=== PATIENT | female | born 1965 | race Caucasian/White ===

== ENCOUNTER → 2016-09-08 | Outpatient (CLI) | payer OTHER ==
--- NOTE | 2016-09-09 09:06 | MM ---
Reason for exam: screening (asymptomatic). Last mammogram was performed 1 year and 1 month ago. History: Patient is postmenopausal. Family history of breast cancer in maternal aunt, breast cancer in maternal grandmother, and breast cancer in mother. Benign left US cyst aspiration of the left breast, April 15, 2009. Benign left US cyst aspiration of the left breast, August 07, 2007. Excisional biopsy of the left breast. Took estrogen for 14 years beginning at age 29. Physical Findings: A clinical breast exam by your physician is recommended on an annual basis and results should be correlated with mammographic findings. MG Screening Mammo w CAD Bilateral CC and MLO view(s) were taken. Prior study comparison: July 28, 2015, bilateral MG screening mammo w CAD. November 19, 2013, left breast MG work up mamm w CAD LT. March 14, 2012, bilateral digital screening mammo w/CAD. There are scattered fibroglandular densities. There is chronic nodularity bilaterally. There is no discrete abnormality. ASSESSMENT: Benign, BI-RAD 2 RECOMMENDATION: Routine screening mammogram of both breasts in 1 year.
== END | disposition home or self-care (01) ==
LOC: RADMAMWWP 07:53
PROVIDERS: ATTEND Family Medicine
DX: Z12.31 Encounter for screening mammogram for malignant neoplasm of breast (principal)

== ENCOUNTER 2016-12-02 09:31 | Day surgery (SDC) | payer OTHER ==
[2016-12-01 08:33] VITALS: BMI 34.3
[~2016-12-02 09:31] MED LIST: LACTATED RINGERS 1,000 ML IV SCH; LIDOCAINE 1% 20 ML VIAL (10MG/ML) FOR IV START INTRADERMA PRN
[2016-12-02 09:49] VITALS: TEMP 97
[2016-12-02] MEDS ORDERED: PROPOFOL 10 MG/ML 20 ML VIAL IV ONE (10:57)
[2016-12-02 11:29] VITALS: RESP 20
--- NOTE | 2016-12-02 11:31 | P.PCN ---
Date of Procedure: 12/02/16 Preoperative Diagnosis: Postoperative Diagnosis: Procedure(s) Performed: Procedure: Colonoscopy and biopsy. Preoperative diagnosis: Screening for neoplasia. Postoperative diagnosis: Flat polypoid area in the rectum, probably representing early tubulovillous adenoma, biopsy obtained, otherwise, exam to the cecum within normal limits. Preparation: HalfLytely prep. Sedation: Was provided by anesthesia. Brief clinical history: The patient is a 51-year-old female who is scheduled for this evaluation for screening for neoplasia age being her risk factor. She has no abdominal complaints, bleeding or anemia. No family history of colon cancer. This would be her first colonoscopy. Procedure: With the patient on her left lateral decubitus position and after informed consent and adequate sedation, the perianal area was inspected and it did not show any fissures or fistulas. There were no masses felt on digital rectal examination. The Olympus CFQ 160L video colonoscope was then inserted in the rectum in the usual fashion and advanced to the cecum. There was a flat polypoid area in the rectum, very close to the anorectal junction, measuring around 2 or 3 cm in largest dimension probably representing early tubulovillous adenoma. This was biopsied. No other polyps or tumors were seen. I retroflexed the endoscope in the rectum before the endoscope was withdrawn. The patient tolerated the procedure well. Plan: I summarized the findings to the patient. Based on the pathology results , I would consider future exam for the purpose of polypectomy and argon plasma coagulation of that area. I will keep you updated on her progress. Implants: Indications for Procedure: Operative Findings: Description of Procedure:
[2016-12-02 11:50] VITALS: BP 144/93; PULSE 75
== END 2016-12-02 12:07 | disposition home or self-care (01) ==
LOC: ORWHC2ENDO 09:31
DX: Z12.11 Encounter for screening for malignant neoplasm of colon (principal); D12.8 Benign neoplasm of rectum; I10 Essential (primary) hypertension; E78.5 Hyperlipidemia, unspecified; E07.9 Disorder of thyroid, unspecified; K21.9 Gastro-esophageal reflux disease without esophagitis; Z88.5 Allergy status to narcotic agent; Z88.1 Allergy status to other antibiotic agents; Z88.8 Allergy status to other drugs, medicaments and biological substances; Z79.899 Other long term (current) drug therapy
CPT/HCPCS: 45380; 88305; J2704

== ENCOUNTER 2017-01-31 11:29 | Emergency (ER) | payer OTHER ==
[2017-01-31] MEDS ORDERED: KETOROLAC 60 MG/2 ML VIAL IVP STA (11:38)
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
[2017-01-31 13:10] LABS: Appearance,Urine Cloudy (Clear); Bacteria,Urine Few /hpf; Bilirubin,Urine Negative (Negative); Glucose,Urine (UA) Negative (Negative); Ketones,Urine Negative (Negative); Leukocyte Esterase,Urine Negative (Negative); Mucus,Urine Rare /hpf; Nitrite,Urine Negative (Negative); PH, Urine 5.5 (5.0-8.0); Particle Count 1147; Protein,Urine Negative (Negative); RBC,Urine 1 /hpf (0-5); Specific Gravity,Urine 1.006 (1.001-1.035); Squamous Epithelial Cell,Urine 1 /hpf (0-4); UA Billing (MACRO vs. MICRO) MICRO; Urobilinogen,Urine <2.0 mg/dL (<2.0); WBC,Urine 3 /hpf (0-5)
[2017-01-31 13:35] VITALS: BP 179/73; PULSE 66; RESP 16; TEMP 97.9
== END 2017-01-31 13:46 | disposition home or self-care (01) ==
LOC: EC 11:29
DX: S50.11XA Contusion of right forearm, initial encounter (principal); S10.91XA Abrasion of unspecified part of neck, initial encounter; S40.811A Abrasion of right upper arm, initial encounter; S20.311A Abrasion of right front wall of thorax, initial encounter; I45.81 Long QT syndrome; E07.9 Disorder of thyroid, unspecified; I10 Essential (primary) hypertension; F17.200 Nicotine dependence, unspecified, uncomplicated; Z79.899 Other long term (current) drug therapy; Z88.5 Allergy status to narcotic agent; Z88.8 Allergy status to other drugs, medicaments and biological substances; V47.5XXA Car driver injured in collision with fixed or stationary object in traffic accident, initial encounter; Y92.410 Unspecified street and highway as the place of occurrence of the external cause
CPT/HCPCS: 96374 ×2; 99285 ×2; 93005; 81001; 71020; 72050; J1885

== ENCOUNTER 2017-05-10 12:43 | Day surgery (SDC) | payer OTHER ==
[2017-05-06 16:11] VITALS: BMI 30.4
[~2017-05-10 12:43] MED LIST changes: -LIDOCAINE 1% 20 ML VIAL (10MG/ML) FOR IV START INTRADERMA PRN
[2017-05-10 14:15] VITALS: RESP 16; TEMP 98.2
[2017-05-10] MEDS ORDERED: LIDOCAINE 1% 20 ML VIAL (10MG/ML) FOR IV START INTRADERMA ONE (14:16)
[2017-05-10] MEDS ORDERED: PROPOFOL 10 MG/ML 20 ML VIAL IV ONE (14:54)
[2017-05-10] MEDS ORDERED: LIDOCAINE 1% INJ 10MG/ML (20 ML MDV) ONE (14:54)
--- NOTE | 2017-05-10 15:50 | P.PCN ---
Date of Procedure: 05/10/17 Procedure(s) Performed: Procedure: Flexible sigmoidoscopy and polypectomy with argon plasma coagulation of flat polyp. Preoperative diagnosis: History of rectal polyp. Postoperative diagnosis: Flat reported area in the rectum as previously described removed piecemeal with the snare followed by argon plasma coagulation. Preparation: HalfLytely prep. Sedation: Was provided by anesthesia. Brief clinical history: The patient is a 52 year old female who in November of this year underwent a colonoscopy for screening for neoplasia and was found to have a flat polypoid area in the rectum the biopsies of which showed tubular adenoma with serrated features. The patient is returned to have this area removed with the snare and for application of argon plasma because because of its flat and spread out nature. Procedure: With the patient on her left lateral decubitus position and after informed consent and adequate sedation, the perianal area was inspected and it did not show any fissures or fistulas. There were no masses felt on digital rectal examination. The Olympus CFQ 160L video colonoscope was then inserted in the rectum in the usual fashion and advanced to the mid and proximal sigmoid. I lavaged those areas well in preparation for the polypectomy. There was a flat polypoid area noted in the rectum as previously described very close to the anorectal junction which appeared to be spread out for at least 3 cm with bumpy polyploid features. Its maximal dimension could have even been close to 4 or 5 cm. No other abnormalities were noted in the rectum and in the sigmoid. No attempts were made to examine more proximal aspects of the colon since she had a recent colonoscopy. At this point, I proceeded to remove the polyp piecemeal using the snare. Multiple small and larger pieces of tissue were removed in this fashion and suctioned. Once the whole area flattened out following piecemeal polypectomy, I proceeded to use the straight catheter to apply argon plasma coagulation using 60 W energy. Good hemostasis was accomplished then the endoscope was withdrawn. The patient tolerated the procedure well. Plan: The patient was reassured. Will await pathology results and anticipate repeating this exam in around 6 months. I will keep you updated on her progress.
[2017-05-10 16:01] VITALS: BP 102/68; PULSE 74
== END 2017-05-10 16:30 | disposition home or self-care (01) ==
LOC: ORWHC2ENDO 12:43
DX: Z12.11 Encounter for screening for malignant neoplasm of colon (principal); D12.8 Benign neoplasm of rectum; Z86.010 Personal history of colon polyps; K21.9 Gastro-esophageal reflux disease without esophagitis; I10 Essential (primary) hypertension; E07.9 Disorder of thyroid, unspecified; F31.9 Bipolar disorder, unspecified; Z79.899 Other long term (current) drug therapy; Z88.5 Allergy status to narcotic agent; Z88.8 Allergy status to other drugs, medicaments and biological substances
CPT/HCPCS: 88305; 45338; J2001; J2704; 45334

== ENCOUNTER → 2017-09-09 | Outpatient (CLI) | payer BC ==
--- NOTE | 2017-09-12 11:43 | MM ---
Reason for exam: screening (asymptomatic). Last mammogram was performed 1 year ago. History: Patient is postmenopausal. Family history of breast cancer in maternal aunt and breast cancer in mother at age 75. Benign left US cyst aspiration of the left breast, April 15, 2009. Benign left US cyst aspiration of the left breast, August 07, 2007. Excisional biopsy of the left breast. Took estrogen for 14 years beginning at age 29. Physical Findings: A clinical breast exam by your physician is recommended on an annual basis and results should be correlated with mammographic findings. MG 3D Screening Mammo W/Cad Bilateral CC and MLO view(s) were taken. Prior study comparison: September 08, 2016, bilateral MG screening mammo w CAD. July 28, 2015, bilateral MG screening mammo w CAD. There are scattered fibroglandular densities. Finding: There is stable architectural distortion in the left breast consistent with previous surgery. There is a 4mm nodule in the right central breast. ASSESSMENT: Incomplete: need additional imaging evaluation, BI-RAD 0 RECOMMENDATION: Special view mammogram and ultrasound of the right breast. [facility] will attempt to contact patient to return for supplemental views and ultrasound.
== END | disposition home or self-care (01) ==
LOC: RADMAMWWP 07:02
PROVIDERS: ATTEND Family Medicine
DX: Z12.31 Encounter for screening mammogram for malignant neoplasm of breast (principal)
CPT/HCPCS: 77063; 77067

== ENCOUNTER → 2017-09-27 | Outpatient (CLI) | payer BC ==
--- NOTE | 2017-09-27 10:00 | MM ---
Reason for exam: additional evaluation requested from abnormal screening. Last mammogram was performed 1 month ago. History: Patient is postmenopausal. Family history of breast cancer in maternal aunt and breast cancer in mother at age 75. Benign left US cyst aspiration of the left breast, April 15, 2009. Benign left US cyst aspiration of the left breast, August 07, 2007. Excisional biopsy of the left breast. Took estrogen for 14 years beginning at age 29. Physical Findings: Nurse did not find any significant physical abnormalities on exam. MG Work Up Mamm w CAD RT Spot compression CC and spot compression MLO view(s) were taken of the right breast. Prior study comparison: September 09, 2017, bilateral MG 3d screening mammo w/cad. September 08, 2016, bilateral MG screening mammo w CAD. There are scattered fibroglandular densities. 5-7mm circumscribed mass central 12 o'clock persists. Other subtle nodularity is present. These results were verbally communicated with the patient and result sheet given to the patient on 09/27/17. ASSESSMENT: Incomplete: need additional imaging evaluation, BI-RAD 0 RECOMMENDATION: Ultrasound of the right breast.
--- NOTE | 2017-09-27 10:03 | USB ---
Reason for exam: additional evaluation requested from abnormal screening. History: Patient is postmenopausal. Family history of breast cancer in maternal aunt and breast cancer in mother at age 75. Benign left US cyst aspiration of the left breast, April 15, 2009. Benign left US cyst aspiration of the left breast, August 07, 2007. Excisional biopsy of the left breast. Took estrogen for 14 years beginning at age 29. US Breast Workup RT Right breast ultrasound includes all four quadrants, the retroareolar region and axilla. Finding demonstrates a 0.8 x 0.9 x 0.2cm cystic lesion at 12 o'clock, may correspond to the mammographic finding, a 0.6 x 0.2 x 0.5cm cystic lesion at 7 o'clock, a 1.3 x 1.8 x 0.5cm hyperechoic, vascular lesion at 7 o'clock possible angiolipoma, 6 month follow up recommended , a 0.8 x 1.0 x 0.4cm mixed lesion at 7 o'clock, 6 month follow up recommended and a 0.4 x 0.5 x 0.4cm mixed lesion at 10 o'clock, probably cystic, 6 month follow up recommended. These results were verbally communicated with the patient and result sheet given to the patient on 09/27/17. ASSESSMENT: Probably benign, BI-RAD 3 RECOMMENDATION: Follow-up diagnostic mammogram and ultrasound of the right breast in 6 months.
== END | disposition home or self-care (01) ==
LOC: RADMAMWWP 08:15
PROVIDERS: ATTEND Family Medicine
DX: R92.8 Other abnormal and inconclusive findings on diagnostic imaging of breast (principal)
CPT/HCPCS: 77065

== ENCOUNTER → 2018-01-30 | Outpatient (CLI) | payer BC ==
--- NOTE | 2018-01-31 07:04 | MM ---
Reason for exam: follow-up at short interval from prior study. Last mammogram was performed 4 months ago. History: Patient is postmenopausal. Family history of breast cancer in maternal aunt and breast cancer in mother at age 75. Benign left US cyst aspiration of the left breast, April 15, 2009. Benign left US cyst aspiration of the left breast, August 07, 2007. Excisional biopsy of the left breast. Took estrogen for 14 years beginning at age 29. Physical Findings: Nurse did not find any significant physical abnormalities on exam. MG Diagnostic Mammo RT w CAD CC and MLO view(s) were taken of the right breast. Prior study comparison: September 27, 2017, right breast MG work up mamm w CAD RT. September 09, 2017, bilateral MG 3d screening mammo w/cad. The breast tissue is heterogeneously dense. This may lower the sensitivity of mammography. Finding: There is a lesion in the upper inner quadrant, middle depth of the right breast, stable from the prior exam. These results were verbally communicated with the patient and result sheet given to the patient on 01/30/18. ASSESSMENT: Probably benign, BI-RAD 3 RECOMMENDATION: Follow-up diagnostic mammogram of both breasts in 6 months.
--- NOTE | 2018-01-31 07:11 | USB ---
Reason for exam: follow-up at short interval from prior study. History: Patient is postmenopausal. Family history of breast cancer in maternal aunt and breast cancer in mother at age 75. Benign left US cyst aspiration of the left breast, April 15, 2009. Benign left US cyst aspiration of the left breast, August 07, 2007. Excisional biopsy of the left breast. Took estrogen for 14 years beginning at age 29. US Breast RT Right complete breast ultrasound includes all four quadrants, the retroareolar region and axilla. Finding demonstrates a 0.4 x 0.4 x 0.5 cm oval cystic lesion at 12 o'clock, benign. A 1.2 x 0.7 x 2.2 cm oval mixed lesion at 8 o'clock , continue 6 month follow up. And a 0.4 x 0.3 x 0.3 cm oval cystic lesion at 10 o'clock, benign. These results were verbally communicated with the patient and result sheet given to the patient on 01/30/18. ASSESSMENT: Probably benign, BI-RAD 3 RECOMMENDATION: Ultrasound of the right breast in 6 months. Patient will be due for her mammogram in August 2018.
== END | disposition home or self-care (01) ==
LOC: RADMAMWWP 13:32
PROVIDERS: ATTEND Family Medicine
DX: R92.8 Other abnormal and inconclusive findings on diagnostic imaging of breast (principal)
CPT/HCPCS: 77065

== ENCOUNTER → 2018-10-31 | Outpatient (CLI) | payer BC ==
--- NOTE | 2018-11-01 08:55 | MM ---
Reason for exam: screening (asymptomatic). Last mammogram was performed 9 months ago. History: Patient is postmenopausal. Family history of breast cancer in maternal aunt and breast cancer in mother at age 75. Benign left US cyst aspiration of the left breast, April 15, 2009. Benign left US cyst aspiration of the left breast, August 07, 2007. Excisional biopsy of the left breast. Took estrogen for 14 years beginning at age 29. Physical Findings: A clinical breast exam by your physician is recommended on an annual basis and results should be correlated with mammographic findings. MG Screening Mammo w CAD Bilateral CC and MLO view(s) were taken. Prior study comparison: January 30, 2018, right breast MG diagnostic mammo RT w CAD. September 27, 2017, right breast MG work up mamm w CAD RT. The breast tissue is heterogeneously dense. This may lower the sensitivity of mammography. There is a stable low density right central outer mass at middle depth. No suspicious abnormality. Post biopsy change on the left. No significant changes when compared with prior studies. ASSESSMENT: Benign, BI-RAD 2 RECOMMENDATION: Routine screening mammogram of both breasts in 1 year.
== END | disposition home or self-care (01) ==
LOC: RADMAMWWP 10:42
PROVIDERS: ATTEND Family Medicine
DX: Z12.31 Encounter for screening mammogram for malignant neoplasm of breast (principal)
CPT/HCPCS: 77067

== ENCOUNTER → 2020-10-01 | Outpatient (CLI) | payer BC ==
--- NOTE | 2020-10-06 09:08 | MM ---
Reason for exam: screening (asymptomatic). Last mammogram was performed 1 year and 11 months ago. History: Patient is postmenopausal. Family history of breast cancer in maternal aunt and breast cancer in mother at age 75. Benign left US cyst aspiration of the left breast, April 15, 2009. Benign left US cyst aspiration of the left breast, August 07, 2007. Excisional biopsy of the left breast. Took estrogen for 14 years beginning at age 29. Physical Findings: A clinical breast exam by your physician is recommended on an annual basis and results should be correlated with mammographic findings. MG 3D Screening Mammo W/Cad Bilateral CC and MLO view(s) were taken. Prior study comparison: October 31, 2018, bilateral MG screening mammo w CAD. January 30, 2018, right breast MG diagnostic mammo RT w CAD. There are scattered fibroglandular densities. Finding: There are intermediate concern, suspicious coarse heterogeneous, grouped/clustered calcifications in the upper outer quadrant, middle position of the right breast. New finding since October 31, 2018 and January 30, 2018. ASSESSMENT: Incomplete: need additional imaging evaluation, BI-RAD 0 RECOMMENDATION: Special view mammogram of the right breast. [facility] will attempt to contact patient to return for supplemental views.
== END | disposition home or self-care (01) ==
LOC: RADMAMWWP 13:31
PROVIDERS: ATTEND Family Medicine
DX: Z12.31 Encounter for screening mammogram for malignant neoplasm of breast (principal); Z80.3 Family history of malignant neoplasm of breast; Z78.0 Asymptomatic menopausal state
CPT/HCPCS: 77063; 77067

== ENCOUNTER → 2020-10-14 | Outpatient (CLI) | payer BC ==
--- NOTE | 2020-10-15 08:09 | MM ---
Reason for exam: additional evaluation requested from abnormal screening. Last mammogram was performed less than 1 month ago. History: Patient is postmenopausal. Family history of breast cancer in maternal aunt and breast cancer in mother at age 75. Benign left US cyst aspiration of the left breast, April 15, 2009. Benign left US cyst aspiration of the left breast, August 07, 2007. Excisional biopsy of the left breast. Took estrogen for 14 years beginning at age 29. Physical Findings: Nurse did not find any significant physical abnormalities on exam. MG Work Up Mamm w CAD RT CC with magnification, LM with magnification, and LM view(s) were taken of the right breast. Prior study comparison: October 01, 2020, bilateral MG 3d screening mammo w/cad. October 31, 2018, bilateral MG screening mammo w CAD. There are scattered fibroglandular densities. Finding: There are dystrophic, round, grouped/clustered calcifications in the lower outer quadrant, middle position of the right breast. Suspected oil cyst. There is a chronic nodularity in the right breast. These results were verbally communicated with the patient and result sheet given to the patient on 10/14/20. ASSESSMENT: Probably benign, BI-RAD 3 RECOMMENDATION: Follow-up diagnostic mammogram of the right breast in 6 months.
== END | disposition home or self-care (01) ==
LOC: RADMAMWWP 15:00
PROVIDERS: ATTEND Family Medicine
DX: N63.10 Unspecified lump in the right breast, unspecified quadrant (principal); R92.8 Other abnormal and inconclusive findings on diagnostic imaging of breast; R92.1 Mammographic calcification found on diagnostic imaging of breast
CPT/HCPCS: 77065

== ENCOUNTER → 2020-10-29 | Outpatient (CLI) | payer BC ==
--- NOTE | 2020-10-30 07:18 | US ---
EXAMINATION TYPE: US kidneys/renal and bladder DATE OF EXAM: 10/29/2020 COMPARISON: NONE CLINICAL HISTORY: N18.2 Chronic kidney disease stage 2. EXAM MEASUREMENTS: Right Kidney: 9.5 x 4.9 x 4.1 cm Left Kidney: 9.6 x 5.8 x 5.1 cm Post Void Residual Volume: 16.1 mL Right Kidney: No hydronephrosis or masses seen Left Kidney: No hydronephrosis seen; hyperechoic parallel vascular robertson noted mid cortex. Bladder: wnl Bilateral Jets seen: yes Normal Post Void Residual: yes There is no evidence for hydronephrosis at this point in time. No nephrolithiasis is seen. No susu s are identified. The urinary bladder is anechoic. Bilateral ureteral jets are seen. IMPRESSION: Renal vascular calcifications. Otherwise unremarkable study.
== END | disposition home or self-care (01) ==
LOC: RADUSWWP 15:47
PROVIDERS: ATTEND Family Medicine
DX: N18.2 Chronic kidney disease, stage 2 (mild) (principal); I70.1 Atherosclerosis of renal artery
CPT/HCPCS: 76770

== ENCOUNTER → 2021-04-03 | Outpatient (CLI) | payer BC ==
--- NOTE | 2021-04-03 13:41 | MM ---
Reason for exam: follow-up at short interval from prior study. Last mammogram was performed 6 months ago. History: Patient is postmenopausal. Family history of breast cancer in maternal aunt and breast cancer in mother at age 75. Benign left US cyst aspiration of the left breast, April 15, 2009. Benign left US cyst aspiration of the left breast, August 07, 2007. Excisional biopsy of the left breast. Took estrogen for 14 years beginning at age 29. Physical Findings: Nurse did not find any significant physical abnormalities on exam. MG 3D Diag Mammo W/Cad RT CC and MLO view(s) were taken of the right breast. Prior study comparison: October 01, 2020, bilateral MG 3d screening mammo w/cad. October 31, 2018, bilateral MG screening mammo w CAD. The breast tissue is heterogeneously dense. This may lower the sensitivity of mammography. Finding: There are dystrophic, round, grouped/clustered calcifications in the upper outer quadrant, anterior position of the right breast. There is a chronic nodularity in the right breast. There is no discrete abnormality. These results were verbally communicated with the patient and result sheet given to the patient on 04/03/21. ASSESSMENT: Benign, BI-RAD 2 RECOMMENDATION: Return to routine screening mammogram schedule for both breasts. Back on schedule.
== END | disposition home or self-care (01) ==
LOC: RADMAMWWP 12:22
PROVIDERS: ATTEND Family Medicine
DX: R92.1 Mammographic calcification found on diagnostic imaging of breast (principal); Z80.3 Family history of malignant neoplasm of breast
CPT/HCPCS: 77061; 77065

== ENCOUNTER → 2021-09-28 | Outpatient (CLI) | payer OTHER ==
--- NOTE | 2021-09-30 11:58 | MM ---
Reason for exam: screening (asymptomatic). Last mammogram was performed 6 months ago. History: Patient is postmenopausal. Family history of breast cancer in maternal aunt and breast cancer in mother at age 75. Benign left US cyst aspiration of the left breast, April 15, 2009. Benign left US cyst aspiration of the left breast, August 07, 2007. Excisional biopsy of the left breast. Took estrogen for 14 years beginning at age 29. Physical Findings: A clinical breast exam by your physician is recommended on an annual basis and results should be correlated with mammographic findings. MG 3D Screening Mammo W/Cad Bilateral CC and MLO view(s) were taken. Prior study comparison: April 03, 2021, right breast MG 3d diag mammo w/cad RT. October 14, 2020, right breast MG work up mamm w CAD RT. There are scattered fibroglandular densities. There is chronic nodularity bilaterally. Post excisional change medial left breast. Benign oil cyst calcifications on the right. No significant changes when compared with prior studies. ASSESSMENT: Benign, BI-RAD 2 RECOMMENDATION: Routine screening mammogram of both breasts in 1 year.
== END | disposition home or self-care (01) ==
LOC: RADMAMWWP 15:52
PROVIDERS: ATTEND Family Medicine
DX: Z12.31 Encounter for screening mammogram for malignant neoplasm of breast (principal); Z78.0 Asymptomatic menopausal state; Z80.3 Family history of malignant neoplasm of breast
CPT/HCPCS: 77063; 77067

== ENCOUNTER 2021-10-06 21:39 | Inpatient (IN) | payer OTHER ==
[2021-10-06] MEDS ORDERED: ACETAMINOPHEN TAB 325 MG TAB PO STA (23:04)
[2021-10-06] MEDS: SODIUM CHLORIDE 0.9% 500 ML 500 ML IV SCH ×2 (23:17→23:59)
[2021-10-07] MEDS: SODIUM CHLORIDE 0.9% 1,000 ML IV SCH ×4 (00:15→20:38)
[2021-10-07 00:22] LABS: Basophils % (A) 0 %; Eosinophils # (A) 0.1 k/uL (0-0.7); Eosinophils % (A) 2 %; HCT 41.3 % (34.0-46.0); HGB 13.9 gm/dL (11.4-16.0); Lymphocytes # (A) 0.9 k/uL (1.0-4.8); Lymphocytes % (A) 16 %; MCH 33.2 pg (25.0-35.0); MCHC 33.6 g/dL (31.0-37.0); MCV 98.8 fL (80.0-100.0); Mean Platelet Volume 9.1; Monocytes # (A) 0.2 k/uL (0-1.0); Monocytes % (A) 4 %; Neutrophils # (A) 4.4 k/uL (1.3-7.7); Neutrophils % (A) 76 %; Platelet Count 209 k/uL (150-450); RBC 4.19 m/uL (3.80-5.40); RDW 13.7 % (11.5-15.5); WBC 5.8 k/uL (3.8-10.6)
--- NOTE | 2021-10-07 00:27 | US ---
EXAMINATION TYPE: US thyroid st tissue head/neck DATE OF EXAM: 10/07/2021 COMPARISON: NONE CLINICAL HISTORY: mass, L anterior neck. Patient presents with fever and left neck lump. Multiple lymph nodes seen left lateral neck at area of lump/tenderness. Largest measuring 1.9 x 1.3 x 1.5 cm. Right lateral neck scanned for comparison; no lymphadenopathy seen. IMPRESSION: The left side of the neck is scanned and there are multiple lymph nodes demonstrated in the largest m easures 19 x 13 mm. No evidence of an abscess. IMPRESSION: Left-sided cervical lymphadenopathy. Thyroid gland not evaluated.
--- NOTE | 2021-10-07 00:29 | XR ---
EXAMINATION TYPE: XR chest 2V DATE OF EXAM: 10/07/2021 COMPARISON: 01/31/2017 HISTORY: Fever TECHNIQUE: 2 views FINDINGS: Heart is normal. Lungs are clear of infiltrate. There is no heart failure. There are no hil ar masses. Bony thorax is intact. IMPRESSION: No active cardiopulmonary disease. No change.
[2021-10-07 00:34] LABS: Albumin 3.8 g/dL (3.5-5.0); Calcium 8.6 mg/dL (8.4-10.2); Potassium 3.8 mmol/L (3.5-5.1); Total Bilirubin 0.8 mg/dL (0.2-1.3); Total Protein 6.6 g/dL (6.3-8.2)
[2021-10-07 00:35] LABS: INR 0.9 (<1.2); Partial Thromboplastin Time 26.6 sec (22.0-30.0); Prothrombin Time 10.2 sec (9.0-12.0)
[2021-10-07 01:31] LABS: Appearance,Urine Cloudy (Clear); Bacteria,Urine Many /hpf; Bilirubin,Urine Negative (Negative); Blood,Urine Trace (Negative); Color,Urine Yellow; Glucose,Urine (UA) Negative (Negative); Ketones,Urine Negative (Negative); Leukocyte Esterase,Urine Negative (Negative); Nitrite,Urine Negative (Negative); Protein,Urine Trace (Negative); RBC,Urine 2 /hpf (0-5); Specific Gravity,Urine 1.006 (1.001-1.035); Squamous Epithelial Cell,Urine 5 /hpf (0-4); Urobilinogen,Urine <2.0 mg/dL (<2.0); WBC,Urine 8 /hpf (0-5)
[2021-10-07] MEDS ORDERED: SODIUM CHLORIDE 0.9% 500 ML 500 ML IV ONE (02:43)
--- NOTE | 2021-10-07 07:16 | ED ---
Fever HPI - General Chief Complaint: Fever Stated Complaint: Fever, Neck Pain Time Seen by Provider: 10/06/21 22:22 Source: patient Mode of arrival: ambulatory Limitations: no limitations - History of Present Illness Initial Comments: This patient is a 56-year-old woman who presents to be evaluated for fever and cough. She has not had congestion. The cough is largely nonproductive. She is not dyspneic and there is no chest pain. These symptoms have started over the course of today. The patient prior to that had noted a swelling on the left side of her anterior neck. The swelling has been there approximate 3 days. There is no dysphagia or dysphonia. MD Complaint: fever -: hour(s) Temperature Source: oral Associated Symptoms: sore throat Treatments Prior to Arrival: none - Related Data Home Medications Medication Instructions Recorded Confirmed LORazepam [Ativan] 1 mg PO DAILY PRN 12/26/15 10/06/21 Levothyroxine Sodium [Synthroid] 100 mcg PO DAILY 12/01/16 10/06/21 QUEtiapine FUMARATE 400 mg PO HS 12/01/16 10/06/21 lisinopriL [Zestril] 10 mg PO DAILY 12/01/16 10/06/21 lamoTRIgine [LaMICtal] 200 mg PO HS 10/06/21 10/06/21 Previous Rx's Medication Instructions Recorded lamoTRIgine [LaMICtal] 150 mg PO DAILY #45 tab 01/06/16 Allergies Allergy/AdvReac Type Severity Reaction Status Date / Time chlorpromazine HCl Allergy Unknown Verified 10/06/21 23:09 [From Thorazine] codeine Allergy Unknown Verified 10/06/21 23:09 sulfamethoxazole Allergy Unknown Verified 10/06/21 23:09 [From Septra] trimethoprim [From Septra] Allergy Unknown Verified 10/06/21 23:09 Review of Systems ROS Statement: Those systems with pertinent positive or pertinent negative responses have been documented in the HPI. ROS Other: All systems not noted in ROS Statement are negative. Constitutional: Reports: fever, chills. Denies: weakness Eyes: Denies: eye pain, eye discharge ENT: Reports: throat pain. Denies: ear pain, dental pain, congestion Respiratory: Reports: as per HPI, cough. Denies: dyspnea, wheezes Cardiovascular: Denies: chest pain, palpitations, edema Gastrointestinal: Denies: abdominal pain, vomiting, diarrhea Genitourinary: Denies: dysuria, hematuria Musculoskeletal: Denies: back pain Skin: Denies: rash Neurological: Denies: headache, weakness, numbness Past Medical History Past Medical History: GERD/Reflux, Hypertension, Thyroid Disorder Additional Past Medical History / Comment(s): hx bronchitis, constipation, History of Any Multi-Drug Resistant Organisms: None Reported Past Surgical History: Section, Ear Surgery, Hysterectomy Additional Past Surgical History / Comment(s): Tubes bilateral ears. RT EAR SX X2 Past Anesthesia/Blood Transfusion Reactions: No Reported Reaction Past Psychological History: Anxiety, Bipolar, Depression Smoking Status: Current every day smoker Past Alcohol Use History: None Reported Past Drug Use History: None Reported - Past Family History Father Additional Family Medical History / Comment(s): Mother at age 70 from coronary artery disease. Mother Family Medical History: Cancer Additional Family Medical History / Comment(s): . Brother(s) Additional Family Medical History / Comment(s): Unable to obtain brother and sister history. Patient has 2 sons are healthy. General Exam Limitations: no limitations General appearance: alert, in no apparent distress Head exam: Present: atraumatic, normocephalic Eye exam: Present: normal appearance. Absent: scleral icterus, conjunctival injection ENT exam: Present: normal oropharynx. Absent: TM's normal bilaterally Neck exam: Present: normal inspection, full ROM, lymphadenopathy (There is a tender swollen left anterior cervical node). Absent: meningismus Respiratory exam: Present: normal lung sounds bilaterally. Absent: respiratory distress, wheezes, rales, rhonchi, stridor Cardiovascular Exam: Present: normal rhythm, tachycardia, normal heart sounds. Absent: systolic murmur, diastolic murmur, rubs, gallop GI/Abdominal exam: Present: soft. Absent: distended, tenderness, guarding, rebound, rigid, mass, pulsatile mass Extremities exam: Present: normal inspection, normal capillary refill. Absent: pedal edema, calf tenderness Back exam: Present: normal inspection. Absent: CVA tenderness (R), CVA tenderness (L) Neurological exam: Present: alert Skin exam: Present: warm, dry, intact, normal color. Absent: rash Course Vital Signs 10/06/21 10/06/21 10/07/21 21:42 22:45 00:01 Temperature 102.4 F H 99.8 F H Pulse Rate 120 H 106 H 99 Respiratory 20 18 18 Rate Blood Pressure 102/64 93/48 84/51 O2 Sat by Pulse 95 93 L 95 Oximetry 10/07/21 10/07/21 10/07/21 01:01 02:34 04:00 Temperature 98.3 F Pulse Rate 80 75 81 Respiratory 18 18 18 Rate Blood Pressure 97/52 79/53 97/63 O2 Sat by Pulse 99 99 99 Oximetry 10/07/21 10/07/21 06:07 06:54 Temperature Pulse Rate 75 80 Respiratory 18 18 Rate Blood Pressure 106/64 113/69 O2 Sat by Pulse 100 99 Oximetry Medical Decision Making - Medical Decision Making Patient's 56-year-old woman presenting with fever with no known source. Workup reveals only the enlarged anterior cervical node and the fact that patient has some acute kidney injury. Patient also is borderline hypotensive following fluid administration and therefore will be admitted for one day to see if the source of fever can be determined and for antibiotic effect. - Lab Data Result diagrams: 10/06/21 23:35 10/06/21 23:35 Lab Results 10/06/21 10/06/21 10/06/21 Range/Units 23:35 23:35 23:35 WBC 5.8 (3.8-10.6) k/uL RBC 4.19 (3.80-5.40) m/uL Hgb 13.9 (11.4-16.0) gm/dL Hct 41.3 (34.0-46.0) % MCV 98.8 (80.0-100.0) fL MCH 33.2 (25.0-35.0) pg MCHC 33.6 (31.0-37.0) g/dL RDW 13.7 (11.5-15.5) % Plt Count 209 (150-450) k/uL MPV 9.1 Neutrophils % 76 % Lymphocytes % 16 % Monocytes % 4 % Eosinophils % 2 % Basophils % 0 % Neutrophils # 4.4 (1.3-7.7) k/uL Lymphocytes # 0.9 L (1.0-4.8) k/uL Monocytes # 0.2 (0-1.0) k/uL Eosinophils # 0.1 (0-0.7) k/uL Basophils # 0.0 (0-0.2) k/uL PT 10.2 (9.0-12.0) sec INR 0.9 (<1.2) APTT 26.6 (22.0-30.0) sec Sodium 136 L (137-145) mmol/L Potassium 3.8 (3.5-5.1) mmol/L Chloride 105 (98-107) mmol/L Carbon Dioxide 25 (22-30) mmol/L Anion Gap 6 mmol/L BUN 18 H (7-17) mg/dL Creatinine 1.66 H (0.52-1.04) mg/dL Est GFR (CKD-EPI)AfAm 39 (>60 ml/min/1.73 sqM) Est GFR (CKD-EPI)NonAf 34 (>60 ml/min/1.73 sqM) Glucose 119 H (74-99) mg/dL Plasma Lactic Acid Marcos (0.7-2.0) mmol/L Calcium 8.6 (8.4-10.2) mg/dL Total Bilirubin 0.8 (0.2-1.3) mg/dL AST 25 (14-36) U/L ALT 13 (4-34) U/L Alkaline Phosphatase 71 (38-126) U/L Troponin I (0.000-0.034) ng/mL Total Protein 6.6 (6.3-8.2) g/dL Albumin 3.8 (3.5-5.0) g/dL Urine Color Urine Appearance (Clear) Urine pH (5.0-8.0) Ur Specific [place] (1.001-1.035) Urine Protein (Negative) Urine Glucose (UA) (Negative) Urine Ketones (Negative) Urine Blood (Negative) Urine Nitrite (Negative) Urine Bilirubin (Negative) Urine Urobilinogen (<2.0) mg/dL Ur Leukocyte Esterase (Negative) Urine RBC (0-5) /hpf Urine WBC (0-5) /hpf Ur Squamous Epith Cells (0-4) /hpf Urine Bacteria (None) /hpf Coronavirus (PCR) (Not Detectd) Influenza Type A RNA (Not Detectd) Influenza Type B (PCR) (Not Detectd) 10/06/21 10/06/21 10/07/21 Range/Units 23:35 23:35 00:59 WBC (3.8-10.6) k/uL RBC (3.80-5.40) m/uL Hgb (11.4-16.0) gm/dL Hct (34.0-46.0) % MCV (80.0-100.0) fL MCH (25.0-35.0) pg MCHC (31.0-37.0) g/dL RDW (11.5-15.5) % Plt Count (150-450) k/uL MPV Neutrophils % % Lymphocytes % % Monocytes % % Eosinophils % % Basophils % % Neutrophils # (1.3-7.7) k/uL Lymphocytes # (1.0-4.8) k/uL Monocytes # (0-1.0) k/uL Eosinophils # (0-0.7) k/uL Basophils # (0-0.2) k/uL PT (9.0-12.0) sec INR (<1.2) APTT (22.0-30.0) sec Sodium (137-145) mmol/L Potassium (3.5-5.1) mmol/L Chloride (98-107) mmol/L Carbon Dioxide (22-30) mmol/L Anion Gap mmol/L BUN (7-17) mg/dL Creatinine (0.52-1.04) mg/dL Est GFR (CKD-EPI)AfAm (>60 ml/min/1.73 sqM) Est GFR (CKD-EPI)NonAf (>60 ml/min/1.73 sqM) Glucose (74-99) mg/dL Plasma Lactic Acid Marcos 0.9 (0.7-2.0) mmol/L Calcium (8.4-10.2) mg/dL Total Bilirubin (0.2-1.3) mg/dL AST (14-36) U/L ALT (4-34) U/L Alkaline Phosphatase (38-126) U/L Troponin I <0.012 (0.000-0.034) ng/mL Total Protein (6.3-8.2) g/dL Albumin (3.5-5.0) g/dL Urine Color Yellow Urine Appearance Cloudy H (Clear) Urine pH 6.0 (5.0-8.0) Ur Specific [place] 1.006 (1.001-1.035) Urine Protein Trace H (Negative) Urine Glucose (UA) Negative (Negative) Urine Ketones Negative (Negative) Urine Blood Trace H (Negative) Urine Nitrite Negative (Negative) Urine Bilirubin Negative (Negative) Urine Urobilinogen <2.0 (<2.0) mg/dL Ur Leukocyte Esterase Negative (Negative) Urine RBC 2 (0-5) /hpf Urine WBC 8 H (0-5) /hpf Ur Squamous Epith Cells 5 H (0-4) /hpf Urine Bacteria Many H (None) /hpf Coronavirus (PCR) (Not Detectd) Influenza Type A RNA (Not Detectd) Influenza Type B (PCR) (Not Detectd) 10/07/21 10/07/21 10/07/21 Range/Units 02:30 02:35 05:28 WBC (3.8-10.6) k/uL RBC (3.80-5.40) m/uL Hgb (11.4-16.0) gm/dL Hct (34.0-46.0) % MCV (80.0-100.0) fL MCH (25.0-35.0) pg MCHC (31.0-37.0) g/dL RDW (11.5-15.5) % Plt Count (150-450) k/uL MPV Neutrophils % % Lymphocytes % % Monocytes % % Eosinophils % % Basophils % % Neutrophils # (1.3-7.7) k/uL Lymphocytes # (1.0-4.8) k/uL Monocytes # (0-1.0) k/uL Eosinophils # (0-0.7) k/uL Basophils # (0-0.2) k/uL PT (9.0-12.0) sec INR (<1.2) APTT (22.0-30.0) sec Sodium (137-145) mmol/L Potassium (3.5-5.1) mmol/L Chloride (98-107) mmol/L Carbon Dioxide (22-30) mmol/L Anion Gap mmol/L BUN (7-17) mg/dL Creatinine (0.52-1.04) mg/dL Est GFR (CKD-EPI)AfAm (>60 ml/min/1.73 sqM) Est GFR (CKD-EPI)NonAf (>60 ml/min/1.73 sqM) Glucose (74-99) mg/dL Plasma Lactic Acid Marcos (0.7-2.0) mmol/L Calcium (8.4-10.2) mg/dL Total Bilirubin (0.2-1.3) mg/dL AST (14-36) U/L ALT (4-34) U/L Alkaline Phosphatase (38-126) U/L Troponin I <0.012 (0.000-0.034) ng/mL Total Protein (6.3-8.2) g/dL Albumin (3.5-5.0) g/dL Urine Color Urine Appearance (Clear) Urine pH (5.0-8.0) Ur Specific [place] (1.001-1.035) Urine Protein (Negative) Urine Glucose (UA) (Negative) Urine Ketones (Negative) Urine Blood (Negative) Urine Nitrite (Negative) Urine Bilirubin (Negative) Urine Urobilinogen (<2.0) mg/dL Ur Leukocyte Esterase (Negative) Urine RBC (0-5) /hpf Urine WBC (0-5) /hpf Ur Squamous Epith Cells (0-4) /hpf Urine Bacteria (None) /hpf Coronavirus (PCR) Not Detected (Not Detectd) Influenza Type A RNA Not Detected (Not Detectd) Influenza Type B (PCR) Not Detected (Not Detectd) Disposition Clinical Impression: Fever, Lymphadenopathy of left cervical region Disposition: ADMITTED IP TO THIS HOSP Condition: Fair Referrals: Benjamin Pena MD [Primary Care Provider] - 1-2 days
[2021-10-07] MEDS ORDERED: NALOXONE 0.4 MG/ML 1 ML VIAL IV PRN (07:22)
--- NOTE | 2021-10-07 09:08 | P.HPIM ---
History of Present Illness H&P Date: 10/07/21 History of Presenting Illness: Patient is a very pleasant 56-year-old female with a past medical history of hypothyroidism, nicotine dependence, anxiety, bipolar, and depression. She presented to the emergency department with chief complaint of fever and left lower jaw swelling. patient reports she first noticed pain and swelling of the left side of her neck about 3 days ago and today began running a high fever up to 103.0F. Patient denies having any headache, lightheadedness, dizziness, changes in her vision or hearing, pain in her ears, nasal congestion or postnasal drainage, sore throat or dysphasia, dental pain or oral lesions/swelling beneath dentures, she denies having any cough, chest pain, palpitations, shortness of breath, fatigue, changes in appetite, changes in her difficulties with urinary or bowel function, or experiencing any numbness/swelling/weakness/pain in her extremities. Patient denies having any noted rashes or wounds on body and denies any recent travel or exposure to known ill contacts. Patient denies having any changes in her daily medication regimen. she underwent full evaluation in the emergency department. Patient was positive for SIRS with temp 102.4F, heart rate 120, blood pressure 84/51.CBC unremarkable. CMP revealed acute kidney injury with BUN of 18, creatinine 1.66, and GFR of 34 with baseline creatinine of 1.00. Urinalysis was negative for infection. patient was admitted under our services with consultation to i nfectious disease. Review of systems: Pertinent positives and negatives as discussed in HPI, a complete review of systems was performed and all other systems are negative. Physical exam: Vital signs reviewed and stable. General: Nontoxic, no distress and appears stated age. Derm: Skin warm and dry, normal coloration for ethnicity. Head: Atraumatic, normocephalic and symmetric. Eyes: EOMs intact, no lid lag, and anicteric sclera Mouth: no lip lesions, mucus membranes moist. Patient does not have teeth, wears dentures. No noted infections or swelling in mouth. No tonsillar swelling or erythema. Cardiovascular: regular rate and rhythm with normal S1S2, no murmur, positive posterior tibial pulses bilaterally, and cap refill < 2 seconds. Lungs: Respirations even, regular, and unlabored on room air. Lungs CTA bilaterally, no rhonchi, no rales, no wheezing, and no accessory muscle usage. Abdominal: soft, nontender to palpation, no guarding, no appreciable organomegaly Ext: ROM intact. No gross muscle atrophy, no edema, no contractures Neuro: Speech clear, face symmetrical and CN II-XII grossly intact with no noted focal neuro deficits Psych: Alert and oriented to person, place, time, and situation. Appropriate and pleasant affect. Assessment and Plan of Care: Fever of unclear etiology -Fever of unclear etiology positive for SIRS with temp 102.4F, heart rate 120, blood pressure 84/51. -IV antibiotics continue with Rocephin pending further results -Urinalysis negative for infection. -Influenza A, influenza B, and Covid PCR negative. -Ultrasound left anterior neck revealing a left-sided cervical lymphadenopathy -Chest x-ray negative for acute cardiopulmonary process. -Patient received fluid bolus followed by continued vigorous IV hydration -Blood cultures obtained. -TSH, Pro-calcitonin, rapid strep, and EBV to be obtained. -CT chest, abdomen, and pelvis to be completed -We will also hold Quetiapine at this time as fever and tachycardia could possibly result from serotonin syndrome. -Tylenol as needed for fever. Acute kidney injury -BUN 18, creatinine 1.66, and GFR of 34 with baseline creatinine of 1.00. -Urinalysis negative for infection -Continue with IV fluid hydration and we will monitor The patient is admitted with an anticipated less than 2 midnight stay for evaluation of pyrexia of unclear etiology CODE STATUS: Full code DVT prophylaxis: Heparin Discussed with: Patient, patient's , and RN Anticipated discharge date: 1-[address]: Home A total of 45 minutes was spent on the care of this complex patient more than 50% of the time was spent in counseling and care coordination. Past Medical History Past Medical History: GERD/Reflux, Hypertension, Thyroid Disorder Additional Past Medical History / Comment(s): hx bronchitis, constipation, History of Any Multi-Drug Resistant Organisms: None Reported Past Surgical History: Section, Ear Surgery, Hysterectomy Additional Past Surgical History / Comment(s): Tubes bilateral ears. RT EAR SX X2 Past Anesthesia/Blood Transfusion Reactions: No Reported Reaction Past Psychological History: Anxiety, Bipolar, Depression Smoking Status: Current every day smoker Past Alcohol Use History: None Reported Past Drug Use History: None Reported - Past Family History Father Additional Family Medical History / Comment(s): Mother at age 70 from coronary artery disease. Mother Family Medical History: Cancer Additional Family Medical History / Comment(s): . Brother(s) Additional Family Medical History / Comment(s): Unable to obtain brother and sister history. Patient has 2 sons are healthy. Medications and Allergies Home Medications Medication Instructions Recorded Confirmed Type LORazepam [Ativan] 1 mg PO DAILY PRN 12/26/15 10/06/21 History lamoTRIgine [LaMICtal] 150 mg PO DAILY #45 tab 01/06/16 10/06/21 Rx Levothyroxine Sodium [Synthroid] 100 mcg PO DAILY 12/01/16 10/06/21 History QUEtiapine FUMARATE 400 mg PO HS 12/01/16 10/06/21 History lisinopriL [Zestril] 10 mg PO DAILY 12/01/16 10/06/21 History lamoTRIgine [LaMICtal] 200 mg PO HS 10/06/21 10/06/21 History Allergies Allergy/AdvReac Type Severity Reaction Status Date / Time chlorpromazine HCl Allergy Unknown Verified 10/06/21 23:09 [From Thorazine] codeine Allergy Unknown Verified 10/06/21 23:09 sulfamethoxazole Allergy Unknown Verified 10/06/21 23:09 [From Septra] trimethoprim [From Septra] Allergy Unknown Verified 10/06/21 23:09 Physical Exam Vitals: Vital Signs Temp Pulse Resp BP Pulse Ox 10/07/21 07:00 84 18 104/65 99 10/07/21 06:54 80 18 113/69 99 10/07/21 06:07 75 18 106/64 100 10/07/21 04:00 81 18 97/63 99 10/07/21 02:34 75 18 79/53 99 10/07/21 01:01 98.3 F 80 18 97/52 99 10/07/21 00:01 99 18 84/51 95 10/06/21 22:45 99.8 F H 106 H 18 93/48 93 L 10/06/21 21:42 102.4 F H 120 H 20 102/64 95 Intake and Output 10/06/21 10/07/21 10/07/21 22:59 06:59 14:59 Other: Weight 67.132 kg Results CBC & Chem 7: 10/06/21 23:35 10/06/21 23:35 Labs: Abnormal Lab Results - Last 24 Hours (Table) 10/06/21 10/06/21 10/07/21 Range/Units 23:35 23:35 00:59 Lymphocytes # 0.9 L (1.0-4.8) k/uL Sodium 136 L (137-145) mmol/L BUN 18 H (7-17) mg/dL Creatinine 1.66 H (0.52-1.04) mg/dL Glucose 119 H (74-99) mg/dL Urine Appearance Cloudy H (Clear) Urine Protein Trace H (Negative) Urine Blood Trace H (Negative) Urine WBC 8 H (0-5) /hpf Ur Squamous Epith Cells 5 H (0-4) /hpf Urine Bacteria Many H (None) /hpf
[2021-10-07] MEDS: ACETAMINOPHEN TAB 325 MG TAB PO PRN ×2 (12:24→18:57)
[2021-10-07] MEDS: lamoTRIgine 100 MG TAB PO SCH (20:38)
[2021-10-07] MEDS: HEPARIN SODIUM,PORCINE/PF 5,000 UNIT/0.5 ML SYRINGE SQ SCH (20:38)
--- NOTE | 2021-10-07 20:54 | CT ---
EXAMINATION TYPE: CT ChestAbdPelvis wo con DATE OF EXAM: 10/07/2021 COMPARISON: 05/15/2013 HISTORY: back pain, constipation and lymphadenopathy. TECHNIQUE: CT scan of the chest abdomen and pelvis performed without contrast CT DLP: 1299 mGycm Automated exposure control for dose reduction was used. FINDINGS: No significant lung nodule. No lung mass. No focal airspace opacities, pneumothorax or pleural effusi on. No intrathoracic lymphadenopathy seen. Prominent mediastinal lymph nodes with short axis diameter less than 1 cm noted in the pretracheal space. There is mild subsegmental atelectasis. The heart is normal in size. There may be a trace pericardial effusion. In the lower neck, on the left side there is mild soft tissue/fat stranding that is not completely vi sualized and appears to extend more superiorly. Intrathoracic aorta is nonaneurysmal. Atherosclerotic calcifications are seen in the wall of the aort ic arch. There is a small gastroesophageal hiatal hernia. No acute osseous fracture or dislocation seen in the thoracic rib cage, mild degenerative changes are seen in the thoracic spine. Liver, spleen, adrenal glands and pancreas are unremarkable. There is a filling defect in the gallbla dder lumen (series 3 image 57) which may be reflective of cholelithiasis. The extrahepatic common [place] e duct is not dilated. There is mild retroperitoneal fat stranding. No peripancreatic fluid collections seen. There are prom inent juan hepatis lymph nodes. There is a 4 mm calculus in the upper pole of the right kidney. There is no renal collecting system d ilatation. Ureters are not dilated. Urinary bladder is within normal limits. Terminal ileum, cecum and appendix appear normal. No intestinal obstruction. Prominent retroperitoneal lymph nodes are noted. Some mesenteric lymph nodes are also prominent. No e nlarged lymph nodes more than 1 cm in short axis are seen. No enlarged pelvic lymph nodes seen. No pneumoperitoneum or ascites. The uterus is not visualized. No abnormal adnexal mass seen. No acute fracture or dislocation seen in the lumbar spine or pelvic bones or proximal femurs. Mild to moderate degenerative changes are seen in the lumbar spine. No significant soft tissue abnormalities seen. Aorta is nonaneurysmal. Atherosclerotic calcifications are seen in the lower abdominal aorta. IMPRESSION: 1. PARTIALLY VISUALIZED MILD FAT STRANDING IN THE LOWER NECK. 2. SMALL GASTROESOPHAGEAL HIATAL HERNIA. 3. QUESTIONABLE GALLBLADDER CALCULUS. NO FINDINGS OF ACUTE CHOLECYSTITIS. 4. MILD RETROPERITONEAL FAT STRANDING PREDOMINANTLY AROUND THE PANCREAS AND PROMINENT RETROPERITONEAL AND MESENTERIC LYMPH NODES, THE DIFFERENTIAL INCLUDES INFECTIOUS AND INFLAMMATORY ETIOLOGIES. CONSID ER PANCREATITIS IN THE DIFFERENTIAL DIAGNOSES OR OTHER INFLAMMATORY RETROPERITONEAL ETIOLOGIES 5. 4 MM CALCULUS IN THE UPPER POLE OF THE RIGHT KIDNEY. NO RENAL COLLECTING SYSTEM DILATATION.
[2021-10-07] MEDS: METHYL SALICYLATE/MENTHOL CREAM 5 OZ TOPICAL PRN (22:59)
--- NOTE | 2021-10-08 00:29 | P.CONS ---
History of Present Illness - Reason for Consult Consult date: 10/07/21 Fever Requesting physician: Allan Hennessy - Chief Complaint Fever x 3 days - History of Present Illness Patient is a 56-year female with a past medical history significant for hypothyroidism anxiety depression and nicotine dependence patient presenting to the ER for evaluation of fever and left lower jaw/neck area swelling patient symptoms started last week when she noticed to having pain and swelling to the left side of the neck or the patient has been evaluated by her primary care physician however the no specific treatment was provided, patient subsequent s tarted having a fever of 103 degrees formulae at 4 the patient presented to the hospital patient denies having any headache or URI symptoms patient did have a mild sore throat and swelling to the left side of the neck to some dull aching pain 2-3 out of 10 and no radiation patient denies having any nausea or vomiting no abdominal pain or any diarrhea, patient on presentation to the hospital did have a fever of 102.4 F and did have a fever throughout the day patient did have tachycardia on admission that subsequently resolved patient not hypoxic or need for supplemental oxygen patient did have normal white count with mild lymphopenia. Creatinine were mildly elevated liver enzymes are normal urine was cloudy on a WBC [place] PCR was negative as well as influenza PCR was negative patient did have a head and neck ultrasound left-sided cervical lymphadenopathy patient did have a chest x-ray negative cardiopulmonary disease patient did have a CT of the chest abdominal pelvis ordered and is currently pending patient is currently being treated with Rocephin infectious disease was consulted for further management of antibiotic therapy patient has developed an erythematous rash to the bilateral knee elbow and left side of the neck without any itching or any blister formation Review of Systems Positive point has been mentioned in the HPI rest of the systems are negative Past Medical History Past Medical History: GERD/Reflux, Hypertension, Thyroid Disorder Additional Past Medical History / Comment(s): hx bronchitis, constipation, History of Any Multi-Drug Resistant Organisms: None Reported Past Surgical History: Section, Ear Surgery, Hysterectomy Additional Past Surgical History / Comment(s): Tubes bilateral ears. RT EAR SX X2 Past Anesthesia/Blood Transfusion Reactions: No Reported Reaction Past Psychological History: Anxiety, Bipolar, Depression Smoking Status: Current every day smoker Past Alcohol Use History: None Reported Past Drug Use History: None Reported - Past Family History Father Family Medical History: Coronary Artery Disease (CAD) Additional Family Medical History / Comment(s): Mother at age 70 from coronary artery disease. Mother Family Medical History: Cancer Additional Family Medical History / Comment(s): . Brother(s) Additional Family Medical History / Comment(s): Unable to obtain brother and sister history. Patient has 2 sons are healthy. Medications and Allergies Home Medications Medication Instructions Recorded Confirmed Type LORazepam [Ativan] 1 mg PO DAILY PRN 12/26/15 10/06/21 History lamoTRIgine [LaMICtal] 150 mg PO DAILY #45 tab 01/06/16 10/06/21 Rx Levothyroxine Sodium [Synthroid] 100 mcg PO DAILY 12/01/16 10/06/21 History QUEtiapine FUMARATE 400 mg PO HS 12/01/16 10/06/21 History lisinopriL [Zestril] 10 mg PO DAILY 12/01/16 10/06/21 History lamoTRIgine [LaMICtal] 200 mg PO HS 10/06/21 10/06/21 History Allergies Allergy/AdvReac Type Severity Reaction Status Date / Time chlorpromazine HCl Allergy Unknown Verified 10/06/21 23:09 [From Thorazine] codeine Allergy Unknown Verified 10/06/21 23:09 sulfamethoxazole Allergy Unknown Verified 10/06/21 23:09 [From Septra] trimethoprim [From Septra] Allergy Unknown Verified 10/06/21 23:09 Physical Exam Vitals: Vital Signs Temp Pulse Pulse Resp BP BP Pulse Ox 10/07/21 18:47 102.5 F H 10/07/21 17:15 100.7 F H 10/07/21 14:43 105 H 10/07/21 14:39 99.9 F H 105 H 18 118/74 93 L 10/07/21 12:24 103 F H 10/07/21 09:09 99.8 F H 88 18 105/64 99 10/07/21 07:00 84 18 104/65 99 10/07/21 06:54 80 18 113/69 99 10/07/21 06:07 75 18 106/64 100 10/07/21 04:00 81 18 97/63 99 10/07/21 02:34 75 18 79/53 99 10/07/21 01:01 98.3 F 80 18 97/52 99 10/07/21 00:01 99 18 84/51 95 10/06/21 22:45 99.8 F H 106 H 18 93/48 93 L 10/06/21 21:42 102.4 F H 120 H 20 102/64 95 Intake and Output 10/07/21 10/07/21 10/07/21 06:59 14:59 22:59 Intake Total 300 Balance 300 Intake: Oral 300 Other: # Voids 1 1 Weight 67.132 kg GENERAL DESCRIPTION: Middle-aged female lying in bed, no distress. No tachypnea or accessory muscle of respiration use. HEENT: Shows Pallor , no scleral icterus. Oral mucous membrane is dry. No pharyngeal erythema or thrush NECK: Trachea central, no thyromegaly. LUNGS: Unlabored breathing. Clear to auscultation anteriorly. No wheeze or crackle. HEART: S1, S2, regular rate and rhythm. No loud murmur ABDOMEN: Soft, no tenderness , guarding or rigidity, no organomegaly EXTREMITIES: No edema of feet. SKIN: Erythematous rash to bilateral knee elbow and left side of the neck NEUROLOGICAL: The patient is awake, alert, oriented x3, mood and affect normal. Results CBC & Chem 7: 10/06/21 23:35 10/06/21 23:35 Labs: Abnormal Lab Results - Last 24 Hours (Table) 10/06/21 10/06/21 10/07/21 Range/Units 23:35 23:35 00:59 Lymphocytes # 0.9 L (1.0-4.8) k/uL Sodium 136 L (137-145) mmol/L BUN 18 H (7-17) mg/dL Creatinine 1.66 H (0.52-1.04) mg/dL Glucose 119 H (74-99) mg/dL Procalcitonin (0.02-0.09) ng/mL Urine Appearance Cloudy H (Clear) Urine Protein Trace H (Negative) Urine Blood Trace H (Negative) Urine WBC 8 H (0-5) /hpf Ur Squamous Epith Cells 5 H (0-4) /hpf Urine Bacteria Many H (None) /hpf 10/07/21 Range/Units 11:09 Lymphocytes # (1.0-4.8) k/uL Sodium (137-145) mmol/L BUN (7-17) mg/dL Creatinine (0.52-1.04) mg/dL Glucose (74-99) mg/dL Procalcitonin 0.28 H (0.02-0.09) ng/mL Urine Appearance (Clear) Urine Protein (Negative) Urine Blood (Negative) Urine WBC (0-5) /hpf Ur Squamous Epith Cells (0-4) /hpf Urine Bacteria (None) /hpf Assessment and Plan (1) Fever Current Visit: Yes Status: Acute Code(s): R50.9 - FEVER, UNSPECIFIED SNOMED Code(s): 283707351 (2) Lymphadenopathy of left cervical region Current Visit: Yes Status: Acute Code(s): R59.0 - LOCALIZED ENLARGED LYMPH NODES SNOMED Code(s): 926514660 Plan: 1patient with a fever and this patient did have a left-sided neck swelling with ultrasound suggestive of left cervical lymphadenopathy patient did have some sore throat 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 with a question of possible irritation from the denture causing oral infection and secondary lymphadenopathy versus possible viral syndrome as the patient did have a normal white count and initial work-up including a UA chest x-ray has been negative abdominal soft on clinical examination 2-we will wait for the CT of abdominal pelvis and chest to be completed 3-we will check a CMV serology EBV has been ordered 4-we will switch antibiotic therapy to Unasyn 3 g every 6 hours while waiting for the work-up to be completed. We will follow on clinical condition and cultures to further adjust medication if needed Thank you for this consultation will follow this patient along with you
[2021-10-08] MEDS: AMPICILLIN-SULBACTAM 3 GM in SODIUM CHLORIDE 0.9% 100 ML IVPB SCH ×5 (01:11→23:17)
[2021-10-08] MEDS: ACETAMINOPHEN TAB 325 MG TAB PO PRN ×3 (02:56→20:22)
[2021-10-08] MEDS: LEVOTHYROXINE 100 MCG TAB PO SCH (05:10)
[2021-10-08] MEDS: SODIUM CHLORIDE 0.9% 1,000 ML IV SCH ×3 (05:10→20:46)
[2021-10-08] MEDS: METHYL SALICYLATE/MENTHOL CREAM 5 OZ TOPICAL PRN (07:12)
[2021-10-08] MEDS: lamoTRIgine 100 MG TAB PO SCH ×2 (07:18→20:22)
[2021-10-08] MEDS: HEPARIN SODIUM,PORCINE/PF 5,000 UNIT/0.5 ML SYRINGE SQ SCH ×3 (07:18→23:17)
[2021-10-08 09:07] LABS: EBV-EA (IgG) 0.5 AI; EBV-EBNA(IgG) >8.0 AI; EBV-VCA (IgG) >8.0 AI; EBV-VCA (IgM) <0.2 AI
[2021-10-08 09:39] LABS: HCT 39.7 % (37.2-46.3); HGB 12.5 g/dL (12.0-15.0); MCH 31.5 pg (27.0-32.0); MCHC 31.5 g/dL (32.0-37.0); Mean Platelet Volume 12.4 fL (9.5-12.2); NRBC Per 100 WBC 0 /100 WBCS (0.0-0.0); Platelet Count 164 X 10*3/uL (140-440); RBC 3.97 X 10*6/uL (4.10-5.20); WBC 8.69 X 10*3/uL (4.50-10.00)
[2021-10-08 09:46] LABS: African American GFR (CKD) 58.1 (60.0-200.0); Albumin 3.6 g/dL (3.8-4.9); Albumin/Globulin Ratio 1.89 (1.60-3.17); Anion Gap 11.8 mmol/L (10.00-18.00); BUN/Creat Ratio 7.58 Ratio (12.00-20.00); Blood Urea Nitrogen 9.1 mg/dL (9.0-27.0); Calcium 7.9 mg/dL (8.7-10.3); Carbon Dioxide 21.2 mmol/L (20.0-27.5); Globulin 1.9 g/dL (1.6-3.3); Magnesium 1.9 mg/dL (1.5-2.4); Non-African American GFR(CKD) 50.1 (60.0-200.0); Potassium 3.4 mmol/L (3.5-5.5); Total Bilirubin 0.3 mg/dL (0.30-1.20); Total Protein 5.5 g/dL (6.2-8.2)
[2021-10-08] MEDS ORDERED: ONDANSETRON 4 MG/2 ML VIAL IVP PRN (10:02)
[2021-10-08] MEDS ORDERED: POTASSIUM CHLORIDE ER 20 MEQ TAB.ER PO STA (10:45)
[2021-10-08] MEDS: lisinopriL 10 MG TAB PO SCH (11:31)
[2021-10-08] MEDS: KETOROLAC 15 MG/ML 1 ML VIAL IVP PRN ×2 (11:57→18:26)
[2021-10-08] MEDS ORDERED: VANCOMYCIN IV PER PHARMACY 1 EACH MISC MISCELLANE PRN (13:15)
[2021-10-08] MEDS: VANCOMYCIN 1,250 MG in SODIUM CHLORIDE 0.9% 250 ML IVPB SCH (14:42)
--- NOTE | 2021-10-08 14:47 | P.CONS ---
History of Present Illness - Reason for Consult Consult date: 10/08/21 Inflammation of pancreas seen on CT Requesting physician: Allan Hennessy - Chief Complaint Fever - History of Present Illness This a 56-year-old female with a past medical history of hypothyroidism, nicotine dependence, anxiety, bipolar and depression. [facility] with chief complaint of fever and lower left jaw swelling. Reportedly symptoms began 3 days ago and patient spiked a fever up to 103. She had a head and neck ultrasound that showed left-sided cervical lymphadenopathy. Thyroid gland not evaluated. A CT chest abdomen and pelvis completed with reported mild retroperitoneal fat stranding predominantly around the pancreas and prominent retroperitoneal and mesenteric lymph nodes. Gastroenterology was consulted for the above. Makes temp was 103 this morning. Infectious disease is following. CMV and EBV nonreactive. A rapid group A strep negative. Blood cultures pending, group A strep throat culture pending. WBC 8.6, hemoglobin 12.5 hematocrit 39 platelet count 164,000 total bilirubin 0.3 AST 18 ALT 18 alkaline phosphatase 83 amylase 20 lipase 12 Patient denies any abdominal pain, no nausea, or vomiting. LFTs and pancreatic enzymes are all within normal limits. States that she is having normal bowel movements. No previous history of pancreatitis. She denies any headaches, has had a sore throat. Review of Systems REVIEW OF SYSTEMS: CARDIOPULMONARY: No chest pain or shortness of breath. Gastrointestinal: No abdominal pain.. No nausea or vomiting. No hematemesis, coffee-ground emesis. No rectal bleeding, or melena. GENITOURINARY: No dysuria or hematuria. MUSCULOSKELETAL: Reports normal range of motion., Joint pain. SKIN: No rashes. No jaundice. ENDOCRINE: No chills, fevers. No excessive weight gain or loss. No polydipsia or polyuria. PSYCHIATRIC: Unremarkable. NEUROLOGY: No change in mental status. Denies dizziness, headache. ENT: Vision unremarkable. CONSTITUTIONAL: No recent weight loss. Fevers, chills. Past Medical History Past Medical History: GERD/Reflux, Hypertension, Thyroid Disorder Additional Past Medical History / Comment(s): hx bronchitis, constipation, History of Any Multi-Drug Resistant Organisms: None Reported Past Surgical History: Section, Ear Surgery, Hysterectomy Additional Past Surgical History / Comment(s): Tubes bilateral ears. RT EAR SX X2 Past Anesthesia/Blood Transfusion Reactions: No Reported Reaction Past Psychological History: Anxiety, Bipolar, Depression Smoking Status: Current every day smoker Past Alcohol Use History: None Reported Past Drug Use History: None Reported - Past Family History Father Family Medical History: Coronary Artery Disease (CAD) Additional Family Medical History / Comment(s): Mother at age 70 from coronary artery disease. Mother Family Medical History: Cancer Additional Family Medical History / Comment(s): . Brother(s) Additional Family Medical History / Comment(s): Unable to obtain brother and sister history. Patient has 2 sons are healthy. Medications and Allergies Home Medications Medication Instructions Recorded Confirmed Type LORazepam [Ativan] 1 mg PO DAILY PRN 12/26/15 10/06/21 History lamoTRIgine [LaMICtal] 150 mg PO DAILY #45 tab 01/06/16 10/06/21 Rx Levothyroxine Sodium [Synthroid] 100 mcg PO DAILY 12/01/16 10/06/21 History QUEtiapine FUMARATE 400 mg PO HS 12/01/16 10/06/21 History lisinopriL [Zestril] 10 mg PO DAILY 12/01/16 10/06/21 History lamoTRIgine [LaMICtal] 200 mg PO HS 10/06/21 10/06/21 History Allergies Allergy/AdvReac Type Severity Reaction Status Date / Time chlorpromazine HCl Allergy Unknown Verified 10/06/21 23:09 [From Thorazine] codeine Allergy Unknown Verified 10/06/21 23:09 sulfamethoxazole Allergy Unknown Verified 10/06/21 23:09 [From Septra] trimethoprim [From Septra] Allergy Unknown Verified 10/06/21 23:09 Physical Exam Vitals: Vital Signs Temp Pulse Resp BP BP Pulse Ox 10/08/21 10:06 103 F H 10/08/21 07:00 102.9 F H 100 18 103/63 94 L 10/08/21 05:28 101.3 F H 10/08/21 04:21 102.3 F H 10/08/21 02:49 103.0 F H 100 17 103/67 94 L 10/07/21 20:37 100.0 F H 93 17 101/65 95 10/07/21 18:47 102.5 F H 10/07/21 17:15 100.7 F H 10/07/21 14:43 105 H 10/07/21 14:39 99.9 F H 105 H 18 118/74 93 L 10/07/21 12:24 103 F H Intake and Output 10/07/21 10/08/21 10/08/21 22:59 06:59 14:59 Intake Total 710 Balance 710 Intake: Oral 710 Other: # Voids 1 2 1 # Bowel Movements 1 # Emeses 2 General appearance: The patient is alert, oriented, appears in no acute distress. Hard of hearing. HET: Head is normocephalic and atraumatic. Conjunctiva pink. Sclera anicteric. Neck: Supple without lymphadenopathy. Trachea midline. Heart: S1 S2. Regular rate and rhythm. Lungs: Clear to auscultation. Abdomen: Soft, obese, nontender, nondistended with bowel sounds. No guarding or rigidity. Skin: No rashes. No jaundice. Extremities: Normal skin color and turgor. No pedal edema. Neurological: No focal deficits. Alert and oriented x3. Results CBC & Chem 7: 10/08/21 05:45 10/08/21 05:45 Labs: Abnormal Lab Results - Last 24 Hours (Table) 10/07/21 10/07/21 10/08/21 Range/Units 02:35 11:09 05:45 RBC 3.97 L (4.10-5.20) X 10*6/uL MCV 100.0 H (80.0-97.0) fL MCHC 31.5 L (32.0-37.0) g/dL MPV 12.4 H (9.5-12.2) fL Potassium (3.5-5.5) mmol/L Chloride (96-109) mmol/L Est GFR (CKD-EPI)AfAm (60.0-200.0) Est GFR (CKD-EPI)NonAf (60.0-200.0) BUN/Creatinine Ratio (12.00-20.00) Ratio Glucose (70-110) mg/dL Calcium (8.7-10.3) mg/dL Total Protein (6.2-8.2) g/dL Albumin (3.8-4.9) g/dL Amylase (23-121) U/L Lipase (14-63) U/L Procalcitonin 0.28 H (0.02-0.09) ng/mL EBV Capsid Ag IgG Intrp POSITIVE A (NEGATIVE) EBV Nuc Ag IgG Interp POSITIVE A (NEGATIVE) 10/08/21 Range/Units 05:45 RBC (4.10-5.20) X 10*6/uL MCV (80.0-97.0) fL MCHC (32.0-37.0) g/dL MPV (9.5-12.2) fL Potassium 3.4 L (3.5-5.5) mmol/L Chloride 110 H (96-109) mmol/L Est GFR (CKD-EPI)AfAm 58.1 L (60.0-200.0) Est GFR (CKD-EPI)NonAf 50.1 L (60.0-200.0) BUN/Creatinine Ratio 7.58 L (12.00-20.00) Ratio Glucose 136 H (70-110) mg/dL Calcium 7.9 L (8.7-10.3) mg/dL Total Protein 5.5 L (6.2-8.2) g/dL Albumin 3.6 L (3.8-4.9) g/dL Amylase 20 L (23-121) U/L Lipase 12 L (14-63) U/L Procalcitonin (0.02-0.09) ng/mL EBV Capsid Ag IgG Intrp (NEGATIVE) EBV Nuc Ag IgG Interp (NEGATIVE) Microbiology - Last 24 Hours (Table) 10/07/21 17:04 Group A Strep Throat Culture - Preliminary Throat 10/06/21 23:50 Blood Culture - Preliminary Blood No Growth after 24 hours 10/06/21 23:35 Blood Culture - Preliminary Blood No Growth after 24 hours Comments: Head and neck ultrasound that showed left-sided cervical lymphadenopathy. Thyroid gland not evaluated. CT chest abdomen and pelvis without contrast: Partially visualized mild fat stranding in the lower neck. Small gastroesophageal hiatal hernia. Questionable gallbladder calculus no findings of acute cholecystitis. Mild retroperitoneal fat stranding predominantly around the pancreas and prominent retroperitoneal and mesenteric lymph nodes. Differential includes infectious and inflammatory etiologies. Consider pancreatitis in the differential diagnosis or other inflammatory retroperitoneal etiologies. 4 mm calculus in the upper pole of the right kidney. No renal collecting system dilation Assessment and Plan (1) Pancreatitis Narrative/Plan: 56-year-old female who presented to the emergency department with complaints of fever and left facial and neck swelling. Fever and facial swelling began approximately 3 days ago. Patient had a max temperature of 103. She had a CT of the chest abdomen and pelvis with mild retroperitoneal fat stranding predominately around the pancreas and prominent retroperitoneal and mesenteric lymph nodes. Patient has no prior history of pancreatitis. Liver enzymes and pancreatic enzymes are within normal limits and not consistent with the pancreatitis. It is unlikely etiology for fever. We will continue to trend liver enzymes as well as amylase and lipase. Current Visit: Yes Status: Acute Code(s): K85.90 - ACUTE PANCREATITIS WITHOUT NECROSIS OR INFECTION, UNSP SNOMED Code(s): 66710554 (2) Fever Current Visit: Yes Status: Acute Code(s): R50.9 - FEVER, UNSPECIFIED SNOMED Code(s): 370236746 (3) Lymphadenopathy of left cervical region Current Visit: Yes Status: Acute Code(s): R59.0 - LOCALIZED ENLARGED LYMPH NODES SNOMED Code(s): 150215730 Plan: 1. Continue symptomatic and supportive care 2. Continue with recommendations from infectious disease 3. Daily CMP, lipase 4. Patient is asymptomatic for pancreatitis as well as no elevation in liver enzymes or amylase and lipase. His unlikely patient has pancreatitis, and unlikely source of fever. Thank you for this consultation, we will continue to follow. Dr. Justine Christensen I agree with the dictator's note, documented as a scribe by Diana Ponce.
--- NOTE | 2021-10-08 17:48 | P.PN ---
Subjective Progress Note Date: 10/08/21 History of Presenting Illness: Patient is a very pleasant 56-year-old female with a past medical history of hypothyroidism, nicotine dependence, anxiety, bipolar, and depression. She p resented to the emergency department with chief complaint of fever and left lower jaw swelling. patient reports she first noticed pain and swelling of the left side of her neck about 3 days ago and today began running a high fever up to 103.0F. Patient denies having any headache, lightheadedness, dizziness, changes in her vision or hearing, pain in her ears, nasal congestion or postnasal drainage, sore throat or dysphasia, dental pain or oral lesions/swelling beneath dentures, she denies having any cough, chest pain, palpitations, shortness of breath, fatigue, changes in appetite, changes in her difficulties with urinary or bowel function, or experiencing any numbness/swelling/weakness/pain in her extremities. Patient denies having any noted rashes or wounds on body and denies any recent travel or exposure to known ill contacts. Patient denies having any changes in her daily medication regimen. she underwent full evaluation in the emergency department. Patient was positive for SIRS with temp 102.4F, heart rate 120, blood pressure 84/51.CBC unremarkable. CMP revealed acute kidney injury with BUN of 18, creatinine 1.66, and GFR of 34 with baseline creatinine of 1.00. Urinalysis was negative for infection. Patient was admitted under our services for fever of unclear etiology with moderate lymphadenopathy. Consultations placed to infectious disease, gastroenterology, and hematology/oncology. Physical exam: Patient seen and evaluated at bedside this morning. Patient continues to run high temperatures of 103.0F despite administration of Tylenol. In addition patient developed patient developed erythematous nonraised rash to bilateral knees, arms, and left side of neck yesterday evening along with reports of lower back pain. CT chest abdomen and pelvis revealing mild fat stranding in the lower neck, small gastroesophageal hiatal hernia, and mild retroperitoneal fat stranding predominantly around the pancreas and prominent retroperitoneal and mesenteric lymph nodes the differential includes infectious and inflammatory etiologies, and a 4 mm calculus in the upper pole of the right kidney. Patient also reports experiencing nausea and vomiting this morning x2 episodes. Infectious disease, gastroenterology, and hematology/oncology following. Patient at this time to continue with IV antibiotic Unasyn and continued IV hydration with IV fluids. Zofran to be administered as needed for nausea and vomiting and patient to continue with Tylenol and Toradol for pain/fever. Vital signs reviewed and stable. General: Nontoxic, no distress and appears stated age. Derm: Skin warm and dry, normal coloration for ethnicity. Patient developed erythematous nonraised rash to bilateral knees, arms, and left side of neck Head: Atraumatic, normocephalic and symmetric. Eyes: EOMs intact, no lid lag, and anicteric sclera Mouth: no lip lesions, mucus membranes moist. Patient does not have teeth, wears dentures. No noted infections or swelling in mouth. No tonsillar swelling or erythema. Cardiovascular: regular rate and rhythm with normal S1S2, no murmur, positive posterior tibial pulses bilaterally, and cap refill < 2 seconds. Lungs: Respirations even, regular, and unlabored on room air. Lungs CTA bilaterally, no rhonchi, no rales, no wheezing, and no accessory muscle usage. Abdominal: soft, nontender to palpation, no guarding, no appreciable o rganomegaly Ext: ROM intact. No gross muscle atrophy, no edema, no contractures Neuro: Speech clear, face symmetrical and CN II-XII grossly intact with no noted focal neuro deficits Psych: Alert and oriented to person, place, time, and situation. Appropriate and pleasant affect. Assessment and Plan of Care: Fever of unclear etiology Lymphadenopathy -Fever of unclear etiology positive for SIRS with temp 102.4F, heart rate 120, blood pressure 84/51. -IV antibiotics continue with Unasyn pending further results -Urinalysis negative for infection. -Influenza A, influenza B, and Covid PCR negative. -CMV nonreactive -EBV IgG positive IgM negative -Group A rapid strep negative -Ultrasound left anterior neck revealing a left-sided cervical lymphadenopathy -Chest x-ray negative for acute cardiopulmonary process. -Continue with gentle IV hydration -Blood cultures showing no growth to date -TSH normal findings is 0.996 -Pro-calcitonin slightly elevated at 0.28 -CT chest abdomen and pelvis revealing mild fat stranding in the lower neck, small gastroesophageal hiatal hernia, and mild retroperitoneal fat stranding predominantly around the pancreas and prominent retroperitoneal and mesenteric lymph nodes the differential includes infectious and inflammatory etiologies, and a 4 mm calculus in the upper pole of the right kidney. -Infectious disease following, appreciate further recommendations -Consult placed to hematology/oncology for evaluation to rule out lymphoma Acute kidney injury, resolved with IV fluid hydration CODE STATUS: Full code DVT prophylaxis: Heparin Discussed with: Patient, patient's , and RN Anticipated discharge date: Clinical course to determine Anticipated discharge place: Home A total of 41 minutes was spent on the care of this complex patient more than 50% of the time was spent in counseling and care coordination. Objective - Vital Signs Vital signs: Vital Signs Temp 102.9 F H 10/08/21 07:00 Pulse 100 10/08/21 07:00 Resp 18 10/08/21 07:00 BP 103/63 10/08/21 07:00 Pulse Ox 94 L 10/08/21 07:00 Intake & Output 10/07/21 10/08/21 10/08/21 18:59 06:59 18:59 Intake Total 300 236 Balance 300 236 Weight 67.132 kg Intake: Oral 300 236 Other: # Voids 1 2 1 # Bowel Movements 1 - Labs CBC & Chem 7: 10/08/21 05:45 10/08/21 05:45 Labs: Abnormal Lab Results - Last 24 Hours (Table) 10/07/21 Range/Units 11:09 Procalcitonin 0.28 H (0.02-0.09) ng/mL Microbiology - Last 24 Hours (Table) 10/07/21 17:04 Group A Strep Throat Culture - Preliminary Throat 10/06/21 23:50 Blood Culture - Preliminary Blood No Growth after 24 hours 10/06/21 23:35 Blood Culture - Preliminary Blood No Growth after 24 hours
[2021-10-08 19:08] LABS: Uric Acid 3.2 mg/dL (2.9-7.7)
[2021-10-08 22:11] LABS: Cardiolipin Ab IgG Interp NEGATIVE (NEGATIVE); Cardiolipin Ab IgM Interp NEGATIVE (NEGATIVE); Cardiolipin IgA Antibody <2.0 U/mL; Cardiolipin IgM Antibody <1.5 U/mL
--- NOTE | 2021-10-08 23:34 | P.PN ---
Subjective Progress Note Date: 10/08/21 Principal diagnosis: Fever and rash Patient is a 56-year-old female presenting to the hospital with a fever rash and swelling to the left side of the neck in this patient did have evidence of lymphadenopathy subsequently developed a rash to bilateral elbow and bilateral knee area patient did have a CT of abdominal pelvis and chest no mention of any abscess which was some retroperitoneal lymphadenopathy. On today's evaluation that is 10/08/2021, the patient did spike a fever of 103F this morning the patient however is feeling slightly better denies any sore throat or difficulty swallowing no chest pain shortness of breath or cough no abdominal pain no diarrhea Objective - Vital Signs Vital signs: Vital Signs Temp 99.5 F 10/08/21 14:00 Pulse 95 10/08/21 14:00 Resp 16 10/08/21 14:00 BP 79/55 10/08/21 14:00 Pulse Ox 92 L 10/08/21 14:00 Intake & Output 10/07/21 10/08/21 10/08/21 18:59 06:59 18:59 Intake Total 300 710 Balance 300 710 Weight 67.132 kg 67.132 kg Intake: Oral 300 710 Other: # Voids 1 2 1 # Bowel Movements 1 # Emeses 2 - Exam GENERAL DESCRIPTION: Middle-age female lying in bed in no distress RESPIRATORY SYSTEM: Unlabored breathing , decreased breath sounds at bases HEART: S1 S2 regular rate and rhythm , ABDOMEN: Soft , no tenderness EXTREMITIES: No edema feet - Labs CBC & Chem 7: 10/08/21 05:45 10/08/21 05:45 Labs: Abnormal Lab Results - Last 24 Hours (Table) 10/07/21 10/07/21 10/08/21 Range/Units 02:35 11:09 05:45 RBC 3.97 L (4.10-5.20) X 10*6/uL MCV 100.0 H (80.0-97.0) fL MCHC 31.5 L (32.0-37.0) g/dL MPV 12.4 H (9.5-12.2) fL Potassium (3.5-5.5) mmol/L Chloride (96-109) mmol/L Est GFR (CKD-EPI)AfAm (60.0-200.0) Est GFR (CKD-EPI)NonAf (60.0-200.0) BUN/Creatinine Ratio (12.00-20.00) Ratio Glucose (70-110) mg/dL Calcium (8.7-10.3) mg/dL Total Protein (6.2-8.2) g/dL Albumin (3.8-4.9) g/dL Amylase (23-121) U/L Lipase (14-63) U/L Procalcitonin 0.28 H (0.02-0.09) ng/mL EBV Capsid Ag IgG Intrp POSITIVE A (NEGATIVE) EBV Nuc Ag IgG Interp POSITIVE A (NEGATIVE) 10/08/21 Range/Units 05:45 RBC (4.10-5.20) X 10*6/uL MCV (80.0-97.0) fL MCHC (32.0-37.0) g/dL MPV (9.5-12.2) fL Potassium 3.4 L (3.5-5.5) mmol/L Chloride 110 H (96-109) mmol/L Est GFR (CKD-EPI)AfAm 58.1 L (60.0-200.0) Est GFR (CKD-EPI)NonAf 50.1 L (60.0-200.0) BUN/Creatinine Ratio 7.58 L (12.00-20.00) Ratio Glucose 136 H (70-110) mg/dL Calcium 7.9 L (8.7-10.3) mg/dL Total Protein 5.5 L (6.2-8.2) g/dL Albumin 3.6 L (3.8-4.9) g/dL Amylase 20 L (23-121) U/L Lipase 12 L (14-63) U/L Procalcitonin (0.02-0.09) ng/mL EBV Capsid Ag IgG Intrp (NEGATIVE) EBV Nuc Ag IgG Interp (NEGATIVE) Microbiology - Last 24 Hours (Table) 10/07/21 17:04 Group A Strep Throat Culture - Preliminary Throat 10/06/21 23:50 Blood Culture - Preliminary Blood No Growth after 24 hours 10/06/21 23:35 Blood Culture - Preliminary Blood No Growth after 24 hours Assessment and Plan (1) Fever Current Visit: Yes Status: Acute Code(s): R50.9 - FEVER, UNSPECIFIED SNOMED Code(s): 651877073 (2) Lymphadenopathy of left cervical region Current Visit: Yes Status: Acute Code(s): R59.0 - LOCALIZED ENLARGED LYMPH NODES SNOMED Code(s): 598019410 Plan: 1patient with a fever and this patient did have a left-sided neck swelling with ultrasound suggestive of left cervical lymphadenopathy patient did have some sore throat 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 with a question of possible irritation from the denture causing oral infection and secondary lymphadenopathy versus possible viral syndrome as the patient did have a normal white count and initial work-up including a UA chest x-ray has been negative abdominal soft on clinical examination 2- CT of abdominal pelvis and chest did not show any abscess or colitis did shows evidence of retroperitoneal lymphadenopathy 3- CMV serology was negative EBV serologies pending, rheumatological workup has been ordered as well as parvovirus serology 4- continue Unasyn and vancomycin while waiting for the cultures to finalize Time with Patient: Less than 30
[2021-10-09] MEDS: AMPICILLIN-SULBACTAM 3 GM in SODIUM CHLORIDE 0.9% 100 ML IVPB SCH (05:18)
[2021-10-09] MEDS: SODIUM CHLORIDE 0.9% 1,000 ML IV SCH ×3 (05:19→19:43)
[2021-10-09] MEDS: LEVOTHYROXINE 100 MCG TAB PO SCH (06:02)
[2021-10-09] MEDS: VANCOMYCIN 1,250 MG in SODIUM CHLORIDE 0.9% 250 ML IVPB SCH (06:02)
[2021-10-09] MEDS: lisinopriL 10 MG TAB PO SCH (08:14)
[2021-10-09] MEDS: ACETAMINOPHEN TAB 325 MG TAB PO PRN (08:19)
[2021-10-09] MEDS: lamoTRIgine 100 MG TAB PO SCH ×2 (08:19→20:29)
[2021-10-09] MEDS: HEPARIN SODIUM,PORCINE/PF 5,000 UNIT/0.5 ML SYRINGE SQ SCH ×2 (08:20→15:15)
[2021-10-09 09:52] LABS: African American GFR (CKD) 52.7 (60.0-200.0); Albumin/Globulin Ratio 1.5 (1.60-3.17); Anion Gap 11.6 mmol/L (10.00-18.00); BUN/Creat Ratio 11.38 Ratio (12.00-20.00); Blood Urea Nitrogen 14.8 mg/dL (9.0-27.0); Calcium 7.3 mg/dL (8.7-10.3); Carbon Dioxide 18.4 mmol/L (20.0-27.5); Non-African American GFR(CKD) 45.5 (60.0-200.0); Potassium 3.6 mmol/L (3.5-5.5); Total Bilirubin 0.6 mg/dL (0.30-1.20)
[2021-10-09] MEDS ORDERED: IPRATROPIUM-ALBUTEROL 3 ML NEB INHALATION STA (09:59)
[2021-10-09 11:07] LABS: Basophils % (A) 0 %; Eosinophils # (A) 0.2 k/uL (0-0.7); Eosinophils % (A) 1 %; HGB 12.9 gm/dL (11.4-16.0); Hypochromasia Slight; Lymphocytes # (A) 0.3 k/uL (1.0-4.8); Lymphocytes % (A) 2 %; MCH 33.3 pg (25.0-35.0); MCHC 32.3 g/dL (31.0-37.0); MCV 103.1 fL (80.0-100.0); Macrocytosis Slight; Mean Platelet Volume 10.8; Monocytes # (A) 0.2 k/uL (0-1.0); Monocytes % (A) 1 %; Neutrophils # (A) 15.5 k/uL (1.3-7.7); Neutrophils % (A) 96 %; Platelet Count 147 k/uL (150-450); RBC 3.88 m/uL (3.80-5.40); RDW 14.3 % (11.5-15.5); WBC 16.2 k/uL (3.8-10.6)
--- NOTE | 2021-10-09 11:31 | XR ---
EXAMINATION TYPE: XR chest 2V DATE OF EXAM: 10/09/2021 COMPARISON: NONE TECHNIQUE: PA and lateral views submitted. HISTORY: Shortness of breath FINDINGS: Heart size is prominent there is a diffuse interstitial pattern with bilateral effusions greater on t he left. Hypertrophic and degenerative change of the spine. Hyperinflation. IMPRESSION: 1. Correlate for CHF otherwise consider diffuse pneumonia
[2021-10-09] MEDS: CEFEPIME 2 GM in SODIUM CHLORIDE 0.9% 100 ML IVPB SCH (13:09)
--- NOTE | 2021-10-09 13:25 | P.PN ---
Subjective Progress Note Date: 10/09/21 Principal diagnosis: Fever of unknown origin 56-year-old female who presented to the hospital with fever for the last several days duration. She had a CT of the abdomen and pelvis as part of her workup that showed retroperitoneal fat stranding predominantly around the pancreas with prominent retroperitoneal and mesenteric lymph nodes. Gastroenterology was consulted for the above. Symptoms are not consistent with pancreatitis. Patient had no elevation in her LFTs amylase and lipase were normal as well. Patient has a rash that developed on her knees over the last few days duration on her elbows. Infectious disease is following patient closely. Yesterday she had a max temperature 103. Today max temp of 100.6. She is denying any abdominal pain, nausea or vomiting. Patient underwent chest x-ray that states correlate for COPD or diffuse pneumonia. Objective - Vital Signs Vital signs: Vital Signs Temp 99.9 F H 10/09/21 12:00 Pulse 108 H 10/09/21 11:07 Resp 22 10/09/21 08:25 BP 99/57 10/09/21 08:25 Pulse Ox 94 L 10/09/21 08:25 Intake & Output 10/08/21 10/09/21 10/09/21 18:59 06:59 18:59 Intake Total 946 118 Balance 946 118 Weight 67.132 kg Intake: Oral 946 118 Other: # Voids 1 1 # Bowel Movements 1 2 1 # Emeses 2 - Exam General appearance: The patient is alert, oriented, appears in no acute distress. HET: Head is normocephalic and atraumatic. Conjunctiva pink. Sclera anicteric. Neck: Supple without lymphadenopathy. Abdomen: Soft, nontender, nondistended with bowel sounds. No guarding or rigidity. Extremities: Normal skin color and turgor. No pedal edema Skin: Rash on left side of neck, knees and elbows, no jaundice Neurological: No focal deficits. Alert and oriented -3. - Labs CBC & Chem 7: 10/09/21 06:30 10/09/21 06:30 Labs: Abnormal Lab Results - Last 24 Hours (Table) 10/09/21 10/09/21 Range/Units 06:30 06:30 WBC 16.2 H (3.8-10.6) k/uL MCV 103.1 H (80.0-100.0) fL Plt Count 147 L (150-450) k/uL Neutrophils # 15.5 H (1.3-7.7) k/uL Lymphocytes # 0.3 L (1.0-4.8) k/uL Chloride 110 H (96-109) mmol/L Carbon Dioxide 18.4 L (20.0-27.5) mmol/L Est GFR (CKD-EPI)AfAm 52.7 L (60.0-200.0) Est GFR (CKD-EPI)NonAf 45.5 L (60.0-200.0) BUN/Creatinine Ratio 11.38 L (12.00-20.00) Ratio Glucose 113 H (70-110) mg/dL Calcium 7.3 L (8.7-10.3) mg/dL AST 55 H (13-35) U/L ALT 63 H (8-44) U/L Total Protein 5.0 L (6.2-8.2) g/dL Albumin 3.0 L (3.8-4.9) g/dL Albumin/Globulin Ratio 1.50 L (1.60-3.17) g/dL Lipase 11 L (14-63) U/L Microbiology - Last 24 Hours (Table) 10/06/21 23:50 Blood Culture - Preliminary Blood No Growth after 48 hours 10/06/21 23:35 Blood Culture - Preliminary Blood No Growth after 48 hours Assessment and Plan (1) Pancreatitis Narrative/Plan: 56-year-old female who presented to the emergency department with complaints of fever and left facial and neck swelling. Fever and facial swelling began approximately 3 days ago. Patient had a max temperature of 103. She had a CT of the chest abdomen and pelvis with mild retroperitoneal fat stranding predominately around the pancreas and prominent retroperitoneal and mesenteric lymph nodes. Patient has no prior history of pancreatitis. Liver enzymes and pancreatic enzymes are within normal limits and not consistent with the pancreatitis. It is unlikely etiology for fever. We will continue to trend liver enzymes as well as amylase and lipase. Current Visit: Yes Status: Acute Code(s): K85.90 - ACUTE PANCREATITIS WITHOUT NECROSIS OR INFECTION, UNSP SNOMED Code(s): 61418373 (2) Fever Narrative/Plan: Infectious disease and hematology following patient closely Current Visit: Yes Status: Acute Code(s): R50.9 - FEVER, UNSPECIFIED SNOMED Code(s): 427959213 (3) Lymphadenopathy of left cervical region Current Visit: Yes Status: Acute Code(s): R59.0 - LOCALIZED ENLARGED LYMPH NODES SNOMED Code(s): 632548261 Plan: 1. Continue symptomatic and supportive care 2. Continue with recommendations from infectious disease 3. Patient is asymptomatic for pancreatitis as well as no elevation in liver enzymes or amylase and lipase. Likely if patient has mild case of pancreatitis this is not the source of fever. Thank you for this consultation, we will sign off. Dr. Justine Christensen I agree with the dictator's note, documented as a scribe by Diana Ponce.
[2021-10-09] MEDS ORDERED: FUROSEMIDE 10 MG/ML 2 ML VIAL IV ONE (15:00)
--- NOTE | 2021-10-09 15:10 | P.PN ---
Subjective Progress Note Date: 10/09/21 Principal diagnosis: Fever Patient had shortness of breath starting this morning. Respiratory rate was up. She had a low-grade fever 100.6. He started requiring low-flow nasal cannula to keep saturations above 92-93%. She has been complaining from lower back pain for the past few days according to her at the bedside. Patient had one episode of diarrhea of dark stool today. Objective - Vital Signs Vital signs: Vital Signs Temp 99.9 F H 10/09/21 12:00 Pulse 108 H 10/09/21 11:07 Resp 22 10/09/21 08:25 BP 99/57 10/09/21 08:25 Pulse Ox 94 L 10/09/21 08:25 Intake & Output 10/08/21 10/09/21 10/09/21 18:59 06:59 18:59 Intake Total 946 118 Balance 946 118 Weight 67.132 kg Intake: Oral 946 118 Other: # Voids 1 1 # Bowel Movements 1 2 1 # Emeses 2 - Exam General: Nontoxic, mild to moderate respiratory distress. Diaphoretic. Derm: Skin warm and dry, normal coloration for ethnicity. There is vinit[place] thematous, nonraised rash to bilateral knees, arms, and left side of neck Head: Atraumatic, normocephalic and symmetric. Eyes: EOMs intact, no lid lag, and anicteric sclera Mouth: no lip lesions, mucus membranes moist. Patient does not have teeth, wears dentures. No noted infections or swelling in mouth. No tonsillar swelling or erythema. Cardiovascular: regular rate and rhythm with normal S1S2, no murmur, positive posterior tibial pulses bilaterally, and cap refill < 2 seconds. Lungs: Bilateral rhonchi and wheezing, and no accessory muscle usage. Abdominal: soft, nontender to palpation, no guarding, no appreciable organomegaly Ext: ROM intact. No gross muscle atrophy, no edema, no contractures Neuro: Speech clear, face symmetrical and CN II-XII grossly intact with no noted focal neuro deficits Psych: Alert and oriented to person, place, time, and situation. Appropriate and pleasant affect. - Labs CBC & Chem 7: 10/09/21 06:30 10/09/21 06:30 Labs: Abnormal Lab Results - Last 24 Hours (Table) 10/09/21 10/09/21 Range/Units 06:30 06:30 WBC 16.2 H (3.8-10.6) k/uL MCV 103.1 H (80.0-100.0) fL Plt Count 147 L (150-450) k/uL Neutrophils # 15.5 H (1.3-7.7) k/uL Lymphocytes # 0.3 L (1.0-4.8) k/uL Chloride 110 H (96-109) mmol/L Carbon Dioxide 18.4 L (20.0-27.5) mmol/L Est GFR (CKD-EPI)AfAm 52.7 L (60.0-200.0) Est GFR (CKD-EPI)NonAf 45.5 L (60.0-200.0) BUN/Creatinine Ratio 11.38 L (12.00-20.00) Ratio Glucose 113 H (70-110) mg/dL Calcium 7.3 L (8.7-10.3) mg/dL AST 55 H (13-35) U/L ALT 63 H (8-44) U/L Total Protein 5.0 L (6.2-8.2) g/dL Albumin 3.0 L (3.8-4.9) g/dL Albumin/Globulin Ratio 1.50 L (1.60-3.17) g/dL Lipase 11 L (14-63) U/L Microbiology - Last 24 Hours (Table) 10/06/21 23:50 Blood Culture - Preliminary Blood No Growth after 48 hours 10/06/21 23:35 Blood Culture - Preliminary Blood No Growth after 48 hours Assessment and Plan Plan: Fever of unclear etiology Lymphadenopathy -Fever of unclear etiology positive for SIRS with temp 102.4F, heart rate 120, blood pressure 84/51. -D/w ID, will expand IV antibiotics to include doxycycline to cover atypical organisms, cefepmine and vanco. Blood cx 10/06 negative. -Urinalysis negative for infection. -Influenza A, influenza B, and Covid PCR negative. -CMV nonreactive -EBV IgG positive IgM negative -Group A rapid strep negative -Pro-calcitonin slightly elevated at 0.28 -Ultrasound left anterior neck revealing a left-sided cervical lymphadenopathy -CT chest abdomen and pelvis revealing mild fat stranding in the lower neck, small gastroesophageal hiatal hernia, and mild retroperitoneal fat stranding predominantly around the pancreas and prominent retroperitoneal and mesenteric lymph nodes the differential includes infectious and inflammatory etiologies, and a 4 mm calculus in the upper pole of the right kidney. -Infectious disease following, appreciate further recommendations Acute hypoxic respiraroy failure -CXR with CHF vs. pneumonia _Check BNP, trops -Stat lasix. -D/c IV hydration Low back pain: -D/w ID will order MRI lumbar spine with and without contrast -Consult placed to hematology/oncology for evaluation to rule out lymphoma Acute kidney injury, resolved with IV fluid hydration CODE STATUS: Full code DVT prophylaxis: Heparin Discussed with: Patient, patient's , and RN Anticipated discharge date: Clinical course to determine Anticipated discharge place: Clinical course to determine A total of 41 minutes was spent on the care of this complex patient more than 50% of the time was spent in counseling and care coordination.
[2021-10-09] MEDS: KETOROLAC 15 MG/ML 1 ML VIAL IVP PRN (15:46)
[2021-10-09] MEDS: IPRATROPIUM-ALBUTEROL 3 ML NEB INHALATION PRN (19:08)
--- NOTE | 2021-10-09 20:26 | P.CONS ---
History of Present Illness - Reason for Consult Consult date: 10/09/21 Adenopathy Requesting physician: Allan Hennessy - Chief Complaint Fever - History of Present Illness Patient was seen on floor by Dr. Lee, at bedside. Patient is hard of hearing. Mrs. Valdovinos is a pleasant 56 year old female, hard of hearing, who presented with high fevers, unilateral facial neck swelling. Full infectious work-up performed and cultures negative this far. Infectious disease is following, antibiotics initiated. Patient's explains symptoms and fever started rather quickly over a matter of days and have started to improve quickly as well. Imaging of neck, chest, abdomen, and pelvis without contrast. unilateral adenopathy submandibular seen, CT abdomen revealed retroperitoneal adenopathy and question of stranding and possible cysts near pancreas, however this is thought to be an incidental finding. CT chest without massess, again all without contrast . Fever T max 103.1 Past Medical History Past Medical History: GERD/Reflux, Hypertension, Thyroid Disorder Additional Past Medical History / Comment(s): hx bronchitis, constipation, History of Any Multi-Drug Resistant Organisms: None Reported Past Surgical History: Section, Ear Surgery, Hysterectomy Additional Past Surgical History / Comment(s): Tubes bilateral ears. RT EAR SX X2 Past Anesthesia/Blood Transfusion Reactions: No Reported Reaction Past Psychological History: Anxiety, Bipolar, Depression Smoking Status: Current every day smoker Past Alcohol Use History: None Reported Past Drug Use History: None Reported - Past Family History Father Family Medical History: Coronary Artery Disease (CAD) Additional Family Medical History / Comment(s): Mother at age 70 from coronary artery disease. Mother Family Medical History: Cancer Additional Family Medical History / Comment(s): . Brother(s) Additional Family Medical History / Comment(s): Unable to obtain brother and sister history. Patient has 2 sons are healthy. Medications and Allergies Home Medications Medication Instructions Recorded Confirmed Type LORazepam [Ativan] 1 mg PO DAILY PRN 12/26/15 10/06/21 History lamoTRIgine [LaMICtal] 150 mg PO DAILY #45 tab 01/06/16 10/06/21 Rx Levothyroxine Sodium [Synthroid] 100 mcg PO DAILY 12/01/16 10/06/21 History QUEtiapine FUMARATE 400 mg PO HS 12/01/16 10/06/21 History lisinopriL [Zestril] 10 mg PO DAILY 12/01/16 10/06/21 History lamoTRIgine [LaMICtal] 200 mg PO HS 10/06/21 10/06/21 History Allergies Allergy/AdvReac Type Severity Reaction Status Date / Time chlorpromazine HCl Allergy Unknown Verified 10/06/21 23:09 [From Thorazine] codeine Allergy Unknown Verified 10/06/21 23:09 sulfamethoxazole Allergy Unknown Verified 10/06/21 23:09 [From Septra] trimethoprim [From Septra] Allergy Unknown Verified 10/06/21 23:09 Physical Exam Vitals: Vital Signs Temp Pulse Pulse Resp BP BP Pulse Ox 10/09/21 17:00 99.1 F 112 H 18 79/52 94 L 10/09/21 15:00 100.0 F H 108 H 18 117/71 95 10/09/21 12:00 99.9 F H 10/09/21 11:07 108 H 10/09/21 10:55 108 H 10/09/21 08:25 100.6 F H 22 99/57 94 L 10/09/21 08:00 99.7 F H 108 H 18 108/59 95 10/09/21 02:05 99.6 F 101 H 104/66 92 L 10/08/21 19:20 102.3 F H 92 17 80/49 93 L 10/08/21 18:23 103.1 F H Intake and Output 10/09/21 10/09/21 10/09/21 06:59 14:59 22:59 Intake Total 118 326 Balance 118 326 Intake: Oral 118 326 Other: # Voids 1 4 # Bowel Movements 2 1 4 - Constitutional General appearance: cooperative, no acute distress - EENT ENT: hard of hearing - Neck Unilateral and submandibular Neck: lymphadenopathy - Respiratory Respiratory: bilateral: diminished - Cardiovascular Rhythm: regularly irregular - Gastrointestinal General gastrointestinal: tenderness - Integumentary Integumentary: pale - Neurologic Neurologic: CNII-XII intact - Musculoskeletal Musculoskeletal: generalized weakness - Psychiatric Psychiatric: A&O x's 3, appropriate affect, intact judgment & insight Results CBC & Chem 7: 10/09/21 06:30 10/09/21 06:30 Labs: Abnormal Lab Results - Last 24 Hours (Table) 10/09/21 10/09/21 10/09/21 Range/Units 06:30 06:30 16:45 WBC 16.2 H (3.8-10.6) k/uL MCV 103.1 H (80.0-100.0) fL Plt Count 147 L (150-450) k/uL Neutrophils # 15.5 H (1.3-7.7) k/uL Lymphocytes # 0.3 L (1.0-4.8) k/uL Chloride 110 H (96-109) mmol/L Carbon Dioxide 18.4 L (20.0-27.5) mmol/L Est GFR (CKD-EPI)AfAm 52.7 L (60.0-200.0) Est GFR (CKD-EPI)NonAf 45.5 L (60.0-200.0) BUN/Creatinine Ratio 11.38 L (12.00-20.00) Ratio Glucose 113 H (70-110) mg/dL Calcium 7.3 L (8.7-10.3) mg/dL AST 55 H (13-35) U/L ALT 63 H (8-44) U/L Troponin I 0.075 H* (0.000-0.034) ng/mL Total Protein 5.0 L (6.2-8.2) g/dL Albumin 3.0 L (3.8-4.9) g/dL Albumin/Globulin Ratio 1.50 L (1.60-3.17) g/dL Lipase 11 L (14-63) U/L Microbiology - Last 24 Hours (Table) 10/06/21 23:50 Blood Culture - Preliminary Blood No Growth after 48 hours 10/06/21 23:35 Blood Culture - Preliminary Blood No Growth after 48 hours Comments: Imaging of neck CT scan - abdomen: report reviewed CT scan - chest: report reviewed CT scan - pelvis: report reviewed Assessment and Plan (1) Fever Narrative/Plan: - T -Max 103.1 on - Today appear improving - Current Visit: Yes Status: Acute Code(s): R50.9 - FEVER, UNSPECIFIED SNOMED Code(s): 621308034 (2) Lymphadenopathy of left cervical region Narrative/Plan: Overall rapid onset symptoms, adenopathy submandibular but improving with abx - On exam palpable nodes are undistinct, moveable and appear non malignant and likely reactive. Current Visit: Yes Status: Acute Code(s): R59.0 - LOCALIZED ENLARGED LYMPH NODES SNOMED Code(s): 004394084 (3) SIRS (systemic inflammatory response syndrome) Current Visit: Yes Status: Acute Code(s): R65.10 - SIRS OF NON-INFECTIOUS ORIGIN W/O ACUTE ORGAN DYSFUNCTION SNOMED Code(s): 125312357 (4) Lymphadenopathy, retroperitoneal Narrative/Plan: - likely incidental finding, admits patient has complained of intermittent abdominal and back discomfort over the past year. This does warrant further testing. We discussed repeat imaging versus further evaluation with EUS, they have opted to further go EUS, this will be set up at tertiary center as outpatient prior to November, as they have a planned vacation they really do not want to miss. - Inflammatory makers are not markedly elevated Current Visit: Yes Status: Acute Code(s): R59.0 - LOCALIZED ENLARGED LYMPH NODES SNOMED Code(s): 508163274 Plan: Dr. Simon: I have completed the full history and physical, developed the above impression and plan. Agree with dictation, dictated as a scribe.
[2021-10-09] MEDS: DOXYCYCLINE 100 MG CAP PO SCH (20:29)
[2021-10-09 21:17] LABS: Glucose,Whole Blood 132 mg/dL (75-99)
--- NOTE | 2021-10-09 23:36 | P.PN ---
Subjective Progress Note Date: 10/09/21 Principal diagnosis: Fever and rash Patient is a 56-year-old female presenting to the hospital with a fever rash and swelling to the left side of the neck in this patient did have evidence of lymphadenopathy subsequently developed a rash to bilateral elbow and bilateral knee area patient did have a CT of abdominal pelvis and chest no mention of any abscess which was some retroperitoneal lymphadenopathy. On today's evaluation that is 10/09/2021, the patient fever pattern has improved with a T-max of 100.9F, the patient denies any chest pain or shortness of breath did have minimal cough is complaining of some nausea and diarrhea no abdominal pain though also complaining of some lower back pain and no radiation down the leg Objective - Vital Signs Vital signs: Vital Signs Temp 99.9 F H 10/09/21 12:00 Pulse 108 H 10/09/21 11:07 Resp 22 10/09/21 08:25 BP 99/57 10/09/21 08:25 Pulse Ox 94 L 10/09/21 08:25 Intake & Output 10/08/21 10/09/21 10/09/21 18:59 06:59 18:59 Intake Total 946 118 Balance 946 118 Weight 67.132 kg Intake: Oral 946 118 Other: # Voids 1 1 # Bowel Movements 1 2 1 # Emeses 2 - Exam GENERAL DESCRIPTION: Middle-age female lying in bed in no distress RESPIRATORY SYSTEM: Unlabored breathing , decreased breath sounds at bases HEART: S1 S2 regular rate and rhythm , ABDOMEN: Soft , no tenderness EXTREMITIES: No edema feet - Labs CBC & Chem 7: 10/09/21 06:30 10/09/21 06:30 Labs: Abnormal Lab Results - Last 24 Hours (Table) 10/09/21 10/09/21 Range/Units 06:30 06:30 WBC 16.2 H (3.8-10.6) k/uL MCV 103.1 H (80.0-100.0) fL Plt Count 147 L (150-450) k/uL Neutrophils # 15.5 H (1.3-7.7) k/uL Lymphocytes # 0.3 L (1.0-4.8) k/uL Chloride 110 H (96-109) mmol/L Carbon Dioxide 18.4 L (20.0-27.5) mmol/L Est GFR (CKD-EPI)AfAm 52.7 L (60.0-200.0) Est GFR (CKD-EPI)NonAf 45.5 L (60.0-200.0) BUN/Creatinine Ratio 11.38 L (12.00-20.00) Ratio Glucose 113 H (70-110) mg/dL Calcium 7.3 L (8.7-10.3) mg/dL AST 55 H (13-35) U/L ALT 63 H (8-44) U/L Total Protein 5.0 L (6.2-8.2) g/dL Albumin 3.0 L (3.8-4.9) g/dL Albumin/Globulin Ratio 1.50 L (1.60-3.17) g/dL Lipase 11 L (14-63) U/L Microbiology - Last 24 Hours (Table) 10/06/21 23:50 Blood Culture - Preliminary Blood No Growth after 48 hours 10/06/21 23:35 Blood Culture - Preliminary Blood No Growth after 48 hours Assessment and Plan (1) Fever Current Visit: Yes Status: Acute Code(s): R50.9 - FEVER, UNSPECIFIED SNOMED Code(s): 454962680 (2) Lymphadenopathy of left cervical region Current Visit: Yes Status: Acute Code(s): R59.0 - LOCALIZED ENLARGED LYMPH NODES SNOMED Code(s): 454162532 Plan: 1patient with a fever and this patient did have a left-sided neck swelling with ultrasound suggestive of left cervical lymphadenopathy patient did have some sore throat 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 with a question of possible irritation from the denture causing oral infection and secondary lymphadenopathy versus possible viral syndrome as the patient did have a normal white count and initial work-up including a UA chest x-ray has been negative abdominal soft on clinical examination 2- CT of abdominal pelvis and chest did not show any abscess or colitis did shows evidence of retroperitoneal lymphadenopathy 3- CMV serology was negative EBV serologies pending, rheumatological workup has been ordered as well as parvovirus serology 4-MRI of the lumbosacral spine has been ordered because of the back pain and no other obvious focus of infection 5-antibiotic has been adjusted to cefepime and doxycycline after discussion with the admitting team while waiting for the workup to be finalize Time with Patient: Less than 30
[2021-10-10] MEDS: CEFEPIME 2 GM in SODIUM CHLORIDE 0.9% 100 ML IVPB SCH ×3 (00:06→23:26)
[2021-10-10] MEDS: HEPARIN SODIUM,PORCINE/PF 5,000 UNIT/0.5 ML SYRINGE SQ SCH ×4 (00:06→23:26)
[2021-10-10] MEDS ORDERED: SODIUM CHLORIDE 0.9% 500 ML 500 ML IV ONE (01:18)
[2021-10-10] MEDS: IPRATROPIUM-ALBUTEROL 3 ML NEB INHALATION PRN ×4 (01:40→19:38)
[2021-10-10 04:48] LABS: HCT 42.2 % (34.0-46.0); HGB 13.8 gm/dL (11.4-16.0); MCH 32.7 pg (25.0-35.0); MCHC 32.7 g/dL (31.0-37.0); Macrocytosis Slight; Mean Platelet Volume 10.5; RBC 4.22 m/uL (3.80-5.40); RDW 14.4 % (11.5-15.5); WBC 18.4 k/uL (3.8-10.6)
[2021-10-10 04:55] LABS: ALT 47 U/L (4-34); AST 33 U/L (14-36); African American GFR (CKD) 56 (>60 ml/min/1.73 sqM); Albumin 2.7 g/dL (3.5-5.0); Alkaline Phosphatase 145 U/L (38-126); Anion Gap 8 mmol/L; Blood Urea Nitrogen 24 mg/dL (7-17); Calcium 7.5 mg/dL (8.4-10.2); Carbon Dioxide 19 mmol/L (22-30); Chloride 113 mmol/L (98-107); Globulin 2.6 g/dL; Glucose 112 mg/dL (74-99); Magnesium 1.8 mg/dL (1.6-2.3); Non-African American GFR(CKD) 48 (>60 ml/min/1.73 sqM); Potassium 3.5 mmol/L (3.5-5.1); Sodium 140 mmol/L (137-145); Total Bilirubin 0.9 mg/dL (0.2-1.3); Total Protein 5.3 g/dL (6.3-8.2)
[2021-10-10 05:18] LABS: Platelet Count 90 k/uL (150-450)
[2021-10-10 05:59] LABS: Band Neutrophils % 14 %; Eosinophils # (M) 0.18 k/uL (0-0.7); Lymphocytes # (M) 0.74 k/uL (1.0-4.8); Monocytes # (M) 0.37 k/uL (0-1.0); Neutrophils % (M) 79 %; Nucleated Red Blood Cells 0 /100 WBC (0-0); Total Cells Counted 100
[2021-10-10] MEDS: ACETAMINOPHEN TAB 325 MG TAB PO PRN (06:24)
[2021-10-10] MEDS: VANCOMYCIN 1,250 MG in SODIUM CHLORIDE 0.9% 250 ML IVPB SCH (06:25)
[2021-10-10] MEDS: LEVOTHYROXINE 100 MCG TAB PO SCH (06:25)
--- NOTE | 2021-10-10 08:50 | XR ---
EXAMINATION TYPE: XR chest 1V portable DATE OF EXAM: 10/10/2021 COMPARISON: Chest x-ray 10/09/2021, CT 10/07/2021 HISTORY: Shortness of breath TECHNIQUE: Single frontal view of the chest is obtained. FINDINGS: Bilateral airspace disease is present. There is no evident pneumothorax. Difficult to excl ude basilar effusion. Heart is thought to be enlarged although the patient is rotated. There are over lying leads. IMPRESSION: Correlate for congestive heart failure versus pneumonia, patient with pericardial effusi on. Borderline cardiomegaly.
[2021-10-10] MEDS ORDERED: SODIUM CHLORIDE 0.9% 1,000 ML IV ONE ×3 (09:30→13:45)
[2021-10-10] MEDS ORDERED: FUROSEMIDE 40 MG TAB PO STA (09:43)
[2021-10-10] MEDS: lisinopriL 10 MG TAB PO SCH (09:48)
[2021-10-10] MEDS: lamoTRIgine 100 MG TAB PO SCH ×2 (09:54→20:31)
[2021-10-10] MEDS: DOXYCYCLINE 100 MG CAP PO SCH (09:54)
[2021-10-10] MEDS: SODIUM CHLORIDE 0.9% 1,000 ML IV SCH ×3 (09:54→19:36)
--- NOTE | 2021-10-10 11:13 | P.PN ---
Subjective Progress Note Date: 10/10/21 Principal diagnosis: Fever Patient became worse since last night, she is currently requiring more oxygen, was on 6 L earlier, now up to 10 L high flow nasal cannula. Her blood pressures dipping into the 60s and 70s systolic. He is feeling dizzy. He is also complaining from shortness of breath and some chest pain. He still having mild low-grade fever. Extremities are cold and nailbeds are dusky. Objective - Vital Signs Vital signs: Vital Signs Temp 99.8 F H 10/10/21 10:32 Pulse 116 H 10/10/21 10:55 Resp 32 H 10/10/21 10:58 BP 60/34 10/10/21 10:32 Pulse Ox 94 L 10/10/21 10:58 Intake & Output 10/09/21 10/10/21 10/10/21 18:59 06:59 18:59 Intake Total 562 110 Balance 562 110 Weight 57.5 kg Intake: IV 10 Invasive Line 2 10 Oral 562 100 Other: Voiding Method Diaper Diaper # Voids 4 1 # Bowel Movements 4 1 - Exam General: Nontoxic, mild to moderate respiratory distress. Diaphoretic. Derm: Skin warm and dry, normal coloration for ethnicity. There is erythematous, nonraised rash to bilateral knees, arms, and left side of neck Head: Atraumatic, normocephalic and symmetric. Eyes: EOMs intact, no lid lag, and anicteric sclera Mouth: no lip lesions, mucus membranes moist. Patient does not have teeth, wears dentures. No noted infections or swelling in mouth. No tonsillar swelling or erythema. Cardiovascular: regular rate and rhythm with normal S1S2, no murmur, positive posterior tibial pulses bilaterally, and cap refill < 2 seconds. Lungs: Bilateral rhonchi and wheezing, and no accessory muscle usage. Abdominal: soft, nontender to palpation, no guarding, no appreciable organomegaly Ext: ROM intact. No gross muscle atrophy, no edema, no contractures Neuro: Speech clear, face symmetrical and CN II-XII grossly intact with no noted focal neuro deficits Psych: Alert and oriented to person, place, time, and situation. Appropriate and pleasant affect. - Labs CBC & Chem 7: 10/10/21 04:18 10/10/21 04:18 Labs: Abnormal Lab Results - Last 24 Hours (Table) 10/09/21 10/09/21 10/09/21 Range/Units 06:30 16:45 20:32 WBC 16.2 H (3.8-10.6) k/uL MCV 103.1 H (80.0-100.0) fL Plt Count 147 L (150-450) k/uL Neutrophils # 15.5 H (1.3-7.7) k/uL Neutrophils # (Manual) (1.3-7.7) k/uL Lymphocytes # 0.3 L (1.0-4.8) k/uL Lymphocytes # (Manual) (1.0-4.8) k/uL Chloride (98-107) mmol/L Carbon Dioxide (22-30) mmol/L BUN (7-17) mg/dL Creatinine (0.52-1.04) mg/dL Glucose (74-99) mg/dL POC Glucose (mg/dL) (75-99) mg/dL Plasma Lactic Acid Marcos (0.7-2.0) mmol/L Calcium (8.4-10.2) mg/dL ALT (4-34) U/L Alkaline Phosphatase (38-126) U/L Troponin I 0.075 H* 0.070 H* (0.000-0.034) ng/mL Total Protein (6.3-8.2) g/dL Albumin (3.5-5.0) g/dL 10/09/21 10/10/21 10/10/21 Range/Units 21:16 00:00 04:18 WBC 18.4 H (3.8-10.6) k/uL MCV (80.0-100.0) fL Plt Count 90 L (150-450) k/uL Neutrophils # (1.3-7.7) k/uL Neutrophils # (Manual) 17.10 H (1.3-7.7) k/uL Lymphocytes # (1.0-4.8) k/uL Lymphocytes # (Manual) 0.74 L (1.0-4.8) k/uL Chloride (98-107) mmol/L Carbon Dioxide (22-30) mmol/L BUN (7-17) mg/dL Creatinine (0.52-1.04) mg/dL Glucose (74-99) mg/dL POC Glucose (mg/dL) 132 H (75-99) mg/dL Plasma Lactic Acid Marcos 3.4 H* (0.7-2.0) mmol/L Calcium (8.4-10.2) mg/dL ALT (4-34) U/L Alkaline Phosphatase (38-126) U/L Troponin I (0.000-0.034) ng/mL Total Protein (6.3-8.2) g/dL Albumin (3.5-5.0) g/dL 10/10/21 10/10/21 Range/Units 04:18 04:18 WBC (3.8-10.6) k/uL MCV (80.0-100.0) fL Plt Count (150-450) k/uL Neutrophils # (1.3-7.7) k/uL Neutrophils # (Manual) (1.3-7.7) k/uL Lymphocytes # (1.0-4.8) k/uL Lymphocytes # (Manual) (1.0-4.8) k/uL Chloride 113 H (98-107) mmol/L Carbon Dioxide 19 L (22-30) mmol/L BUN 24 H (7-17) mg/dL Creatinine 1.24 H (0.52-1.04) mg/dL Glucose 112 H (74-99) mg/dL POC Glucose (mg/dL) (75-99) mg/dL Plasma Lactic Acid Marcos 2.3 H* (0.7-2.0) mmol/L Calcium 7.5 L (8.4-10.2) mg/dL ALT 47 H (4-34) U/L Alkaline Phosphatase 145 H (38-126) U/L Troponin I (0.000-0.034) ng/mL Total Protein 5.3 L (6.3-8.2) g/dL Albumin 2.7 L (3.5-5.0) g/dL Microbiology - Last 24 Hours (Table) 10/07/21 17:04 Group A Strep Throat Culture - Final Throat 10/06/21 23:35 Blood Culture - Preliminary Blood No Growth after 72 hours 10/06/21 23:50 Blood Culture - Preliminary Blood No Growth after 72 hours 10/09/21 17:50 Urine Culture - Preliminary Urine,Voided Assessment and Plan Plan: Fever of unclear etiology Lymphadenopathy Sepsis with hypotension -Consult ICU -IV fluid bolus given, now on maintenance fluids. -Pneumonia could be the cause for the sepsis/fever. -On 10/09 IV antibiotics expanded to include doxycycline to cover atypical organisms, cefepmine and vanco. Blood cx 10/06 negative. -Urinalysis negative for infection. -Influenza A, influenza B, and Covid PCR negative. -CMV nonreactive -EBV IgG positive IgM negative -Group A rapid strep negative -Pro-calcitonin slightly elevated at 0.28 -Ultrasound left anterior neck revealing a left-sided cervical lymphadenopathy -CT chest abdomen and pelvis revealing mild fat stranding in the lower neck, small gastroesophageal hiatal hernia, and mild retroperitoneal fat stranding predominantly around the pancreas and prominent retroperitoneal and mesenteric lymph nodes the differential includes infectious and inflammatory etiologies, and a 4 mm calculus in the upper pole of the right kidney. -Infectious disease following, appreciate further recommendations Acute hypoxic respiraroy failure -CXR with CHF vs. pneumonia -BNP 49530, trops mildly elevated at 0.07, however flat. -Received 1 dose of lasix 10/09. -Antibiotics as above Low back pain: -D/w ID, MRI lumbar spine with and without contrast ordered but patient could not tolerate it -We will reattempt once more stable -Consult placed to hematology/oncology for evaluation to rule out lymphoma Acute kidney injury, resolved with IV fluid hydration CODE STATUS: Full code DVT prophylaxis: Heparin Discussed with: Patient, patient's , and RN Anticipated discharge date: Clinical course to determine Anticipated discharge place: Clinical course to determine A total of 41 minutes was spent on the care of this complex patient more than 50% of the time was spent in counseling and care coordination.
[2021-10-10 11:45] LABS: Glucose,Whole Blood 130 mg/dL (75-99)
[2021-10-10] MEDS ORDERED: LORazepam 2 MG/ML INJ ONE (12:50)
[2021-10-10] MEDS ORDERED: MORPHINE SULFATE 4 MG/ML SYRINGE ONE (12:51)
[2021-10-10] MEDS: NOREPINEPHRINE 4 MG in SODIUM CHLORIDE 0.9% 250 ML IV SCH ×2 (13:00→16:15)
[2021-10-10] MEDS ORDERED: SUCCINYLCHOLINE CHLORIDE VIAL 200 MG/10 ML VIAL IV STA (13:01)
[2021-10-10] MEDS ORDERED: CISATRACURIUM 2 MG/ML 5 ML VIAL IV ONE (13:02)
[2021-10-10] MEDS ORDERED: LORazepam 2 MG/ML INJ IV STA (13:02)
[2021-10-10] MEDS ORDERED: MORPHINE SULFATE 4 MG/ML SYRINGE IVP STA (13:02)
--- NOTE | 2021-10-10 13:10 | P.CRDCN ---
History of Present Illness Consult date: 10/10/21 Consult reason: congestive heart failure History of present illness: The patient is a 56-year-old female with past cardiac history of hypertension, who is currently admitted to the hospital with fevers of unknown origin. She had developed a fever over the course of several days, however proceeded to the emergency room when she developed severe lymphadenopathy along the left side of her neck on 10/06/2021. The patient has been getting multiple rounds of antibiotics, however continues to have fever and chills. She has episodes of hypotension which have required multiple fluid boluses. On 10/09/2021 a BNP was drawn which was found to be elevated at 11,000. Troponins were 0.07 and 0.07 respectively. DIAGNOSTICS: Chest x-ray shows bilateral airspace disease CT of the chest shows heart and normal size with trace pericardial effusion and no evidence of aortic aneurysm No 12-lead EKG on file Vital signs blood pressure 74/58, pulse 1:15, temp 99.8F, respiratory rate 32 Lab data WBC 18.4, hemoglobin 13.8, hematocrit 42.2, platelet 90, sodium 140, potassium 3.5, BUN 24, creatinine 1.24 lactic acid 2.0, magnesium 1.8, AST 30 T, ALT 47, ALP 145, pro calcitonin 0.28, TSH 0.99 PAST MEDICAL HISTORY: GERD, hypertension, thyroid disorder, depression REVIEW OF SYSTEMS: Limited due to mental status. Patient shakes her head no to any pain or difficulty breathing. She appears distressed and has frequent thrashing movements. Tremors, likely rigors when she is resting. PHYSICAL EXAMINATION: This is a 56-year-old female in moderate distress at the time of my examination. Alert and oriented to self HEENT: Head is atraumatic, normocephalic. Mucous membranes of the mouth are dry. Neck is supple. Enlarged cervical lymph nodes. CHEST EXAMINATION: Lungs are diminished to auscultation. No chest wall tenderness is noted on palpation. Inspiratory and expiratory wheezes bilaterally. HEART EXAMINATION: Heart regular rate and rhythm. Notably tachycardic. S1, S2 heard. No murmurs, gallops or rub. ABDOMEN: Soft, nontender. Bowel sounds are heard. No organomegaly noted. EXTREMITIES: Weak and thready peripheral pulses with no evidence of peripheral edema. Dusky in appearance. Diffuse rash on legs, abdomen and back NEUROLOGIC EXAMINATION: Patient is awake, alert and oriented x1. FINAL ASSESSMENT AND PLAN: Elevated troponins, flat, not indicative of ACS, EKG pending Elevated BNP, 11,500, echocardiogram pending, likely secondary to multiple fluid boluses Hypotension Fever of unknown origin, being followed by infectious disease and hematology Septicemia, recommend SIRS protocol PLAN: Echocardiogram and EKG pending Single dose of 40 mg of Lasix by mouth Recommend transition to higher level of care if vital signs do not stabilize Further recommendations will be based upon clinical course I am dictating on behalf of Dr Delmar Garcia's history/physical and assessment/plan. Past Medical History Past Medical History: GERD/Reflux, Hypertension, Thyroid Disorder Additional Past Medical History / Comment(s): hx bronchitis, constipation, History of Any Multi-Drug Resistant Organisms: None Reported Past Surgical History: Section, Ear Surgery, Hysterectomy Additional Past Surgical History / Comment(s): Tubes bilateral ears. RT EAR SX X2 Past Anesthesia/Blood Transfusion Reactions: No Reported Reaction Past Psychological History: Anxiety, Bipolar, Depression Smoking Status: Current every day smoker Past Alcohol Use History: None Reported Past Drug Use History: None Reported - Past Family History Father Family Medical History: Coronary Artery Disease (CAD) Additional Family Medical History / Comment(s): Mother at age 70 from coronary artery disease. Mother Family Medical History: Cancer Additional Family Medical History / Comment(s): . Brother(s) Additional Family Medical History / Comment(s): Unable to obtain brother and sister history. Patient has 2 sons are healthy. Medications and Allergies Home Medications Medication Instructions Recorded Confirmed Type LORazepam [Ativan] 1 mg PO DAILY PRN 12/26/15 10/06/21 History lamoTRIgine [LaMICtal] 150 mg PO DAILY #45 tab 01/06/16 10/06/21 Rx Levothyroxine Sodium [Synthroid] 100 mcg PO DAILY 12/01/16 10/06/21 History QUEtiapine FUMARATE 400 mg PO HS 12/01/16 10/06/21 History lisinopriL [Zestril] 10 mg PO DAILY 12/01/16 10/06/21 History lamoTRIgine [LaMICtal] 200 mg PO HS 10/06/21 10/06/21 History Allergies Allergy/AdvReac Type Severity Reaction Status Date / Time chlorpromazine HCl Allergy Unknown Verified 10/06/21 23:09 [From Thorazine] codeine Allergy Unknown Verified 10/06/21 23:09 sulfamethoxazole Allergy Unknown Verified 10/06/21 23:09 [From Septra] trimethoprim [From ] Allergy Unknown Verified 10/06/21 23:09 Physical Exam Vitals: Vital Signs Temp Pulse Pulse Resp BP BP BP 10/10/21 12:15 111 H 38 H 87/62 10/10/21 12:00 112 H 36 H 134/107 10/10/21 11:45 99.5 F 114 H 32 H 126/111 10/10/21 10:58 32 H 10/10/21 10:55 116 H 10/10/21 10:47 115 H 10/10/21 10:32 99.8 F H 118 H 32 H 60/34 10/10/21 09:51 74/58 10/10/21 09:30 82/62 10/10/21 08:16 99.5 F 121 H 26 H 74/54 10/10/21 06:19 100.4 F H 125 H 32 H 110/60 102/65 10/10/21 03:21 99.4 F 128 H 35 H 119/66 10/10/21 02:39 120 H 30 H 10/10/21 01:50 127 H 10/10/21 01:42 124 H 10/10/21 01:07 99.5 F 128 H 34 H 110/65 10/10/21 00:18 100.1 F H 120 H 32 H 86/48 10/09/21 22:12 83/50 10/09/21 21:34 112 H 70/30 10/09/21 21:21 98.6 F 112 H 36 H 70/30 10/09/21 21:11 30 H 10/09/21 19:50 98.7 F 107 H 22 80/58 10/09/21 19:22 115 H 10/09/21 19:11 111 H 10/09/21 17:00 99.1 F 112 H 18 79/52 10/09/21 15:00 100.0 F H 108 H 18 117/71 Pulse Ox 10/10/21 12:15 94 L 10/10/21 12:00 91 L 10/10/21 11:45 93 L 10/10/21 10:58 94 L 10/10/21 10:55 10/10/21 10:47 10/10/21 10:32 90 L 10/10/21 09:51 10/10/21 09:30 10/10/21 08:16 90 L 10/10/21 06:19 91 L 10/10/21 03:21 92 L 10/10/21 02:39 95 10/10/21 01:50 10/10/21 01:42 90 L 10/10/21 01:07 91 L 10/10/21 00:18 92 L 10/09/21 22:12 10/09/21 21:34 95 10/09/21 21:21 94 L 10/09/21 21:11 10/09/21 19:50 93 L 10/09/21 19:22 10/09/21 19:11 96 10/09/21 17:00 94 L 10/09/21 15:00 95 Intake and Output 10/09/21 10/10/21 10/10/21 22:59 06:59 14:59 Intake Total 444 1340 Output Total 200 Balance 444 1140 Intake: IV 10 Invasive Line 2 10 Intake, IV Titration 1230 Amount Cefepime 2 gm In Sodium 100 Chloride 0.9% 100 ml @ 25 mls/hr IVPB Q12H [facility] Rx# :[id number] Sodium Chloride 0.9% 1, 130 000 ml @ 130 mls/hr IV . Q7H42M [facility] Rx#:[id number] Sodium Chloride 0.9% 1, 1000 000 ml @ 999 mls/hr IV . Q1H1M [facility] Rx#:[id number] Oral 444 100 Output: Urine 200 Other: Voiding Method Diaper Diaper Diaper # Voids 4 1 # Bowel Movements 4 1 Weight 57.5 kg Results 10/10/21 04:18 10/10/21 04:18 Cardiac Enzymes 10/09/21 10/09/21 10/10/21 Range/Units 16:45 20:32 04:18 AST 33 (14-36) U/L Troponin I 0.075 H* 0.070 H* (0.000-0.034) ng/mL CBC 10/10/21 Range/Units 04:18 WBC 18.4 H (3.8-10.6) k/uL RBC 4.22 (3.80-5.40) m/uL Hgb 13.8 (11.4-16.0) gm/dL Hct 42.2 (34.0-46.0) % Plt Count 90 L (150-450) k/uL Comprehensive Metabolic Panel 10/10/21 Range/Units 04:18 Sodium 140 (137-145) mmol/L Potassium 3.5 (3.5-5.1) mmol/L Chloride 113 H (98-107) mmol/L Carbon Dioxide 19 L (22-30) mmol/L BUN 24 H (7-17) mg/dL Creatinine 1.24 H (0.52-1.04) mg/dL Glucose 112 H (74-99) mg/dL Calcium 7.5 L (8.4-10.2) mg/dL AST 33 (14-36) U/L ALT 47 H (4-34) U/L Alkaline Phosphatase 145 H (38-126) U/L Total Protein 5.3 L (6.3-8.2) g/dL Albumin 2.7 L (3.5-5.0) g/dL Current Medications Generic Name Dose Route Start Last Admin Trade Name Freq PRN Reason Stop Dose Admin Acetaminophen 650 mg 10/07/21 07:22 10/10/21 06:24 Acetaminophen Tab 325 Mg Tab PO 650 mg Q6HR PRN Administration Mild Pain or Fever > 100.5 Albuterol/Ipratropium 3 ml 10/09/21 09:59 10/10/21 10:46 Ipratropium-Albuterol 3 Ml Neb INHALATION 3 ml RT-QID PRN Administration Shortness Of Breath Or Wheezing Doxycycline Monohydrate 100 mg 10/09/21 21:00 10/10/21 09:54 Doxycycline 100 Mg Cap PO 100 mg BID JUAN Administration Protocol Heparin Sodium (Porcine) 5,000 unit 10/08/21 00:00 10/10/21 09:48 Heparin Sodium,Porcine/Pf 5,000 Unit/0.5 Ml Syringe SQ Not Given Q8HR JUAN Sodium Chloride 1,000 mls @ 130 mls/hr 10/06/21 23:15 10/10/21 12:09 Saline 0.9% IV 130 mls/hr .Q7H42M JUAN Administration Vancomycin HCl 1,250 mg/ 250 mls @ 125 mls/hr 10/10/21 06:00 10/10/21 06:25 Sodium Chloride IVPB 125 mls/hr Q24H JUAN Administration Cefepime HCl 2 gm/ Sodium 100 mls @ 25 mls/hr 10/09/21 12:00 10/10/21 12:07 Chloride IVPB 25 mls/hr Q12H JUAN Administration Protocol Sodium Chloride 1,000 mls @ 999 mls/hr 10/10/21 11:57 10/10/21 12:08 Saline 0.9% IV 10/10/21 12:57 999 mls/hr .Q1H1M ONE Administration Ketorolac Tromethamine 15 mg 10/08/21 11:35 10/09/21 15:46 Ketorolac 15 Mg/Ml 1 Ml Vial IVP 10/11/21 11:35 15 mg Q6HR PRN Administration fever,pain Lamotrigine 150 mg 10/08/21 09:00 10/10/21 09:54 Lamotrigine 100 Mg Tab PO 150 mg DAILY JUAN Administration Lamotrigine 200 mg 10/07/21 21:00 10/09/21 20:29 Lamotrigine 100 Mg Tab PO 200 mg HS JUAN Administration Levothyroxine Sodium 100 mcg 10/08/21 06:30 10/10/21 06:25 Levothyroxine 100 Mcg Tab PO 100 mcg DAILY@0630 JUAN Administration Lisinopril 10 mg 10/08/21 09:00 10/10/21 09:48 Lisinopril 10 Mg Tab PO Not Given DAILY [facility] Methyl Salicylate 0 applic 10/07/21 21:39 10/08/21 07:12 Methyl Salicylate/Menthol Cream 5 Oz TOPICAL 1 applic TID PRN Administration Pain Protocol Miscellaneous Information 1 each 10/11/21 05:00 Vancomycin Trough Due 1 Each Misc MISCELLANE 10/11/21 05:01 ONCE ONE Naloxone HCl 0.2 mg 10/07/21 07:22 Naloxone 0.4 Mg/Ml 1 Ml Vial IV Q2M PRN Opioid Reversal Ondansetron HCl 4 mg 10/08/21 10:02 10/08/21 10:06 Ondansetron 4 Mg/2 Ml Vial IVP 4 mg Q6HR PRN Administration Nausea And Vomiting Intake and Output 10/09/21 10/10/21 10/10/21 22:59 06:59 14:59 Intake Total 444 1340 Output Total 200 Balance 444 1140 Intake: IV 10 Invasive Line 2 10 Intake, IV Titration 1230 Amount Cefepime 2 gm In Sodium 100 Chloride 0.9% 100 ml @ 25 mls/hr IVPB Q12H [facility] Rx# :[id number] Sodium Chloride 0.9% 1, 130 000 ml @ 130 mls/hr IV . Q7H42M [facility] Rx#:[id number] Sodium Chloride 0.9% 1, 1000 000 ml @ 999 mls/hr IV . Q1H1M [facility] Rx#:[id number] Oral 444 100 Output: Urine 200 Other: Voiding Method Diaper Diaper Diaper # Voids 4 1 # Bowel Movements 4 1 Weight 57.5 kg 10/10/21 04:18 10/10/21 04:18
--- NOTE | 2021-10-10 13:16 | PCN ---
PROCEDURE NOTE PULMONARY/CRITICAL CARE PROCEDURE NOTE: Intubation for purposes of respiratory failure. PREOPERATIVE DIAGNOSIS: Respiratory failure. POSTOPERATIVE DIAGNOSIS: Respiratory failure. OPERATORS: 1. Dr. Colon. 2. Dr. Barth. PROCEDURE DESCRIPTION: A #8 endotracheal tube was used. We used the GlideScope. There was informed consent and universal timeout. After the patient was adequately sedated and paralyzed with succinylcholine, the GlideScope was used to localize the glottic opening. Under direct visualization, the #8 endotracheal tube was pushed through the glottic opening into the trachea. There was good color change on the qualitative capnography device. There were good bilateral breath sounds. The patient tolerated the procedure well. The balloon on the endotracheal tube was inflated. The patient was connected to the mechanical ventilator. There were no immediate complications. MMODL / IJN: [id number] /
--- NOTE | 2021-10-10 14:11 | PCN ---
PROCEDURE NOTE PROCEDURE: Placement of left subclavian triple-lumen catheter. PREOPERATIVE DIAGNOSIS: Administration of fluids and pressors. POSTOPERATIVE DIAGNOSIS: Administration of fluids and pressors. OPERATORS: 1. Dr. Colon. 2. Dr. Barth. PROCEDURE DESCRIPTION: There was informed consent and universal timeout was completed verifying correct patient, procedure, site, positioning, and implant(s) or special equipment if applicable. The patient was placed in a dependent position appropriate for triple-lumen catheter placement based on the vein to be cannulated. The patient's left shoulder was prepped and draped in sterile fashion. 1% Lidocaine was used to anesthetize the surrounding skin area. A triple-lumen 9F Cordis catheter was introduced into the left subclavian vein using Seldinger technique. The catheter was threaded smoothly over the guidewire and appropriate blood return was obtained. Each lumen of the catheter was evacuated of air and flushed with sterile saline. The catheter was then sutured in place to the skin and a sterile dressing applied by the nurse. Perfusion to the extremity distal to the point of catheter insertion was checked and found to be adequate. There was no immediate complication. A chest x-ray was ordered to check placement and rule out pneumothorax. The patient tolerated the procedure very well. MMODL / IJN: [id number] /
--- NOTE | 2021-10-10 14:11 | PCN ---
PROCEDURE NOTE PULMONARY/CRITICAL CARE PROCEDURE NOTE: Placement of right femoral arterial line. PREOPERATIVE DIAGNOSIS: Frequent blood draws and blood gas monitoring. POSTOPERATIVE DIAGNOSIS: Frequent blood draws and blood gas monitoring. OPERATORS: 1. Dr. Colon. 2. Dr. Barth. PROCEDURE DESCRIPTION: There was informed consent and universal timeout was completed verifying correct patient, procedure, site, positioning, and implant(s) or special equipment if applicable. Ravindra's test was performed to ensure adequate perfusion. The patient's right groin was prepped and draped in sterile fashion. 1% Lidocaine was used to anesthetize the area. An 18G Arrow arterial line was introduced into the right femoral artery. The catheter was threaded over the guidewire and the needle was removed with appropriate pulsatile blood return. There was good blood return and waveform. Blood loss was minimal. The catheter was then sutured in place to the skin and a sterile dressing applied by the nurse. Perfusion to the extremity distal to the point of catheter insertion was checked and found to be adequate. The patient tolerated the procedure well and there were no immediate complications. MMODL / IJN: [id number] /
--- NOTE | 2021-10-10 14:15 | PCN ---
PROCEDURE NOTE PROCEDURE: Bronchoscopy, airway examination, therapeutic lavage and right middle lobe BAL. PREOPERATIVE DIAGNOSIS: Pneumonia. POSTOPERATIVE DIAGNOSIS: Pneumonia. OPERATORS: 1. Dr. Colno. 2. Dr. Barth. PROCEDURE DESCRIPTION: There was informed consent and universal timeout. The procedure was done in room 255. The patient was on the ventilator and on 100%. The bronchoscope was inserted through the bronchoscope adapter connected to the endotracheal tube. The bronchoscope was taken down through the endotracheal tube to the trachea. There were some distal secretions noted in the distal trachea. The tracheal stuart was sharp. The right and left mainstem were topicalized. Right upper lobe and its 3 segments, right middle lobe and its 2 segments, right lower lobe and its 5 segments, left upper lobe proper and its 2 segments, lingula and its 2 segments, and left lower lobe and its 4 segments all had similar findings of diffuse airway erythema and hyperemia. There were thick secretions noted throughout. The bronchoscope was used along with saline to cleanse the airway of any secretions. The bronchoscope was then wedged into the right middle lobe. A formal BAL took place. The patient tolerated the procedure well. There was no immediate complication. The fluid will be sent for analysis. The bronchoscope was withdrawn. MMODL / IJN: [id number] /
[2021-10-10 14:17] LABS: ABG Base Excess -11.6 mmol/L; ABG HCO3 16 mmol/L (21-25); ABG Oxygen Saturation 95.5 % (94-97); ABG PCO2 40 mmHg (35-45); ABG PH 7.22 (7.35-7.45); ABG PO2 79 mmHg (83-108); ABG TCO2 17 mmol/L (19-24)
[2021-10-10] MEDS ORDERED: SODIUM BICARB 8.4% 50 ML SYR (1 MEQ/ML) IV STA ×2 (14:30→15:30)
--- NOTE | 2021-10-10 14:34 | XR ---
EXAMINATION TYPE: XR chest 1V portable DATE OF EXAM: 10/10/2021 COMPARISON: NONE HISTORY: Tube placement TECHNIQUE: Single view FINDINGS: IMPRESSION: Endotracheal tube is 2.7 cm from the stuart there is nasogastric tube in the stomach. There is pulmon charan interstitial and airspace edema. There are chest leads. There is blunting of the costophrenic ang les. There is left subclavian catheter with tip in the superior vena cava. IMPRESSION: Pulmonary edema and pleural fluid consistent with congestive heart failure or RDS. No change compared to exam earlier today.
--- NOTE | 2021-10-10 14:45 | CA ---
Transthoracic Echo Report Name: Lexus Valdovinos Age: 56 Gender: F : 1965 Exam Date: 10/10/2021 10:27 Exam Location: [facility] Ht (in): 61 Wt (lb): 126 Ordering Physician: Chanel Dos Santos MD Attending/Referring Phys: [id number], Levon Through Operator Dayami Anderson RDCS Procedure CPT: Indications: Possiable pericardial effusion, heart failure Cardiac Hx: Technical Quality: Fair Contrast 1: Total Dose (mL): Contrast 2: Total Dose (mL): MEASUREMENTS (Male / Female) Normal Values 2D ECHO LV Diastolic Diameter PLAX 4.3 cm 4.2 - 5.9 / 3.9 - 5.3 cm LV Systolic Diameter PLAX 2.6 cm IVS Diastolic Thickness 1.3 cm 0.6 - 1.0 / 0.6 - 0.9 cm LVPW Diastolic Thickness 1.1 cm 0.6 - 1.0 / 0.6 - 0.9 cm LV Relative Wall Thickness 0.6 RV Internal Dim ED PLAX 2.8 cm LV Diastolic Volume MOD 4C 53.6 cm LV Systolic Volume MOD 4C 20.1 cm LV Ejection Fraction MOD 4C 62.4 % LV Diastolic Length 4C 6.1 cm LV Systolic Length 4C 5.2 cm LA Volume 55.8 cm 18 - 58 / 22 - 52 cm M-MODE Aortic Root Diameter MM 2.8 cm LA Systolic Diameter MM 3.3 cm LA Ao Ratio MM 1.2 AV Cusp Separation MM 1.7 cm DOPPLER AV Peak Velocity 169.5 cm/s AV Peak Gradient 11.5 mmHg TR Peak Velocity 230.6 cm/s TR Peak Gradient 21.3 mmHg Right Ventricular Systolic Press 26.3 mmHg FINDINGS Left Ventricle Moderately increased septal wall thickness. Mildly increased posterior wall thickness. Left ventricular ejection fraction is estimated at 50-55 %. Left ventricular cavity size normal. Right Ventricle Normal right ventricular size and function. Right ventricular systolic pressure within normal limits. Right ventricular systolic pressure estimated at 26.3 mm hg. Right Atrium Normal right atrial size. Left Atrium Mildly increased left atrial volume. Mildly increased left atrial area. Mitral Valve Mild mitral regurgitation. Aortic Valve No aortic stenosis. No aortic regurgitation. Tricuspid Valve Mild tricuspid regurgitation. Pulmonic Valve Structurally normal pulmonic valve. Trace pulmonic regurgitation. Pericardium Small pericardial effusion. Aorta Normal size aortic root and proximal ascending aorta. CONCLUSIONS Left ventricular hypertrophy with preserved LV systolic function Very small pericardial effusion of no hemodynamic significance Previewed by: Dr. Delmar Garcia MD (Electronically Signed) Final Date: 10 October 2021 14:43
--- NOTE | 2021-10-10 15:36 | P.CNPUL ---
History of Present Illness Consult date: 10/10/21 Requesting physician: Margaux Patterson Reason for consult: dyspnea, hypoxemia, pneumonia, abnormal CXR/CT Chief complaint: Respiratory failure. History of present illness: Pulmonary consult dated 10/10/2021. 56-year-old female who initially was seen in the emergency department, on October 06, because of fever and neck pain. The patient also apparently had cough. Apparently the cough is nonproductive. The patient apparently started having symptoms on the . She also noted a swelling on the left side of the neck, for about 3 days prior to coming into the emergency room. There was no change in voice, nor was there any difficulty in swallowing. Today, a rapid response team was called to her room, on the third floor, and I went in there to evaluate the patient. The patient was found to be hypotensive, was quite tachypnea, and had borderline saturations. In short, she looks very ill, and it was felt that the patient would be better served in the intensive care unit. Once in the intensive care unit, I reevaluated the patient, and determined that the patient needed to be intubated. She was intubated with a #8 endotracheal tube, using the Brewster-scope. In addition, we placed a left subclavian triple-lumen catheter, and a right radial art line. In addition, as the patient was line, and sedated, and being fully monitored, we did bronchoscopic evaluation of the airways, and a BAL of the right middle lobe. She was seen by infectious diseases. Laboratory data includes a white count of 18.4, hemoglobin 13.8, hematocrit 42.2, and platelet count of 90,000. Blood gases show a pO2 of 79, pCO2 of 40, and pH of 7.22. The patient's PEEP was increased to 10, the patient was given 2 ampules of sodium bicarbonate IV push. I asked respiratory to wean the FiO2. Sodium 140, potassium 3.5, chlorides 113, CO2 19, anion gap 8, BUN 24, with a creatinine of 1.24. Lactic acid was 2.3 and repeat was 2. Chest x- ray showed diffuse bilateral infiltrates, which could relate to pulmonary edema, and/or pneumonia. Review of Systems REVIEW OF SYSTEMS: CONSTITUTIONAL: [Negative.] NEUROLOGIC: [ Negative.] HEENT: [ Negative.] CARDIAC: [Negative.] PULMONARY: Shortness of breath. GI: [Negative.] : [Negative.] RHEUMATOLOGIC: [ Negative.] IMMUNOLOGIC: [ Negative.] ENDOCRINE: [Negative. ] DERMATOLOGIC: [Negative.] Past Medical History Past Medical History: GERD/Reflux, Hypertension, Thyroid Disorder Additional Past Medical History / Comment(s): hx bronchitis, constipation, History of Any Multi-Drug Resistant Organisms: None Reported Past Surgical History: Section, Ear Surgery, Hysterectomy Additional Past Surgical History / Comment(s): Tubes bilateral ears. RT EAR SX X2 Past Anesthesia/Blood Transfusion Reactions: No Reported Reaction Past Psychological History: Anxiety, Bipolar, Depression Smoking Status: Current every day smoker Past Alcohol Use History: None Reported Past Drug Use History: None Reported - Past Family History Father Family Medical History: Coronary Artery Disease (CAD) Additional Family Medical History / Comment(s): Mother at age 70 from coronary artery disease. Mother Family Medical History: Cancer Additional Family Medical History / Comment(s): . Brother(s) Additional Family Medical History / Comment(s): Unable to obtain brother and sister history. Patient has 2 sons are healthy. Medications and Allergies Home Medications Medication Instructions Recorded Confirmed Type LORazepam [Ativan] 1 mg PO DAILY PRN 12/26/15 10/06/21 History lamoTRIgine [LaMICtal] 150 mg PO DAILY #45 tab 01/06/16 10/06/21 Rx Levothyroxine Sodium [Synthroid] 100 mcg PO DAILY 12/01/16 10/06/21 History QUEtiapine FUMARATE 400 mg PO HS 12/01/16 10/06/21 History lisinopriL [Zestril] 10 mg PO DAILY 12/01/16 10/06/21 History lamoTRIgine [LaMICtal] 200 mg PO HS 10/06/21 10/06/21 History Allergies Allergy/AdvReac Type Severity Reaction Status Date / Time chlorpromazine HCl Allergy Unknown Verified 10/06/21 23:09 [From Thorazine] codeine Allergy Unknown Verified 10/06/21 23:09 sulfamethoxazole Allergy Unknown Verified 10/06/21 23:09 [From Septra] trimethoprim [From Septra] Allergy Unknown Verified 10/06/21 23:09 Physical Exam Osteopathic Statement: *. No significant issues noted on an osteopathic structural exam other than those noted in the History and Physical/Consult. Vitals: Vital Signs Temp Pulse Pulse Resp BP BP BP 10/10/21 15:00 96 15 114/82 10/10/21 14:00 103 H 26 H 108/59 10/10/21 13:45 97 26 H 173/149 10/10/21 13:30 99 26 H 94/40 10/10/21 13:15 103 H 26 H 109/80 10/10/21 13:00 112 H 26 H 96/63 10/10/21 12:45 112 H 38 H 89/69 10/10/21 12:30 112 H 35 H 96/72 10/10/21 12:15 111 H 38 H 87/62 10/10/21 12:00 112 H 36 H 134/107 10/10/21 11:45 99.5 F 114 H 32 H 126/111 10/10/21 10:58 32 H 10/10/21 10:55 116 H 10/10/21 10:47 115 H 10/10/21 10:32 99.8 F H 118 H 32 H 60/34 10/10/21 09:51 74/58 10/10/21 09:30 82/62 10/10/21 08:16 99.5 F 121 H 26 H 74/54 10/10/21 06:19 100.4 F H 125 H 32 H 110/60 102/65 10/10/21 03:21 99.4 F 128 H 35 H 119/66 10/10/21 02:39 120 H 30 H 10/10/21 01:50 127 H 10/10/21 01:42 124 H 10/10/21 01:07 99.5 F 128 H 34 H 110/65 10/10/21 00:18 100.1 F H 120 H 32 H 86/48 10/09/21 22:12 83/50 10/09/21 21:34 112 H 70/30 10/09/21 21:21 98.6 F 112 H 36 H 70/30 10/09/21 21:11 30 H 10/09/21 19:50 98.7 F 107 H 22 80/58 10/09/21 19:22 115 H 10/09/21 19:11 111 H 10/09/21 17:00 99.1 F 112 H 18 79/52 Pulse Ox 10/10/21 15:00 98 10/10/21 14:00 96 10/10/21 13:45 100 10/10/21 13:30 99 10/10/21 13:15 100 10/10/21 13:00 98 10/10/21 12:45 96 10/10/21 12:30 94 L 10/10/21 12:15 94 L 10/10/21 12:00 91 L 10/10/21 11:45 93 L 10/10/21 10:58 94 L 10/10/21 10:55 10/10/21 10:47 10/10/21 10:32 90 L 10/10/21 09:51 10/10/21 09:30 10/10/21 08:16 90 L 10/10/21 06:19 91 L 10/10/21 03:21 92 L 10/10/21 02:39 95 10/10/21 01:50 10/10/21 01:42 90 L 10/10/21 01:07 91 L 10/10/21 00:18 92 L 10/09/21 22:12 10/09/21 21:34 95 10/09/21 21:21 94 L 10/09/21 21:11 10/09/21 19:50 93 L 10/09/21 19:22 10/09/21 19:11 96 10/09/21 17:00 94 L Intake and Output 10/10/21 10/10/21 10/10/21 06:59 14:59 22:59 Intake Total 2686.313 41.625 Output Total 275 Balance 2411.313 41.625 Intake: IV 10 Invasive Line 2 10 Intake, IV Titration 2576.313 41.625 Amount Cefepime 2 gm In Sodium 100 Chloride 0.9% 100 ml @ 25 mls/hr IVPB Q12H [facility] Rx# :[id number] Norepinephrine 4 mg In 76.020 41.625 Sodium Chloride 0.9% 250 ml @ 0.05 MCG/KG/MIN 10. 954 mls/hr IV .[id number] [facility] Rx#:[id number] Sodium Chloride 0.9% 1, 390 000 ml @ 130 mls/hr IV . Q7H42M [facility] Rx#:[id number] Sodium Chloride 0.9% 1, 1000 000 ml @ 999 mls/hr IV . Q1H1M [facility] Rx#:[id number] Sodium Chloride 0.9% 1, 1000 000 ml @ 999 mls/hr IV . Q1H1M [facility] Rx#:[id number] propofoL 1,000 mg In 10.293 Empty Bag 1 bag @ 5 MCG/ KG/MIN 1.725 mls/hr IV . Q24H [facility] Rx#:[id number] Oral 100 Output: Urine 275 Other: Voiding Method Diaper Diaper # Voids 1 # Bowel Movements 1 Weight 57.5 kg ABP, PAP, CO, CI - Last 8 Hours Arterial Blood Pressure 83/46 Arterial Blood Pressure 98/54 Arterial Blood Pressure 83/43 Sedated, with an orally placed endotracheal tube and NG tube. HEENT examination is grossly unremarkable. Neck supple. Full range of motion. A left-sided neck mass is noted. Neck veins are not distended. Cardiovascular examination reveals regular rhythm rate. S1-S2 normal. No S3 or S4. No discernible murmur noted. Heart sounds are distant. Heart rate 103 bpm. Lungs reveal coarse bilateral rhonchi. No wheezes. No crackles. Breath sounds equal. Abdomen soft bowel sounds are heard. No masses or tenderness. Extremities are intact. No cyanosis clubbing or edema. Skin reveals some mottling on the chest area, and also on the knees bilaterally. Neurologic examination was not able to be performed once the patient was intubated and sedated. Results - Laboratory Findings CBC and BMP: 10/10/21 04:18 10/10/21 04:18 ABG ABG pH 7.22 (7.35-7.45) L 10/10/21 14:12 ABG pCO2 40 mmHg (35-45) 10/10/21 14:12 ABG pO2 79 mmHg (83-108) L 10/10/21 14:12 ABG O2 Saturation 95.5 % (94-97) 10/10/21 14:12 PT/INR, D-dimer PT 10.2 sec (9.0-12.0) 10/06/21 23:35 INR 0.9 (<1.2) 10/06/21 23:35 Abnormal lab findings: Abnormal Labs 10/06/21 10/06/21 10/07/21 23:35 23:35 00:59 WBC RBC MCV MCHC Plt Count MPV Neutrophils # Neutrophils # (Manual) Lymphocytes # 0.9 L Lymphocytes # (Manual) ABG pH ABG pO2 ABG HCO3 ABG Total CO2 Sodium 136 L Potassium Chloride Carbon Dioxide BUN 18 H Creatinine 1.66 H Est GFR (CKD-EPI)AfAm Est GFR (CKD-EPI)NonAf BUN/Creatinine Ratio Glucose 119 H POC Glucose (mg/dL) Plasma Lactic Acid Marcos Calcium AST ALT Alkaline Phosphatase Troponin I Total Protein Albumin Albumin/Globulin Ratio Amylase Lipase Procalcitonin Urine Appearance Cloudy H Urine Protein Trace H Urine Blood Trace H Urine WBC 8 H Ur Squamous Epith Cells 5 H Urine Bacteria Many H EBV Capsid Ag IgG Intrp EBV Nuc Ag IgG Interp 10/07/21 10/07/21 10/08/21 02:35 11:09 05:45 WBC RBC 3.97 L MCV 100.0 H MCHC 31.5 L Plt Count MPV 12.4 H Neutrophils # Neutrophils # (Manual) Lymphocytes # Lymphocytes # (Manual) ABG pH ABG pO2 ABG HCO3 ABG Total CO2 Sodium Potassium Chloride Carbon Dioxide BUN Creatinine Est GFR (CKD-EPI)AfAm Est GFR (CKD-EPI)NonAf BUN/Creatinine Ratio Glucose POC Glucose (mg/dL) Plasma Lactic Acid Marcos Calcium AST ALT Alkaline Phosphatase Troponin I Total Protein Albumin Albumin/Globulin Ratio Amylase Lipase Procalcitonin 0.28 H Urine Appearance Urine Protein Urine Blood Urine WBC Ur Squamous Epith Cells Urine Bacteria EBV Capsid Ag IgG Intrp POSITIVE A EBV Nuc Ag IgG Interp POSITIVE A 10/08/21 10/09/21 10/09/21 05:45 06:30 06:30 WBC 16.2 H RBC MCV 103.1 H MCHC Plt Count 147 L MPV Neutrophils # 15.5 H Neutrophils # (Manual) Lymphocytes # 0.3 L Lymphocytes # (Manual) ABG pH ABG pO2 ABG HCO3 ABG Total CO2 Sodium Potassium 3.4 L Chloride 110 H 110 H Carbon Dioxide 18.4 L BUN Creatinine Est GFR (CKD-EPI)AfAm 58.1 L 52.7 L Est GFR (CKD-EPI)NonAf 50.1 L 45.5 L BUN/Creatinine Ratio 7.58 L 11.38 L Glucose 136 H 113 H POC Glucose (mg/dL) Plasma Lactic Acid Marcos Calcium 7.9 L 7.3 L AST 55 H ALT 63 H Alkaline Phosphatase Troponin I Total Protein 5.5 L 5.0 L Albumin 3.6 L 3.0 L Albumin/Globulin Ratio 1.50 L Amylase 20 L Lipase 12 L 11 L Procalcitonin Urine Appearance Urine Protein Urine Blood Urine WBC Ur Squamous Epith Cells Urine Bacteria EBV Capsid Ag IgG Intrp EBV Nuc Ag IgG Interp 10/09/21 10/09/21 10/09/21 16:45 20:32 21:16 WBC RBC MCV MCHC Plt Count MPV Neutrophils # Neutrophils # (Manual) Lymphocytes # Lymphocytes # (Manual) ABG pH ABG pO2 ABG HCO3 ABG Total CO2 Sodium Potassium Chloride Carbon Dioxide BUN Creatinine Est GFR (CKD-EPI)AfAm Est GFR (CKD-EPI)NonAf BUN/Creatinine Ratio Glucose POC Glucose (mg/dL) 132 H Plasma Lactic Acid Marcos Calcium AST ALT Alkaline Phosphatase Troponin I 0.075 H* 0.070 H* Total Protein Albumin Albumin/Globulin Ratio Amylase Lipase Procalcitonin Urine Appearance Urine Protein Urine Blood Urine WBC Ur Squamous Epith Cells Urine Bacteria EBV Capsid Ag IgG Intrp EBV Nuc Ag IgG Interp 10/10/21 10/10/21 10/10/21 00:00 04:18 04:18 WBC 18.4 H RBC MCV MCHC Plt Count 90 L MPV Neutrophils # Neutrophils # (Manual) 17.10 H Lymphocytes # Lymphocytes # (Manual) 0.74 L ABG pH ABG pO2 ABG HCO3 ABG Total CO2 Sodium Potassium Chloride 113 H Carbon Dioxide 19 L BUN 24 H Creatinine 1.24 H Est GFR (CKD-EPI)AfAm Est GFR (CKD-EPI)NonAf BUN/Creatinine Ratio Glucose 112 H POC Glucose (mg/dL) Plasma Lactic Acid Marcos 3.4 H* Calcium 7.5 L AST ALT 47 H Alkaline Phosphatase 145 H Troponin I Total Protein 5.3 L Albumin 2.7 L Albumin/Globulin Ratio Amylase Lipase Procalcitonin Urine Appearance Urine Protein Urine Blood Urine WBC Ur Squamous Epith Cells Urine Bacteria EBV Capsid Ag IgG Intrp EBV Nuc Ag IgG Interp 10/10/21 10/10/21 10/10/21 04:18 11:43 14:12 WBC RBC MCV MCHC Plt Count MPV Neutrophils # Neutrophils # (Manual) Lymphocytes # Lymphocytes # (Manual) ABG pH 7.22 L ABG pO2 79 L ABG HCO3 16 L ABG Total CO2 17 L Sodium Potassium Chloride Carbon Dioxide BUN Creatinine Est GFR (CKD-EPI)AfAm Est GFR (CKD-EPI)NonAf BUN/Creatinine Ratio Glucose POC Glucose (mg/dL) 130 H Plasma Lactic Acid Marcos 2.3 H* Calcium AST ALT Alkaline Phosphatase Troponin I Total Protein Albumin Albumin/Globulin Ratio Amylase Lipase Procalcitonin Urine Appearance Urine Protein Urine Blood Urine WBC Ur Squamous Epith Cells Urine Bacteria EBV Capsid Ag IgG Intrp EBV Nuc Ag IgG Interp - Diagnostic Findings Chest x-ray: image reviewed CT scan - chest: image reviewed Assessment and Plan Assessment: Acute hypoxemic respiratory failure, likely multifactorial, in part related to fluid overload, and/or pneumonia. The patient required intubation and mechanical ventilation on 10/10/2021. She also had a central line placed, and arterial line placed, and underwent bronchoscopy. Hypotension, possibly related to underlying sepsis. Left sided cervical lymphadenopathy. History of gastroesophageal reflux disease. History of hypertension. History of hypothyroidism. History of ongoing tobacco use. History of anxiety/depression/bipolar disorder. Plan: Plan dated 10/10/2021. The patient is transferred into the intensive care unit. The patient was immediately intubated, and mechanically ventilated. A left subclavian triple- lumen catheter was placed, as well as a right radial arterial line. In addition, the patient underwent bronchoscopy, and BAL of the right middle lobe. The patient has been seen by infectious diseases. The patient is currently on cefepime and vancomycin. Thus far microbiology is negative. The patient is started on tube feeds. In addition, the patient will be on the DuoNeb every 4 [id number]. The patient will continue on GI and DVT prophylaxis. Progn osis is guarded. Time with Patient: Greater than 30
[2021-10-10 17:24] LABS: Methylmalonic Acid 0.25 umol/L (<0.40)
[2021-10-10] MEDS: NOREPINEPHRINE 32 MG in SODIUM CHLORIDE 0.9% 218 ML IV SCH (17:27)
--- NOTE | 2021-10-10 21:14 | P.PN ---
Subjective Progress Note Date: 10/10/21 Principal diagnosis: Fever and rash Patient is a 56-year-old female presenting to the hospital with a fever rash and swelling to the left side of the neck in this patient did have evidence of lymphadenopathy subsequently developed a rash to bilateral elbow and bilateral knee area patient did have a CT of abdominal pelvis and chest no mention of any abscess which was some retroperitoneal lymphadenopathy. On today's evaluation that is 10/10/2021, the patient fever pattern has improved however the patient did have worsening of respiratory status requiring transfer the ICU and attributing intubated and did have bronchoscopy patient is currently hemodynamically stable not requiring any pressor support no significant purulent secretion through the ET or diarrhea reported by the nursing staff Objective - Vital Signs Vital signs: Vital Signs Temp 99.5 F 10/10/21 11:45 Pulse 103 H 10/10/21 14:00 Resp 26 H 10/10/21 14:00 BP 108/59 10/10/21 14:00 Pulse Ox 96 10/10/21 14:00 Intake & Output 10/09/21 10/10/21 10/10/21 18:59 06:59 18:59 Intake Total 562 2686.313 Output Total 275 Balance 562 2411.313 Weight 57.5 kg Intake: IV 10 Invasive Line 2 10 Intake, IV Titration 2576.313 Amount Cefepime 2 gm In Sodium 100 Chloride 0.9% 100 ml @ 25 mls/hr IVPB Q12H [facility] Rx# :[id number] Norepinephrine 4 mg In 76.020 Sodium Chloride 0.9% 250 ml @ 0.05 MCG/KG/MIN 10. 954 mls/hr IV .[id number] [facility] Rx#:[id number] Sodium Chloride 0.9% 1, 390 000 ml @ 130 mls/hr IV . Q7H42M [facility] Rx#:[id number] Sodium Chloride 0.9% 1, 1000 000 ml @ 999 mls/hr IV . Q1H1M [facility] Rx#:[id number] Sodium Chloride 0.9% 1, 1000 000 ml @ 999 mls/hr IV . Q1H1M [facility] Rx#:[id number] propofoL 1,000 mg In 10.293 Empty Bag 1 bag @ 5 MCG/ KG/MIN 1.725 mls/hr IV . Q24H [facility] Rx#:[id number] Oral 562 100 Output: Urine 275 Other: Voiding Method Diaper Diaper # Voids 4 1 # Bowel Movements 4 1 ABP, PAP, CO, CI - Last Documented Arterial Blood Pressure 98/54 - Exam GENERAL DESCRIPTION: Middle-age female intubated on the vent RESPIRATORY SYSTEM: Unlabored breathing , decreased breath sounds at bases HEART: S1 S2 regular rate and rhythm , ABDOMEN: Soft , no tenderness EXTREMITIES: No edema feet - Labs CBC & Chem 7: 10/10/21 04:18 10/10/21 04:18 Labs: Abnormal Lab Results - Last 24 Hours (Table) 10/09/21 10/09/21 10/09/21 Range/Units 16:45 20:32 21:16 WBC (3.8-10.6) k/uL Plt Count (150-450) k/uL Neutrophils # (Manual) (1.3-7.7) k/uL Lymphocytes # (Manual) (1.0-4.8) k/uL ABG pH (7.35-7.45) ABG pO2 (83-108) mmHg ABG HCO3 (21-25) mmol/L ABG Total CO2 (19-24) mmol/L Chloride (98-107) mmol/L Carbon Dioxide (22-30) mmol/L BUN (7-17) mg/dL Creatinine (0.52-1.04) mg/dL Glucose (74-99) mg/dL POC Glucose (mg/dL) 132 H (75-99) mg/dL Plasma Lactic Acid Marcos (0.7-2.0) mmol/L Calcium (8.4-10.2) mg/dL ALT (4-34) U/L Alkaline Phosphatase (38-126) U/L Troponin I 0.075 H* 0.070 H* (0.000-0.034) ng/mL Total Protein (6.3-8.2) g/dL Albumin (3.5-5.0) g/dL 10/10/21 10/10/21 10/10/21 Range/Units 00:00 04:18 04:18 WBC 18.4 H (3.8-10.6) k/uL Plt Count 90 L (150-450) k/uL Neutrophils # (Manual) 17.10 H (1.3-7.7) k/uL Lymphocytes # (Manual) 0.74 L (1.0-4.8) k/uL ABG pH (7.35-7.45) ABG pO2 (83-108) mmHg ABG HCO3 (21-25) mmol/L ABG Total CO2 (19-24) mmol/L Chloride 113 H (98-107) mmol/L Carbon Dioxide 19 L (22-30) mmol/L BUN 24 H (7-17) mg/dL Creatinine 1.24 H (0.52-1.04) mg/dL Glucose 112 H (74-99) mg/dL POC Glucose (mg/dL) (75-99) mg/dL Plasma Lactic Acid Marcos 3.4 H* (0.7-2.0) mmol/L Calcium 7.5 L (8.4-10.2) mg/dL ALT 47 H (4-34) U/L Alkaline Phosphatase 145 H (38-126) U/L Troponin I (0.000-0.034) ng/mL Total Protein 5.3 L (6.3-8.2) g/dL Albumin 2.7 L (3.5-5.0) g/dL 10/10/21 10/10/21 10/10/21 Range/Units 04:18 11:43 14:12 WBC (3.8-10.6) k/uL Plt Count (150-450) k/uL Neutrophils # (Manual) (1.3-7.7) k/uL Lymphocytes # (Manual) (1.0-4.8) k/uL ABG pH 7.22 L (7.35-7.45) ABG pO2 79 L (83-108) mmHg ABG HCO3 16 L (21-25) mmol/L ABG Total CO2 17 L (19-24) mmol/L Chloride (98-107) mmol/L Carbon Dioxide (22-30) mmol/L BUN (7-17) mg/dL Creatinine (0.52-1.04) mg/dL Glucose (74-99) mg/dL POC Glucose (mg/dL) 130 H (75-99) mg/dL Plasma Lactic Acid Marcos 2.3 H* (0.7-2.0) mmol/L Calcium (8.4-10.2) mg/dL ALT (4-34) U/L Alkaline Phosphatase (38-126) U/L Troponin I (0.000-0.034) ng/mL Total Protein (6.3-8.2) g/dL Albumin (3.5-5.0) g/dL Microbiology - Last 24 Hours (Table) 10/07/21 17:04 Group A Strep Throat Culture - Final Throat 10/06/21 23:35 Blood Culture - Preliminary Blood No Growth after 72 hours 10/06/21 23:50 Blood Culture - Preliminary Blood No Growth after 72 hours 10/09/21 17:50 Urine Culture - Preliminary Urine,Voided Assessment and Plan (1) Fever Current Visit: Yes Status: Acute Code(s): R50.9 - FEVER, UNSPECIFIED S NOMED Code(s): 463886740 (2) Lymphadenopathy of left cervical region Current Visit: Yes Status: Acute Code(s): R59.0 - LOCALIZED ENLARGED LYMPH NODES SNOMED Code(s): 482977375 Plan: 1patient with a fever and this patient did have a left-sided neck swelling with ultrasound suggestive of left cervical lymphadenopathy patient did have CT of abdominal pelvis and chest did not show any abscess or colitis did shows evidence of retroperitoneal lymphadenopathy 2- CMV serology was negative EBV serologies pending, rheumatological workup has been ordered as well as parvovirus serology 3-MRI of the lumbosacral spine has been ordered because of the back pain currently pending 4-Patient did have a stable respiratory status requiring intubation with worsening of the chest x-ray possible ARDS pattern in this patient has been intubated and did have bronchoscopy deep culture has been obtained those will be followed patient is broadly covered with vancomycin and cefepime and doxycycline continue adjusting anybody for that the basis of culture report, at the bedside questions concerned were answered Time with Patient: Greater than 30
[2021-10-10 23:53] LABS: Glucose,Whole Blood 93 mg/dL (75-99)
[2021-10-11] MEDS: SODIUM CHLORIDE 0.9% 1,000 ML IV SCH ×3 (02:47→18:21)
[2021-10-11] MEDS ORDERED: MORPHINE SULFATE 4 MG/ML SYRINGE IVP PRN (03:52)
[2021-10-11 04:33] LABS: Albumin 2.1 g/dL (3.5-5.0); Calcium 6.7 mg/dL (8.4-10.2); Total Bilirubin 1.2 mg/dL (0.2-1.3); Total Protein 4.4 g/dL (6.3-8.2)
[2021-10-11 04:44] LABS: Partial Thromboplastin Time 30.8 sec (22.0-30.0); Prothrombin Time 10.8 sec (9.0-12.0)
[2021-10-11] MEDS ORDERED: Potassium Replacement Protocol 1 EACH MISC MISCELLANE PRN (04:49)
[2021-10-11] MEDS: POTASSIUM BICARBONATE/CIT AC 20 MEQ TABLET.EFF NG-TUBE SCH ×4 (04:54→20:37)
[2021-10-11 04:57] LABS: Basophils # (A) 0.1 k/uL (0-0.2); Basophils % (A) 0 %; Eosinophils # (A) 0.2 k/uL (0-0.7); Eosinophils % (A) 1 %; HGB 12.5 gm/dL (11.4-16.0); Lymphocytes # (A) 1.1 k/uL (1.0-4.8); Lymphocytes % (A) 5 %; MCH 33.3 pg (25.0-35.0); MCHC 32.9 g/dL (31.0-37.0); Macrocytosis Slight; Mean Platelet Volume 11.4; Monocytes # (A) 0.2 k/uL (0-1.0); Monocytes % (A) 1 %; Neutrophils # (A) 20.8 k/uL (1.3-7.7); Neutrophils % (A) 93 %; RBC 3.76 m/uL (3.80-5.40); RDW 14.7 % (11.5-15.5); WBC 22.4 k/uL (3.8-10.6)
[2021-10-11] MEDS ORDERED: VANCOMYCIN TROUGH DUE 1 EACH MISC MISCELLANE ONE (05:00)
[2021-10-11 05:01] LABS: Platelet Count 83 k/uL (150-450)
[2021-10-11 05:30] LABS: ABG Base Excess -8.1 mmol/L; ABG HCO3 18 mmol/L (21-25); ABG Oxygen Saturation 97.4 % (94-97); ABG PCO2 34 mmHg (35-45); ABG PH 7.33 (7.35-7.45); ABG PO2 96 mmHg (83-108); ABG TCO2 19 mmol/L (19-24); Allen Test Performed? Yes
[2021-10-11] MEDS: VANCOMYCIN 1,250 MG in SODIUM CHLORIDE 0.9% 250 ML IVPB SCH ×2 (06:03→06:05)
[2021-10-11] MEDS: LEVOTHYROXINE 100 MCG TAB PO SCH (06:03)
[2021-10-11] MEDS: VANCOMYCIN 1,500 MG in SODIUM CHLORIDE 0.9% 250 ML IVPB SCH (06:39)
--- NOTE | 2021-10-11 07:03 | XR ---
EXAMINATION TYPE: XR chest 1V portable DATE OF EXAM: 10/11/2021 5:49 AM COMPARISON: Chest radiographs from 10/10/2021 TECHNIQUE: XR chest 1V portable Frontal view of the chest. CLINICAL INDICATION:Female, 56 years old with history of PNA; FINDINGS: Lungs/Pleura: Similar multifocal airspace opacities given differences in technique.. No evidence of p neumothorax. Right greater than left pleural effusion. Pulmonary vascularity: Unremarkable. Heart/mediastinum: Cardiomediastinal silhouette is enlarged and stable. Musculoskeletal: No acute osseous pathology. Lines/Tubes: Endotracheal tube with distal tip 3.6 cm above the stuart Nasogastric tube with its distal tip and side-port projecting under the diaphragm. Left internal jugular central venous catheter with distal tip at the cavoatrial junction. IMPRESSION: 1. Similar multifocal airspace opacities. 2. Stable support lines and tubes. 3. Bilateral pleural effusions.
[2021-10-11 09:24] LABS: HDL Cholesterol 11.8 mg/dL (40.00-60.00)
[2021-10-11 09:36] LABS: Chol/HDL Ratio 8.64 Ratio; LDL Cholesterol,Direct Reflex 8.8 mg/dL (0.00-129.00)
[2021-10-11] MEDS: HEPARIN SODIUM,PORCINE/PF 5,000 UNIT/0.5 ML SYRINGE SQ SCH ×2 (11:33→17:01)
[2021-10-11] MEDS: lamoTRIgine 100 MG TAB PO SCH ×2 (11:33→20:37)
[2021-10-11] MEDS: CHLORHEXIDINE GLUCONATE 15 ML CUP MUCOUS MEM SCH ×2 (11:33→20:37)
[2021-10-11] MEDS: ACETAMINOPHEN TAB 325 MG TAB PO PRN ×2 (11:35→20:37)
--- NOTE | 2021-10-11 11:39 | P.PN ---
Subjective Progress Note Date: 10/11/21 Principal diagnosis: Respiratory failure. Pulmonary consult dated 10/10/2021. 56-year-old female who initially was seen in the emergency department, on October 06, because of fever and neck pain. The patient also apparently had cough. Apparently the cough is nonproductive. The patient apparently started having symptoms on the . She also noted a swelling on the left side of the neck, for about 3 days prior to coming into the emergency room. There was no change in voice, nor was there any difficulty in swallowing. Today, a rapid response team was called to her room, on the third floor, and I went in there to evaluate the patient. The patient was found to be hypotensive, was quite tachypnea, and had borderline saturations. In short, she looks very ill, and it was felt that the patient would be better served in the intensive care unit. Once in the intensive care unit, I reevaluated the patient, and determined that the patient needed to be intubated. She was intubated with a #8 endotracheal tube, using the [place]-scope. In addition, we placed a left subclavian triple-lumen catheter, and a right radial art line. In addition, as the patient was line, and sedated, and being fully monitored, we did bronchoscopic evaluation of the airways, and a BAL of the right middle lobe. She was seen by infectious diseases. Laboratory data includes a white count of 18.4, hemoglobin 13.8, hematocrit 42.2, and platelet count of 90,000. Blood gases show a pO2 of 79, pCO2 of 40, and pH of 7.22. The patient's PEEP was increased to 10, the patient was given 2 ampules of sodium bicarbonate IV push. I asked respiratory to wean the FiO2. Sodium 140, potassium 3.5, chlorides 113, CO2 19, anion gap 8, BUN 24, with a creatinine of 1.24. Lactic acid was 2.3 and repeat was 2. Chest x- ray showed diffuse bilateral infiltrates, which could relate to pulmonary edema, and/or pneumonia. Progress note dated 10/11/2021. 56-year-old female that we saw yesterday in consultation. She was up on the third floor. We brought her down for impending respiratory failure. She was intubated and mechanically ventilated. We did bronchoscopy at the bedside. In addition, we placed a central line, and an arterial line. She remains on the ventilator. Her pro-calcitonin level was elevated. She is on volume assist control, rate 26, tidal volume of 400, FiO2 60%, and PEEP of 10. Arterial blood gases show pO2 of 96, pCO2 34, and a pH is 7.33. The patient is getting saline at 130 mL an hour, propofol at 50 mcg/kg/m, norepinephrine at 25 mcg/m, and vital 1.2 at 10 mL an hour. We will check a cortisol level today. She is currently on cefepime and vancomycin as per infectious diseases. Thus far, microbiology is negative. White count 22.4, hemoglobin 12.5, hematocrit 38, and platelet count 83,000. D-dimer is 9.45. Sodium 143, potassium 3, chlorides 119, CO2 17, anion gap 7, BUN 34, and creatinine 1.64. The patient's cortisol level was 43. Initial pro-calcitonin level was 0.28 and the follow-up yesterday was 4.56. Chest x-ray shows diffuse multifocal airspace opacities, and small bilateral pleural effusions. Objective - Vital Signs Vital signs: Vital Signs Temp 101.2 F H 10/11/21 08:00 Pulse 101 H 10/11/21 10:00 Resp 29 H 10/11/21 10:00 BP 98/58 10/11/21 10:00 Pulse Ox 95 10/11/21 10:00 Intake & Output 10/10/21 10/11/21 10/11/21 18:59 06:59 18:59 Intake Total 3368.073 2069.241 618.075 Output Total 390 380 160 Balance 2978.073 1689.241 458.075 Weight 80.9 kg Intake: IV 10 1530 520 0.9 1430 520 Cefepime 2 gm In Sodium 100 Chloride 0.9% 100 ml @ 25 mls/hr IVPB Q12H [facility] Rx# :[id number] Invasive Line 2 10 Intake, IV Titration 3258.073 379.241 58.075 Amount Cefepime 2 gm In Sodium 100 Chloride 0.9% 100 ml @ 25 mls/hr IVPB Q12H [facility] Rx# :[id number] Norepinephrine 32 mg In 9.757 64.263 Sodium Chloride 0.9% 218 ml @ 0.4 MCG/KG/MIN 10. 781 mls/hr IV .[id number] [facility] Rx#:[id number] Norepinephrine 4 mg In 228.023 Sodium Chloride 0.9% 250 ml @ 0.05 MCG/KG/MIN 10. 954 mls/hr IV .[id number] [facility] Rx#:[id number] Sodium Chloride 0.9% 1, 910 130 000 ml @ 130 mls/hr IV . Q7H42M [facility] Rx#:[id number] Sodium Chloride 0.9% 1, 1000 000 ml @ 999 mls/hr IV . Q1H1M [facility] Rx#:[id number] Sodium Chloride 0.9% 1, 1000 000 ml @ 999 mls/hr IV . Q1H1M [facility] Rx#:[id number] propofoL 1,000 mg In 10.293 184.978 58.075 Empty Bag 1 bag @ 5 MCG/ KG/MIN 1.725 mls/hr IV . Q24H [facility] Rx#:[id number] Oral 100 Tube Feeding 100 40 Other 60 Output: Urine 390 380 160 Other: Voiding Method Indwelling Catheter Indwelling Catheter ABP, PAP, CO, CI - Last Documented Arterial Blood Pressure 105/55 - Exam Sedated, with an orally placed endotracheal tube and NG tube. HEENT examination is grossly unremarkable. Neck supple. Full range of motion. A left-sided neck mass is noted. Neck veins are not distended. Cardiovascular examination reveals regular rhythm rate. S1-S2 normal. No S3 or S4. No discernible murmur noted. Heart sounds are distant. Heart rate 101 bpm. Lungs reveal coarse bilateral rhonchi. No wheezes. No crackles. Breath sounds equal. Abdomen soft bowel sounds are heard. No masses or tenderness. Extremities are intact. No cyanosis clubbing or edema. Skin reveals some mottling on the chest area, and also on the knees bilaterally. Neurologic examination was unable to be evaluated because the patient was sedated. - Labs CBC & Chem 7: 10/11/21 04:00 10/11/21 04:00 Labs: Abnormal Lab Results - Last 24 Hours (Table) 10/10/21 10/10/21 10/10/21 Range/Units 04:18 04:18 11:43 WBC (3.8-10.6) k/uL RBC (3.80-5.40) m/uL MCV (80.0-100.0) fL Plt Count (150-450) k/uL Neutrophils # (1.3-7.7) k/uL APTT (22.0-30.0) sec Fibrinogen (200-500) mg/dL D-Dimer (<0.60) mg/L FEU ABG pH (7.35-7.45) ABG pCO2 (35-45) mmHg ABG pO2 (83-108) mmHg ABG HCO3 (21-25) mmol/L ABG Total CO2 (19-24) mmol/L ABG O2 Saturation (94-97) % Potassium (3.5-5.1) mmol/L Chloride (98-107) mmol/L Carbon Dioxide (22-30) mmol/L BUN (7-17) mg/dL Creatinine (0.52-1.04) mg/dL Glucose (74-99) mg/dL POC Glucose (mg/dL) 130 H (75-99) mg/dL Calcium (8.4-10.2) mg/dL Ferritin 473.0 H (10.0-291.0) ng/mL Alkaline Phosphatase (38-126) U/L Total Protein (6.3-8.2) g/dL Albumin (3.5-5.0) g/dL Triglycerides (0.00-149.00) mg/dL HDL Cholesterol (40.00-60.00) mg/dL Procalcitonin 4.56 H (0.02-0.09) ng/mL 10/10/21 10/11/21 10/11/21 Range/Units 14:12 04:00 04:00 WBC (3.8-10.6) k/uL RBC (3.80-5.40) m/uL MCV (80.0-100.0) fL Plt Count (150-450) k/uL Neutrophils # (1.3-7.7) k/uL APTT 30.8 H (22.0-30.0) sec Fibrinogen 541 H (200-500) mg/dL D-Dimer 9.45 H (<0.60) mg/L FEU ABG pH 7.22 L (7.35-7.45) ABG pCO2 (35-45) mmHg ABG pO2 79 L (83-108) mmHg ABG HCO3 16 L (21-25) mmol/L ABG Total CO2 17 L (19-24) mmol/L ABG O2 Saturation (94-97) % Potassium 3.0 L (3.5-5.1) mmol/L Chloride 119 H (98-107) mmol/L Carbon Dioxide 17 L (22-30) mmol/L BUN 34 H (7-17) mg/dL Creatinine 1.64 H (0.52-1.04) mg/dL Glucose 118 H (74-99) mg/dL POC Glucose (mg/dL) (75-99) mg/dL Calcium 6.7 L (8.4-10.2) mg/dL Ferritin (10.0-291.0) ng/mL Alkaline Phosphatase 135 H (38-126) U/L Total Protein 4.4 L (6.3-8.2) g/dL Albumin 2.1 L (3.5-5.0) g/dL Triglycerides 411.00 H (0.00-149.00) mg/dL HDL Cholesterol 11.80 L (40.00-60.00) mg/dL Procalcitonin (0.02-0.09) ng/mL 10/11/21 10/11/21 Range/Units 04:00 05:26 WBC 22.4 H (3.8-10.6) k/uL RBC 3.76 L (3.80-5.40) m/uL MCV 101.0 H (80.0-100.0) fL Plt Count 83 L (150-450) k/uL Neutrophils # 20.8 H (1.3-7.7) k/uL APTT (22.0-30.0) sec Fibrinogen (200-500) mg/dL D-Dimer (<0.60) mg/L FEU ABG pH 7.33 L (7.35-7.45) ABG pCO2 34 L (35-45) mmHg ABG pO2 (83-108) mmHg ABG HCO3 18 L (21-25) mmol/L ABG Total CO2 (19-24) mmol/L ABG O2 Saturation 97.4 H (94-97) % Potassium (3.5-5.1) mmol/L Chloride (98-107) mmol/L Carbon Dioxide (22-30) mmol/L BUN (7-17) mg/dL Creatinine (0.52-1.04) mg/dL Glucose (74-99) mg/dL POC Glucose (mg/dL) (75-99) mg/dL Calcium (8.4-10.2) mg/dL Ferritin (10.0-291.0) ng/mL Alkaline Phosphatase (38-126) U/L Total Protein (6.3-8.2) g/dL Albumin (3.5-5.0) g/dL Triglycerides (0.00-149.00) mg/dL HDL Cholesterol (40.00-60.00) mg/dL Procalcitonin (0.02-0.09) ng/mL Microbiology - Last 24 Hours (Table) 10/10/21 13:45 Gram Stain - Preliminary Bronchial Washings - Right Bronchial Washings Culture - Preliminary 10/06/21 23:50 Blood Culture - Preliminary Blood No Growth after 96 hours 10/06/21 23:35 Blood Culture - Preliminary Blood No Growth after 96 hours 10/10/21 13:45 Fungal Culture - Preliminary Bronchial Washings - Right 10/10/21 13:45 Acid Fast Bacilli Culture - Preliminary Bronchial Washings - Right 10/09/21 17:50 Urine Culture - Final Urine,Voided 10/07/21 17:04 Group A Strep Throat Culture - Final Throat Assessment and Plan Assessment: Acute hypoxemic respiratory failure, likely multifactorial, in part related to fluid overload, and/or pneumonia. The patient required intubation and me chanical ventilation on 10/10/2021. She also had a central line placed, and arterial line placed, and underwent bronchoscopy. Hypotension, possibly related to underlying sepsis. Left sided cervical lymphadenopathy. History of gastroesophageal reflux disease. History of hypertension. History of hypothyroidism. History of ongoing tobacco use. History of anxiety/depression/bipolar disorder. Plan: Plan dated 10/10/2021. The patient is transferred into the intensive care unit. The patient was immediately intubated, and mechanically ventilated. A left subclavian triple-lumen catheter was placed, as well as a right radial arterial line. In addition, the patient underwent bronchoscopy, and BAL of the right middle lobe. The patient has been seen by infectious diseases. The patient is currently on cefepime and vancomycin. Thus far microbiology is negative. The patient is started on tube feeds. In addition, the patient will be on the DuoNeb every 4 [id number]. The patient will continue on GI and DVT prophylaxis. Prognosis is guarded. Plan dated 10/11/2021. The patient is seen and examined in room 255. She remains on mechanical ventilator. Gases are adequate. She remains on propofol, and norepinephrine at 25 mcg/m. Cortisol level is adequate. The patient is getting tube feeds. The patient continues on cefepime and vancomycin. Microbiology is thus far negative. We will continue to follow the patient and make recommendations were appropriate. She is getting updrafts every 4 hours around the clock, as well as GI and DVT prophylaxis. Prognosis is guarded. Bronchoscopy findings are currently pending and/or negative. Time with Patient: Greater than 30
[2021-10-11 11:52] LABS: Glucose,Whole Blood 108 mg/dL (75-99)
--- NOTE | 2021-10-11 11:52 | P.PN ---
Subjective Progress Note Date: 10/11/21 The patient is a 56-year-old female who is currently admitted with fever of unknown origin and sepsis. Cardiology was consulted for congestive heart failure and elevated troponins. Patient was in respiratory distress yesterday and was hemodynamically unstable on the floor, therefore she was intubated and admitted to the ICU. Echocardiogram revealed LV function of 50-55% with moderately increased septal wall thickness and mildly increased posterior wall thickness. No significant valvular heart disease. There is small pericardial effusion without hemodynamic significance Unable to complete review of systems. Patient is sedated on ventilator. GENERAL: Ill-appearing, well-nourished and in no acute distress. NECK: Supple without JVD. LUNGS: Breath sounds diminished to auscultation bilaterally. Respiration equal and unlabored. HEART: Regular rate and rhythm without murmurs, rubs or gallops. S1 and S2 heard. EXTREMITIES: Normal range of motion, mild edema. No clubbing or cyanosis. Peripheral pulses weak SKIN: Diffuse rash on legs, abdomen and back VITALS: Blood pressure 104/54, respiratory rate 30, pulse 101, SpO2 94% on 60% FiO2 via mechanical ventilator TELEMETRY: Sinus tachycardia LABS: WBC 22.4, hemoglobin 12.5, hematocrit 38.0, platelet 83, d-dimer 9.45, fibrinogen 541, sodium 143, potassium 3, BUN 34, creatinine 1.64 and AST 32, ALT 33, triglycerides 411, direct LDL 8.8, cortisol 43 IMPRESSION: Elevated troponins, flat, not indicative of ACS Elevated BNP, low normal LV function Hypotension, currently on vasopressors Fever of unknown origin, being followed by infectious disease and hematology Acute hypoxic respiratory failure PLAN: No change in medication regimen Continue supportive care No further recommendations at this time I am dictating on behalf of Dr Delmar Garcia's history/physical and assessment/plan. Objective - Vital Signs Vital signs: Vital Signs Temp 101.2 F H 10/11/21 08:00 Pulse 101 H 10/11/21 11:30 Resp 32 H 10/11/21 11:30 BP 93/60 10/11/21 11:30 Pulse Ox 94 L 10/11/21 11:30 Intake & Output 10/10/21 10/11/21 10/11/21 18:59 06:59 18:59 Intake Total 3368.073 2069.241 758.075 Output Total 390 380 195 Balance 2978.073 1689.241 563.075 Weight 80.9 kg Intake: IV 10 1530 650 0.9 1430 650 Cefepime 2 gm In Sodium 100 Chloride 0.9% 100 ml @ 25 mls/hr IVPB Q12H [facility] Rx# :[id number] Invasive Line 2 10 Intake, IV Titration 3258.073 379.241 58.075 Amount Cefepime 2 gm In Sodium 100 Chloride 0.9% 100 ml @ 25 mls/hr IVPB Q12H [facility] Rx# :[id number] Norepinephrine 32 mg In 9.757 64.263 Sodium Chloride 0.9% 218 ml @ 0.4 MCG/KG/MIN 10. 781 mls/hr IV .[id number] [facility] Rx#:[id number] Norepinephrine 4 mg In 228.023 Sodium Chloride 0.9% 250 ml @ 0.05 MCG/KG/MIN 10. 954 mls/hr IV .[id number] [facility] Rx#:[id number] Sodium Chloride 0.9% 1, 910 130 000 ml @ 130 mls/hr IV . Q7H42M [facility] Rx#:[id number] Sodium Chloride 0.9% 1, 1000 000 ml @ 999 mls/hr IV . Q1H1M [facility] Rx#:[id number] Sodium Chloride 0.9% 1, 1000 000 ml @ 999 mls/hr IV . Q1H1M [facility] Rx#:[id number] propofoL 1,000 mg In 10.293 184.978 58.075 Empty Bag 1 bag @ 5 MCG/ KG/MIN 1.725 mls/hr IV . Q24H [facility] Rx#:[id number] Oral 100 Tube Feeding 100 50 Other 60 Output: Urine 390 380 195 Other: Voiding Method Indwelling Catheter Indwelling Catheter ABP, PAP, CO, CI - Last Documented Arterial Blood Pressure 104/54 - Labs CBC & Chem 7: 10/11/21 04:00 10/11/21 04:00 Labs: Abnormal Lab Results - Last 24 Hours (Table) 10/10/21 10/10/21 10/10/21 Range/Units 04:18 04:18 11:43 WBC (3.8-10.6) k/uL RBC (3.80-5.40) m/uL MCV (80.0-100.0) fL Plt Count (150-450) k/uL Neutrophils # (1.3-7.7) k/uL APTT (22.0-30.0) sec Fibrinogen (200-500) mg/dL D-Dimer (<0.60) mg/L FEU ABG pH (7.35-7.45) ABG pCO2 (35-45) mmHg ABG pO2 (83-108) mmHg ABG HCO3 (21-25) mmol/L ABG Total CO2 (19-24) mmol/L ABG O2 Saturation (94-97) % Potassium (3.5-5.1) mmol/L Chloride (98-107) mmol/L Carbon Dioxide (22-30) mmol/L BUN (7-17) mg/dL Creatinine (0.52-1.04) mg/dL Glucose (74-99) mg/dL POC Glucose (mg/dL) 130 H (75-99) mg/dL Calcium (8.4-10.2) mg/dL Ferritin 473.0 H (10.0-291.0) ng/mL Alkaline Phosphatase (38-126) U/L Total Protein (6.3-8.2) g/dL Albumin (3.5-5.0) g/dL Triglycerides (0.00-149.00) mg/dL HDL Cholesterol (40.00-60.00) mg/dL Procalcitonin 4.56 H (0.02-0.09) ng/mL 10/10/21 10/11/21 10/11/21 Range/Units 14:12 04:00 04:00 WBC (3.8-10.6) k/uL RBC (3.80-5.40) m/uL MCV (80.0-100.0) fL Plt Count (150-450) k/uL Neutrophils # (1.3-7.7) k/uL APTT 30.8 H (22.0-30.0) sec Fibrinogen 541 H (200-500) mg/dL D-Dimer 9.45 H (<0.60) mg/L FEU ABG pH 7.22 L (7.35-7.45) ABG pCO2 (35-45) mmHg ABG pO2 79 L (83-108) mmHg ABG HCO3 16 L (21-25) mmol/L ABG Total CO2 17 L (19-24) mmol/L ABG O2 Saturation (94-97) % Potassium 3.0 L (3.5-5.1) mmol/L Chloride 119 H (98-107) mmol/L Carbon Dioxide 17 L (22-30) mmol/L BUN 34 H (7-17) mg/dL Creatinine 1.64 H (0.52-1.04) mg/dL Glucose 118 H (74-99) mg/dL POC Glucose (mg/dL) (75-99) mg/dL Calcium 6.7 L (8.4-10.2) mg/dL Ferritin (10.0-291.0) ng/mL Alkaline Phosphatase 135 H (38-126) U/L Total Protein 4.4 L (6.3-8.2) g/dL Albumin 2.1 L (3.5-5.0) g/dL Triglycerides 411.00 H (0.00-149.00) mg/dL HDL Cholesterol 11.80 L (40.00-60.00) mg/dL Procalcitonin (0.02-0.09) ng/mL 10/11/21 10/11/21 Range/Units 04:00 05:26 WBC 22.4 H (3.8-10.6) k/uL RBC 3.76 L (3.80-5.40) m/uL MCV 101.0 H (80.0-100.0) fL Plt Count 83 L (150-450) k/uL Neutrophils # 20.8 H (1.3-7.7) k/uL APTT (22.0-30.0) sec Fibrinogen (200-500) mg/dL D-Dimer (<0.60) mg/L FEU ABG pH 7.33 L (7.35-7.45) ABG pCO2 34 L (35-45) mmHg ABG pO2 (83-108) mmHg ABG HCO3 18 L (21-25) mmol/L ABG Total CO2 (19-24) mmol/L ABG O2 Saturation 97.4 H (94-97) % Potassium (3.5-5.1) mmol/L Chloride (98-107) mmol/L Carbon Dioxide (22-30) mmol/L BUN (7-17) mg/dL Creatinine (0.52-1.04) mg/dL Glucose (74-99) mg/dL POC Glucose (mg/dL) (75-99) mg/dL Calcium (8.4-10.2) mg/dL Ferritin (10.0-291.0) ng/mL Alkaline Phosphatase (38-126) U/L Total Protein (6.3-8.2) g/dL Albumin (3.5-5.0) g/dL Triglycerides (0.00-149.00) mg/dL HDL Cholesterol (40.00-60.00) mg/dL Procalcitonin (0.02-0.09) ng/mL Microbiology - Last 24 Hours (Table) 10/10/21 13:45 Gram Stain - Preliminary Bronchial Washings - Right Bronchial Washings Culture - Preliminary 10/06/21 23:50 Blood Culture - Preliminary Blood No Growth after 96 hours 10/06/21 23:35 Blood Culture - Preliminary Blood No Growth after 96 hours 10/10/21 13:45 Fungal Culture - Preliminary Bronchial Washings - Right 10/10/21 13:45 Acid Fast Bacilli Culture - Preliminary Bronchial Washings - Right 10/09/21 17:50 Urine Culture - Final Urine,Voided 10/07/21 17:04 Group A Strep Throat Culture - Final Throat
[2021-10-11 12:02] LABS: Magnesium 1.9 mg/dL (1.6-2.3); Potassium 3.4 mmol/L (3.5-5.1)
--- NOTE | 2021-10-11 12:09 | P.PN ---
Subjective Progress Note Date: 10/11/21 Principal diagnosis: Fever On 10/10 patient was intubated for impending respiratory failure. Currently on mechanical ventilation. A venous and arterial lines were placed. Bronchoscopy was done 10/10. In addition, we placed a central line, and an arterial line. Currently on saline at 130 mL an hour, propofol at 50 mcg/kg/m, norepinephrine at 25 mcg/m. Objective - Vital Signs Vital signs: Vital Signs Temp 101.2 F H 10/11/21 08:00 Pulse 101 H 10/11/21 11:30 Resp 32 H 10/11/21 11:30 BP 93/60 10/11/21 11:30 Pulse Ox 94 L 10/11/21 11:30 Intake & Output 10/10/21 10/11/21 10/11/21 18:59 06:59 18:59 Intake Total 3368.073 2069.241 758.075 Output Total 390 380 195 Balance 2978.073 1689.241 563.075 Weight 80.9 kg Intake: IV 10 1530 650 0.9 1430 650 Cefepime 2 gm In Sodium 100 Chloride 0.9% 100 ml @ 25 mls/hr IVPB Q12H [facility] Rx# :[id number] Invasive Line 2 10 Intake, IV Titration 3258.073 379.241 58.075 Amount Cefepime 2 gm In Sodium 100 Chloride 0.9% 100 ml @ 25 mls/hr IVPB Q12H [facility] Rx# :[id number] Norepinephrine 32 mg In 9.757 64.263 Sodium Chloride 0.9% 218 ml @ 0.4 MCG/KG/MIN 10. 781 mls/hr IV .[id number] [facility] Rx#:[id number] Norepinephrine 4 mg In 228.023 Sodium Chloride 0.9% 250 ml @ 0.05 MCG/KG/MIN 10. 954 mls/hr IV .[id number] [facility] Rx#:[id number] Sodium Chloride 0.9% 1, 910 130 000 ml @ 130 mls/hr IV . Q7H42M [facility] Rx#:[id number] Sodium Chloride 0.9% 1, 1000 000 ml @ 999 mls/hr IV . Q1H1M [facility] Rx#:[id number] Sodium Chloride 0.9% 1, 1000 000 ml @ 999 mls/hr IV . Q1H1M [facility] Rx#:[id number] propofoL 1,000 mg In 10.293 184.978 58.075 Empty Bag 1 bag @ 5 MCG/ KG/MIN 1.725 mls/hr IV . Q24H [facility] Rx#:[id number] Oral 100 Tube Feeding 100 50 Other 60 Output: Urine 390 380 195 Other: Voiding Method Indwelling Catheter Indwelling Catheter Indwelling Catheter ABP, PAP, CO, CI - Last Documented Arterial Blood Pressure 104/54 - Exam General: Sedated, with an orally placed endotracheal tube and NG tube. Derm: Skin warm and dry, normal coloration for ethnicity. There is erythematous, nonraised rash to bilateral knees, arms, and left side of neck Head: Atraumatic, normocephalic and symmetric. Eyes: EOMs intact, no lid lag, and anicteric sclera Mouth: no lip lesions, mucus membranes moist. Patient does not have teeth, wears dentures. No noted infections or swelling in mouth. No tonsillar swelling or erythema. Cardiovascular: regular rate and rhythm with normal S1S2, no murmur, positive posterior tibial pulses bilaterally, and cap refill < 2 seconds. Lungs: Bilateral rhonchi and wheezing, and no accessory muscle usage. Abdominal: soft, nontender to palpation, no guarding, no appreciable organomegaly Ext: No gross muscle atrophy, no edema, no contractures Neuro: Sedated - Labs CBC & Chem 7: 10/11/21 04:00 10/11/21 11:42 Labs: Abnormal Lab Results - Last 24 Hours (Table) 10/10/21 10/10/21 10/10/21 Range/Units 04:18 04:18 14:12 WBC (3.8-10.6) k/uL RBC (3.80-5.40) m/uL MCV (80.0-100.0) fL Plt Count (150-450) k/uL Neutrophils # (1.3-7.7) k/uL APTT (22.0-30.0) sec Fibrinogen (200-500) mg/dL D-Dimer (<0.60) mg/L FEU ABG pH 7.22 L (7.35-7.45) ABG pCO2 (35-45) mmHg ABG pO2 79 L (83-108) mmHg ABG HCO3 16 L (21-25) mmol/L ABG Total CO2 17 L (19-24) mmol/L ABG O2 Saturation (94-97) % Potassium (3.5-5.1) mmol/L Chloride (98-107) mmol/L Carbon Dioxide (22-30) mmol/L BUN (7-17) mg/dL Creatinine (0.52-1.04) mg/dL Glucose (74-99) mg/dL POC Glucose (mg/dL) (75-99) mg/dL Calcium (8.4-10.2) mg/dL Ferritin 473.0 H (10.0-291.0) ng/mL Alkaline Phosphatase (38-126) U/L Total Protein (6.3-8.2) g/dL Albumin (3.5-5.0) g/dL Triglycerides (0.00-149.00) mg/dL HDL Cholesterol (40.00-60.00) mg/dL Procalcitonin 4.56 H (0.02-0.09) ng/mL 10/11/21 10/11/21 10/11/21 Range/Units 04:00 04:00 04:00 WBC 22.4 H (3.8-10.6) k/uL RBC 3.76 L (3.80-5.40) m/uL MCV 101.0 H (80.0-100.0) fL Plt Count 83 L (150-450) k/uL Neutrophils # 20.8 H (1.3-7.7) k/uL APTT 30.8 H (22.0-30.0) sec Fibrinogen 541 H (200-500) mg/dL D-Dimer 9.45 H (<0.60) mg/L FEU ABG pH (7.35-7.45) ABG pCO2 (35-45) mmHg ABG pO2 (83-108) mmHg ABG HCO3 (21-25) mmol/L ABG Total CO2 (19-24) mmol/L ABG O2 Saturation (94-97) % Potassium 3.0 L (3.5-5.1) mmol/L Chloride 119 H (98-107) mmol/L Carbon Dioxide 17 L (22-30) mmol/L BUN 34 H (7-17) mg/dL Creatinine 1.64 H (0.52-1.04) mg/dL Glucose 118 H (74-99) mg/dL POC Glucose (mg/dL) (75-99) mg/dL Calcium 6.7 L (8.4-10.2) mg/dL Ferritin (10.0-291.0) ng/mL Alkaline Phosphatase 135 H (38-126) U/L Total Protein 4.4 L (6.3-8.2) g/dL Albumin 2.1 L (3.5-5.0) g/dL Triglycerides 411.00 H (0.00-149.00) mg/dL HDL Cholesterol 11.80 L (40.00-60.00) mg/dL Procalcitonin (0.02-0.09) ng/mL 10/11/21 10/11/21 Range/Units 05:26 11:50 WBC (3.8-10.6) k/uL RBC (3.80-5.40) m/uL MCV (80.0-100.0) fL Plt Count (150-450) k/uL Neutrophils # (1.3-7.7) k/uL APTT (22.0-30.0) sec Fibrinogen (200-500) mg/dL D-Dimer (<0.60) mg/L FEU ABG pH 7.33 L (7.35-7.45) ABG pCO2 34 L (35-45) mmHg ABG pO2 (83-108) mmHg ABG HCO3 18 L (21-25) mmol/L ABG Total CO2 (19-24) mmol/L ABG O2 Saturation 97.4 H (94-97) % Potassium (3.5-5.1) mmol/L Chloride (98-107) mmol/L Carbon Dioxide (22-30) mmol/L BUN (7-17) mg/dL Creatinine (0.52-1.04) mg/dL Glucose (74-99) mg/dL POC Glucose (mg/dL) 108 H (75-99) mg/dL Calcium (8.4-10.2) mg/dL Ferritin (10.0-291.0) ng/mL Alkaline Phosphatase (38-126) U/L Total Protein (6.3-8.2) g/dL Albumin (3.5-5.0) g/dL Triglycerides (0.00-149.00) mg/dL HDL Cholesterol (40.00-60.00) mg/dL Procalcitonin (0.02-0.09) ng/mL Microbiology - Last 24 Hours (Table) 10/10/21 13:45 Gram Stain - Preliminary Bronchial Washings - Right Bronchial Washings Culture - Preliminary 10/06/21 23:50 Blood Culture - Preliminary Blood No Growth after 96 hours 10/06/21 23:35 Blood Culture - Preliminary Blood No Growth after 96 hours 10/10/21 13:45 Fungal Culture - Preliminary Bronchial Washings - Right 10/10/21 13:45 Acid Fast Bacilli Culture - Preliminary Bronchial Washings - Right 10/09/21 17:50 Urine Culture - Final Urine,Voided 10/07/21 17:04 Group A Strep Throat Culture - Final Throat Assessment and Plan Plan: Fever sec to pneumonia Cervical lymphadenopathy Sepsis with hypotension currently on pressors -Continue maintenance IV fluids -On 10/09 IV antibiotics expanded to include doxycycline to cover atypical organisms, cefepmine and vanco. Blood cx 10/06 negative. Bronch done 10/10, awaiting culture results. -Influenza A, influenza B, and Covid PCR negative. -CMV nonreactive -EBV IgG positive IgM negative -Group A rapid strep negative -Pro-calcitonin slightly elevated at 0.28 -Ultrasound left anterior neck revealing a left-sided cervical lymphadenopathy -CT chest abdomen and pelvis revealing mild fat stranding in the lower neck, small gastroesophageal hiatal hernia, and mild retroperitoneal fat stranding predominantly around the pancreas and prominent retroperitoneal and mesenteric lymph nodes the differential includes infectious and inflammatory etiologies, and a 4 mm calculus in the upper pole of the right kidney. -Infectious disease following, appreciate further recommendations Acute hypoxic respiraroy failure sec to pneumonia -CXR with CHF vs. pneumonia -BNP 81455, trops mildly elevated at 0.07, however flat. Seen by cardio no further plans -Antibiotics as above Low back pain: -D/w ID, MRI lumbar spine with and without contrast ordered but patient could not tolerate it -We will reattempt once more stable Lymphadenopathy, retroperitoneal -Seen by oncology, likely incidental finding, but due to chronic intermittent abdominal and back discomfort over the past year, oncology advised possible further evaluation with EUS, outpatient Acute kidney injury, resolved with IV fluid hydration CODE STATUS: Full code DVT prophylaxis: Heparin Discussed with: Patient, patient's , and RN Anticipated discharge date: Clinical course to determine Anticipated discharge place: Clinical course to determine A total of 41 minutes was spent on the care of this complex patient more than 50% of the time was spent in counseling and care coordination.
[2021-10-11] MEDS: CEFEPIME 2 GM in SODIUM CHLORIDE 0.9% 100 ML IVPB SCH ×2 (13:14→17:01)
[2021-10-11] MEDS: NOREPINEPHRINE 32 MG in SODIUM CHLORIDE 0.9% 218 ML IV SCH ×2 (13:32→20:26)
[2021-10-11] MEDS: VORICONAZOLE 400 MG in SODIUM CHLORIDE 0.9% 250 ML IVPB SCH (15:35)
[2021-10-11 18:12] LABS: Glucose,Whole Blood 101 mg/dL (75-99)
--- NOTE | 2021-10-11 21:28 | P.PN ---
Subjective Progress Note Date: 10/11/21 Principal diagnosis: Fever and rash Patient is a 56-year-old female presenting to the hospital with a fever rash and swelling to the left side of the neck in this patient did have evidence of lymphadenopathy subsequently developed a rash to bilateral elbow and bilateral knee area patient did have a CT of abdominal pelvis and chest no mention of any abscess which was some retroperitoneal lymphadenopathy. On today's evaluation that is 10/11/2021, the patient did spike a fever of 101F this morning the patient is requiring a pressor support to maintain her blood pressure, FiO2 is currently at 60%,skin purulent secretion through the ET, patient has been tolerating her tube feeds and no diarrhea has been reported, per the nursing staff patient's mentioned they were renovating the bathroom and has been exposed to some black mold Objective - Vital Signs Vital signs: Vital Signs Temp 101.2 F H 10/11/21 08:00 Pulse 101 H 10/11/21 11:30 Resp 32 H 10/11/21 11:30 BP 93/60 10/11/21 11:30 Pulse Ox 94 L 10/11/21 11:30 Intake & Output 10/10/21 10/11/21 10/11/21 18:59 06:59 18:59 Intake Total 3368.073 2069.241 898.075 Output Total 390 380 245 Balance 2978.073 1689.241 653.075 Weight 80.9 kg Intake: IV 10 1530 780 0.9 1430 780 Cefepime 2 gm In Sodium 100 Chloride 0.9% 100 ml @ 25 mls/hr IVPB Q12H [facility] Rx# :[id number] Invasive Line 2 10 Intake, IV Titration 3258.073 379.241 58.075 Amount Cefepime 2 gm In Sodium 100 Chloride 0.9% 100 ml @ 25 mls/hr IVPB Q12H [facility] Rx# :[id number] Norepinephrine 32 mg In 9.757 64.263 Sodium Chloride 0.9% 218 ml @ 0.4 MCG/KG/MIN 10. 781 mls/hr IV .[id number] [facility] Rx#:[id number] Norepinephrine 4 mg In 228.023 Sodium Chloride 0.9% 250 ml @ 0.05 MCG/KG/MIN 10. 954 mls/hr IV .[id number] [facility] Rx#:[id number] Sodium Chloride 0.9% 1, 910 130 000 ml @ 130 mls/hr IV . Q7H42M [facility] Rx#:[id number] Sodium Chloride 0.9% 1, 1000 000 ml @ 999 mls/hr IV . Q1H1M [facility] Rx#:[id number] Sodium Chloride 0.9% 1, 1000 000 ml @ 999 mls/hr IV . Q1H1M [facility] Rx#:[id number] propofoL 1,000 mg In 10.293 184.978 58.075 Empty Bag 1 bag @ 5 MCG/ KG/MIN 1.725 mls/hr IV . Q24H [facility] Rx#:[id number] Oral 100 Tube Feeding 100 60 Other 60 Output: Urine 390 380 245 Other: Voiding Method Indwelling Catheter Indwelling Catheter Indwelling Catheter ABP, PAP, CO, CI - Last Documented Arterial Blood Pressure 104/54 - Exam GENERAL DESCRIPTION: Middle-age female intubated on the vent RESPIRATORY SYSTEM: Unlabored breathing , decreased breath sounds at bases HEART: S1 S2 regular rate and rhythm , ABDOMEN: Soft , no tenderness EXTREMITIES: No edema feet - Labs CBC & Chem 7: 10/11/21 04:00 10/11/21 11:42 Labs: Abnormal Lab Results - Last 24 Hours (Table) 10/10/21 10/10/21 10/10/21 Range/Units 04:18 04:18 14:12 WBC (3.8-10.6) k/uL RBC (3.80-5.40) m/uL MCV (80.0-100.0) fL Plt Count (150-450) k/uL Neutrophils # (1.3-7.7) k/uL APTT (22.0-30.0) sec Fibrinogen (200-500) mg/dL D-Dimer (<0.60) mg/L FEU ABG pH 7.22 L (7.35-7.45) ABG pCO2 (35-45) mmHg ABG pO2 79 L (83-108) mmHg ABG HCO3 16 L (21-25) mmol/L ABG Total CO2 17 L (19-24) mmol/L ABG O2 Saturation (94-97) % Potassium (3.5-5.1) mmol/L Chloride (98-107) mmol/L Carbon Dioxide (22-30) mmol/L BUN (7-17) mg/dL Creatinine (0.52-1.04) mg/dL Glucose (74-99) mg/dL POC Glucose (mg/dL) (75-99) mg/dL Calcium (8.4-10.2) mg/dL Ferritin 473.0 H (10.0-291.0) ng/mL Alkaline Phosphatase (38-126) U/L Total Protein (6.3-8.2) g/dL Albumin (3.5-5.0) g/dL Triglycerides (0.00-149.00) mg/dL HDL Cholesterol (40.00-60.00) mg/dL Procalcitonin 4.56 H (0.02-0.09) ng/mL 10/11/21 10/11/21 10/11/21 Range/Units 04:00 04:00 04:00 WBC 22.4 H (3.8-10.6) k/uL RBC 3.76 L (3.80-5.40) m/uL MCV 101.0 H (80.0-100.0) fL Plt Count 83 L (150-450) k/uL Neutrophils # 20.8 H (1.3-7.7) k/uL APTT 30.8 H (22.0-30.0) sec Fibrinogen 541 H (200-500) mg/dL D-Dimer 9.45 H (<0.60) mg/L FEU ABG pH (7.35-7.45) ABG pCO2 (35-45) mmHg ABG pO2 (83-108) mmHg ABG HCO3 (21-25) mmol/L ABG Total CO2 (19-24) mmol/L ABG O2 Saturation (94-97) % Potassium 3.0 L (3.5-5.1) mmol/L Chloride 119 H (98-107) mmol/L Carbon Dioxide 17 L (22-30) mmol/L BUN 34 H (7-17) mg/dL Creatinine 1.64 H (0.52-1.04) mg/dL Glucose 118 H (74-99) mg/dL POC Glucose (mg/dL) (75-99) mg/dL Calcium 6.7 L (8.4-10.2) mg/dL Ferritin (10.0-291.0) ng/mL Alkaline Phosphatase 135 H (38-126) U/L Total Protein 4.4 L (6.3-8.2) g/dL Albumin 2.1 L (3.5-5.0) g/dL Triglycerides 411.00 H (0.00-149.00) mg/dL HDL Cholesterol 11.80 L (40.00-60.00) mg/dL Procalcitonin (0.02-0.09) ng/mL 10/11/21 10/11/21 10/11/21 Range/Units 05:26 11:42 11:50 WBC (3.8-10.6) k/uL RBC (3.80-5.40) m/uL MCV (80.0-100.0) fL Plt Count (150-450) k/uL Neutrophils # (1.3-7.7) k/uL APTT (22.0-30.0) sec Fibrinogen (200-500) mg/dL D-Dimer (<0.60) mg/L FEU ABG pH 7.33 L (7.35-7.45) ABG pCO2 34 L (35-45) mmHg ABG pO2 (83-108) mmHg ABG HCO3 18 L (21-25) mmol/L ABG Total CO2 (19-24) mmol/L ABG O2 Saturation 97.4 H (94-97) % Potassium 3.4 L (3.5-5.1) mmol/L Chloride (98-107) mmol/L Carbon Dioxide (22-30) mmol/L BUN (7-17) mg/dL Creatinine (0.52-1.04) mg/dL Glucose (74-99) mg/dL POC Glucose (mg/dL) 108 H (75-99) mg/dL Calcium (8.4-10.2) mg/dL Ferritin (10.0-291.0) ng/mL Alkaline Phosphatase (38-126) U/L Total Protein (6.3-8.2) g/dL Albumin (3.5-5.0) g/dL Triglycerides (0.00-149.00) mg/dL HDL Cholesterol (40.00-60.00) mg/dL Procalcitonin (0.02-0.09) ng/mL Microbiology - Last 24 Hours (Table) 10/10/21 13:45 Gram Stain - Preliminary Bronchial Washings - Right Bronchial Washings Culture - Preliminary 10/06/21 23:50 Blood Culture - Preliminary Blood No Growth after 96 hours 10/06/21 23:35 Blood Culture - Preliminary Blood No Growth after 96 hours 10/10/21 13:45 Fungal Culture - Preliminary Bronchial Washings - Right 10/10/21 13:45 Acid Fast Bacilli Culture - Preliminary Bronchial Washings - Right 10/09/21 17:50 Urine Culture - Final Urine,Voided 10/07/21 17:04 Group A Strep Throat Culture - Final Throat Assessment and Plan (1) Fever Current Visit: Yes Status: Acute Code(s): R50.9 - FEVER, UNSPECIFIED SNOMED Code(s): 445332928 (2) Lymphadenopathy of left cervical region Current Visit: Yes Status: Acute Code(s): R59.0 - LOCALIZED ENLARGED LYMPH NODES SNOMED Code(s): 199233215 Plan: 1patient with a fever and this patient did have a left-sided neck swelling with ultrasound suggestive of left cervical lymphadenopathy patient did have CT of abdominal pelvis and chest did not show any abscess or colitis did shows evidence of retroperitoneal lymphadenopathy 2- CMV serology was negative EBV serologies pending, rheumatological workup has been ordered as well as parvovirus serology 3-MRI of the lumbosacral spine has been ordered because of the back pain currently pending 4-Patient did have worsening respiratory status requiring intubation with worsening of the chest x-ray possible ARDS pattern in this patient has been intubated and did have bronchoscopy deep culture has been obtained which are currently pending patient is spiking fever despite being on adequate antibiotic coverage for both gram-positive as well as gram-negative and atypical in view of the new information provided by the nursing staff. Will empirically add voriconazole and order fungal serology Time with Patient: Less than 30
[2021-10-12 00:23] LABS: Glucose,Whole Blood 107 mg/dL (75-99)
[2021-10-12] MEDS: CEFEPIME 2 GM in SODIUM CHLORIDE 0.9% 100 ML IVPB SCH ×3 (00:25→15:54)
[2021-10-12] MEDS: HEPARIN SODIUM,PORCINE/PF 5,000 UNIT/0.5 ML SYRINGE SQ SCH ×3 (00:25→15:55)
[2021-10-12] MEDS: VORICONAZOLE 400 MG in SODIUM CHLORIDE 0.9% 250 ML IVPB SCH (02:07)
[2021-10-12] MEDS: SODIUM CHLORIDE 0.9% 1,000 ML IV SCH ×2 (02:13→12:41)
[2021-10-12] MEDS: NOREPINEPHRINE 32 MG in SODIUM CHLORIDE 0.9% 218 ML IV SCH (04:16)
[2021-10-12 05:01] LABS: Albumin 1.9 g/dL (3.5-5.0); Calcium 6.8 mg/dL (8.4-10.2); Potassium 3.6 mmol/L (3.5-5.1); Total Bilirubin 1.1 mg/dL (0.2-1.3)
[2021-10-12 05:34] LABS: ABG Base Excess -10.3 mmol/L; ABG HCO3 16 mmol/L (21-25); ABG Oxygen Saturation 98.2 % (94-97); ABG PCO2 32 mmHg (35-45); ABG PO2 129 mmHg (83-108); ABG TCO2 17 mmol/L (19-24)
[2021-10-12 11:35] LABS: Glucose,Whole Blood 96 mg/dL (75-99)
--- NOTE | 2021-10-12 12:22 | XR ---
EXAMINATION TYPE: XR chest 1V portable DATE OF EXAM: 10/12/2021 COMPARISON: 10/11/2021 HISTORY: Abnormal x-ray TECHNIQUE: Single frontal view of the chest is obtained. FINDINGS: ET tube, NG tube and central line stable. Diffuse interstitial pattern with bilateral infi ltrate and pleural effusion. Mild cardiomegaly. No pneumothorax. IMPRESSION: Stable diffuse airspace disease correlate for CHF versus diffuse pneumonia.
[2021-10-12 12:24] LABS: Mumps Virus IgG Ab Interp POSITIVE (NEGATIVE); Mumps Virus IgG Antibody 2.3 AI
--- NOTE | 2021-10-12 12:24 | P.PN ---
Subjective Progress Note Date: 10/12/21 10/12/2021, the patient is being seen for a follow-up. The patient is in intensive care unit with acute hypoxic respiratory failure, fever, suspected bilateral pneumonia and the patient has been intubated since 10/10/2021. The patient underwent a bronchoscopy on 10/10/2021 and the results were consistent with Yvrose albicans. The chest x-ray from today still showing persistent bilateral pulmonary infiltrates more so in the mid and lower lung [place] bilaterally. The patient remains on a combination of IV cefepime, vancomycin and voriconazole is also added today by infectious disease. Note that the urine showed yeast species and the bronchial alveolar lavage also showed Yvrose albicans.. This morning, the patient remains on propofol at the rate of 50 mcg/kg per minute. The patient is adequately sedated. The patient is on a mechanical ventilator on assist control mode at the rate of 26 with a tidal volume of 400 and FiO2 of 60% with a PEEP of 10. Peak air pressures around 28 with metastatic a pressure of 26. The patient is on IV fluids with normal saline at the rate of 130 mL an hour. Urine output is in order of 50 mL an hour. The patient has a left-sided triple-lumen catheter in the subclavian. The patient is on norepinephrine running at 0.35 mg/kg/m. The current cardiac rhythm is sinus. The patient is on enteral feeding for nutritional support and the patient is currently on vital 1.2 at the rate of 10 mL an hour. The blood gases from today shows a pH of 7.3 with a pCO2 of 32 and pO2 of 129 and this was done and FiO2 of 60%. On the blood work today, the sodium level is up to 147 and a chloride is at 124, serum bicarbonate 16 with anion gap of 7. The patient developed an acute kidney injury. The baseline creatinine at a time with position was as low as 1.2 and currently is up to 1.9.the echo of the heart showed a preserved LV function with very small pericardial effusion. No other significant valvular abnormalities noted.Note that the computed tomography scan of the chest abdomen and pelvis was done at time of admission and showed small hiatal hernia, gallbladder calculus without evidence of an acute cholecystitis, mild retroperitoneal fat stranding around the pancreas and prominent retroperitoneal and mesenteric lymph nodes and 4 mm Was in the upper pole of the right kidney without evidence of any hydronephrosis. The ultrasound of the neck showed multiple lymph nodes in the left lateral neck area largest measuring 1.9 x 1.5 cm in size and the thyroid gland was not adequately visualized. Objective - Vital Signs Vital signs: Vital Signs Temp 98.4 F 10/12/21 04:00 Pulse 92 10/12/21 04:00 Resp 26 H 10/12/21 04:00 BP 105/69 10/12/21 04:00 Pulse Ox 97 10/12/21 04:00 Intake & Output 10/11/21 10/12/21 10/12/21 18:59 06:59 18:59 Intake Total 2190.471 2522.405 Output Total 485 600 Balance 1905.418 4777.405 Weight 83.6 kg Intake: IV 1660 2000 0.9 1560 1300 Cefepime 2 gm In Sodium 100 200 Chloride 0.9% 100 ml @ 25 mls/hr IVPB Q12H [facility] Rx# :[id number] Voriconazole 400 mg In 500 Sodium Chloride 0.9% 250 ml @ 125 mls/hr IVPB Q12H [facility] Rx#:[id number] Intake, IV Titration 410.471 342.405 Amount Norepinephrine 32 mg In 162.646 169.330 Sodium Chloride 0.9% 218 ml @ 0.4 MCG/KG/MIN 10. 781 mls/hr IV .[id number] [facility] Rx#:[id number] propofoL 1,000 mg In 247.825 173.075 Empty Bag 1 bag @ 5 MCG/ KG/MIN 1.725 mls/hr IV . Q24H [facility] Rx#:[id number] Tube Feeding 120 90 Other 90 Output: Urine 485 600 Other: Voiding Method Indwelling Catheter Indwelling Catheter ABP, PAP, CO, CI - Last Documented Arterial Blood Pressure 110/62 - Exam Sedated, with an orally placed endotracheal tube and NG tube. Head exam was generally normal. There was no scleral icterus or corneal arcus. Mucous membranes were moist. Neck supple. Full range of motion. A left-sided neck adenopathy. Neck veins are not distended. Cardiovascular examination reveals regular rhythm rate. S1-S2 normal. No S3 or S4. No discernible murmur noted. Heart sounds are distant. Lungs reveal coarse bilateral rhonchi. No wheezes. No crackles. Breath sounds equal. Abdomen soft bowel sounds are heard. No masses or tenderness. Extremities are intact. No cyanosis clubbing or edema. Skin reveals some mottling on the chest area, and also on the knees bilaterally. Neurologic examination was unable to be evaluated because the patient was sed ated. - Labs CBC & Chem 7: 10/11/21 04:00 10/12/21 04:30 Labs: Abnormal Lab Results - Last 24 Hours (Table) 10/11/21 10/11/21 10/11/21 Range/Units 04:00 13:37 18:10 WBC 22.4 H (3.8-10.6) k/uL RBC 3.76 L (3.80-5.40) m/uL MCV 101.0 H (80.0-100.0) fL Plt Count 83 L (150-450) k/uL Neutrophils # 20.8 H (1.3-7.7) k/uL Sodium (137-145) mmol/L Chloride (98-107) mmol/L Carbon Dioxide (22-30) mmol/L BUN (7-17) mg/dL Creatinine (0.52-1.04) mg/dL Glucose (74-99) mg/dL POC Glucose (mg/dL) 101 H (75-99) mg/dL Calcium (8.4-10.2) mg/dL Alkaline Phosphatase (38-126) U/L Total Protein (6.3-8.2) g/dL Albumin (3.5-5.0) g/dL Rubella IgG Antibody 103.00 H (0.00-10.00) IU/mL 10/12/21 10/12/21 Range/Units 00:21 04:30 WBC (3.8-10.6) k/uL RBC (3.80-5.40) m/uL MCV (80.0-100.0) fL Plt Count (150-450) k/uL Neutrophils # (1.3-7.7) k/uL Sodium 147 H (137-145) mmol/L Chloride 124 H (98-107) mmol/L Carbon Dioxide 16 L (22-30) mmol/L BUN 40 H (7-17) mg/dL Creatinine 1.99 H (0.52-1.04) mg/dL Glucose 107 H (74-99) mg/dL POC Glucose (mg/dL) 107 H (75-99) mg/dL Calcium 6.8 L (8.4-10.2) mg/dL Alkaline Phosphatase 178 H (38-126) U/L Total Protein 4.0 L (6.3-8.2) g/dL Albumin 1.9 L (3.5-5.0) g/dL Rubella IgG Antibody (0.00-10.00) IU/mL Microbiology - Last 24 Hours (Table) 10/10/21 13:45 Gram Stain - Preliminary Bronchial Washings - Right Bronchial Washings Culture - Preliminary Yvrose albicans 10/06/21 23:50 Blood Culture - Preliminary Blood No Growth after 120 hours 10/06/21 23:35 Blood Culture - Preliminary Blood No Growth after 120 hours 10/09/21 17:50 Urine Culture - Preliminary Urine,Voided Yeast species 10/10/21 13:45 Acid Fast Bacilli Smear - Final Bronchial Washings - Right Acid Fast Bacilli Culture - Preliminary Assessment and Plan Plan: Acute hypoxemic respiratory failure, likely multifactorial, in part related to bilateral pneumonia. The patient required intubation and mechanical ventilation on 10/10/2021. She also had a central line placed, and arterial line placed, and underwent bronchoscopy.The bronchioloalveolar lavage showed Yvrose albicans and the patient is currently on a combination of antibiotics including a combination of cefepime, vancomycin and voriconazole. Infectious diseases on the case. The chest x-ray is showing lower lobe at the pulmonary infiltrates. Blood gas was noted. Chest x-ray was noted. Note that the pro-calcitonin level was quite elevated, but admission and this indicated essentially possibility of bacterial infection. Septic shock with secondary hypotension, possibly related to underlying sepsis. Left sided cervical lymphadenopathy. History of gastroesophageal reflux disease. History of hypertension. History of hypothyroidism. History of ongoing tobacco use. History of anxiety/depression/bipolar disorder. acute hyperchloremic hypernatremia Acute kidney injury in the creatinine is up to 1.9 Abdominal lymphadenopathy, nonspecific Questionable gallbladder calculus without evidence of any cholecystitis 4 mm calculus in the upper lobe of the right kidney, no hydronephrosis Plan: Continue ventilator support. Drop the FiO2 down to 50% and drop the PEEP down to 8 Keep the patient sedated with propofol as the patient is not ready for any weaning trials yet Change IV fluids to half-normal saline today to 150 mL an hour Repeat blood work and electrodes in a.m. Monitor renal function Continue antibiotic coverage and infectious disease on the case May need to repeat a pro-calcitonin level Echo showed a preserved LV function CAT scan of the chest abdomen and pelvis at a time of admission showed no significant bilateral pulmonary infiltrates and the findings were essentially nonspecific Continue enteral feeding for nutritional support Wean off pressors currently on norepinephrine infusion at 0.35 g/kg per minute Urine output is adequate Monitor fever pattern We'll continue to follow make further recommendations based on progress. Condition is critical and the simulation was on a more than 40 minutes. Time with Patient: Greater than 30
[2021-10-12 12:30] LABS: HIV 2 AB Non-Reactive (Non-Reactive); HIV AB P24 Non-Reactive (Non-Reactive); HIV P24 AG Non-Reactive (Non-Reactive)
[2021-10-12 12:35] LABS: Parvovirus B-19 IgM Antibodies 0.16 INDEX (<=0.90)
[2021-10-12] MEDS: LEVOTHYROXINE 100 MCG TAB PO SCH (12:38)
[2021-10-12] MEDS: VANCOMYCIN 1,500 MG in SODIUM CHLORIDE 0.9% 250 ML IVPB SCH (12:38)
[2021-10-12] MEDS: IPRATROPIUM-ALBUTEROL 3 ML NEB INHALATION PRN ×2 (12:39→19:46)
[2021-10-12] MEDS: CHLORHEXIDINE GLUCONATE 15 ML CUP MUCOUS MEM SCH ×2 (12:40→21:47)
[2021-10-12] MEDS: lamoTRIgine 100 MG TAB PO SCH ×2 (12:40→21:48)
--- NOTE | 2021-10-12 12:43 | P.PN ---
Subjective Progress Note Date: 10/12/21 No new complaints. FiO2 60%, PEEP 5, AC 500. Ongoing levophed. Persistent fevers. Gen: intubated, sedated HEENT: normocephalic, atraumatic, moist mucous membranes Resp: ventilator, equal chest expansion CVS: good distal perfusion x 4, GI: soft, NTTP, ND : no SPT, no CVAT, owens catheter is present MSK: no pitting edema, no clubbing Assessment/plan: Fever sec to pneumonia Cervical and retroperitoneal lymphadenopathy Septic Shock -Continue maintenance IV fluids -On 10/09 IV antibiotics expanded to include doxycycline to cover atypical organisms, cefepmine and vanco. Blood cx 10/06 negative. Bronch done 10/10, awaiting culture results. -Influenza A, influenza B, and Covid PCR negative. -CMV nonreactive -EBV IgG positive IgM negative -Group A rapid strep negative -Pro-calcitonin elevated at 4.6 -Ultrasound left anterior neck revealing a left-sided cervical lymphadenopathy -CT chest abdomen and pelvis revealing mild fat stranding in the lower neck, small gastroesophageal hiatal hernia, and mild retroperitoneal fat stranding predominantly around the pancreas and prominent retroperitoneal and mesenteric lymph nodes the differential includes infectious and inflammatory etiologies, and a 4 mm calculus in the upper pole of the right kidney. -Infectious disease following, appreciate further recommendations Acute hypoxic respiraroy failure sec to pneumonia -CXR with CHF vs. pneumonia -BNP 86820, trops mildly elevated at 0.07, however flat. Seen by cardio no further plans -Antibiotics as above Low back pain: -D/w ID, MRI lumbar spine with and without contrast ordered but patient could not tolerate it -We will reattempt once more stable Lymphadenopathy, retroperitoneal -Seen by oncology, likely incidental finding, but due to chronic intermittent abdominal and back discomfort over the past year, oncology advised possible further evaluation with EUS, outpatient Acute kidney injury, resolved with IV fluid hydration CODE STATUS: Full code DVT prophylaxis: Heparin Anticipated discharge date: Clinical course to determine Anticipated discharge place: Clinical course to determine Objective - Vital Signs Vital signs: Vital Signs Temp 98.4 F 10/12/21 04:00 Pulse 92 10/12/21 04:00 Resp 26 H 10/12/21 04:00 BP 105/69 10/12/21 04:00 Pulse Ox 97 10/12/21 04:00 Intake & Output 10/11/21 10/12/21 10/12/21 18:59 06:59 18:59 Intake Total 2190.471 2522.405 Output Total 485 600 Balance 8188.100 8660.405 Weight 83.6 kg Intake: IV 1660 2000 0.9 1560 1300 Cefepime 2 gm In Sodium 100 200 Chloride 0.9% 100 ml @ 25 mls/hr IVPB Q12H [facility] Rx# :[id number] Voriconazole 400 mg In 500 Sodium Chloride 0.9% 250 ml @ 125 mls/hr IVPB Q12H [facility] Rx#:[id number] Intake, IV Titration 410.471 342.405 Amount Norepinephrine 32 mg In 162.646 169.330 Sodium Chloride 0.9% 218 ml @ 0.4 MCG/KG/MIN 10. 781 mls/hr IV .[id number] [facility] Rx#:[id number] propofoL 1,000 mg In 247.825 173.075 Empty Bag 1 bag @ 5 MCG/ KG/MIN 1.725 mls/hr IV . Q24H [facility] Rx#:[id number] Tube Feeding 120 90 Other 90 Output: Urine 485 600 Other: Voiding Method Indwelling Catheter Indwelling Catheter ABP, PAP, CO, CI - Last Documented Arterial Blood Pressure 110/62 - Labs CBC & Chem 7: 10/11/21 04:00 10/12/21 04:30 Labs: Abnormal Lab Results - Last 24 Hours (Table) 10/11/21 10/11/21 10/11/21 Range/Units 13:37 13:37 18:10 Sodium (137-145) mmol/L Chloride (98-107) mmol/L Carbon Dioxide (22-30) mmol/L BUN (7-17) mg/dL Creatinine (0.52-1.04) mg/dL Glucose (74-99) mg/dL POC Glucose (mg/dL) 101 H (75-99) mg/dL Calcium (8.4-10.2) mg/dL Alkaline Phosphatase (38-126) U/L Total Protein (6.3-8.2) g/dL Albumin (3.5-5.0) g/dL Mumps Virus IgG Interp POSITIVE A (NEGATIVE) Rubella IgG Antibody 103.00 H (0.00-10.00) IU/mL 10/12/21 10/12/21 Range/Units 00:21 04:30 Sodium 147 H (137-145) mmol/L Chloride 124 H (98-107) mmol/L Carbon Dioxide 16 L (22-30) mmol/L BUN 40 H (7-17) mg/dL Creatinine 1.99 H (0.52-1.04) mg/dL Glucose 107 H (74-99) mg/dL POC Glucose (mg/dL) 107 H (75-99) mg/dL Calcium 6.8 L (8.4-10.2) mg/dL Alkaline Phosphatase 178 H (38-126) U/L Total Protein 4.0 L (6.3-8.2) g/dL Albumin 1.9 L (3.5-5.0) g/dL Mumps Virus IgG Interp (NEGATIVE) Rubella IgG Antibody (0.00-10.00) IU/mL Microbiology - Last 24 Hours (Table) 10/10/21 13:45 Gram Stain - Preliminary Bronchial Washings - Right Bronchial Washings Culture - Preliminary Yvrose albicans 10/06/21 23:50 Blood Culture - Preliminary Blood No Growth after 120 hours 10/06/21 23:35 Blood Culture - Preliminary Blood No Growth after 120 hours 10/09/21 17:50 Urine Culture - Preliminary Urine,Voided Yeast species 10/10/21 13:45 Acid Fast Bacilli Smear - Final Bronchial Washings - Right Acid Fast Bacilli Culture - Preliminary
[2021-10-12] MEDS: SODIUM CHLORIDE 0.9% IVPB SCH (13:11)
[2021-10-12] MEDS: VORICONAZOLE IVPB SCH (13:11)
[2021-10-12] MEDS: SODIUM CHLORIDE 0.45% 1,000 ML IV SCH ×2 (13:16→21:47)
--- NOTE | 2021-10-12 13:44 | P.PN ---
Subjective Progress Note Date: 10/12/21 Seen in ICU, Appears comfortable on ventilator, nurse at bedside Objective - Vital Signs Vital signs: Vital Signs Temp 98.1 F 10/12/21 12:00 Pulse 98 10/12/21 13:04 Resp 26 H 10/12/21 13:00 BP 95/67 10/12/21 12:45 Pulse Ox 97 10/12/21 13:00 Intake & Output 10/11/21 10/12/21 10/12/21 18:59 06:59 18:59 Intake Total 2190.471 2522.405 1218.107 Output Total 485 600 400 Balance 8166.949 6345.405 818.107 Weight 83.6 kg Intake: IV 1660 2000 880 0.9 1560 1300 780 Cefepime 2 gm In Sodium 100 200 100 Chloride 0.9% 100 ml @ 25 mls/hr IVPB Q12H [facility] Rx# :[id number] Voriconazole 400 mg In 500 Sodium Chloride 0.9% 250 ml @ 125 mls/hr IVPB Q12H [facility] Rx#:[id number] Intake, IV Titration 410.471 342.405 198.107 Amount Norepinephrine 32 mg In 162.646 169.330 98.107 Sodium Chloride 0.9% 218 ml @ 0.4 MCG/KG/MIN 10. 781 mls/hr IV .[id number] [facility] Rx#:[id number] propofoL 1,000 mg In 247.825 173.075 100 Empty Bag 1 bag @ 5 MCG/ KG/MIN 1.725 mls/hr IV . Q24H [facility] Rx#:[id number] Tube Feeding 120 90 80 Other 90 60 Output: Urine 485 600 400 Other: Voiding Method Indwelling Catheter Indwelling Catheter Indwelling Catheter ABP, PAP, CO, CI - Last Documented Arterial Blood Pressure 128/74 - Exam Ventilator No obviously abnormal palpable left nodes neck - Labs CBC & Chem 7: 10/11/21 04:00 10/12/21 04:30 Labs: Abnormal Lab Results - Last 24 Hours (Table) 10/11/21 10/11/21 10/11/21 Range/Units 13:37 13:37 18:10 Sodium (137-145) mmol/L Chloride (98-107) mmol/L Carbon Dioxide (22-30) mmol/L BUN (7-17) mg/dL Creatinine (0.52-1.04) mg/dL Glucose (74-99) mg/dL POC Glucose (mg/dL) 101 H (75-99) mg/dL Calcium (8.4-10.2) mg/dL Alkaline Phosphatase (38-126) U/L Total Protein (6.3-8.2) g/dL Albumin (3.5-5.0) g/dL Mumps Virus IgG Interp POSITIVE A (NEGATIVE) Rubella IgG Antibody 103.00 H (0.00-10.00) IU/mL 10/12/21 10/12/21 Range/Units 00:21 04:30 Sodium 147 H (137-145) mmol/L Chloride 124 H (98-107) mmol/L Carbon Dioxide 16 L (22-30) mmol/L BUN 40 H (7-17) mg/dL Creatinine 1.99 H (0.52-1.04) mg/dL Glucose 107 H (74-99) mg/dL POC Glucose (mg/dL) 107 H (75-99) mg/dL Calcium 6.8 L (8.4-10.2) mg/dL Alkaline Phosphatase 178 H (38-126) U/L Total Protein 4.0 L (6.3-8.2) g/dL Albumin 1.9 L (3.5-5.0) g/dL Mumps Virus IgG Interp (NEGATIVE) Rubella IgG Antibody (0.00-10.00) IU/mL Microbiology - Last 24 Hours (Table) 10/10/21 13:45 Gram Stain - Preliminary Bronchial Washings - Right Bronchial Washings Culture - Preliminary Yvrose albicans 10/06/21 23:50 Blood Culture - Preliminary Blood No Growth after 120 hours 10/06/21 23:35 Blood Culture - Preliminary Blood No Growth after 120 hours 10/09/21 17:50 Urine Culture - Preliminary Urine,Voided Yeast species 10/10/21 13:45 Acid Fast Bacilli Smear - Final Bronchial Washings - Right Acid Fast Bacilli Culture - Preliminary Assessment and Plan (1) Fever Narrative/Plan: - T -Max 100.7 in 24 hours - Now in care of ICU - Current Visit: Yes Status: Acute Code(s): R50.9 - FEVER, UNSPECIFIED SNOMED Code(s): 238489499 (2) Lymphadenopathy of left cervical region Narrative/Plan: Overall rapid onset symptoms, adenopathy submandibular but improving with abx - On exam palpable nodes are undistinct, moveable and appear non malignant and likely reactive. Current Visit: Yes Status: Acute Code(s): R59.0 - LOCALIZED ENLARGED LYMPH NODES SNOMED Code(s): 879331946 (3) SIRS (systemic inflammatory response syndrome) Current Visit: Yes Status: Acute Code(s): R65.10 - SIRS OF NON-INFECTIOUS ORIGIN W/O ACUTE ORGAN DYSFUNCTION SNOMED Code(s): 943133401 (4) Lymphadenopathy, retroperitoneal Narrative/Plan: - likely incidental finding, admits patient has complained of intermittent abdominal and back discomfort over the past year. This does warrant further testing. We discussed repeat imaging versus further evaluation with EUS, they have opted to further go EUS, this will be set up at tertiary center as outpatient prior to November, as they have a planned vacation they really do not want to miss. - Inflammatory makers are not markedly elevated Current Visit: Yes Status: Acute Code(s): R59.0 - LOCALIZED ENLARGED LYMPH NODES SNOMED Code(s): 871030237 Plan: Await till recovers from ICU Dr. Simon: I have completed the full history and physical, developed the above impression and plan. Agree with dictation, dictated as a scribe.
[2021-10-12] MEDS: MORPHINE SULFATE 4 MG/ML SYRINGE IVP PRN (13:56)
[2021-10-12 14:15] LABS: Allen Test Performed? no
[2021-10-12] MEDS ORDERED: SODIUM BICARB 8.4% 50 ML SYR (1 MEQ/ML) IV STA (15:08)
--- NOTE | 2021-10-12 15:10 | P.NPCON ---
History of Present Illness - Reason for Consult acute renal failure, chronic renal failure - History of Present Illness Reason for consultation: Acute kidney injury on chronic kidney disease History of present illness: Patient is a 56-year-old female seen in consultation for acute kidney injury on chronic kidney disease. Patient has chronic kidney disease stage IIIa secondary to nephrosclerosis and chronic interstitial nephritis from lithium use. She stopped using lithium in 2014. Patient's baseline creatinine has been near 1.2. Patient was brought to the hospital by her due to fever. states her temperature was 103F on Tuesday night. Patient states that she was having some abdominal discomfort which was going on for quite some time now. No cough. No vomiting or diarrhea. Denies use of nonsteroidals. Denies any urinary complaints. Creatinine was 1.66 on admission and came down to 1.2 and is now 1.99. Patient is currently intubated and is on vasopressor support. She is being treated for possible pneumonia versus pancreatitis. She was receiving normal saline and is now maintained on half-normal saline at 1 50 mL an hour. Also receiving tube feeds. Sodium level today 147. Also noted to be acidotic with a bicarbonate level of 16. No history of diabetes. Denies family history of renal disease. Vital signs are stable. On vasopressor support. HEENT: Intubated. LUNGS: Mariela Breath sounds decreased. HEART: Rate and Rhythm are regular. ABDOMEN: Soft, no distention. EXTREMITITES: Trace edema. Past Medical History Past Medical History: GERD/Reflux, Hypertension, Thyroid Disorder Additional Past Medical History / Comment(s): hx bronchitis, constipation, History of Any Multi-Drug Resistant Organisms: None Reported Past Surgical History: Section, Ear Surgery, Hysterectomy Additional Past Surgical History / Comment(s): Tubes bilateral ears. RT EAR SX X2 Past Anesthesia/Blood Transfusion Reactions: No Reported Reaction Past Psychological History: Anxiety, Bipolar, Depression Smoking Status: Current every day smoker Past Alcohol Use History: None Reported Past Drug Use History: None Reported - Past Family History Father Family Medical History: Coronary Artery Disease (CAD) Additional Family Medical History / Comment(s): Mother at age 70 from coronary artery disease. Mother Family Medical History: Cancer Additional Family Medical History / Comment(s): . Brother(s) Additional Family Medical History / Comment(s): Unable to obtain brother and sister history. Patient has 2 sons are healthy. Medications and Allergies Home Medications Medication Instructions Recorded Confirmed Type LORazepam [Ativan] 1 mg PO DAILY PRN 12/26/15 10/06/21 History lamoTRIgine [LaMICtal] 150 mg PO DAILY #45 tab 01/06/16 10/06/21 Rx Levothyroxine Sodium [Synthroid] 100 mcg PO DAILY 12/01/16 10/06/21 History QUEtiapine FUMARATE 400 mg PO HS 12/01/16 10/06/21 History lisinopriL [Zestril] 10 mg PO DAILY 12/01/16 10/06/21 History lamoTRIgine [LaMICtal] 200 mg PO HS 10/06/21 10/06/21 History Allergies Allergy/AdvReac Type Severity Reaction Status Date / Time chlorpromazine HCl Allergy Unknown Verified 10/06/21 23:09 [From Thorazine] codeine Allergy Unknown Verified 10/06/21 23:09 sulfamethoxazole Allergy Unknown Verified 10/06/21 23:09 [From Septra] trimethoprim [From Septra] Allergy Unknown Verified 10/06/21 23:09 Physical Exam Vitals: Vital Signs Temp Pulse Resp BP Pulse Ox 10/12/21 14:00 96 34 H 94 L 10/12/21 13:45 98 39 H 87 L 10/12/21 13:30 97 39 H 86 L 10/12/21 13:15 95 29 H 109/70 92 L 10/12/21 13:04 98 10/12/21 13:00 87 26 H 97 10/12/21 12:45 89 26 H 95/67 100 10/12/21 12:30 90 26 H 95/67 96 10/12/21 12:15 89 26 H 95/67 96 10/12/21 12:00 98.1 F 90 26 H 97 10/12/21 11:45 92 27 H 96 10/12/21 11:30 93 26 H 97 10/12/21 11:15 93 26 H 97 10/12/21 11:10 93 26 H 91/61 97 10/12/21 04:00 98.4 F 92 26 H 105/69 97 10/12/21 03:00 92 26 H 114/71 97 10/12/21 02:00 98.5 F 93 26 H 107/71 96 10/12/21 01:00 94 28 H 102/69 96 10/12/21 00:00 99.3 F 101 H 27 H 98/65 97 10/11/21 23:00 101 H 28 H 98/63 95 10/11/21 22:00 107 H 32 H 101/68 94 L 10/11/21 21:00 105 H 31 H 102/62 95 10/11/21 20:00 100.7 F H 104 H 33 H 98/66 95 10/11/21 19:00 103 H 31 H 96/60 97 10/11/21 18:30 100 29 H 96/60 96 10/11/21 18:00 100 26 H 90/57 97 10/11/21 17:30 101 H 27 H 90/57 97 10/11/21 17:00 100 26 H 97/62 96 10/11/21 16:30 101 H 30 H 97/62 95 10/11/21 16:00 100.5 F H 99 26 H 95/61 96 10/11/21 15:30 99 26 H 95/61 97 10/11/21 15:00 100 27 H 96/64 97 Intake and Output 10/11/21 10/12/21 10/12/21 22:59 06:59 14:59 Intake Total 1656.75 1753.532 5298.107 Output Total 395 380 550 Balance 1261.75 1136.505 838.107 Intake: IV 1390 1130 1030 0.9 1040 780 780 Cefepime 2 gm In Sodium 100 100 100 Chloride 0.9% 100 ml @ 25 mls/hr IVPB Q12H [facility] Rx# :[id number] Sodium Chloride 0.45% 1, 150 000 ml @ 150 mls/hr IV . Q6H40M [facility] Rx#:[id number] Voriconazole 400 mg In 250 250 Sodium Chloride 0.9% 250 ml @ 125 mls/hr IVPB Q12H [facility] Rx#:[id number] Intake, IV Titration 166.75 266.505 198.107 Amount Norepinephrine 32 mg In 169.330 98.107 Sodium Chloride 0.9% 218 ml @ 0.4 MCG/KG/MIN 10. 781 mls/hr IV .[id number] [facility] Rx#:[id number] propofoL 1,000 mg In 166.75 97.175 100 Empty Bag 1 bag @ 5 MCG/ KG/MIN 1.725 mls/hr IV . Q24H [facility] Rx#:[id number] Tube Feeding 70 60 100 Other 30 60 60 Output: Urine 395 380 550 Other: Voiding Method Indwelling Catheter Indwelling Catheter Indwelling Catheter Weight 83.6 kg ABP, PAP, CO, CI - Last 8 Hours Arterial Blood Pressure 93/55 Arterial Blood Pressure 106/62 Arterial Blood Pressure 97/58 Arterial Blood Pressure 123/70 Arterial Blood Pressure 128/74 Arterial Blood Pressure 118/71 Arterial Blood Pressure 119/70 Arterial Blood Pressure 117/69 Arterial Blood Pressure 114/68 Arterial Blood Pressure 110/67 Arterial Blood Pressure 107/65 Arterial Blood Pressure 107/65 Arterial Blood Pressure 108/65 Results - Lab Results Most recent lab results ABG pH 7.30 (7.35-7.45) L 10/12/21 05:02 ABG pCO2 32 mmHg (35-45) L 10/12/21 05:02 ABG pO2 129 mmHg (83-108) H 10/12/21 05:02 ABG HCO3 16 mmol/L (21-25) L 10/12/21 05:02 ABG O2 Saturation 98.2 % (94-97) H 10/12/21 05:02 Calcium 6.8 mg/dL (8.4-10.2) L 10/12/21 04:30 Magnesium 1.9 mg/dL (1.6-2.3) 10/11/21 11:42 10/11/21 04:00 10/12/21 04:30 Assessment and Plan Plan: Assessment: 1. Acute kidney injury secondary to ATN secondary to septic shock. Also noted to be thrombocytopenic. Need to rule out HUS/TTP although patient is not anemic. Creatinine 1.99 today. Nonoliguric. UA shows trace proteinuria. No RBCs. 2. 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 3. Hypernatremia from lack of oral water intake. 4. Septic shock maintained on Levophed. On antibiotics. Unclear source. Infectious disease following. 5. Metabolic acidosis secondary to acute kidney injury and IV fluids. 6. Left cervical region and retroperitoneal lymphadenopathy. Being followed by ID and oncology. 7. Elevated anti-MPO. ELIDA negative. Doubt renal vasculitis as only 2 RBCs and UA. Plan: Maintain half-normal saline at 150 mL an hour. 2 A of sodium bicarb IV push now. Wean FiO2 and vasopressors. Repeat UA and quantify proteinuria. Check peripheral smear for schistocytes. Hematology following. They will be notified. Check LDH and haptoglobin. LDH was 189 dated 10/08/2021. ELIDA, Complement levels, WA-3 normal. Check hepatitis panel, anti-GBM antibody. Consult rheumatology for the elevated anti-MPO. Thank you for the consultation. I will continue to follow the patient with you during her hospital stay.
[2021-10-12] MEDS ORDERED: SODIUM BICARB 8.4% 50 ML SYR (1 MEQ/ML) ONE (15:34)
[2021-10-12 16:17] LABS: Appearance,Urine Turbid (Clear); Bacteria,Urine Rare /hpf; Bilirubin,Urine Negative (Negative); Blood,Urine Moderate (Negative); Budding Yeast,Urine Few /hpf; Color,Urine Yellow; Glucose,Urine (UA) Negative (Negative); Ketones,Urine Negative (Negative); Leukocyte Esterase,Urine Moderate (Negative); Mucus,Urine Rare /hpf; Nitrite,Urine Negative (Negative); Protein,Urine 1+ (Negative); RBC,Urine 20 /hpf (0-5); Specific Gravity,Urine 1.015 (1.001-1.035); Squamous Epithelial Cell,Urine 13 /hpf (0-4); Urobilinogen,Urine <2.0 mg/dL (<2.0); WBC,Urine 29 /hpf (0-5)
[2021-10-12 16:50] LABS: ABG HCO3 19 mmol/L (21-25); ABG Oxygen Saturation 85.7 % (94-97); ABG PCO2 35 mmHg (35-45); ABG PH 7.34 (7.35-7.45); ABG TCO2 20 mmol/L (19-24)
[2021-10-12 16:51] LABS: Partial Thromboplastin Time 29.9 sec (22.0-30.0); Prothrombin Time 10.9 sec (9.0-12.0)
[2021-10-12 16:51] LABS: Basophils # (A) 0.1 k/uL (0-0.2); Basophils % (A) 0 %; Eosinophils # (A) 0.3 k/uL (0-0.7); Eosinophils % (A) 2 %; HCT 35.6 % (34.0-46.0); HGB 11.7 gm/dL (11.4-16.0); Hypochromasia Slight; Lymphocytes # (A) 1.3 k/uL (1.0-4.8); Lymphocytes % (A) 7 %; MCH 33.6 pg (25.0-35.0); MCHC 32.7 g/dL (31.0-37.0); MCV 102.7 fL (80.0-100.0); Macrocytosis Slight; Monocytes # (A) 0.4 k/uL (0-1.0); Monocytes % (A) 2 %; Neutrophils # (A) 15.2 k/uL (1.3-7.7); Neutrophils % (A) 88 %; RBC 3.47 m/uL (3.80-5.40); RDW 15.1 % (11.5-15.5); WBC 17.3 k/uL (3.8-10.6)
[2021-10-12 16:53] LABS: Platelet Count 50 k/uL (150-450)
[2021-10-12] MEDS ORDERED: HYDROCORTISONE SUCCINATE 100 MG/2 ML VIAL ONE (17:00)
[2021-10-12] MEDS: HYDROCORTISONE SUCCINATE 100 MG/2 ML VIAL IV SCH (17:34)
[2021-10-12 17:38] LABS: Glucose,Whole Blood 95 mg/dL (75-99)
[2021-10-12 17:45] LABS: ABG PO2 48 mmHg (83-108)
[2021-10-12 17:46] LABS: Allen Test Performed? no
[2021-10-12 20:16] LABS: C5 Complement Functional 64 U/mL (29 - 53)
--- NOTE | 2021-10-12 20:23 | XR ---
EXAMINATION TYPE: XR chest 1V DATE OF EXAM: 10/12/2021 COMPARISON: Today HISTORY: Hypoxemia TECHNIQUE: FINDINGS: The endotracheal tube is 2.8 cm from the stuart. There is left subclavian catheter with the tip in the superior vena cava. There is pulmonary interstitial and airspace edema. There is some brook nting of the costophrenic angles. Heart appears slightly enlarged. There is nasogastric tube and the tip appears to be in the distal esophagus. IMPRESSION: There is moderate pulmonary edema. Bilateral mild pleural effusions. Pulmonary edema unch anged. This could relate to RDS or congestive heart failure. There is malposition of the nasogastric tube in the lower esophagus.
--- NOTE | 2021-10-12 21:00 | P.PN ---
Subjective Progress Note Date: 10/12/21 Principal diagnosis: Fever and rash Patient is a 56-year-old female presenting to the hospital with a fever rash and swelling to the left side of the neck in this patient did have evidence of lymphadenopathy subsequently developed a rash to bilateral elbow and bilateral knee area patient did have a CT of abdominal pelvis and chest no mention of any abscess which was some retroperitoneal lymphadenopathy. On today's evaluation that is 10/12/2021, the patient is afebrile today, the patient is requiring less pressor support to maintain her blood pressure, FiO2 is currently stable at 60%, no significant purulent secretion through the ET reported on nursing staff, patient has been tolerating her tube feeds and no diarrhea has been reported Objective - Vital Signs Vital signs: Vital Signs Temp 98.1 F 10/12/21 12:00 Pulse 87 10/12/21 13:00 Resp 26 H 10/12/21 13:00 BP 95/67 10/12/21 12:45 Pulse Ox 97 10/12/21 13:00 Intake & Output 10/11/21 10/12/21 10/12/21 18:59 06:59 18:59 Intake Total 2190.471 2522.405 1020 Output Total 485 600 400 Balance 9205.175 7412.405 620 Weight 83.6 kg Intake: IV 1660 2000 880 0.9 1560 1300 780 Cefepime 2 gm In Sodium 100 200 100 Chloride 0.9% 100 ml @ 25 mls/hr IVPB Q12H [facility] Rx# :[id number] Voriconazole 400 mg In 500 Sodium Chloride 0.9% 250 ml @ 125 mls/hr IVPB Q12H [facility] Rx#:[id number] Intake, IV Titration 410.471 342.405 Amount Norepinephrine 32 mg In 162.646 169.330 Sodium Chloride 0.9% 218 ml @ 0.4 MCG/KG/MIN 10. 781 mls/hr IV .[id number] [facility] Rx#:[id number] propofoL 1,000 mg In 247.825 173.075 Empty Bag 1 bag @ 5 MCG/ KG/MIN 1.725 mls/hr IV . Q24H [facility] Rx#:[id number] Tube Feeding 120 90 80 Other 90 60 Output: Urine 485 600 400 Other: Voiding Method Indwelling Catheter Indwelling Catheter Indwelling Catheter ABP, PAP, CO, CI - Last Documented Arterial Blood Pressure 128/74 - Exam GENERAL DESCRIPTION: Middle-age female intubated on the vent RESPIRATORY SYSTEM: Unlabored breathing , decreased breath sounds at bases HEART: S1 S2 regular rate and rhythm , ABDOMEN: Soft , no tenderness EXTREMITIES: No edema feet - Labs CBC & Chem 7: 10/12/21 15:43 10/12/21 04:30 Labs: Abnormal Lab Results - Last 24 Hours (Table) 10/11/21 10/11/21 10/11/21 Range/Units 13:37 13:37 18:10 Sodium (137-145) mmol/L Chloride (98-107) mmol/L Carbon Dioxide (22-30) mmol/L BUN (7-17) mg/dL Creatinine (0.52-1.04) mg/dL Glucose (74-99) mg/dL POC Glucose (mg/dL) 101 H (75-99) mg/dL Calcium (8.4-10.2) mg/dL Alkaline Phosphatase (38-126) U/L Total Protein (6.3-8.2) g/dL Albumin (3.5-5.0) g/dL Mumps Virus IgG Interp POSITIVE A (NEGATIVE) Rubella IgG Antibody 103.00 H (0.00-10.00) IU/mL 10/12/21 10/12/21 Range/Units 00:21 04:30 Sodium 147 H (137-145) mmol/L Chloride 124 H (98-107) mmol/L Carbon Dioxide 16 L (22-30) mmol/L BUN 40 H (7-17) mg/dL Creatinine 1.99 H (0.52-1.04) mg/dL Glucose 107 H (74-99) mg/dL POC Glucose (mg/dL) 107 H (75-99) mg/dL Calcium 6.8 L (8.4-10.2) mg/dL Alkaline Phosphatase 178 H (38-126) U/L Total Protein 4.0 L (6.3-8.2) g/dL Albumin 1.9 L (3.5-5.0) g/dL Mumps Virus IgG Interp (NEGATIVE) Rubella IgG Antibody (0.00-10.00) IU/mL Microbiology - Last 24 Hours (Table) 10/10/21 13:45 Gram Stain - Preliminary Bronchial Washings - Right Bronchial Washings Culture - Preliminary Yvrose albicans 10/06/21 23:50 Blood Culture - Preliminary Blood No Growth after 120 hours 10/06/21 23:35 Blood Culture - Preliminary Blood No Growth after 120 hours 10/09/21 17:50 Urine Culture - Preliminary Urine,Voided Yeast species 10/10/21 13:45 Acid Fast Bacilli Smear - Final Bronchial Washings - Right Acid Fast Bacilli Culture - Preliminary Assessment and Plan (1) Fever Current Visit: Yes Status: Acute Code(s): R50.9 - FEVER, UNSPECIFIED SNOMED Code(s): 432617936 (2) Lymphadenopathy of left cervical region Current Visit: Yes Status: Acute Code(s): R59.0 - LOCALIZED ENLARGED LYMPH NODES SNOMED Code(s): 693718666 Plan: 1patient with a fever and this patient did have a left-sided neck swelling with ultrasound suggestive of left cervical lymphadenopathy patient did have CT of abdominal pelvis and chest did not show any abscess or colitis did shows evidence of retroperitoneal lymphadenopathy 2- CMV serology was negative EBV serologies pending, rheumatological workup has been ordered as well as parvovirus serology 3-MRI of the lumbosacral spine has been ordered because of the back pain curre ntly pending 4-Patient did have worsening respiratory status requiring intubation with worsening of the chest x-ray possible ARDS pattern in this patient has been intubated and did have bronchoscopy deep culture has been obtained which are currently growing Yvrose more likely colonizer urine is growing Yvrose glabrata, patient also has slight worsening of her kidney function and did have ANCA positive, her rheumatology has been consulted. Patient will continue with the cefepime doxycycline voriconazole we will discontinue the vancomycin as no MRSA has been seen and the patient did have slight worsening of the kidney function Time with Patient: Less than 30
[2021-10-12 23:37] LABS: Glucose,Whole Blood 142 mg/dL (75-99)
[2021-10-13] MEDS: HEPARIN SODIUM,PORCINE/PF 5,000 UNIT/0.5 ML SYRINGE SQ SCH ×3 (00:52→15:22)
[2021-10-13] MEDS: HYDROCORTISONE SUCCINATE 100 MG/2 ML VIAL IV SCH ×3 (00:56→15:22)
[2021-10-13] MEDS: VORICONAZOLE IVPB SCH ×2 (00:56→12:32)
[2021-10-13] MEDS: CEFEPIME 2 GM in SODIUM CHLORIDE 0.9% 100 ML IVPB SCH ×3 (00:56→15:22)
[2021-10-13] MEDS: SODIUM CHLORIDE 0.9% IVPB SCH ×2 (00:56→12:32)
[2021-10-13 02:58] LABS: Hepatitis B Core IgM Nonreactive (Nonreactive); Hepatitis B Surface Antigen Nonreactive (Nonreactive)
[2021-10-13 04:48] LABS: Calcium 7.2 mg/dL (8.4-10.2); Potassium 3.3 mmol/L (3.5-5.1)
[2021-10-13 05:46] LABS: Protein, Total 4.2 g/dL (6.2-8.2)
[2021-10-13 05:50] LABS: Glucose,Whole Blood 151 mg/dL (75-99)
[2021-10-13 06:13] LABS: ABG Base Excess -9.6 mmol/L; ABG HCO3 17 mmol/L (21-25); ABG Oxygen Saturation 99.1 % (94-97); ABG PCO2 38 mmHg (35-45); ABG PH 7.27 (7.35-7.45); ABG PO2 176 mmHg (83-108); ABG TCO2 19 mmol/L (19-24)
[2021-10-13 06:26] LABS: Allen Test Performed? No
[2021-10-13 06:35] LABS: Mycoplasma IgG Antibody (EIA) 2.55 INDEX (<=0.90); Mycoplasma IgM Antibody 0.17 INDEX (<=0.90)
[2021-10-13] MEDS: LEVOTHYROXINE 100 MCG TAB PO SCH (07:11)
[2021-10-13 07:38] LABS: Appearance,BF Turbid
[2021-10-13] MEDS: IPRATROPIUM-ALBUTEROL 3 ML NEB INHALATION PRN ×3 (08:00→15:10)
--- NOTE | 2021-10-13 08:09 | XR ---
EXAMINATION TYPE: XR chest 1V portable DATE OF EXAM: 10/13/2021 COMPARISON: Chest x-ray 10/12/2021 HISTORY: OG tube placement, intubated TECHNIQUE: Single frontal view of the chest is obtained. FINDINGS: Endotracheal tube, NG tube, left subclavian central venous catheter are overlying appropri ate positions. Patient is rotated. There are overlying artifacts. There is no evident pneumothorax, d ifficult to exclude effusion. Bilateral airspace disease is again noted. Cardiac mediastinal silhouet te is stable. IMPRESSION: Findings similar to prior exam. Correlate for congestive heart failure, pneumonia
[2021-10-13 08:38] LABS: Creatinine,Urine Random 47.4 mg/dL; Protein/Creatinine Ratio,Urine 2.11
[2021-10-13] MEDS: CHLORHEXIDINE GLUCONATE 15 ML CUP MUCOUS MEM SCH ×2 (08:57→21:32)
[2021-10-13 08:58] LABS: Basophils # (A) 0.1 k/uL (0-0.2); Basophils % (A) 0 %; Eosinophils # (A) 0.1 k/uL (0-0.7); Eosinophils % (A) 1 %; HCT 35.2 % (34.0-46.0); HGB 11.4 gm/dL (11.4-16.0); Hypochromasia Moderate; Lymphocytes # (A) 1.1 k/uL (1.0-4.8); Lymphocytes % (A) 6 %; MCH 33.2 pg (25.0-35.0); MCHC 32.5 g/dL (31.0-37.0); MCV 102.3 fL (80.0-100.0); Macrocytosis Slight; Mean Platelet Volume 14.3; Monocytes # (A) 0.2 k/uL (0-1.0); Monocytes % (A) 1 %; Neutrophils # (A) 15.7 k/uL (1.3-7.7); Neutrophils % (A) 90 %; Poikilocytosis Slight; RBC 3.45 m/uL (3.80-5.40); RDW 15.4 % (11.5-15.5); WBC 17.4 k/uL (3.8-10.6)
[2021-10-13] MEDS: lamoTRIgine 100 MG TAB PO SCH ×2 (08:58→21:32)
[2021-10-13 08:59] LABS: Platelet Count 62 k/uL (150-450)
[2021-10-13] MEDS: DEXTROSE 5% IN WATER 1,000 ML with SODIUM BICARB (1 MEQ/ML) 100 ML IV SCH ×2 (09:09→20:00)
[2021-10-13] MEDS ORDERED: POTASSIUM BICARBONATE/CIT AC 20 MEQ TABLET.EFF PO ONE ×2 (09:16→19:00)
[2021-10-13] MEDS ORDERED: FUROSEMIDE 10 MG/ML 10 ML VIAL IV STA (09:17)
[2021-10-13] MEDS: MORPHINE SULFATE 4 MG/ML SYRINGE IVP PRN (09:23)
[2021-10-13 09:54] LABS: Appearance,Urine Turbid (Clear); Bacteria,Urine Rare /hpf; Bilirubin,Urine Negative (Negative); Blood,Urine Large (Negative); Budding Yeast,Urine Few /hpf; Color,Urine Yellow; Glucose,Urine (UA) Negative (Negative); Ketones,Urine Negative (Negative); Leukocyte Esterase,Urine Small (Negative); Mucus,Urine Rare /hpf; Nitrite,Urine Negative (Negative); Protein,Urine 2+ (Negative); RBC,Urine 24 /hpf (0-5); Specific Gravity,Urine 1.017 (1.001-1.035); Squamous Epithelial Cell,Urine 4 /hpf (0-4); Urobilinogen,Urine <2.0 mg/dL (<2.0); WBC,Urine 21 /hpf (0-5)
--- NOTE | 2021-10-13 09:55 | P.PN ---
Subjective patient is seen in follow-up for acute kidney injury on chronic kidney disease. Renal function worsening. Creatinine 2.2. Urine output 20-30 mL an hour. Last hour 75 mL. Intubated. On Levophed. Receiving half-normal saline at 1 50 mL an hour. Sodium level 149 today. Receiving tube feeds. Vital signs are stable. On vasopressor support. HEENT: Intubated. LUNGS: Breath sounds decreased. HEART: Rate and Rhythm are regular. ABDOMEN: Soft, no distention. EXTREMITITES: 1+ edema. Objective - Vital Signs Vital signs: Vital Signs Temp 98.0 F 10/13/21 08:00 Pulse 80 10/13/21 09:30 Resp 33 H 10/13/21 09:30 BP 129/75 10/13/21 09:30 Pulse Ox 91 L 10/13/21 09:30 Intake & Output 10/12/21 10/13/21 10/13/21 18:59 06:59 18:59 Intake Total 2287.379 2722.493 320 Output Total 920 425 105 Balance 0085.751 1629.493 215 Weight 85.5 kg Intake: IV 1780 2130 320 0.9 780 130 20 Cefepime 2 gm In Sodium 100 100 Chloride 0.9% 100 ml @ 25 mls/hr IVPB Q12H [facility] Rx# :[id number] Sodium Chloride 0.45% 1, 900 1650 300 000 ml @ 150 mls/hr IV . Q6H40M [facility] Rx#:[id number] Voriconazole 400 mg In 250 Sodium Chloride 0.9% 250 ml @ 125 mls/hr IVPB Q12H [facility] Rx#:[id number] Intake, IV Titration 217.379 322.493 Amount Norepinephrine 32 mg In 117.379 122.493 Sodium Chloride 0.9% 218 ml @ 0.4 MCG/KG/MIN 10. 781 mls/hr IV .[id number] [facility] Rx#:[id number] propofoL 1,000 mg In 100 200.000 Empty Bag 1 bag @ 5 MCG/ KG/MIN 1.725 mls/hr IV . Q24H [facility] Rx#:[id number] Tube Feeding 200 210 Other 90 60 Output: Urine 920 425 105 Other: Voiding Method Indwelling Catheter Indwelling Catheter ABP, PAP, CO, CI - Last Documented Arterial Blood Pressure 95/52 - Labs CBC & Chem 7: 10/13/21 03:55 10/13/21 03:55 Labs: Abnormal Lab Results - Last 24 Hours (Table) 10/08/21 10/11/21 10/11/21 Range/Units 13:21 13:37 13:37 WBC (3.8-10.6) k/uL RBC (3.80-5.40) m/uL MCV (80.0-100.0) fL Plt Count (150-450) k/uL Neutrophils # (1.3-7.7) k/uL Haptoglobin (31.2-198.0) mg/dL D-Dimer (<0.60) mg/L FEU ABG pH (7.35-7.45) ABG pCO2 (35-45) mmHg ABG pO2 (83-108) mmHg ABG HCO3 (21-25) mmol/L ABG Total CO2 (19-24) mmol/L ABG O2 Saturation (94-97) % Sodium (137-145) mmol/L Potassium (3.5-5.1) mmol/L Chloride (98-107) mmol/L Carbon Dioxide (22-30) mmol/L BUN (7-17) mg/dL Creatinine (0.52-1.04) mg/dL Glucose (74-99) mg/dL POC Glucose (mg/dL) (75-99) mg/dL Calcium (8.4-10.2) mg/dL Lactate Dehydrogenase (313-618) U/L Total Protein (PEP) (6.2-8.2) g/dL Procalcitonin (0.02-0.09) ng/mL Urine Appearance (Clear) Urine Protein (Negative) Urine Blood (Negative) Ur Leukocyte Esterase (Negative) Urine RBC (0-5) /hpf Urine WBC (0-5) /hpf Ur Squamous Epith Cells (0-4) /hpf Urine Bacteria (None) /hpf Urine Mucus (None) /hpf Urine Yeast (Budding) (None) /hpf c-ANCA See Below A (<1:20) Titer p-ANCA See Below A (<1:20) Titer Complement C5 64 H (29 - 53) U/mL Mumps Virus IgG Interp POSITIVE A (NEGATIVE) Mycoplasma pneumon IgG 2.55 H (<=0.90) INDEX 10/12/21 10/12/21 10/12/21 Range/Units 04:30 05:02 15:35 WBC (3.8-10.6) k/uL RBC (3.80-5.40) m/uL MCV (80.0-100.0) fL Plt Count (150-450) k/uL Neutrophils # (1.3-7.7) k/uL Haptoglobin (31.2-198.0) mg/dL D-Dimer 8.35 H (<0.60) mg/L FEU ABG pH 7.30 L (7.35-7.45) ABG pCO2 32 L (35-45) mmHg ABG pO2 129 H (83-108) mmHg ABG HCO3 16 L (21-25) mmol/L ABG Total CO2 17 L (19-24) mmol/L ABG O2 Saturation 98.2 H (94-97) % Sodium (137-145) mmol/L Potassium (3.5-5.1) mmol/L Chloride (98-107) mmol/L Carbon Dioxide (22-30) mmol/L BUN (7-17) mg/dL Creatinine (0.52-1.04) mg/dL Glucose (74-99) mg/dL POC Glucose (mg/dL) (75-99) mg/dL Calcium (8.4-10.2) mg/dL Lactate Dehydrogenase (313-618) U/L Total Protein (PEP) (6.2-8.2) g/dL Procalcitonin 6.16 H (0.02-0.09) ng/mL Urine Appearance (Clear) Urine Protein (Negative) Urine Blood (Negative) Ur Leukocyte Esterase (Negative) Urine RBC (0-5) /hpf Urine WBC (0-5) /hpf Ur Squamous Epith Cells (0-4) /hpf Urine Bacteria (None) /hpf Urine Mucus (None) /hpf Urine Yeast (Budding) (None) /hpf c-ANCA (<1:20) Titer p-ANCA (<1:20) Titer Complement C5 (29 - 53) U/mL Mumps Virus IgG Interp (NEGATIVE) Mycoplasma pneumon IgG (<=0.90) INDEX 10/12/21 10/12/21 10/12/21 Range/Units 15:36 15:36 15:36 WBC (3.8-10.6) k/uL RBC (3.80-5.40) m/uL MCV (80.0-100.0) fL Plt Count (150-450) k/uL Neutrophils # (1.3-7.7) k/uL Haptoglobin (31.2-198.0) mg/dL D-Dimer (<0.60) mg/L FEU ABG pH (7.35-7.45) ABG pCO2 (35-45) mmHg ABG pO2 (83-108) mmHg ABG HCO3 (21-25) mmol/L ABG Total CO2 (19-24) mmol/L ABG O2 Saturation (94-97) % Sodium (137-145) mmol/L Potassium (3.5-5.1) mmol/L Chloride (98-107) mmol/L Carbon Dioxide (22-30) mmol/L BUN (7-17) mg/dL Creatinine (0.52-1.04) mg/dL Glucose (74-99) mg/dL POC Glucose (mg/dL) (75-99) mg/dL Calcium (8.4-10.2) mg/dL Lactate Dehydrogenase 866 H (313-618) U/L Total Protein (PEP) 4.2 L (6.2-8.2) g/dL Procalcitonin (0.02-0.09) ng/mL Urine Appearance Turbid H (Clear) Urine Protein 1+ H (Negative) Urine Blood Moderate H (Negative) Ur Leukocyte Esterase Moderate H (Negative) Urine RBC 20 H (0-5) /hpf Urine WBC 29 H (0-5) /hpf Ur Squamous Epith Cells 13 H (0-4) /hpf Urine Bacteria Rare H (None) /hpf Urine Mucus Rare H (None) /hpf Urine Yeast (Budding) Few H (None) /hpf c-ANCA (<1:20) Titer p-ANCA (<1:20) Titer Complement C5 (29 - 53) U/mL Mumps Virus IgG Interp (NEGATIVE) Mycoplasma pneumon IgG (<=0.90) INDEX 10/12/21 10/12/21 10/12/21 Range/Units 15:36 15:43 16:46 WBC 17.3 H (3.8-10.6) k/uL RBC 3.47 L (3.80-5.40) m/uL MCV 102.7 H (80.0-100.0) fL Plt Count 50 L (150-450) k/uL Neutrophils # 15.2 H (1.3-7.7) k/uL Haptoglobin 423.0 H (31.2-198.0) mg/dL D-Dimer (<0.60) mg/L FEU ABG pH 7.34 L (7.35-7.45) ABG pCO2 (35-45) mmHg ABG pO2 48 L* (83-108) mmHg ABG HCO3 19 L (21-25) mmol/L ABG Total CO2 (19-24) mmol/L ABG O2 Saturation 85.7 L (94-97) % Sodium (137-145) mmol/L Potassium (3.5-5.1) mmol/L Chloride (98-107) mmol/L Carbon Dioxide (22-30) mmol/L BUN (7-17) mg/dL Creatinine (0.52-1.04) mg/dL Glucose (74-99) mg/dL POC Glucose (mg/dL) (75-99) mg/dL Calcium (8.4-10.2) mg/dL Lactate Dehydrogenase (313-618) U/L Total Protein (PEP) (6.2-8.2) g/dL Procalcitonin (0.02-0.09) ng/mL Urine Appearance (Clear) Urine Protein (Negative) Urine Blood (Negative) Ur Leukocyte Esterase (Negative) Urine RBC (0-5) /hpf Urine WBC (0-5) /hpf Ur Squamous Epith Cells (0-4) /hpf Urine Bacteria (None) /hpf Urine Mucus (None) /hpf Urine Yeast (Budding) (None) /hpf c-ANCA (<1:20) Titer p-ANCA (<1:20) Titer Complement C5 (29 - 53) U/mL Mumps Virus IgG Interp (NEGATIVE) Mycoplasma pneumon IgG (<=0.90) INDEX 10/12/21 10/13/21 10/13/21 Range/Units 23:35 03:55 03:55 WBC 17.4 H (3.8-10.6) k/uL RBC 3.45 L (3.80-5.40) m/uL MCV 102.3 H (80.0-100.0) fL Plt Count 62 L (150-450) k/uL Neutrophils # 15.7 H (1.3-7.7) k/uL Haptoglobin (31.2-198.0) mg/dL D-Dimer (<0.60) mg/L FEU ABG pH (7.35-7.45) ABG pCO2 (35-45) mmHg ABG pO2 (83-108) mmHg ABG HCO3 (21-25) mmol/L ABG Total CO2 (19-24) mmol/L ABG O2 Saturation (94-97) % Sodium 149 H (137-145) mmol/L Potassium 3.3 L (3.5-5.1) mmol/L Chloride 124 H (98-107) mmol/L Carbon Dioxide 17 L (22-30) mmol/L BUN 48 H (7-17) mg/dL Creatinine 2.20 H (0.52-1.04) mg/dL Glucose 141 H (74-99) mg/dL POC Glucose (mg/dL) 142 H (75-99) mg/dL Calcium 7.2 L (8.4-10.2) mg/dL Lactate Dehydrogenase (313-618) U/L Total Protein (PEP) (6.2-8.2) g/dL Procalcitonin (0.02-0.09) ng/mL Urine Appearance (Clear) Urine Protein (Negative) Urine Blood (Negative) Ur Leukocyte Esterase (Negative) Urine RBC (0-5) /hpf Urine WBC (0-5) /hpf Ur Squamous Epith Cells (0-4) /hpf Urine Bacteria (None) /hpf Urine Mucus (None) /hpf Urine Yeast (Budding) (None) /hpf c-ANCA (<1:20) Titer p-ANCA (<1:20) Titer Complement C5 (29 - 53) U/mL Mumps Virus IgG Interp (NEGATIVE) Mycoplasma pneumon IgG (<=0.90) INDEX 10/13/21 10/13/21 Range/Units 05:29 05:49 WBC (3.8-10.6) k/uL RBC (3.80-5.40) m/uL MCV (80.0-100.0) fL Plt Count (150-450) k/uL Neutrophils # (1.3-7.7) k/uL Haptoglobin (31.2-198.0) mg/dL D-Dimer (<0.60) mg/L FEU ABG pH 7.27 L (7.35-7.45) ABG pCO2 (35-45) mmHg ABG pO2 176 H (83-108) mmHg ABG HCO3 17 L (21-25) mmol/L ABG Total CO2 (19-24) mmol/L ABG O2 Saturation 99.1 H (94-97) % Sodium (137-145) mmol/L Potassium (3.5-5.1) mmol/L Chloride (98-107) mmol/L Carbon Dioxide (22-30) mmol/L BUN (7-17) mg/dL Creatinine (0.52-1.04) mg/dL Glucose (74-99) mg/dL POC Glucose (mg/dL) 151 H (75-99) mg/dL Calcium (8.4-10.2) mg/dL Lactate Dehydrogenase (313-618) U/L Total Protein (PEP) (6.2-8.2) g/dL Procalcitonin (0.02-0.09) ng/mL Urine Appearance (Clear) Urine Protein (Negative) Urine Blood (Negative) Ur Leukocyte Esterase (Negative) Urine RBC (0-5) /hpf Urine WBC (0-5) /hpf Ur Squamous Epith Cells (0-4) /hpf Urine Bacteria (None) /hpf Urine Mucus (None) /hpf Urine Yeast (Budding) (None) /hpf c-ANCA (<1:20) Titer p-ANCA (<1:20) Titer Complement C5 (29 - 53) U/mL Mumps Virus IgG Interp (NEGATIVE) Mycoplasma pneumon IgG (<=0.90) INDEX Microbiology - Last 24 Hours (Table) 10/11/21 15:36 Urine Culture - Preliminary Urine,Voided 10/06/21 23:35 Blood Culture - Final Blood No Growth after 144 hours 10/06/21 23:50 Blood Culture - Final Blood No Growth after 144 hours 10/09/21 17:50 Urine Culture - Final Urine,Voided Yvrose glabrata 10/10/21 13:45 Gram Stain - Preliminary Bronchial Washings - Right Bronchial Washings Culture - Preliminary Yvrose albicans Assessment and Plan Plan: Assessment: 1. Acute kidney injury secondary to ATN secondary to septic shock. Also noted to be thrombocytopenic. Need to rule out HUS/TTP although patient is not anemic - discussed with hematology. No schistocytes noted. Creatinine 2.2 today. Nonoliguric. UA shows trace proteinuria. No RBCs. 2. 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 3. Hypernatremia from lack of oral water intake. 4. Septic shock maintained on Levophed. On antibiotics. Unclear source. Infectious disease following. 5. Metabolic acidosis secondary to acute kidney injury and IV fluids. 6. Left cervical region and retroperitoneal lymphadenopathy. Being followed by ID and oncology. 7. Elevated anti-MPO. ELIDA negative. Doubt renal vasculitis as only 2 RBCs and UA. Rheumatology following. Plan: Stop half-normal saline. Start D5 with 2 A of bicarb at 100 mL an hour. Maintain tube feeds. Increase free water flushes to 200 mL every 6 hours. Lasix 60 mg IV once today. Repeat BMP this evening. Wean FiO2 and vasopressors. ELIDA, Complement levels, ID-3 normal. Follow-up hepatitis panel, anti-GBM antibody. Continue to monitor renal function and urine output. Replace potassium. Maintain steroids for now.
[2021-10-13 10:32] LABS: Hepatitis C IgG Antibody Nonreactive (Nonreactive)
--- NOTE | 2021-10-13 10:44 | P.PN ---
Subjective Progress Note Date: 10/13/21 Principal diagnosis: lymphadenopathy In follow-up patient remains mechanically ventilated, nursing is reporting difficulty weaning from vasopressor treatment. Objective - Vital Signs Vital signs: Vital Signs Temp 98.0 F 10/13/21 08:00 Pulse 80 10/13/21 09:30 Resp 33 H 10/13/21 09:30 BP 129/75 10/13/21 09:30 Pulse Ox 91 L 10/13/21 09:30 Intake & Output 10/12/21 10/13/21 10/13/21 18:59 06:59 18:59 Intake Total 2287.379 2722.493 480 Output Total 920 425 135 Balance 4779.500 3278.493 345 Weight 85.5 kg Intake: IV 1780 2130 480 0.9 780 130 30 Cefepime 2 gm In Sodium 100 100 Chloride 0.9% 100 ml @ 25 mls/hr IVPB Q12H [facility] Rx# :[id number] Sodium Chloride 0.45% 1, 900 1650 450 000 ml @ 150 mls/hr IV . Q6H40M [facility] Rx#:[id number] Voriconazole 400 mg In 250 Sodium Chloride 0.9% 250 ml @ 125 mls/hr IVPB Q12H [facility] Rx#:[id number] Intake, IV Titration 217.379 322.493 Amount Norepinephrine 32 mg In 117.379 122.493 Sodium Chloride 0.9% 218 ml @ 0.4 MCG/KG/MIN 10. 781 mls/hr IV .[id number] [facility] Rx#:[id number] propofoL 1,000 mg In 100 200.000 Empty Bag 1 bag @ 5 MCG/ KG/MIN 1.725 mls/hr IV . Q24H [facility] Rx#:[id number] Tube Feeding 200 210 Other 90 60 Output: Urine 920 425 135 Other: Voiding Method Indwelling Catheter Indwelling Catheter Indwelling Catheter ABP, PAP, CO, CI - Last Documented Arterial Blood Pressure 95/52 - Constitutional General appearance: Present: obese - Neck Neck: Present: lymphadenopathy (improved with antibiotic treatment) - Cardiovascular Rhythm: regular - Neurologic Neurologic: Absent: CNII-XII intact, focal deficits - Psychiatric Psychiatric: Absent: A&O x's 3, appropriate affect, intact judgment & insight - Labs CBC & Chem 7: 10/13/21 03:55 10/13/21 03:55 Labs: Abnormal Lab Results - Last 24 Hours (Table) 10/08/21 10/11/21 10/11/21 Range/Units 13:21 13:37 13:37 WBC (3.8-10.6) k/uL RBC (3.80-5.40) m/uL MCV (80.0-100.0) fL Plt Count (150-450) k/uL Neutrophils # (1.3-7.7) k/uL Haptoglobin (31.2-198.0) mg/dL D-Dimer (<0.60) mg/L FEU ABG pH (7.35-7.45) ABG pCO2 (35-45) mmHg ABG pO2 (83-108) mmHg ABG HCO3 (21-25) mmol/L ABG Total CO2 (19-24) mmol/L ABG O2 Saturation (94-97) % Sodium (137-145) mmol/L Potassium (3.5-5.1) mmol/L Chloride (98-107) mmol/L Carbon Dioxide (22-30) mmol/L BUN (7-17) mg/dL Creatinine (0.52-1.04) mg/dL Glucose (74-99) mg/dL POC Glucose (mg/dL) (75-99) mg/dL Calcium (8.4-10.2) mg/dL Lactate Dehydrogenase (313-618) U/L Total Protein (PEP) (6.2-8.2) g/dL Procalcitonin (0.02-0.09) ng/mL Urine Appearance (Clear) Urine Protein (Negative) Urine Blood (Negative) Ur Leukocyte Esterase (Negative) Urine RBC (0-5) /hpf Urine WBC (0-5) /hpf Urine WBC Clumps (None) /hpf Ur Squamous Epith Cells (0-4) /hpf Urine Bacteria (None) /hpf Urine Mucus (None) /hpf Urine Yeast (Budding) (None) /hpf c-ANCA See Below A (<1:20) Titer p-ANCA See Below A (<1:20) Titer Complement C5 64 H (29 - 53) U/mL Mumps Virus IgG Interp POSITIVE A (NEGATIVE) Mycoplasma pneumon IgG 2.55 H (<=0.90) INDEX 10/12/21 10/12/21 10/12/21 Range/Units 04:30 05:02 15:35 WBC (3.8-10.6) k/uL RBC (3.80-5.40) m/uL MCV (80.0-100.0) fL Plt Count (150-450) k/uL Neutrophils # (1.3-7.7) k/uL Haptoglobin (31.2-198.0) mg/dL D-Dimer 8.35 H (<0.60) mg/L FEU ABG pH 7.30 L (7.35-7.45) ABG pCO2 32 L (35-45) mmHg ABG pO2 129 H (83-108) mmHg ABG HCO3 16 L (21-25) mmol/L ABG Total CO2 17 L (19-24) mmol/L ABG O2 Saturation 98.2 H (94-97) % Sodium (137-145) mmol/L Potassium (3.5-5.1) mmol/L Chloride (98-107) mmol/L Carbon Dioxide (22-30) mmol/L BUN (7-17) mg/dL Creatinine (0.52-1.04) mg/dL Glucose (74-99) mg/dL POC Glucose (mg/dL) (75-99) mg/dL Calcium (8.4-10.2) mg/dL Lactate Dehydrogenase (313-618) U/L Total Protein (PEP) (6.2-8.2) g/dL Procalcitonin 6.16 H (0.02-0.09) ng/mL Urine Appearance (Clear) Urine Protein (Negative) Urine Blood (Negative) Ur Leukocyte Esterase (Negative) Urine RBC (0-5) /hpf Urine WBC (0-5) /hpf Urine WBC Clumps (None) /hpf Ur Squamous Epith Cells (0-4) /hpf Urine Bacteria (None) /hpf Urine Mucus (None) /hpf Urine Yeast (Budding) (None) /hpf c-ANCA (<1:20) Titer p-ANCA (<1:20) Titer Complement C5 (29 - 53) U/mL Mumps Virus IgG Interp (NEGATIVE) Mycoplasma pneumon IgG (<=0.90) INDEX 10/12/21 10/12/21 10/12/21 Range/Units 15:36 15:36 15:36 WBC (3.8-10.6) k/uL RBC (3.80-5.40) m/uL MCV (80.0-100.0) fL Plt Count (150-450) k/uL Neutrophils # (1.3-7.7) k/uL Haptoglobin (31.2-198.0) mg/dL D-Dimer (<0.60) mg/L FEU ABG pH (7.35-7.45) ABG pCO2 (35-45) mmHg ABG pO2 (83-108) mmHg ABG HCO3 (21-25) mmol/L ABG Total CO2 (19-24) mmol/L ABG O2 Saturation (94-97) % Sodium (137-145) mmol/L Potassium (3.5-5.1) mmol/L Chloride (98-107) mmol/L Carbon Dioxide (22-30) mmol/L BUN (7-17) mg/dL Creatinine (0.52-1.04) mg/dL Glucose (74-99) mg/dL POC Glucose (mg/dL) (75-99) mg/dL Calcium (8.4-10.2) mg/dL Lactate Dehydrogenase 866 H (313-618) U/L Total Protein (PEP) 4.2 L (6.2-8.2) g/dL Procalcitonin (0.02-0.09) ng/mL Urine Appearance Turbid H (Clear) Urine Protein 1+ H (Negative) Urine Blood Moderate H (Negative) Ur Leukocyte Esterase Moderate H (Negative) Urine RBC 20 H (0-5) /hpf Urine WBC 29 H (0-5) /hpf Urine WBC Clumps (None) /hpf Ur Squamous Epith Cells 13 H (0-4) /hpf Urine Bacteria Rare H (None) /hpf Urine Mucus Rare H (None) /hpf Urine Yeast (Budding) Few H (None) /hpf c-ANCA (<1:20) Titer p-ANCA (<1:20) Titer Complement C5 (29 - 53) U/mL Mumps Virus IgG Interp (NEGATIVE) Mycoplasma pneumon IgG (<=0.90) INDEX 10/12/21 10/12/21 10/12/21 Range/Units 15:36 15:43 16:46 WBC 17.3 H (3.8-10.6) k/uL RBC 3.47 L (3.80-5.40) m/uL MCV 102.7 H (80.0-100.0) fL Plt Count 50 L (150-450) k/uL Neutrophils # 15.2 H (1.3-7.7) k/uL Haptoglobin 423.0 H (31.2-198.0) mg/dL D-Dimer (<0.60) mg/L FEU ABG pH 7.34 L (7.35-7.45) ABG pCO2 (35-45) mmHg ABG pO2 48 L* (83-108) mmHg ABG HCO3 19 L (21-25) mmol/L ABG Total CO2 (19-24) mmol/L ABG O2 Saturation 85.7 L (94-97) % Sodium (137-145) mmol/L Potassium (3.5-5.1) mmol/L Chloride (98-107) mmol/L Carbon Dioxide (22-30) mmol/L BUN (7-17) mg/dL Creatinine (0.52-1.04) mg/dL Glucose (74-99) mg/dL POC Glucose (mg/dL) (75-99) mg/dL Calcium (8.4-10.2) mg/dL Lactate Dehydrogenase (313-618) U/L Total Protein (PEP) (6.2-8.2) g/dL Procalcitonin (0.02-0.09) ng/mL Urine Appearance (Clear) Urine Protein (Negative) Urine Blood (Negative) Ur Leukocyte Esterase (Negative) Urine RBC (0-5) /hpf Urine WBC (0-5) /hpf Urine WBC Clumps (None) /hpf Ur Squamous Epith Cells (0-4) /hpf Urine Bacteria (None) /hpf Urine Mucus (None) /hpf Urine Yeast (Budding) (None) /hpf c-ANCA (<1:20) Titer p-ANCA (<1:20) Titer Complement C5 (29 - 53) U/mL Mumps Virus IgG Interp (NEGATIVE) Mycoplasma pneumon IgG (<=0.90) INDEX 10/12/21 10/13/21 10/13/21 Range/Units 23:35 03:55 03:55 WBC 17.4 H (3.8-10.6) k/uL RBC 3.45 L (3.80-5.40) m/uL MCV 102.3 H (80.0-100.0) fL Plt Count 62 L (150-450) k/uL Neutrophils # 15.7 H (1.3-7.7) k/uL Haptoglobin (31.2-198.0) mg/dL D-Dimer (<0.60) mg/L FEU ABG pH (7.35-7.45) ABG pCO2 (35-45) mmHg ABG pO2 (83-108) mmHg ABG HCO3 (21-25) mmol/L ABG Total CO2 (19-24) mmol/L ABG O2 Saturation (94-97) % Sodium 149 H (137-145) mmol/L Potassium 3.3 L (3.5-5.1) mmol/L Chloride 124 H (98-107) mmol/L Carbon Dioxide 17 L (22-30) mmol/L BUN 48 H (7-17) mg/dL Creatinine 2.20 H (0.52-1.04) mg/dL Glucose 141 H (74-99) mg/dL POC Glucose (mg/dL) 142 H (75-99) mg/dL Calcium 7.2 L (8.4-10.2) mg/dL Lactate Dehydrogenase (313-618) U/L Total Protein (PEP) (6.2-8.2) g/dL Procalcitonin (0.02-0.09) ng/mL Urine Appearance (Clear) Urine Protein (Negative) Urine Blood (Negative) Ur Leukocyte Esterase (Negative) Urine RBC (0-5) /hpf Urine WBC (0-5) /hpf Urine WBC Clumps (None) /hpf Ur Squamous Epith Cells (0-4) /hpf Urine Bacteria (None) /hpf Urine Mucus (None) /hpf Urine Yeast (Budding) (None) /hpf c-ANCA (<1:20) Titer p-ANCA (<1:20) Titer Complement C5 (29 - 53) U/mL Mumps Virus IgG Interp (NEGATIVE) Mycoplasma pneumon IgG (<=0.90) INDEX 10/13/21 10/13/21 10/13/21 Range/Units 05:29 05:49 09:35 WBC (3.8-10.6) k/uL RBC (3.80-5.40) m/uL MCV (80.0-100.0) fL Plt Count (150-450) k/uL Neutrophils # (1.3-7.7) k/uL Haptoglobin (31.2-198.0) mg/dL D-Dimer (<0.60) mg/L FEU ABG pH 7.27 L (7.35-7.45) ABG pCO2 (35-45) mmHg ABG pO2 176 H (83-108) mmHg ABG HCO3 17 L (21-25) mmol/L ABG Total CO2 (19-24) mmol/L ABG O2 Saturation 99.1 H (94-97) % Sodium (137-145) mmol/L Potassium (3.5-5.1) mmol/L Chloride (98-107) mmol/L Carbon Dioxide (22-30) mmol/L BUN (7-17) mg/dL Creatinine (0.52-1.04) mg/dL Glucose (74-99) mg/dL POC Glucose (mg/dL) 151 H (75-99) mg/dL Calcium (8.4-10.2) mg/dL Lactate Dehydrogenase (313-618) U/L Total Protein (PEP) (6.2-8.2) g/dL Procalcitonin (0.02-0.09) ng/mL Urine Appearance Turbid H (Clear) Urine Protein 2+ H (Negative) Urine Blood Large H (Negative) Ur Leukocyte Esterase Small H (Negative) Urine RBC 24 H (0-5) /hpf Urine WBC 21 H (0-5) /hpf Urine WBC Clumps Few H (None) /hpf Ur Squamous Epith Cells (0-4) /hpf Urine Bacteria Rare H (None) /hpf Urine Mucus Rare H (None) /hpf Urine Yeast (Budding) Few H (None) /hpf c-ANCA (<1:20) Titer p-ANCA (<1:20) Titer Complement C5 (29 - 53) U/mL Mumps Virus IgG Interp (NEGATIVE) Mycoplasma pneumon IgG (<=0.90) INDEX Microbiology - Last 24 Hours (Table) 10/10/21 13:45 Gram Stain - Final Bronchial Washings - Right Bronchial Washings Culture - Final Yvrose albicans 10/11/21 15:36 Urine Culture - Preliminary Urine,Voided 10/06/21 23:35 Blood Culture - Final Blood No Growth after 144 hours 10/06/21 23:50 Blood Culture - Final Blood No Growth after 144 hours 10/09/21 17:50 Urine Culture - Final Urine,Voided Yvrose glabrata - Imaging and Cardiology Chest x-ray: report reviewed Assessment and Plan (1) Lymphadenopathy of left cervical region Current Visit: Yes Status: Acute Priority: High Code(s): R59.0 - LOCALIZED ENLARGED LYMPH NODES SNOMED Code(s): 694460115 (2) Lymphadenopathy, retroperitoneal Current Visit: Yes Status: Acute Priority: High Code(s): R59.0 - LOCALIZED ENLARGED LYMPH NODES SNOMED Code(s): 603868591 (3) Thrombocytopenia Current Visit: Yes Status: Acute Priority: High Code(s): D69.6 - TH ROMBOCYTOPENIA, UNSPECIFIED SNOMED Code(s): 290490080 Plan: Lymphadenopathy in the neck. Improved with antibiotic therapy. Suspect underlying infection. Pending bronchial washings. Retroperitoneal lymphadenopathy. Plan is for EUS evaluation and possible biopsy after patient has recovered from her current situation. Dr. Lee discussed the case with [employer] Program[employer]. Patient has a lot of positive inflammatory markers but, for the most part, nonspecific. Rheumatology has been consulted. Thrombocytopenia. Likely secondary to severe sepsis. No evidence of DIC. Platelets 62,000, slowly improving. Continue DVT prophylaxis as long as platelets are 50,000 or greater. This was discussed with Nursing. Doctor attests: I performed a history and physical examination of this patient, developed impression and plan of care, discussed with dictator. I agree with dictators note, documented as a scribe.
[2021-10-13 12:08] LABS: Glucose,Whole Blood 177 mg/dL (75-99)
--- NOTE | 2021-10-13 13:11 | P.PN ---
Subjective Progress Note Date: 10/13/21 No new complaints. FiO2 60%, PEEP 15, AC 400. Ongoing levophed. Persistent fevers. Gen: intubated, sedated HEENT: normocephalic, atraumatic, moist mucous membranes Resp: ventilator, equal chest expansion CVS: good distal perfusion x 4, GI: soft, NTTP, ND : no SPT, no CVAT, owens catheter is present MSK: no pitting edema, no clubbing Assessment/plan: Septic Shock Elevated anti-MPO -Continue maintenance IV fluids -On 10/09 IV antibiotics expanded to include doxycycline to cover atypical organisms, cefepmine and vanco. Blood cx 10/06 negative. Bronch done 10/10, awaiting culture results. -Influenza A, influenza B, and Covid PCR negative. -CMV nonreactive -EBV IgG positive IgM negative -Group A rapid strep negative -Pro-calcitonin elevated at 4.6 -Ultrasound left anterior neck revealing a left-sided cervical lymphadenopathy -CT chest abdomen and pelvis revealing mild fat stranding in the lower neck, small gastroesophageal hiatal hernia, and mild retroperitoneal fat stranding predominantly around the pancreas and prominent retroperitoneal and mesenteric lymph nodes the differential includes infectious and inflammatory etiologies, and a 4 mm calculus in the upper pole of the right kidney. -Infectious disease following, appreciate further recommendations -Rheumatology following Acute hypoxic respiraroy failure secondary to primary rheumatologic process versus ARDS versus primary pneumonia -CXR with CHF vs. pneumonia -BNP 23159, trops mildly elevated at 0.07, however flat. Seen by cardio no further plans -Antibiotics as above Low back pain: -D/w ID, MRI lumbar spine with and without contrast ordered but patient could not tolerate it -We will reattempt once more stable Lymphadenopathy, retroperitoneal, cervical -Seen by oncology, likely incidental finding, but due to chronic intermittent abdominal and back discomfort over the past year, oncology advised possible further evaluation with EUS, outpatient \ CODE STATUS: Full code DVT prophylaxis: Heparin Anticipated discharge date: Clinical course to determine Anticipated discharge place: Clinical course to determine Objective - Vital Signs Vital signs: Vital Signs Temp 97.1 F L 10/13/21 12:00 Pulse 75 10/13/21 12:45 Resp 26 H 10/13/21 12:45 BP 92/59 10/13/21 12:45 Pulse Ox 98 10/13/21 12:45 Intake & Output 10/12/21 10/13/21 10/13/21 18:59 06:59 18:59 Intake Total 2287.379 2722.493 970.128 Output Total 920 425 745 Balance 3022.854 2169.493 225.128 Weight 85.5 kg 85.5 kg Intake: IV 1780 2130 960 0.9 780 130 60 Cefepime 2 gm In Sodium 100 100 Chloride 0.9% 100 ml @ 25 mls/hr IVPB Q12H [facility] Rx# :[id number] Sodium Chloride 0.45% 1, 900 1650 900 000 ml @ 150 mls/hr IV . [id number] [facility] Rx#:[id number] Voriconazole 400 mg In 250 Sodium Chloride 0.9% 250 ml @ 125 mls/hr IVPB Q12H [facility] Rx#:[id number] Intake, IV Titration 217.379 322.493 10.128 Amount Norepinephrine 32 mg In 117.379 122.493 10.128 Sodium Chloride 0.9% 218 ml @ 0.4 MCG/KG/MIN 10. 781 mls/hr IV .[id number] [facility] Rx#:[id number] propofoL 1,000 mg In 100 200.000 Empty Bag 1 bag @ 5 MCG/ KG/MIN 1.725 mls/hr IV . Q24H JU[facility] Rx#:[id number] Tube Feeding 200 210 Other 90 60 Output: Urine 920 425 745 Other: Voiding Method Indwelling Catheter Indwelling Catheter Indwelling Catheter ABP, PAP, CO, CI - Last Documented Arterial Blood Pressure 98/52 - Labs CBC & Chem 7: 10/13/21 03:55 10/13/21 03:55 Labs: Abnormal Lab Results - Last 24 Hours (Table) 10/08/21 10/11/21 10/12/21 Range/Units 13:21 13:37 04:30 WBC (3.8-10.6) k/uL RBC (3.80-5.40) m/uL MCV (80.0-100.0) fL Plt Count (150-450) k/uL Neutrophils # (1.3-7.7) k/uL Haptoglobin (31.2-198.0) mg/dL D-Dimer (<0.60) mg/L FEU ABG pH (7.35-7.45) ABG pCO2 (35-45) mmHg ABG pO2 (83-108) mmHg ABG HCO3 (21-25) mmol/L ABG Total CO2 (19-24) mmol/L ABG O2 Saturation (94-97) % Sodium (137-145) mmol/L Potassium (3.5-5.1) mmol/L Chloride (98-107) mmol/L Carbon Dioxide (22-30) mmol/L BUN (7-17) mg/dL Creatinine (0.52-1.04) mg/dL Glucose (74-99) mg/dL POC Glucose (mg/dL) (75-99) mg/dL Calcium (8.4-10.2) mg/dL Lactate Dehydrogenase (313-618) U/L Total Protein (PEP) (6.2-8.2) g/dL Procalcitonin 6.16 H (0.02-0.09) ng/mL Urine Appearance (Clear) Urine Protein (Negative) Urine Blood (Negative) Ur Leukocyte Esterase (Negative) Urine RBC (0-5) /hpf Urine WBC (0-5) /hpf Urine WBC Clumps (None) /hpf Ur Squamous Epith Cells (0-4) /hpf Urine Bacteria (None) /hpf Urine Mucus (None) /hpf Urine Yeast (Budding) (None) /hpf c-ANCA See Below A (<1:20) Titer p-ANCA See Below A (<1:20) Titer Complement C5 64 H (29 - 53) U/mL Mycoplasma pneumon IgG 2.55 H (<=0.90) INDEX 10/12/21 10/12/21 10/12/21 Range/Units 05:02 15:35 15:36 WBC (3.8-10.6) k/uL RBC (3.80-5.40) m/uL MCV (80.0-100.0) fL Plt Count (150-450) k/uL Neutrophils # (1.3-7.7) k/uL Haptoglobin (31.2-198.0) mg/dL D-Dimer 8.35 H (<0.60) mg/L FEU ABG pH 7.30 L (7.35-7.45) ABG pCO2 32 L (35-45) mmHg ABG pO2 129 H (83-108) mmHg ABG HCO3 16 L (21-25) mmol/L ABG Total CO2 17 L (19-24) mmol/L ABG O2 Saturation 98.2 H (94-97) % Sodium (137-145) mmol/L Potassium (3.5-5.1) mmol/L Chloride (98-107) mmol/L Carbon Dioxide (22-30) mmol/L BUN (7-17) mg/dL Creatinine (0.52-1.04) mg/dL Glucose (74-99) mg/dL POC Glucose (mg/dL) (75-99) mg/dL Calcium (8.4-10.2) mg/dL Lactate Dehydrogenase (313-618) U/L Total Protein (PEP) (6.2-8.2) g/dL Procalcitonin (0.02-0.09) ng/mL Urine Appearance Turbid H (Clear) Urine Protein 1+ H (Negative) Urine Blood Moderate H (Negative) Ur Leukocyte Esterase Moderate H (Negative) Urine RBC 20 H (0-5) /hpf Urine WBC 29 H (0-5) /hpf Urine WBC Clumps (None) /hpf Ur Squamous Epith Cells 13 H (0-4) /hpf Urine Bacteria Rare H (None) /hpf Urine Mucus Rare H (None) /hpf Urine Yeast (Budding) Few H (None) /hpf c-ANCA (<1:20) Titer p-ANCA (<1:20) Titer Complement C5 (29 - 53) U/mL Mycoplasma pneumon IgG (<=0.90) INDEX 10/12/21 10/12/21 10/12/21 Range/Units 15:36 15:36 15:36 WBC (3.8-10.6) k/uL RBC (3.80-5.40) m/uL MCV (80.0-100.0) fL Plt Count (150-450) k/uL Neutrophils # (1.3-7.7) k/uL Haptoglobin 423.0 H (31.2-198.0) mg/dL D-Dimer (<0.60) mg/L FEU ABG pH (7.35-7.45) ABG pCO2 (35-45) mmHg ABG pO2 (83-108) mmHg ABG HCO3 (21-25) mmol/L ABG Total CO2 (19-24) mmol/L ABG O2 Saturation (94-97) % Sodium (137-145) mmol/L Potassium (3.5-5.1) mmol/L Chloride (98-107) mmol/L Carbon Dioxide (22-30) mmol/L BUN (7-17) mg/dL Creatinine (0.52-1.04) mg/dL Glucose (74-99) mg/dL POC Glucose (mg/dL) (75-99) mg/dL Calcium (8.4-10.2) mg/dL Lactate Dehydrogenase 866 H (313-618) U/L Total Protein (PEP) 4.2 L (6.2-8.2) g/dL Procalcitonin (0.02-0.09) ng/mL Urine Appearance (Clear) Urine Protein (Negative) Urine Blood (Negative) Ur Leukocyte Esterase (Negative) Urine RBC (0-5) /hpf Urine WBC (0-5) /hpf Urine WBC Clumps (None) /hpf Ur Squamous Epith Cells (0-4) /hpf Urine Bacteria (None) /hpf Urine Mucus (None) /hpf Urine Yeast (Budding) (None) /hpf c-ANCA (<1:20) Titer p-ANCA (<1:20) Titer Complement C5 (29 - 53) U/mL Mycoplasma pneumon IgG (<=0.90) INDEX 10/12/21 10/12/21 10/12/21 Range/Units 15:43 16:46 23:35 WBC 17.3 H (3.8-10.6) k/uL RBC 3.47 L (3.80-5.40) m/uL MCV 102.7 H (80.0-100.0) fL Plt Count 50 L (150-450) k/uL Neutrophils # 15.2 H (1.3-7.7) k/uL Haptoglobin (31.2-198.0) mg/dL D-Dimer (<0.60) mg/L FEU ABG pH 7.34 L (7.35-7.45) ABG pCO2 (35-45) mmHg ABG pO2 48 L* (83-108) mmHg ABG HCO3 19 L (21-25) mmol/L ABG Total CO2 (19-24) mmol/L ABG O2 Saturation 85.7 L (94-97) % Sodium (137-145) mmol/L Potassium (3.5-5.1) mmol/L Chloride (98-107) mmol/L Carbon Dioxide (22-30) mmol/L BUN (7-17) mg/dL Creatinine (0.52-1.04) mg/dL Glucose (74-99) mg/dL POC Glucose (mg/dL) 142 H (75-99) mg/dL Calcium (8.4-10.2) mg/dL Lactate Dehydrogenase (313-618) U/L Total Protein (PEP) (6.2-8.2) g/dL Procalcitonin (0.02-0.09) ng/mL Urine Appearance (Clear) Urine Protein (Negative) Urine Blood (Negative) Ur Leukocyte Esterase (Negative) Urine RBC (0-5) /hpf Urine WBC (0-5) /hpf Urine WBC Clumps (None) /hpf Ur Squamous Epith Cells (0-4) /hpf Urine Bacteria (None) /hpf Urine Mucus (None) /hpf Urine Yeast (Budding) (None) /hpf c-ANCA (<1:20) Titer p-ANCA (<1:20) Titer Complement C5 (29 - 53) U/mL Mycoplasma pneumon IgG (<=0.90) INDEX 10/13/21 10/13/21 10/13/21 Range/Units 03:55 03:55 05:29 WBC 17.4 H (3.8-10.6) k/uL RBC 3.45 L (3.80-5.40) m/uL MCV 102.3 H (80.0-100.0) fL Plt Count 62 L (150-450) k/uL Neutrophils # 15.7 H (1.3-7.7) k/uL Haptoglobin (31.2-198.0) mg/dL D-Dimer (<0.60) mg/L FEU ABG pH 7.27 L (7.35-7.45) ABG pCO2 (35-45) mmHg ABG pO2 176 H (83-108) mmHg ABG HCO3 17 L (21-25) mmol/L ABG Total CO2 (19-24) mmol/L ABG O2 Saturation 99.1 H (94-97) % Sodium 149 H (137-145) mmol/L Potassium 3.3 L (3.5-5.1) mmol/L Chloride 124 H (98-107) mmol/L Carbon Dioxide 17 L (22-30) mmol/L BUN 48 H (7-17) mg/dL Creatinine 2.20 H (0.52-1.04) mg/dL Glucose 141 H (74-99) mg/dL POC Glucose (mg/dL) (75-99) mg/dL Calcium 7.2 L (8.4-10.2) mg/dL Lactate Dehydrogenase (313-618) U/L Total Protein (PEP) (6.2-8.2) g/dL Procalcitonin (0.02-0.09) ng/mL Urine Appearance (Clear) Urine Protein (Negative) Urine Blood (Negative) Ur Leukocyte Esterase (Negative) Urine RBC (0-5) /hpf Urine WBC (0-5) /hpf Urine WBC Clumps (None) /hpf Ur Squamous Epith Cells (0-4) /hpf Urine Bacteria (None) /hpf Urine Mucus (None) /hpf Urine Yeast (Budding) (None) /hpf c-ANCA (<1:20) Titer p-ANCA (<1:20) Titer Complement C5 (29 - 53) U/mL Mycoplasma pneumon IgG (<=0.90) INDEX 10/13/21 10/13/21 10/13/21 Range/Units 05:49 09:35 11:57 WBC (3.8-10.6) k/uL RBC (3.80-5.40) m/uL MCV (80.0-100.0) fL Plt Count (150-450) k/uL Neutrophils # (1.3-7.7) k/uL Haptoglobin (31.2-198.0) mg/dL D-Dimer (<0.60) mg/L FEU ABG pH (7.35-7.45) ABG pCO2 (35-45) mmHg ABG pO2 (83-108) mmHg ABG HCO3 (21-25) mmol/L ABG Total CO2 (19-24) mmol/L ABG O2 Saturation (94-97) % Sodium (137-145) mmol/L Potassium (3.5-5.1) mmol/L Chloride (98-107) mmol/L Carbon Dioxide (22-30) mmol/L BUN (7-17) mg/dL Creatinine (0.52-1.04) mg/dL Glucose (74-99) mg/dL POC Glucose (mg/dL) 151 H 177 H (75-99) mg/dL Calcium (8.4-10.2) mg/dL Lactate Dehydrogenase (313-618) U/L Total Protein (PEP) (6.2-8.2) g/dL Procalcitonin (0.02-0.09) ng/mL Urine Appearance Turbid H (Clear) Urine Protein 2+ H (Negative) Urine Blood Large H (Negative) Ur Leukocyte Esterase Small H (Negative) Urine RBC 24 H (0-5) /hpf Urine WBC 21 H (0-5) /hpf Urine WBC Clumps Few H (None) /hpf Ur Squamous Epith Cells (0-4) /hpf Urine Bacteria Rare H (None) /hpf Urine Mucus Rare H (None) /hpf Urine Yeast (Budding) Few H (None) /hpf c-ANCA (<1:20) Titer p-ANCA (<1:20) Titer Complement C5 (29 - 53) U/mL Mycoplasma pneumon IgG (<=0.90) INDEX Microbiology - Last 24 Hours (Table) 10/10/21 13:45 Gram Stain - Final Bronchial Washings - Right Bronchial Washings Culture - Final Yvrose albicans 10/11/21 15:36 Urine Culture - Preliminary Urine,Voided 10/06/21 23:35 Blood Culture - Final Blood No Growth after 144 hours 10/06/21 23:50 Blood Culture - Final Blood No Growth after 144 hours 10/09/21 17:50 Urine Culture - Final Urine,Voided Yvrose glabrata
--- NOTE | 2021-10-13 13:25 | P.CONS ---
History of Present Illness - Reason for Consult Consult date: 10/13/21 Positive anti MPO - History of Present Illness This is a inpatient hospital consult for a 56-year-old female that originally presented to the emergency room for cough and fever of unknown origin. Rheumatology was later consulted by nephrology due to a elevated MPO antibody. Patient suffers from chronic kidney disease stage IIIa secondary to nephrosclerosis and chronic interstitial nephritis from lithium use. Patient is currently intubated and is on vasopressor support. She is being treated for possible pneumonia versus pancreatitis. Her ELIDA is negative, inconclusive ANCA, but she was found to have a elevated anti-MPO. Nephrology had low suspicion of renal vasculitis as only 2 RBCs found in microscopic urinalysis. Pulmonary was also consulted after patient had a rapid response in the selective unit and was found to be hypotensive with tachypnea and borderline low saturations. She was then intubated in the intensive care unit. Her chest x-ray showed diffuse bilateral infiltrates which could relate to pulmonary edema versus pneumonia. She is being maintained on intravenous antibiotics through infectious disease. CT of chest shows trace pericardial effusion otherwise normal. Pertinent labs: Elevated WBC 17.3, normal ESR normal at 16, negative rheumatoid factor, negative ELIDA, negative p-ANCA, negative c-ANCA, negative anticardiolipin, normal C3 and C4, HIGH ANTI MPO 43, NEGATIVE PR3. I spoke with Dr. Lomas regarding case and we will order a IgG4 subclass panel to rule out IgG 4 disease as this can present with lymphadenopathy and pancreatitis. She does show multi system involvement but there is no sonia evidence of vasculitis including negative ANCA. We would need to confirm or deny vasculitis by either a pulmonary or renal biopsy with renal biopsy preferred in this particular patient. Our recommendation would be to switch patient to Solu Medrol 60mg IV every 6 hours as it has more glucocorticoid properties as opposed to Solu Cortef and this may help in response to systemic inflammation. Past Medical History Past Medical History: GERD/Reflux, Hypertension, Thyroid Disorder Additional Past Medical History / Comment(s): hx bronchitis, constipation, History of Any Multi-Drug Resistant Organisms: None Reported Past Surgical History: Section, Ear Surgery, Hysterectomy Additional Past Surgical History / Comment(s): Tubes bilateral ears. RT EAR SX X2 Past Anesthesia/Blood Transfusion Reactions: No Reported Reaction Past Psychological History: Anxiety, Bipolar, Depression Smoking Status: Current every day smoker Past Alcohol Use History: None Reported Past Drug Use History: None Reported - Past Family History Father Family Medical History: Coronary Artery Disease (CAD) Additional Family Medical History / Comment(s): Mother at age 70 from coronary artery disease. Mother Family Medical History: Cancer Additional Family Medical History / Comment(s): . Brother(s) Additional Family Medical History / Comment(s): Unable to obtain brother and sister history. Patient has 2 sons are healthy. Medications and Allergies Home Medications Medication Instructions Recorded Confirmed Type LORazepam [Ativan] 1 mg PO DAILY PRN 12/26/15 10/06/21 History lamoTRIgine [LaMICtal] 150 mg PO DAILY #45 tab 01/06/16 10/06/21 Rx Levothyroxine Sodium [Synthroid] 100 mcg PO DAILY 12/01/16 10/06/21 History QUEtiapine FUMARATE 400 mg PO HS 12/01/16 10/06/21 History lisinopriL [Zestril] 10 mg PO DAILY 12/01/16 10/06/21 History lamoTRIgine [LaMICtal] 200 mg PO HS 10/06/21 10/06/21 History Allergies Allergy/AdvReac Type Severity Reaction Status Date / Time chlorpromazine HCl Allergy Unknown Verified 10/06/21 23:09 [From Thorazine] codeine Allergy Unknown Verified 10/06/21 23:09 sulfamethoxazole Allergy Unknown Verified 10/06/21 23:09 [From Septra] trimethoprim [From Septra] Allergy Unknown Verified 10/06/21 23:09 Physical Exam Vitals: Vital Signs Temp Pulse Resp BP Pulse Ox 10/13/21 12:45 75 26 H 92/59 98 10/13/21 12:30 77 26 H 92/59 98 10/13/21 12:15 71 26 H 92/59 96 10/13/21 12:00 97.1 F L 73 26 H 111/65 96 10/13/21 11:48 69 10/13/21 11:45 68 26 H 111/65 98 10/13/21 11:37 79 10/13/21 11:30 79 26 H 111/65 98 10/13/21 11:15 79 26 H 111/65 97 10/13/21 11:00 76 26 H 111/65 98 10/13/21 10:45 84 26 H 111/65 97 04/26/22 10:30 82 26 H 111/65 97 10/13/21 10:15 84 26 H 111/65 97 10/13/21 10:00 80 26 H 129/75 97 10/13/21 09:45 89 26 H 129/75 97 10/13/21 09:30 80 33 H 129/75 91 L 10/13/21 09:15 89 34 H 129/75 93 L 10/13/21 09:00 85 29 H 129/75 95 10/13/21 08:45 92 38 H 129/75 91 L 10/13/21 08:30 81 27 H 113/66 98 10/13/21 08:22 86 10/13/21 08:15 72 21 113/66 98 10/13/21 08:04 80 10/13/21 08:00 98.0 F 74 23 96/59 97 10/13/21 07:45 75 26 H 96/59 98 10/13/21 07:30 72 26 H 96/59 98 10/13/21 07:15 74 26 H 96/59 98 10/13/21 07:00 75 26 H 98 10/13/21 06:45 74 26 H 98 10/13/21 06:30 73 26 H 98 10/13/21 06:15 75 26 H 96/59 98 10/13/21 06:00 75 26 H 98 10/13/21 05:45 75 26 H 97 10/13/21 05:30 77 26 H 97 10/13/21 05:15 78 26 H 97 10/13/21 05:00 79 26 H 97 10/13/21 04:45 75 26 H 98 10/13/21 04:30 75 26 H 97 10/13/21 04:15 71 26 H 101/62 98 10/13/21 04:00 98.5 F 78 26 H 97 10/13/21 03:45 80 26 H 97 10/13/21 03:30 80 26 H 97 10/13/21 03:15 79 26 H 97 10/13/21 03:00 80 26 H 97 10/13/21 02:45 80 26 H 102/63 97 10/13/21 02:30 80 26 H 97 10/13/21 02:15 80 26 H 102/63 97 10/13/21 02:00 81 26 H 97 10/13/21 01:45 74 26 H 97 10/13/21 01:30 80 26 H 97 10/13/21 01:15 82 26 H 110/68 97 10/13/21 01:00 80 26 H 98 10/13/21 00:45 80 26 H 97 10/13/21 00:30 80 26 H 97 10/13/21 00:15 98.2 F 81 26 H 110/68 97 10/13/21 00:00 81 26 H 96 10/12/21 23:45 82 26 H 97 10/12/21 23:30 83 26 H 97 10/12/21 23:15 83 26 H 97 10/12/21 23:00 84 26 H 97 10/12/21 22:45 87 26 H 96 10/12/21 22:30 86 26 H 97 10/12/21 22:15 87 26 H 112/68 97 10/12/21 22:00 87 26 H 96 10/12/21 21:45 89 26 H 97 10/12/21 21:30 89 26 H 96 10/12/21 21:15 74 26 H 77/40 97 10/12/21 21:00 98.5 F 89 26 H 95 10/12/21 20:45 89 26 H 97 10/12/21 20:30 86 26 H 97 10/12/21 20:15 86 26 H 132/70 97 10/12/21 20:02 81 10/12/21 20:00 76 26 H 98 10/12/21 19:45 86 26 H 76/52 95 10/12/21 19:30 86 26 H 95 10/12/21 19:15 91 26 H 93 L 10/12/21 19:00 90 26 H 94 L 10/12/21 18:45 94 27 H 93 L 10/12/21 18:30 93 26 H 94 L 10/12/21 18:15 96 26 H 93 L 10/12/21 18:00 96 26 H 94 L 10/12/21 17:45 98 26 H 94 L 10/12/21 17:30 98 27 H 93 L 10/12/21 17:15 97 26 H 93 L 10/12/21 17:00 91 26 H 94 L 10/12/21 16:45 96 28 H 86 L 10/12/21 16:30 96 29 H 90 L 10/12/21 16:15 97 29 H 85 L 10/12/21 16:00 98.2 F 92 28 H 91 L 10/12/21 15:45 93 27 H 90 L 10/12/21 15:30 93 27 H 90 L 10/12/21 15:15 93 27 H 93 L 10/12/21 15:00 95 27 H 91 L 10/12/21 14:45 95 26 H 92 L 10/12/21 14:30 95 25 H 95 10/12/21 14:15 96 26 H 91 L 10/12/21 14:00 96 34 H 94 L 10/12/21 13:45 98 39 H 87 L 10/12/21 13:30 97 39 H 86 L Intake and Output 10/12/21 10/13/21 10/13/21 22:59 06:59 14:59 Intake Total 4970.890 5476.035 970.128 Output Total 520 275 745 Balance 1938.099 2162.035 225.128 Intake: IV 1260 1620 960 0.9 60 70 60 Cefepime 2 gm In Sodium 100 Chloride 0.9% 100 ml @ 25 mls/hr IVPB Q12H [facility] Rx# :[id number] Sodium Chloride 0.45% 1, 1200 1200 900 000 ml @ 150 mls/hr IV . [id number] [facility] Rx#:[id number] Voriconazole 400 mg In 250 Sodium Chloride 0.9% 250 ml @ 125 mls/hr IVPB Q12H [facility] Rx#:[id number] Intake, IV Titration 175.730 166.035 10.128 Amount Norepinephrine 32 mg In 75.730 66.035 10.128 Sodium Chloride 0.9% 218 ml @ 0.4 MCG/KG/MIN 10. 781 mls/hr IV .[id number] JU[facility] Rx#:[id number] propofoL 1,000 mg In 100 100.000 Empty Bag 1 bag @ 5 MCG/ KG/MIN 1.725 mls/hr IV . Q24H JUAN Rx#:[id number] Tube Feeding 160 150 Other 60 30 Output: Urine 520 275 745 Other: Voiding Method Indwelling Catheter Indwelling Catheter Indwelling Catheter Weight 85.5 kg 85.5 kg ABP, PAP, CO, CI - Last 8 Hours Arterial Blood Pressure 98/52 Arterial Blood Pressure 102/55 Arterial Blood Pressure 90/48 Arterial Blood Pressure 99/53 Arterial Blood Pressure 103/57 Arterial Blood Pressure 104/56 Arterial Blood Pressure 96/52 Arterial Blood Pressure 91/50 Arterial Blood Pressure 116/62 Arterial Blood Pressure 111/60 Arterial Blood Pressure 109/59 Arterial Blood Pressure 115/60 Arterial Blood Pressure 105/58 Arterial Blood Pressure 95/52 Arterial Blood Pressure 86/46 Arterial Blood Pressure 94/50 Arterial Blood Pressure 102/54 Arterial Blood Pressure 140/71 Arterial Blood Pressure 117/64 Arterial Blood Pressure 115/65 Arterial Blood Pressure 70/39 Arterial Blood Pressure 110/60 Arterial Blood Pressure 100/53 Arterial Blood Pressure 99/52 Arterial Blood Pressure 104/57 Arterial Blood Pressure 102/55 Arterial Blood Pressure 91/49 Arterial Blood Pressure 100/54 Arterial Blood Pressure 102/56 Arterial Blood Pressure 97/53 Results CBC & Chem 7: 10/13/21 03:55 10/13/21 03:55 Labs: Abnormal Lab Results - Last 24 Hours (Table) 10/08/21 10/11/21 10/12/21 Range/Units 13:21 13:37 04:30 WBC (3.8-10.6) k/uL RBC (3.80-5.40) m/uL MCV (80.0-100.0) fL Plt Count (150-450) k/uL Neutrophils # (1.3-7.7) k/uL Haptoglobin (31.2-198.0) mg/dL D-Dimer (<0.60) mg/L FEU ABG pH (7.35-7.45) ABG pCO2 (35-45) mmHg ABG pO2 (83-108) mmHg ABG HCO3 (21-25) mmol/L ABG Total CO2 (19-24) mmol/L ABG O2 Saturation (94-97) % Sodium (137-145) mmol/L Potassium (3.5-5.1) mmol/L Chloride (98-107) mmol/L Carbon Dioxide (22-30) mmol/L BUN (7-17) mg/dL Creatinine (0.52-1.04) mg/dL Glucose (74-99) mg/dL POC Glucose (mg/dL) (75-99) mg/dL Calcium (8.4-10.2) mg/dL Lactate Dehydrogenase (313-618) U/L Total Protein (PEP) (6.2-8.2) g/dL Procalcitonin 6.16 H (0.02-0.09) ng/mL Urine Appearance (Clear) Urine Protein (Negative) Urine Blood (Negative) Ur Leukocyte Esterase (Negative) Urine RBC (0-5) /hpf Urine WBC (0-5) /hpf Urine WBC Clumps (None) /hpf Ur Squamous Epith Cells (0-4) /hpf Urine Bacteria (None) /hpf Urine Mucus (None) /hpf Urine Yeast (Budding) (None) /hpf c-ANCA See Below A (<1:20) Titer p-ANCA See Below A (<1:20) Titer Complement C5 64 H (29 - 53) U/mL Mycoplasma pneumon IgG 2.55 H (<=0.90) INDEX 10/12/21 10/12/21 10/12/21 Range/Units 05:02 15:35 15:36 WBC (3.8-10.6) k/uL RBC (3.80-5.40) m/uL MCV (80.0-100.0) fL Plt Count (150-450) k/uL Neutrophils # (1.3-7.7) k/uL Haptoglobin (31.2-198.0) mg/dL D-Dimer 8.35 H (<0.60) mg/L FEU ABG pH 7.30 L (7.35-7.45) ABG pCO2 32 L (35-45) mmHg ABG pO2 129 H (83-108) mmHg ABG HCO3 16 L (21-25) mmol/L ABG Total CO2 17 L (19-24) mmol/L ABG O2 Saturation 98.2 H (94-97) % Sodium (137-145) mmol/L Potassium (3.5-5.1) mmol/L Chloride (98-107) mmol/L Carbon Dioxide (22-30) mmol/L BUN (7-17) mg/dL Creatinine (0.52-1.04) mg/dL Glucose (74-99) mg/dL POC Glucose (mg/dL) (75-99) mg/dL Calcium (8.4-10.2) mg/dL Lactate Dehydrogenase (313-618) U/L Total Protein (PEP) (6.2-8.2) g/dL Procalcitonin (0.02-0.09) ng/mL Urine Appearance Turbid H (Clear) Urine Protein 1+ H (Negative) Urine Blood Moderate H (Negative) Ur Leukocyte Esterase Moderate H (Negative) Urine RBC 20 H (0-5) /hpf Urine WBC 29 H (0-5) /hpf Urine WBC Clumps (None) /hpf Ur Squamous Epith Cells 13 H (0-4) /hpf Urine Bacteria Rare H (None) /hpf Urine Mucus Rare H (None) /hpf Urine Yeast (Budding) Few H (None) /hpf c-ANCA (<1:20) Titer p-ANCA (<1:20) Titer Complement C5 (29 - 53) U/mL Mycoplasma pneumon IgG (<=0.90) INDEX 10/12/21 10/12/21 10/12/21 Range/Units 15:36 15:36 15:36 WBC (3.8-10.6) k/uL RBC (3.80-5.40) m/uL MCV (80.0-100.0) fL Plt Count (150-450) k/uL Neutrophils # (1.3-7.7) k/uL Haptoglobin 423.0 H (31.2-198.0) mg/dL D-Dimer (<0.60) mg/L FEU ABG pH (7.35-7.45) ABG pCO2 (35-45) mmHg ABG pO2 (83-108) mmHg ABG HCO3 (21-25) mmol/L ABG Total CO2 (19-24) mmol/L ABG O2 Saturation (94-97) % Sodium (137-145) mmol/L Potassium (3.5-5.1) mmol/L Chloride (98-107) mmol/L Carbon Dioxide (22-30) mmol/L BUN (7-17) mg/dL Creatinine (0.52-1.04) mg/dL Glucose (74-99) mg/dL POC Glucose (mg/dL) (75-99) mg/dL Calcium (8.4-10.2) mg/dL Lactate Dehydrogenase 866 H (313-618) U/L Total Protein (PEP) 4.2 L (6.2-8.2) g/dL Procalcitonin (0.02-0.09) ng/mL Urine Appearance (Clear) Urine Protein (Negative) Urine Blood (Negative) Ur Leukocyte Esterase (Negative) Urine RBC (0-5) /hpf Urine WBC (0-5) /hpf Urine WBC Clumps (None) /hpf Ur Squamous Epith Cells (0-4) /hpf Urine Bacteria (None) /hpf Urine Mucus (None) /hpf Urine Yeast (Budding) (None) /hpf c-ANCA (<1:20) Titer p-ANCA (<1:20) Titer Complement C5 (29 - 53) U/mL Mycoplasma pneumon IgG (<=0.90) INDEX 10/12/21 10/12/21 10/12/21 Range/Units 15:43 16:46 23:35 WBC 17.3 H (3.8-10.6) k/uL RBC 3.47 L (3.80-5.40) m/uL MCV 102.7 H (80.0-100.0) fL Plt Count 50 L (150-450) k/uL Neutrophils # 15.2 H (1.3-7.7) k/uL Haptoglobin (31.2-198.0) mg/dL D-Dimer (<0.60) mg/L FEU ABG pH 7.34 L (7.35-7.45) ABG pCO2 (35-45) mmHg ABG pO2 48 L* (83-108) mmHg ABG HCO3 19 L (21-25) mmol/L ABG Total CO2 (19-24) mmol/L ABG O2 Saturation 85.7 L (94-97) % Sodium (137-145) mmol/L Potassium (3.5-5.1) mmol/L Chloride (98-107) mmol/L Carbon Dioxide (22-30) mmol/L BUN (7-17) mg/dL Creatinine (0.52-1.04) mg/dL Glucose (74-99) mg/dL POC Glucose (mg/dL) 142 H (75-99) mg/dL Calcium (8.4-10.2) mg/dL Lactate Dehydrogenase (313-618) U/L Total Protein (PEP) (6.2-8.2) g/dL Procalcitonin (0.02-0.09) ng/mL Urine Appearance (Clear) Urine Protein (Negative) Urine Blood (Negative) Ur Leukocyte Esterase (Negative) Urine RBC (0-5) /hpf Urine WBC (0-5) /hpf Urine WBC Clumps (None) /hpf Ur Squamous Epith Cells (0-4) /hpf Urine Bacteria (None) /hpf Urine Mucus (None) /hpf Urine Yeast (Budding) (None) /hpf c-ANCA (<1:20) Titer p-ANCA (<1:20) Titer Complement C5 (29 - 53) U/mL Mycoplasma pneumon IgG (<=0.90) INDEX 10/13/21 10/13/21 10/13/21 Range/Units 03:55 03:55 05:29 WBC 17.4 H (3.8-10.6) k/uL RBC 3.45 L (3.80-5.40) m/uL MCV 102.3 H (80.0-100.0) fL Plt Count 62 L (150-450) k/uL Neutrophils # 15.7 H (1.3-7.7) k/uL Haptoglobin (31.2-198.0) mg/dL D-Dimer (<0.60) mg/L FEU ABG pH 7.27 L (7.35-7.45) ABG pCO2 (35-45) mmHg ABG pO2 176 H (83-108) mmHg ABG HCO3 17 L (21-25) mmol/L ABG Total CO2 (19-24) mmol/L ABG O2 Saturation 99.1 H (94-97) % Sodium 149 H (137-145) mmol/L Potassium 3.3 L (3.5-5.1) mmol/L Chloride 124 H (98-107) mmol/L Carbon Dioxide 17 L (22-30) mmol/L BUN 48 H (7-17) mg/dL Creatinine 2.20 H (0.52-1.04) mg/dL Glucose 141 H (74-99) mg/dL POC Glucose (mg/dL) (75-99) mg/dL Calcium 7.2 L (8.4-10.2) mg/dL Lactate Dehydrogenase (313-618) U/L Total Protein (PEP) (6.2-8.2) g/dL Procalcitonin (0.02-0.09) ng/mL Urine Appearance (Clear) Urine Protein (Negative) Urine Blood (Negative) Ur Leukocyte Esterase (Negative) Urine RBC (0-5) /hpf Urine WBC (0-5) /hpf Urine WBC Clumps (None) /hpf Ur Squamous Epith Cells (0-4) /hpf Urine Bacteria (None) /hpf Urine Mucus (None) /hpf Urine Yeast (Budding) (None) /hpf c-ANCA (<1:20) Titer p-ANCA (<1:20) Titer Complement C5 (29 - 53) U/mL Mycoplasma pneumon IgG (<=0.90) INDEX 10/13/21 10/13/21 10/13/21 Range/Units 05:49 09:35 11:57 WBC (3.8-10.6) k/uL RBC (3.80-5.40) m/uL MCV (80.0-100.0) fL Plt Count (150-450) k/uL Neutrophils # (1.3-7.7) k/uL Haptoglobin (31.2-198.0) mg/dL D-Dimer (<0.60) mg/L FEU ABG pH (7.35-7.45) ABG pCO2 (35-45) mmHg ABG pO2 (83-108) mmHg ABG HCO3 (21-25) mmol/L ABG Total CO2 (19-24) mmol/L ABG O2 Saturation (94-97) % Sodium (137-145) mmol/L Potassium (3.5-5.1) mmol/L Chloride (98-107) mmol/L Carbon Dioxide (22-30) mmol/L BUN (7-17) mg/dL Creatinine (0.52-1.04) mg/dL Glucose (74-99) mg/dL POC Glucose (mg/dL) 151 H 177 H (75-99) mg/dL Calcium (8.4-10.2) mg/dL Lactate Dehydrogenase (313-618) U/L Total Protein (PEP) (6.2-8.2) g/dL Procalcitonin (0.02-0.09) ng/mL Urine Appearance Turbid H (Clear) Urine Protein 2+ H (Negative) Urine Blood Large H (Negative) Ur Leukocyte Esterase Small H (Negative) Urine RBC 24 H (0-5) /hpf Urine WBC 21 H (0-5) /hpf Urine WBC Clumps Few H (None) /hpf Ur Squamous Epith Cells (0-4) /hpf Urine Bacteria Rare H (None) /hpf Urine Mucus Rare H (None) /hpf Urine Yeast (Budding) Few H (None) /hpf c-ANCA (<1:20) Titer p-ANCA (<1:20) Titer Complement C5 (29 - 53) U/mL Mycoplasma pneumon IgG (<=0.90) INDEX Microbiology - Last 24 Hours (Table) 10/10/21 13:45 Gram Stain - Final Bronchial Washings - Right Bronchial Washings Culture - Final Yvrose albicans 10/11/21 15:36 Urine Culture - Preliminary Urine,Voided 10/06/21 23:35 Blood Culture - Final Blood No Growth after 144 hours 10/06/21 23:50 Blood Culture - Final Blood No Growth after 144 hours 10/09/21 17:50 Urine Culture - Final Urine,Voided Yvrose glabrata
--- NOTE | 2021-10-13 15:00 | P.PN ---
Subjective Progress Note Date: 10/13/21 10/12/2021, the patient is being seen for a follow-up. The patient is in intensive care unit with acute hypoxic respiratory failure, fever, suspected bilateral pneumonia and the patient has been intubated since 10/10/2021. The patient underwent a bronchoscopy on 10/10/2021 and the results were consistent with Yvrose albicans. The chest x-ray from today still showing persistent bilateral pulmonary infiltrates more so in the mid and lower lung [place] bilaterally. The patient remains on a combination of IV cefepime, vancomycin and voriconazole is also added today by infectious disease. Note that the urine showed yeast species and the bronchial alveolar lavage also showed Yvrose albicans.. This morning, the patient remains on propofol at the rate of 50 mcg/kg per minute. The patient is adequately sedated. The patient is on a mechanical ventilator on assist control mode at the rate of 26 with a tidal volume of 400 and FiO2 of 60% with a PEEP of 10. Peak air pressures around 28 with metastatic a pressure of 26. The patient is on IV fluids with normal saline at the rate of 130 mL an hour. Urine output is in order of 50 mL an hour. The patient has a left-sided triple-lumen catheter in the subclavian. The patient is on norepinephrine running at 0.35 mg/kg/m. The current cardiac rhythm is sinus. The patient is on enteral feeding for nutritional support and the patient is currently on vital 1.2 at the rate of 10 mL an hour. The blood gases from today shows a pH of 7.3 with a pCO2 of 32 and pO2 of 129 and this was done and FiO2 of 60%. On the blood work today, the sodium level is up to 147 and a chloride is at 124, serum bicarbonate 16 with anion gap of 7. The patient developed an acute kidney injury. The baseline creatinine at a time with position was as low as 1.2 and currently is up to 1.9.the echo of the heart showed a preserved LV function with very small pericardial effusion. No other significant valvular abnormalities noted.Note that the computed tomography scan of the chest abdomen and pelvis was done at time of admission and showed small hiatal hernia, gallbladder calculus without evidence of an acute cholecystitis, mild retroperitoneal fat stranding around the pancreas and prominent retroperitoneal and mesenteric lymph nodes and 4 mm Was in the upper pole of the right kidney without evidence of any hydronephrosis. The ultrasound of the neck showed multiple lymph nodes in the left lateral neck area largest measuring 1.9 x 1.5 cm in size and the thyroid gland was not adequately visualized. 10/13/2021, seeing the patient for a follow-up. The patient remains intubated on a mechanical ventilator. The patient remains sedated on propofol. Propofol is currently running at 40 mcg/kg per minute and the patient is quite synchronous the mechanical ventilator. The patient is currently on assist control mode of mechanical ventilation at the rate of 26, tidal volume 400, FiO2 of 60% with a PEEP of 15. The blood gases from today showed a pH of 7.27 with a pCO2 of 38 and pO2 of 176. The peak airway pressure was 28. The patient had a follow-up chest x-ray today that showed diffuse but the pulmonary infiltrates and the patient remains on the same antibiotic coverage includes a combination of IV cefepime and voriconazole. The bronchial washing showed Yvrose albicans. Urine culture showed Yvrose glabrata. Note that the chest x-ray showed that ET tube was in a good location. The patient had indwelling NG tube, subclavian triple lumen catheter and orotracheal tube follow them for in good location. The patient had bilateral wrist disease and pulmonary infiltrates. The patient was receiving IV fluids in the form of half-normal saline. This was switched to D5 with 2 ampules of sodium bicarbonate at the rate of 150 mL an hour as the patient had some mild component of non-anion gap metabolic acidosis in addition to hyperchloremic hypernatremia. The patient's creatinine today is at 2.2 and the overall his net fluid balance over the past 24 hours has been +3.6 L over the past 24 hours. The white cell count remains elevated at 17.4. Nevertheless the patient is not having any fever. The patient is on enteral feeding for nutritional support and the patient is receiving vital AF at the rate of 34 mL an hour which is at goal. Her pro-calcitonin level was 6.16. She did have a positive p-ANCA and c-ANCA. ELIDA was negative. Significance of those is not clear. The UA showed 24 RBCs, 21 over the ABCs, +1-2 protein. Rheumatology consultation was obtained. The patient continues to have pressor requirements and the patient is currently on norepinephrine infusion running at 0.2 mcg/kg per minute. Objective - Vital Signs Vital signs: Vital Signs Temp 97.1 F L 10/13/21 12:00 Pulse 73 10/13/21 14:15 Resp 26 H 10/13/21 14:15 BP 92/59 10/13/21 14:15 Pulse Ox 99 10/13/21 13:15 Intake & Output 10/12/21 10/13/21 10/13/21 18:59 06:59 18:59 Intake Total 2287.379 2722.493 1290.128 Output Total 381 243 2704 Balance 1459.280 9971.493 190.128 Weight 85.5 kg 85.5 kg Intake: IV 1780 2130 1280 0.9 780 130 80 Cefepime 2 gm In Sodium 100 100 Chloride 0.9% 100 ml @ 25 mls/hr IVPB Q12H [facility] Rx# :[id number] Sodium Chloride 0.45% 1, 900 1650 1200 000 ml @ 150 mls/hr IV . Q6H40M [facility] Rx#:[id number] Voriconazole 400 mg In 250 Sodium Chloride 0.9% 250 ml @ 125 mls/hr IVPB Q12H [facility] Rx#:[id number] Intake, IV Titration 217.379 322.493 10.128 Amount Norepinephrine 32 mg In 117.379 122.493 10.128 Sodium Chloride 0.9% 218 ml @ 0.4 MCG/KG/MIN 10. 781 mls/hr IV .[id number] [facility] Rx#:[id number] propofoL 1,000 mg In 100 200.000 Empty Bag 1 bag @ 5 MCG/ KG/MIN 1.725 mls/hr IV . Q24H [facility] Rx#:[id number] Tube Feeding 200 210 Other 90 60 Output: Urine 445 626 0875 Other: Voiding Method Indwelling Catheter Indwelling Catheter Indwelling Catheter ABP, PAP, CO, CI - Last Documented Arterial Blood Pressure 103/58 - Exam Sedated, with an orally placed endotracheal tube and NG tube. The patient is sedated on propofol. The patient's, comfortable. The patient is quite sick is the mechanical ventilator. Head exam was generally normal. There was no scleral icterus or corneal arcus. Mucous membranes were moist. Neck supple. Full range of motion. A left-sided neck adenopathy. Neck veins a re not distended. Cardiovascular examination reveals regular rhythm rate. S1-S2 normal. No S3 or S4. No discernible murmur noted. Heart sounds are distant. Lungs reveal coarse bilateral rhonchi. No wheezes. No crackles. Breath sounds equal. Abdomen soft bowel sounds are heard. No masses or tenderness. Extremities are intact. No cyanosis clubbing or edema. Skin reveals some mottling on the chest area, and also on the knees bilaterally.The patient has an erythematous rash over the knees bilaterally. Neurologic examination was unable to be evaluated because the patient was sedate d. - Labs CBC & Chem 7: 10/13/21 03:55 10/13/21 03:55 Labs: Abnormal Lab Results - Last 24 Hours (Table) 10/08/21 10/11/21 10/12/21 Range/Units 13:21 13:37 04:30 WBC (3.8-10.6) k/uL RBC (3.80-5.40) m/uL MCV (80.0-100.0) fL Plt Count (150-450) k/uL Neutrophils # (1.3-7.7) k/uL Haptoglobin (31.2-198.0) mg/dL D-Dimer (<0.60) mg/L FEU ABG pH (7.35-7.45) ABG pO2 (83-108) mmHg ABG HCO3 (21-25) mmol/L ABG O2 Saturation (94-97) % Sodium (137-145) mmol/L Potassium (3.5-5.1) mmol/L Chloride (98-107) mmol/L Carbon Dioxide (22-30) mmol/L BUN (7-17) mg/dL Creatinine (0.52-1.04) mg/dL Glucose (74-99) mg/dL POC Glucose (mg/dL) (75-99) mg/dL Calcium (8.4-10.2) mg/dL Lactate Dehydrogenase (313-618) U/L Total Protein (PEP) (6.2-8.2) g/dL Procalcitonin 6.16 H (0.02-0.09) ng/mL Urine Appearance (Clear) Urine Protein (Negative) Urine Blood (Negative) Ur Leukocyte Esterase (Negative) Urine RBC (0-5) /hpf Urine WBC (0-5) /hpf Urine WBC Clumps (None) /hpf Ur Squamous Epith Cells (0-4) /hpf Urine Bacteria (None) /hpf Urine Mucus (None) /hpf Urine Yeast (Budding) (None) /hpf Complement C5 64 H (29 - 53) U/mL Mycoplasma pneumon IgG 2.55 H (<=0.90) INDEX 10/12/21 10/12/21 10/12/21 Range/Units 15:35 15:36 15:36 WBC (3.8-10.6) k/uL RBC (3.80-5.40) m/uL MCV (80.0-100.0) fL Plt Count (150-450) k/uL Neutrophils # (1.3-7.7) k/uL Haptoglobin (31.2-198.0) mg/dL D-Dimer 8.35 H (<0.60) mg/L FEU ABG pH (7.35-7.45) ABG pO2 (83-108) mmHg ABG HCO3 (21-25) mmol/L ABG O2 Saturation (94-97) % Sodium (137-145) mmol/L Potassium (3.5-5.1) mmol/L Chloride (98-107) mmol/L Carbon Dioxide (22-30) mmol/L BUN (7-17) mg/dL Creatinine (0.52-1.04) mg/dL Glucose (74-99) mg/dL POC Glucose (mg/dL) (75-99) mg/dL Calcium (8.4-10.2) mg/dL Lactate Dehydrogenase (313-618) U/L Total Protein (PEP) 4.2 L (6.2-8.2) g/dL Procalcitonin (0.02-0.09) ng/mL Urine Appearance Turbid H (Clear) Urine Protein 1+ H (Negative) Urine Blood Moderate H (Negative) Ur Leukocyte Esterase Moderate H (Negative) Urine RBC 20 H (0-5) /hpf Urine WBC 29 H (0-5) /hpf Urine WBC Clumps (None) /hpf Ur Squamous Epith Cells 13 H (0-4) /hpf Urine Bacteria Rare H (None) /hpf Urine Mucus Rare H (None) /hpf Urine Yeast (Budding) Few H (None) /hpf Complement C5 (29 - 53) U/mL Mycoplasma pneumon IgG (<=0.90) INDEX 10/12/21 10/12/21 10/12/21 Range/Units 15:36 15:36 15:43 WBC 17.3 H (3.8-10.6) k/uL RBC 3.47 L (3.80-5.40) m/uL MCV 102.7 H (80.0-100.0) fL Plt Count 50 L (150-450) k/uL Neutrophils # 15.2 H (1.3-7.7) k/uL Haptoglobin 423.0 H (31.2-198.0) mg/dL D-Dimer (<0.60) mg/L FEU ABG pH (7.35-7.45) ABG pO2 (83-108) mmHg ABG HCO3 (21-25) mmol/L ABG O2 Saturation (94-97) % Sodium (137-145) mmol/L Potassium (3.5-5.1) mmol/L Chloride (98-107) mmol/L Carbon Dioxide (22-30) mmol/L BUN (7-17) mg/dL Creatinine (0.52-1.04) mg/dL Glucose (74-99) mg/dL POC Glucose (mg/dL) (75-99) mg/dL Calcium (8.4-10.2) mg/dL Lactate Dehydrogenase 866 H (313-618) U/L Total Protein (PEP) (6.2-8.2) g/dL Procalcitonin (0.02-0.09) ng/mL Urine Appearance (Clear) Urine Protein (Negative) Urine Blood (Negative) Ur Leukocyte Esterase (Negative) Urine RBC (0-5) /hpf Urine WBC (0-5) /hpf Urine WBC Clumps (None) /hpf Ur Squamous Epith Cells (0-4) /hpf Urine Bacteria (None) /hpf Urine Mucus (None) /hpf Urine Yeast (Budding) (None) /hpf Complement C5 (29 - 53) U/mL Mycoplasma pneumon IgG (<=0.90) INDEX 10/12/21 10/12/21 10/13/21 Range/Units 16:46 23:35 03:55 WBC (3.8-10.6) k/uL RBC (3.80-5.40) m/uL MCV (80.0-100.0) fL Plt Count (150-450) k/uL Neutrophils # (1.3-7.7) k/uL Haptoglobin (31.2-198.0) mg/dL D-Dimer (<0.60) mg/L FEU ABG pH 7.34 L (7.35-7.45) ABG pO2 48 L* (83-108) mmHg ABG HCO3 19 L (21-25) mmol/L ABG O2 Saturation 85.7 L (94-97) % Sodium 149 H (137-145) mmol/L Potassium 3.3 L (3.5-5.1) mmol/L Chloride 124 H (98-107) mmol/L Carbon Dioxide 17 L (22-30) mmol/L BUN 48 H (7-17) mg/dL Creatinine 2.20 H (0.52-1.04) mg/dL Glucose 141 H (74-99) mg/dL POC Glucose (mg/dL) 142 H (75-99) mg/dL Calcium 7.2 L (8.4-10.2) mg/dL Lactate Dehydrogenase (313-618) U/L Total Protein (PEP) (6.2-8.2) g/dL Procalcitonin (0.02-0.09) ng/mL Urine Appearance (Clear) Urine Protein (Negative) Urine Blood (Negative) Ur Leukocyte Esterase (Negative) Urine RBC (0-5) /hpf Urine WBC (0-5) /hpf Urine WBC Clumps (None) /hpf Ur Squamous Epith Cells (0-4) /hpf Urine Bacteria (None) /hpf Urine Mucus (None) /hpf Urine Yeast (Budding) (None) /hpf Complement C5 (29 - 53) U/mL Mycoplasma pneumon IgG (<=0.90) INDEX 10/13/21 10/13/21 10/13/21 Range/Units 03:55 05:29 05:49 WBC 17.4 H (3.8-10.6) k/uL RBC 3.45 L (3.80-5.40) m/uL MCV 102.3 H (80.0-100.0) fL Plt Count 62 L (150-450) k/uL Neutrophils # 15.7 H (1.3-7.7) k/uL Haptoglobin (31.2-198.0) mg/dL D-Dimer (<0.60) mg/L FEU ABG pH 7.27 L (7.35-7.45) ABG pO2 176 H (83-108) mmHg ABG HCO3 17 L (21-25) mmol/L ABG O2 Saturation 99.1 H (94-97) % Sodium (137-145) mmol/L Potassium (3.5-5.1) mmol/L Chloride (98-107) mmol/L Carbon Dioxide (22-30) mmol/L BUN (7-17) mg/dL Creatinine (0.52-1.04) mg/dL Glucose (74-99) mg/dL POC Glucose (mg/dL) 151 H (75-99) mg/dL Calcium (8.4-10.2) mg/dL Lactate Dehydrogenase (313-618) U/L Total Protein (PEP) (6.2-8.2) g/dL Procalcitonin (0.02-0.09) ng/mL Urine Appearance (Clear) Urine Protein (Negative) Urine Blood (Negative) Ur Leukocyte Esterase (Negative) Urine RBC (0-5) /hpf Urine WBC (0-5) /hpf Urine WBC Clumps (None) /hpf Ur Squamous Epith Cells (0-4) /hpf Urine Bacteria (None) /hpf Urine Mucus (None) /hpf Urine Yeast (Budding) (None) /hpf Complement C5 (29 - 53) U/mL Mycoplasma pneumon IgG (<=0.90) INDEX 10/13/21 10/13/21 Range/Units 09:35 11:57 WBC (3.8-10.6) k/uL RBC (3.80-5.40) m/uL MCV (80.0-100.0) fL Plt Count (150-450) k/uL Neutrophils # (1.3-7.7) k/uL Haptoglobin (31.2-198.0) mg/dL D-Dimer (<0.60) mg/L FEU ABG pH (7.35-7.45) ABG pO2 (83-108) mmHg ABG HCO3 (21-25) mmol/L ABG O2 Saturation (94-97) % Sodium (137-145) mmol/L Potassium (3.5-5.1) mmol/L Chloride (98-107) mmol/L Carbon Dioxide (22-30) mmol/L BUN (7-17) mg/dL Creatinine (0.52-1.04) mg/dL Glucose (74-99) mg/dL POC Glucose (mg/dL) 177 H (75-99) mg/dL Calcium (8.4-10.2) mg/dL Lactate Dehydrogenase (313-618) U/L Total Protein (PEP) (6.2-8.2) g/dL Procalcitonin (0.02-0.09) ng/mL Urine Appearance Turbid H (Clear) Urine Protein 2+ H (Negative) Urine Blood Large H (Negative) Ur Leukocyte Esterase Small H (Negative) Urine RBC 24 H (0-5) /hpf Urine WBC 21 H (0-5) /hpf Urine WBC Clumps Few H (None) /hpf Ur Squamous Epith Cells (0-4) /hpf Urine Bacteria Rare H (None) /hpf Urine Mucus Rare H (None) /hpf Urine Yeast (Budding) Few H (None) /hpf Complement C5 (29 - 53) U/mL Mycoplasma pneumon IgG (<=0.90) INDEX Microbiology - Last 24 Hours (Table) 10/10/21 13:45 Gram Stain - Final Bronchial Washings - Right Bronchial Washings Culture - Final Yvrose albicans 10/11/21 15:36 Urine Culture - Preliminary Urine,Voided 10/06/21 23:35 Blood Culture - Final Blood No Growth after 144 hours 10/06/21 23:50 Blood Culture - Final Blood No Growth after 144 hours 10/09/21 17:50 Urine Culture - Final Urine,Voided Yvrose glabrata Assessment and Plan Plan: Acute hypoxemic respiratory failure, likely multifactorial, in part related to bilateral pneumonia. The patient required intubation and mechanical ventilation on 10/10/2021. She also had a central line placed, and arterial line placed, and underwent bronchoscopy.The bronchioloalveolar lavage showed Yvrose albicans and the patient is currently on a combination of antibiotics including a combination of cefepime, vancomycin and voriconazole. Infectious diseases on the case. The chest x-ray is showing lower lobe at the pulmonary infiltrates. Blood gas was noted. Chest x-ray was noted. Note that the pro-calcitonin level was quite elevated, but admission and this indicated essentially possibility of bacterial infection. For now, the patient remains on a mechanical ventilator. Chest x-ray remains unchanged. The patient is currently on a PEEP of 15 with an FiO2 of 60% with some interval improvement in oxygenation. Episodic fever Septic shock with secondary hypotension, possibly related to underlying sepsis. The patient is currently on pressors, NE is running at 0.2 mcg/kg/min Left sided cervical lymphadenopathy. History of gastroesophageal reflux disease. History of hypertension. History of hypothyroidism. History of ongoing tobacco use. History of anxiety/depression/bipolar disorder. acute hyperchloremic hypernatremia Non-anion gap metabolic acidosis Acute kidney injury in the creatinine is up to 2.2 Abdominal lymphadenopathy, nonspecific Questionable gallbladder calculus without evidence of any cholecystitis 4 mm calculus in the upper lobe of the right kidney, no hydronephrosis Acute thrombocytopenia, platelet counts are stable at 62K Plan: Continue ventilator support. Wean down FiO2 to maintain a saturation above 90% Agree on the bicarb infusion Monitor electrolytes and comfortable IV fluids to 75 mL's an hour May start diuretics for the next 24 hours especially the patient continues to have a low urine output and positive fluid balance Echo showed a preserved LV function CAT scan of the chest abdomen and pelvis at a time of admission showed no significant bilateral pulmonary infiltrates and the findings were essentially nonspecific Continue enteral feeding for nutritional support Urine output is adequate Monitor fever pattern We'll continue to follow make further recommendations based on progress. Condition is critical evaluation and this is done in more than 40 minutes. Time with Patient: Greater than 30
[2021-10-13] MEDS: NOREPINEPHRINE 32 MG in SODIUM CHLORIDE 0.9% 218 ML IV SCH (15:23)
[2021-10-13 16:47] LABS: Calcium 7.1 mg/dL (8.4-10.2); Potassium 3.4 mmol/L (3.5-5.1)
[2021-10-13 17:24] LABS: Glucose,Whole Blood 186 mg/dL (75-99)
[2021-10-13] MEDS ORDERED: INSULIN ASPART (NovoLOG) 100 UNIT/ML VIAL SQ SCH (17:30)
[2021-10-13] MEDS ORDERED: ARTIFICIAL TEARS-HYPROMELLOSE DROPS 15 ML BTL BOTH EYES PRN (22:00)
[2021-10-13 23:42] LABS: Glucose,Whole Blood 189 mg/dL (75-99)
[2021-10-14 00:27] LABS: Glucose,Whole Blood 189 mg/dL (75-99)
[2021-10-14] MEDS: CEFEPIME 2 GM in SODIUM CHLORIDE 0.9% 100 ML IVPB SCH ×2 (00:41→08:21)
[2021-10-14] MEDS: HEPARIN SODIUM,PORCINE/PF 5,000 UNIT/0.5 ML SYRINGE SQ SCH ×3 (00:42→17:39)
[2021-10-14] MEDS: VORICONAZOLE IVPB SCH ×2 (00:46→11:51)
[2021-10-14] MEDS: SODIUM CHLORIDE 0.9% IVPB SCH ×2 (00:46→11:51)
[2021-10-14] MEDS: methylPREDNISolone SOD SUCCI 125 MG/2 ML VIAL IV SCH ×4 (00:47→17:40)
[2021-10-14] MEDS: INSULIN ASPART (NovoLOG) 100 UNIT/ML VIAL SQ SCH ×4 (00:48→17:39)
[2021-10-14 04:55] LABS: Basophils # (A) 0.1 k/uL (0-0.2); Basophils % (A) 0 %; Eosinophils % (A) 0 %; HCT 34.3 % (34.0-46.0); HGB 11.2 gm/dL (11.4-16.0); Hypochromasia Slight; Lymphocytes # (A) 1.2 k/uL (1.0-4.8); Lymphocytes % (A) 6 %; MCH 32.6 pg (25.0-35.0); MCHC 32.6 g/dL (31.0-37.0); Macrocytosis Slight; Mean Platelet Volume 12.8; Monocytes # (A) 0.4 k/uL (0-1.0); Monocytes % (A) 2 %; Neutrophils # (A) 17.6 k/uL (1.3-7.7); Neutrophils % (A) 90 %; Poikilocytosis Slight; RBC 3.43 m/uL (3.80-5.40); RDW 15.5 % (11.5-15.5); WBC 19.5 k/uL (3.8-10.6)
[2021-10-14 04:56] LABS: Platelet Count 84 k/uL (150-450)
[2021-10-14 04:58] LABS: Calcium 7.5 mg/dL (8.4-10.2); Potassium 3.8 mmol/L (3.5-5.1)
[2021-10-14 05:46] LABS: Glucose,Whole Blood 154 mg/dL (75-99)
[2021-10-14] MEDS: LEVOTHYROXINE 100 MCG TAB PO SCH (05:58)
[2021-10-14 06:10] LABS: ABG Base Excess -3.7 mmol/L; ABG HCO3 22 mmol/L (21-25); ABG Oxygen Saturation 98.7 % (94-97); ABG PCO2 39 mmHg (35-45); ABG PH 7.36 (7.35-7.45); ABG PO2 133 mmHg (83-108); ABG TCO2 23 mmol/L (19-24)
[2021-10-14] MEDS: DEXTROSE 5% IN WATER 1,000 ML with SODIUM BICARB (1 MEQ/ML) 100 ML IV SCH ×3 (06:11→18:01)
[2021-10-14 06:16] LABS: Allen Test Performed? No
[2021-10-14] MEDS: IPRATROPIUM-ALBUTEROL 3 ML NEB INHALATION PRN ×3 (07:35→14:58)
--- NOTE | 2021-10-14 07:50 | XR ---
EXAMINATION TYPE: XR chest 1V portable DATE OF EXAM: 10/14/2021 COMPARISON: Chest x-ray 10/13/2021 HISTORY: Congestive heart failure, pneumonia, abnormal chest x-ray, intubated TECHNIQUE: Single frontal view of the chest is obtained. FINDINGS: Findings are similar to prior exam. Endotracheal tube, NG tube, left greater than central venous catheter are overlying appropriate positions. Bilateral airspace disease is present, the hemid iaphragms are obscured. Heart size may be accentuated by rotation. Aorta is dense. There are overlyin g artifacts. IMPRESSION: Correlate for congestive heart failure versus pneumonia, difficult to exclude effusion
[2021-10-14] MEDS: CHLORHEXIDINE GLUCONATE 15 ML CUP MUCOUS MEM SCH ×2 (08:20→22:10)
[2021-10-14] MEDS: lamoTRIgine 100 MG TAB PO SCH ×2 (08:21→22:10)
--- NOTE | 2021-10-14 10:02 | P.PN ---
Subjective patient is seen in follow-up for acute kidney injury on chronic kidney disease. Creatinine 2.47 today. Urine output 20-40 mL an hour. Status post IV Lasix 60 mg given yesterday. Intubated. On Levophed. Receiving D5 with 2 A of bicarbonate running at 100 mL an hour. Sodium level 147 today. Receiving tube feeds. Vital signs are stable. On vasopressor support. HEENT: Intubated. LUNGS: Breath sounds decreased. HEART: Rate and Rhythm are regular. ABDOMEN: Soft, no distention. EXTREMITITES: 1+ edema. Objective - Vital Signs Vital signs: Vital Signs Temp 98.2 F 10/14/21 04:00 Pulse 68 10/14/21 08:02 Resp 26 H 10/14/21 07:00 BP 83/51 10/14/21 07:00 Pulse Ox 98 10/14/21 07:00 Intake & Output 10/13/21 10/14/21 10/14/21 18:59 06:59 18:59 Intake Total 2404.128 3244.322 157.005 Output Total 1430 400 25 Balance 721.845 5045.322 132.005 Weight 85.5 kg 87 kg Intake: IV 1920 230 10 0.9 120 80 10 Sodium Chloride 0.45% 1, 1800 150 000 ml @ 150 mls/hr IV . Q6H40M [facility] Rx#:[id number] Intake, IV Titration 559.466 5802.322 113.005 Amount Cefepime 2 gm In Sodium 100 Chloride 0.9% 100 ml @ 25 mls/hr IVPB Q8H [facility] Rx#: [id number] Dextrose 5% in Water 1, 1100 100 000 ml @ 100 mls/hr IV . Q11H [facility] with Sodium Bicarb (1 Meq/ml) 100 ml Rx#:[id number] Norepinephrine 32 mg In 10.128 70.072 13.005 Sodium Chloride 0.9% 218 ml @ 0.4 MCG/KG/MIN 10. 781 mls/hr IV .[id number] [facility] Rx#:[id number] Voriconazole 250 mg In 250 Sodium Chloride 0.9% 250 ml @ 125 mls/hr IVPB Q12HR@0000,1200 [facility] Rx#: [id number] propofoL 1,000 mg In 100 186.250 Empty Bag 1 bag @ 5 MCG/ KG/MIN 1.725 mls/hr IV . Q24H [facility] Rx#:[id number] Tube Feeding 374 408 34 Other 900 Output: Urine 1430 400 25 Other: Voiding Method Indwelling Catheter Indwelling Catheter ABP, PAP, CO, CI - Last Documented Arterial Blood Pressure 114/59 - Labs CBC & Chem 7: 10/14/21 04:25 10/14/21 04:25 Labs: Abnormal Lab Results - Last 24 Hours (Table) 10/11/21 10/13/21 10/13/21 Range/Units 04:00 09:35 11:57 WBC (3.8-10.6) k/uL RBC (3.80-5.40) m/uL Hgb (11.4-16.0) gm/dL Plt Count (150-450) k/uL Neutrophils # (1.3-7.7) k/uL Pathologist Review See comment A ABG pO2 (83-108) mmHg ABG O2 Saturation (94-97) % Sodium (137-145) mmol/L Potassium (3.5-5.1) mmol/L Chloride (98-107) mmol/L Carbon Dioxide (22-30) mmol/L BUN (7-17) mg/dL Creatinine (0.52-1.04) mg/dL Glucose (74-99) mg/dL POC Glucose (mg/dL) 177 H (75-99) mg/dL Calcium (8.4-10.2) mg/dL Urine Appearance Turbid H (Clear) Urine Protein 2+ H (Negative) Urine Blood Large H (Negative) Ur Leukocyte Esterase Small H (Negative) Urine RBC 24 H (0-5) /hpf Urine WBC 21 H (0-5) /hpf Urine WBC Clumps Few H (None) /hpf Urine Bacteria Rare H (None) /hpf Urine Mucus Rare H (None) /hpf Urine Yeast (Budding) Few H (None) /hpf 10/13/21 10/13/21 10/13/21 Range/Units 16:15 17:23 23:40 WBC (3.8-10.6) k/uL RBC (3.80-5.40) m/uL Hgb (11.4-16.0) gm/dL Plt Count (150-450) k/uL Neutrophils # (1.3-7.7) k/uL Pathologist Review ABG pO2 (83-108) mmHg ABG O2 Saturation (94-97) % Sodium 147 H (137-145) mmol/L Potassium 3.4 L (3.5-5.1) mmol/L Chloride 121 H (98-107) mmol/L Carbon Dioxide 20 L (22-30) mmol/L BUN 52 H (7-17) mg/dL Creatinine 2.19 H (0.52-1.04) mg/dL Glucose 187 H (74-99) mg/dL POC Glucose (mg/dL) 186 H 189 H (75-99) mg/dL Calcium 7.1 L (8.4-10.2) mg/dL Urine Appearance (Clear) Urine Protein (Negative) Urine Blood (Negative) Ur Leukocyte Esterase (Negative) Urine RBC (0-5) /hpf Urine WBC (0-5) /hpf Urine WBC Clumps (None) /hpf Urine Bacteria (None) /hpf Urine Mucus (None) /hpf Urine Yeast (Budding) (None) /hpf 10/14/21 10/14/21 10/14/21 Range/Units 00:25 04:25 04:25 WBC 19.5 H (3.8-10.6) k/uL RBC 3.43 L (3.80-5.40) m/uL Hgb 11.2 L (11.4-16.0) gm/dL Plt Count 84 L (150-450) k/uL Neutrophils # 17.6 H (1.3-7.7) k/uL Pathologist Review ABG pO2 (83-108) mmHg ABG O2 Saturation (94-97) % Sodium 147 H (137-145) mmol/L Potassium (3.5-5.1) mmol/L Chloride 117 H (98-107) mmol/L Carbon Dioxide 21 L (22-30) mmol/L BUN 61 H (7-17) mg/dL Creatinine 2.47 H (0.52-1.04) mg/dL Glucose 163 H (74-99) mg/dL POC Glucose (mg/dL) 189 H (75-99) mg/dL Calcium 7.5 L (8.4-10.2) mg/dL Urine Appearance (Clear) Urine Protein (Negative) Urine Blood (Negative) Ur Leukocyte Esterase (Negative) Urine RBC (0-5) /hpf Urine WBC (0-5) /hpf Urine WBC Clumps (None) /hpf Urine Bacteria (None) /hpf Urine Mucus (None) /hpf Urine Yeast (Budding) (None) /hpf 10/14/21 10/14/21 Range/Units 05:23 05:45 WBC (3.8-10.6) k/uL RBC (3.80-5.40) m/uL Hgb (11.4-16.0) gm/dL Plt Count (150-450) k/uL Neutrophils # (1.3-7.7) k/uL Pathologist Review ABG pO2 133 H (83-108) mmHg ABG O2 Saturation 98.7 H (94-97) % Sodium (137-145) mmol/L Potassium (3.5-5.1) mmol/L Chloride (98-107) mmol/L Carbon Dioxide (22-30) mmol/L BUN (7-17) mg/dL Creatinine (0.52-1.04) mg/dL Glucose (74-99) mg/dL POC Glucose (mg/dL) 154 H (75-99) mg/dL Calcium (8.4-10.2) mg/dL Urine Appearance (Clear) Urine Protein (Negative) Urine Blood (Negative) Ur Leukocyte Esterase (Negative) Urine RBC (0-5) /hpf Urine WBC (0-5) /hpf Urine WBC Clumps (None) /hpf Urine Bacteria (None) /hpf Urine Mucus (None) /hpf Urine Yeast (Budding) (None) /hpf Microbiology - Last 24 Hours (Table) 10/11/21 15:36 Urine Culture - Final Urine,Voided 10/10/21 13:45 Gram Stain - Final Bronchial Washings - Right Bronchial Washings Culture - Final Yvrose albicans Assessment and Plan Plan: Assessment: 1. Acute kidney injury secondary to ATN secondary to septic shock. Also noted to be thrombocytopenic - platelet levels better. Need to rule out HUS/TTP although patient was not anemic - discussed with hematology. No schistocytes noted. Creatinine 2.47 today. Nonoliguric. Initial UA showed trace proteinuria with 2 RBCs. Repeat UA with 1-2+ protein and also RBCs. UPC 2.1 g. 2. 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 3. Hypernatremia from lack of oral water intake. 4. Septic shock maintained on Levophed. On antibiotics. Unclear source. Infectious disease following. 5. Metabolic acidosis secondary to acute kidney injury and IV fluids. Improving. 6. Left cervical region and retroperitoneal lymphadenopathy. Being followed by ID and oncology. 7. Elevated anti-MPO. ELIDA negative. Doubt renal vasculitis as only 2 RBCs on initial UA. Rheumatology following. On Solu-Medrol. Plan: Continue D5 with 2 A of bicarb at 100 mL an hour. Maintain tube feeds. Increase free water flushes to 400 mL every 6 hours. Repeat Lasix 60 mg IV once today if no improvement in urine output in the next 2-3 hours. Wean FiO2 and vasopressors. ELIDA, Complement levels, DC-3, hepatitis normal. HIV negative. Follow-up anti- GBM antibody and electrophoresis studies. Continue to monitor renal function and urine output. Will need kidney biopsy per rheumatology. Will schedule when medically stable if able to be done at this facility.
[2021-10-14 11:19] LABS: Glucose,Whole Blood 157 mg/dL (75-99)
[2021-10-14] MEDS ORDERED: FUROSEMIDE 10 MG/ML 10 ML VIAL IV STA (12:27)
--- NOTE | 2021-10-14 13:52 | P.PN ---
Subjective Progress Note Date: 10/14/21 No new complaints. FiO2 60%, PEEP 15, AC 400. Ongoing levophed, down to 0.11. Fever profile has improved. Holding off on steroids until we can get a biopsy sample - preferably cervical excisional lymph node bx versus renal bx. Surgery consulted yesterday for the former. Case discussed with family who is at bedside today. Gen: intubated, sedated HEENT: normocephalic, atraumatic, moist mucous membranes Resp: ventilator, equal chest expansion CVS: good distal perfusion x 4, GI: soft, NTTP, ND : no SPT, no CVAT, owens catheter is present MSK: no pitting edema, no clubbing Assessment/plan: Septic Shock Elevated anti-MPO - Differential includes: IgG4-RD, Lymphoma, Microscopic Polyangitis/Granulomatosis with Polyangitis. -On 10/09 IV antibiotics expanded to include, cefepime and vanco. Also added voriconazole. Blood cx 10/06 negative. Bronch done 10/10, NGTD -Influenza A, influenza B, and Covid PCR negative. -CMV nonreactive -EBV IgG positive IgM negative -Group A rapid strep negative -HIV, Mycoplasma, Mumps, Rubella are all negative -Pro-calcitonin elevated at 4.6 -->6.2 -Ultrasound left anterior neck revealing a left-sided cervical lymphadenopathy -CT chest abdomen and pelvis revealing mild fat stranding in the lower neck, small gastroesophageal hiatal hernia, and mild retroperitoneal fat stranding predominantly around the pancreas and prominent retroperitoneal and mesenteric lymph nodes the differential includes infectious and inflammatory etiologies, and a 4 mm calculus in the upper pole of the right kidney. -Infectious disease following, appreciate further recommendations -Rheumatology following -Surgery consulted for excisional lymph node biopsy of cervical LAD -Hematology following Acute hypoxic respiraroy failure secondary to primary rheumatologic process versus ARDS versus primary pneumonia Acute Kidney Injury superimposed on CKD, stage IIIa -CXR with CHF vs. pneumonia -BNP 49272, trops mildly elevated at 0.07, however flat. Seen by cardio no further plans -Antibiotics as above -Nephrology assisting with diuresis Low back pain: -D/w ID, MRI lumbar spine with and without contrast ordered but patient could not tolerate it -We will reattempt once more stable Lymphadenopathy, retroperitoneal, cervical -Seen by oncology, likely incidental finding, but due to chronic intermittent abdominal and back discomfort over the past year, oncology advised possible further evaluation with EUS, outpatient CODE STATUS: Full code DVT prophylaxis: Heparin Anticipated discharge date: Clinical course to determine Anticipated discharge place: Clinical course to determine Objective - Vital Signs Vital signs: Vital Signs Temp 98.1 F 10/14/21 08:00 Pulse 75 10/14/21 11:19 Resp 27 H 10/14/21 10:00 BP 101/63 10/14/21 10:00 Pulse Ox 96 10/14/21 10:00 Intake & Output 10/13/21 10/14/21 10/14/21 18:59 06:59 18:59 Intake Total 2404.128 3244.322 679.429 Output Total 1430 400 145 Balance 503.910 6479.322 534.429 Weight 85.5 kg 87 kg Intake: IV 1920 230 40 0.9 120 80 40 Sodium Chloride 0.45% 1, 1800 150 000 ml @ 150 mls/hr IV . Q6H40M [facility] Rx#:[id number] Intake, IV Titration 140.266 1371.322 503.429 Amount Cefepime 2 gm In Sodium 100 Chloride 0.9% 100 ml @ 25 mls/hr IVPB Q8H [facility] Rx#: [id number] Dextrose 5% in Water 1, 1100 400 000 ml @ 100 mls/hr IV . Q11H [facility] with Sodium Bicarb (1 Meq/ml) 100 ml Rx#:[id number] Norepinephrine 32 mg In 10.128 70.072 24.510 Sodium Chloride 0.9% 218 ml @ 0.4 MCG/KG/MIN 10. 781 mls/hr IV .[id number] [facility] Rx#:[id number] Voriconazole 250 mg In 250 Sodium Chloride 0.9% 250 ml @ 125 mls/hr IVPB Q12HR@0000,1200 [facility] Rx#: [id number] propofoL 1,000 mg In 100 186.250 78.919 Empty Bag 1 bag @ 5 MCG/ KG/MIN 1.725 mls/hr IV . Q24H [facility] Rx#:[id number] Tube Feeding 374 408 136 Other 900 Output: Urine 1430 400 145 Other: Voiding Method Indwelling Catheter Indwelling Catheter Indwelling Catheter ABP, PAP, CO, CI - Last Documented Arterial Blood Pressure 110/58 - Labs CBC & Chem 7: 10/14/21 04:25 10/14/21 04:25 Labs: Abnormal Lab Results - Last 24 Hours (Table) 10/11/21 10/13/21 10/13/21 Range/Units 04:00 16:15 16:15 WBC (3.8-10.6) k/uL RBC (3.80-5.40) m/uL Hgb (11.4-16.0) gm/dL Plt Count (150-450) k/uL Neutrophils # (1.3-7.7) k/uL Pathologist Review See comment A ABG pO2 (83-108) mmHg ABG O2 Saturation (94-97) % Sodium 147 H (137-145) mmol/L Potassium 3.4 L (3.5-5.1) mmol/L Chloride 121 H (98-107) mmol/L Carbon Dioxide 20 L (22-30) mmol/L BUN 52 H (7-17) mg/dL Creatinine 2.19 H (0.52-1.04) mg/dL Glucose 187 H (74-99) mg/dL POC Glucose (mg/dL) (75-99) mg/dL Calcium 7.1 L (8.4-10.2) mg/dL IgG 419.0 L (700.0-1600.0) mg/dL 10/13/21 10/13/21 10/14/21 Range/Units 17:23 23:40 00:25 WBC (3.8-10.6) k/uL RBC (3.80-5.40) m/uL Hgb (11.4-16.0) gm/dL Plt Count (150-450) k/uL Neutrophils # (1.3-7.7) k/uL Pathologist Review ABG pO2 (83-108) mmHg ABG O2 Saturation (94-97) % Sodium (137-145) mmol/L Potassium (3.5-5.1) mmol/L Chloride (98-107) mmol/L Carbon Dioxide (22-30) mmol/L BUN (7-17) mg/dL Creatinine (0.52-1.04) mg/dL Glucose (74-99) mg/dL POC Glucose (mg/dL) 186 H 189 H 189 H (75-99) mg/dL Calcium (8.4-10.2) mg/dL IgG (700.0-1600.0) mg/dL 10/14/21 10/14/21 10/14/21 Range/Units 04:25 04:25 05:23 WBC 19.5 H (3.8-10.6) k/uL RBC 3.43 L (3.80-5.40) m/uL Hgb 11.2 L (11.4-16.0) gm/dL Plt Count 84 L (150-450) k/uL Neutrophils # 17.6 H (1.3-7.7) k/uL Pathologist Review ABG pO2 133 H (83-108) mmHg ABG O2 Saturation 98.7 H (94-97) % Sodium 147 H (137-145) mmol/L Potassium (3.5-5.1) mmol/L Chloride 117 H (98-107) mmol/L Carbon Dioxide 21 L (22-30) mmol/L BUN 61 H (7-17) mg/dL Creatinine 2.47 H (0.52-1.04) mg/dL Glucose 163 H (74-99) mg/dL POC Glucose (mg/dL) (75-99) mg/dL Calcium 7.5 L (8.4-10.2) mg/dL IgG (700.0-1600.0) mg/dL 10/14/21 10/14/21 Range/Units 05:45 11:17 WBC (3.8-10.6) k/uL RBC (3.80-5.40) m/uL Hgb (11.4-16.0) gm/dL Plt Count (150-450) k/uL Neutrophils # (1.3-7.7) k/uL Pathologist Review ABG pO2 (83-108) mmHg ABG O2 Saturation (94-97) % Sodium (137-145) mmol/L Potassium (3.5-5.1) mmol/L Chloride (98-107) mmol/L Carbon Dioxide (22-30) mmol/L BUN (7-17) mg/dL Creatinine (0.52-1.04) mg/dL Glucose (74-99) mg/dL POC Glucose (mg/dL) 154 H 157 H (75-99) mg/dL Calcium (8.4-10.2) mg/dL IgG (700.0-1600.0) mg/dL Microbiology - Last 24 Hours (Table) 10/11/21 15:36 Urine Culture - Final Urine,Voided 10/10/21 13:45 Gram Stain - Final Bronchial Washings - Right Bronchial Washings Culture - Final Yvrose albicans
--- NOTE | 2021-10-14 14:06 | P.PN ---
Subjective Progress Note Date: 10/14/21 10/12/2021, the patient is being seen for a follow-up. The patient is in intensive care unit with acute hypoxic respiratory failure, fever, suspected bilateral pneumonia and the patient has been intubated since 10/10/2021. The patient underwent a bronchoscopy on 10/10/2021 and the results were consistent with Yvrose albicans. The chest x-ray from today still showing persistent bilateral pulmonary infiltrates more so in the mid and lower lung [place] bilaterally. The patient remains on a combination of IV cefepime, vancomycin and voriconazole is also added today by infectious disease. Note that the urine showed yeast species and the bronchial alveolar lavage also showed Yvrose albicans.. This morning, the patient remains on propofol at the rate of 50 mcg/kg per minute. The patient is adequately sedated. The patient is on a mechanical ventilator on assist control mode at the rate of 26 with a tidal volume of 400 and FiO2 of 60% with a PEEP of 10. Peak air pressures around 28 with metastatic a pressure of 26. The patient is on IV fluids with normal saline at the rate of 130 mL an hour. Urine output is in order of 50 mL an hour. The patient has a left-sided triple-lumen catheter in the subclavian. The patient is on norepinephrine running at 0.35 mg/kg/m. The current cardiac rhythm is sinus. The patient is on enteral feeding for nutritional support and the patient is currently on vital 1.2 at the rate of 10 mL an hour. The blood gases from today shows a pH of 7.3 with a pCO2 of 32 and pO2 of 129 and this was done and FiO2 of 60%. On the blood work today, the sodium level is up to 147 and a chloride is at 124, serum bicarbonate 16 with anion gap of 7. The patient developed an acute kidney injury. The baseline creatinine at a time with position was as low as 1.2 and currently is up to 1.9.the echo of the heart showed a preserved LV function with very small pericardial effusion. No other significant valvular abnormalities noted.Note that the computed tomography scan of the chest abdomen and pelvis was done at time of admission and showed small hiatal hernia, gallbladder calculus without evidence of an acute cholecystitis, mild retroperitoneal fat stranding around the pancreas and prominent retroperitoneal and mesenteric lymph nodes and 4 mm Was in the upper pole of the right kidney without evidence of any hydronephrosis. The ultrasound of the neck showed multiple lymph nodes in the left lateral neck area largest measuring 1.9 x 1.5 cm in size and the thyroid gland was not adequately visualized. 10/13/2021, seeing the patient for a follow-up. The patient remains intubated on a mechanical ventilator. The patient remains sedated on propofol. Propofol is currently running at 40 mcg/kg per minute and the patient is quite synchronous the mechanical ventilator. The patient is currently on assist control mode of mechanical ventilation at the rate of 26, tidal volume 400, FiO2 of 60% with a PEEP of 15. The blood gases from today showed a pH of 7.27 with a pCO2 of 38 and pO2 of 176. The peak airway pressure was 28. The patient had a follow-up chest x-ray today that showed diffuse but the pulmonary infiltrates and the patient remains on the same antibiotic coverage includes a combination of IV cefepime and voriconazole. The bronchial washing showed Yvrose albicans. Urine culture showed Yvrose glabrata. Note that the chest x-ray showed that ET tube was in a good location. The patient had indwelling NG tube, subclavian triple lumen catheter and orotracheal tube follow them for in good location. The patient had bilateral wrist disease and pulmonary infiltrates. The patient was receiving IV fluids in the form of half-normal saline. This was switched to D5 with 2 ampules of sodium bicarbonate at the rate of 150 mL an hour as the patient had some mild component of non-anion gap metabolic acidosis in addition to hyperchloremic hypernatremia. The patient's creatinine today is at 2.2 and the overall his net fluid balance over the past 24 hours has been +3.6 L over the past 24 hours. The white cell count remains elevated at 17.4. Nevertheless the patient is not having any fever. The patient is on enteral feeding for nutritional support and the patient is receiving vital AF at the rate of 34 mL an hour which is at goal. Her pro-calcitonin level was 6.16. She did have a positive p-ANCA and c-ANCA. ELIDA was negative. Significance of those is not clear. The UA showed 24 RBCs, 21 over the ABCs, +1-2 protein. Rheumatology consultation was obtained. The patient continues to have pressor requirements and the patient is currently on norepinephrine infusion running at 0.2 mcg/kg per minute. 10/14/2021, I'm seeing the patient for a follow-up. The patient remains on a mechanical ventilator. The patient sedated with propofol running at 40 mg/kg per minute. The patient remains on mechanical ventilator on assist control mode with a rate of 26, tidal volume of 400, FiO2 of 60% with a PEEP of 15. Blood gases showed a pH of 7.36 with a pCO2 of 39 and pO2 139. Chest x-ray findings are essentially unchanged. The patient remains on a D5 bicarb infusion at the rate of 100 mL an hour. The patient is also norepinephrine infusion running at 0.13 mitral respiratory kilo gram per minute. The patient is receiving vital AF at the rate of 34 mL an hour. The white cell count is at 19 with a hemoglobin of 11. Sodium level is at 147, BUN is at 61 with a creatinine of 3.47. Overall fluid balance is +2 L over the past 24 hours. The patient remains on IV cefepime and IV voriconazole. The patient is afebrile for now. Several consults and evaluated this patient including rheumatology, nephrology and infectious disease. Patient was also seen by oncology regarding the lymphadenopathy in the neck. She is afebrile. No significant progress in her condition. Objective - Vital Signs Vital signs: Vital Signs Temp 98.1 F 10/14/21 08:00 Pulse 75 10/14/21 11:19 Resp 27 H 10/14/21 10:00 BP 101/63 10/14/21 10:00 Pulse Ox 96 10/14/21 10:00 Intake & Output 10/13/21 10/14/21 10/14/21 18:59 06:59 18:59 Intake Total 2404.128 3244.322 679.429 Output Total 1430 400 145 Balance 189.373 4462.322 534.429 Weight 85.5 kg 87 kg Intake: IV 1920 230 40 0.9 120 80 40 Sodium Chloride 0.45% 1, 1800 150 000 ml @ 150 mls/hr IV . Q6H40M [facility] Rx#:[id number] Intake, IV Titration 170.612 9322.322 503.429 Amount Cefepime 2 gm In Sodium 100 Chloride 0.9% 100 ml @ 25 mls/hr IVPB Q8H [facility] Rx#: [id number] Dextrose 5% in Water 1, 1100 400 000 ml @ 100 mls/hr IV . Q11H [facility] with Sodium Bicarb (1 Meq/ml) 100 ml Rx#:[id number] Norepinephrine 32 mg In 10.128 70.072 24.510 Sodium Chloride 0.9% 218 ml @ 0.4 MCG/KG/MIN 10. 781 mls/hr IV .[id number] [facility] Rx#:[id number] Voriconazole 250 mg In 250 Sodium Chloride 0.9% 250 ml @ 125 mls/hr IVPB Q12HR@0000,1200 [facility] Rx#: [id number] propofoL 1,000 mg In 100 186.250 78.919 Empty Bag 1 bag @ 5 MCG/ KG/MIN 1.725 mls/hr IV . Q24H [facility] Rx#:[id number] Tube Feeding 374 408 136 Other 900 Output: Urine 1430 400 145 Other: Voiding Method Indwelling Catheter Indwelling Catheter Indwelling Catheter ABP, PAP, CO, CI - Last Documented Arterial Blood Pressure 110/58 - Exam Sedated, with an orally placed endotracheal tube and NG tube. The patient is sedated on propofol. The patient's, comfortable. The patient is quite sick is the mechanical ventilator. Head exam was generally normal. There was no scleral icterus or corneal arcus. Mucous membranes were moist. Neck supple. Full range of motion. A left-sided neck adenopathy. Neck veins are not distended. Cardiovascular examination reveals regular rhythm rate. S1-S2 normal. No S3 or S4. No discernible murmur noted. Heart sounds are distant. Lungs reveal coarse bilateral rhonchi. No wheezes. No crackles. Breath sounds equal. Abdomen soft bowel sounds are heard. No masses or tenderness. Extremities are intact. No cyanosis clubbing or edema. Skin reveals some mottling on the chest area, and also on the knees bilaterally. The patient has an erythematous rash over the knees bilaterally. Neurologic examination was unable to be evaluated because the patient was sedated. - Labs CBC & Chem 7: 10/14/21 04:25 10/14/21 04:25 Labs: Abnormal Lab Results - Last 24 Hours (Table) 10/11/21 10/13/21 10/13/21 Range/Units 04:00 16:15 16:15 WBC (3.8-10.6) k/uL RBC (3.80-5.40) m/uL Hgb (11.4-16.0) gm/dL Plt Count (150-450) k/uL Neutrophils # (1.3-7.7) k/uL Pathologist Review See comment A ABG pO2 (83-108) mmHg ABG O2 Saturation (94-97) % Sodium 147 H (137-145) mmol/L Potassium 3.4 L (3.5-5.1) mmol/L Chloride 121 H (98-107) mmol/L Carbon Dioxide 20 L (22-30) mmol/L BUN 52 H (7-17) mg/dL Creatinine 2.19 H (0.52-1.04) mg/dL Glucose 187 H (74-99) mg/dL POC Glucose (mg/dL) (75-99) mg/dL Calcium 7.1 L (8.4-10.2) mg/dL IgG 419.0 L (700.0-1600.0) mg/dL 10/13/21 10/13/21 10/14/21 Range/Units 17:23 23:40 00:25 WBC (3.8-10.6) k/uL RBC (3.80-5.40) m/uL Hgb (11.4-16.0) gm/dL Plt Count (150-450) k/uL Neutrophils # (1.3-7.7) k/uL Pathologist Review ABG pO2 (83-108) mmHg ABG O2 Saturation (94-97) % Sodium (137-145) mmol/L Potassium (3.5-5.1) mmol/L Chloride (98-107) mmol/L Carbon Dioxide (22-30) mmol/L BUN (7-17) mg/dL Creatinine (0.52-1.04) mg/dL Glucose (74-99) mg/dL POC Glucose (mg/dL) 186 H 189 H 189 H (75-99) mg/dL Calcium (8.4-10.2) mg/dL IgG (700.0-1600.0) mg/dL 10/14/21 10/14/21 10/14/21 Range/Units 04:25 04:25 05:23 WBC 19.5 H (3.8-10.6) k/uL RBC 3.43 L (3.80-5.40) m/uL Hgb 11.2 L (11.4-16.0) gm/dL Plt Count 84 L (150-450) k/uL Neutrophils # 17.6 H (1.3-7.7) k/uL Pathologist Review ABG pO2 133 H (83-108) mmHg ABG O2 Saturation 98.7 H (94-97) % Sodium 147 H (137-145) mmol/L Potassium (3.5-5.1) mmol/L Chloride 117 H (98-107) mmol/L Carbon Dioxide 21 L (22-30) mmol/L BUN 61 H (7-17) mg/dL Creatinine 2.47 H (0.52-1.04) mg/dL Glucose 163 H (74-99) mg/dL POC Glucose (mg/dL) (75-99) mg/dL Calcium 7.5 L (8.4-10.2) mg/dL IgG (700.0-1600.0) mg/dL 10/14/21 10/14/21 Range/Units 05:45 11:17 WBC (3.8-10.6) k/uL RBC (3.80-5.40) m/uL Hgb (11.4-16.0) gm/dL Plt Count (150-450) k/uL Neutrophils # (1.3-7.7) k/uL Pathologist Review ABG pO2 (83-108) mmHg ABG O2 Saturation (94-97) % Sodium (137-145) mmol/L Potassium (3.5-5.1) mmol/L Chloride (98-107) mmol/L Carbon Dioxide (22-30) mmol/L BUN (7-17) mg/dL Creatinine (0.52-1.04) mg/dL Glucose (74-99) mg/dL POC Glucose (mg/dL) 154 H 157 H (75-99) mg/dL Calcium (8.4-10.2) mg/dL IgG (700.0-1600.0) mg/dL Microbiology - Last 24 Hours (Table) 10/11/21 15:36 Urine Culture - Final Urine,Voided 10/10/21 13:45 Gram Stain - Final Bronchial Washings - Right Bronchial Washings Culture - Final Yvrose albicans Assessment and Plan Plan: Acute hypoxemic respiratory failure, likely multifactorial, in part related to bilateral pneumonia. The patient required intubation and mechanical ventilation on 10/10/2021. She underwent bronchoscopy.The bronchioloalveolar lavage showed Yvrose albicans and the patient is currently on a combination of antibiotics including a combination of cefepime and voriconazole. Infectious diseases on the case. The chest x-ray is showing lower lobe at the pulmonary infiltrates. Blood gas was noted. Chest x-ray was noted. Note that the pro-calcitonin level was quite elevated, but admission and this indicated essentially possibility of bacterial infection. For now, the patient remains on a mechanical ventilator. Chest x-ray remains unchanged. The patient is currently on a PEEP of 15 with an FiO2 of 60% with some interval improvement in oxygenation. Episodic fever, currently afebrile Septic shock with secondary hypotension, possibly related to underlying sepsis. The patient is currently on pressors, NE is being gradually weaned off Left sided cervical lymphadenopathy. History of gastroesophageal reflux disease. History of hypertension. History of hypothyroidism. History of ongoing tobacco use. History of anxiety/depression/bipolar disorder. acute hyperchloremic hypernatremia Non-anion gap metabolic acidosis Acute kidney injury in the creatinine is up to 2. 47 Abdominal lymphadenopathy, nonspecific Questionable gallbladder calculus without evidence of any cholecystitis 4 mm calculus in the upper lobe of the right kidney, no hydronephrosis Acute thrombocytopenia, platelet counts are stable at 84 K Plan: Continue ventilator support. Wean down the FiO2 to 50% and gradually wean down the PEEP by 2 to maintain a saturation above 90% Continue the bicarb infusion Echo showed a preserved LV function CAT scan of the chest abdomen and pelvis at a time of admission showed no significant bilateral pulmonary infiltrates and the findings were essentially nonspecific Continue enteral feeding for nutritional support Urine output is adequate Monitor fever pattern The workup that was already initiated by the rest of the consultants was appreciated. No clear indication for vasculitis. The patient has positive ANCA negative ELIDA, the patient may have an uncle related vasculitis. The patient was started on IV Solu-Medrol. She May ultimately need a kidney biopsy and I'm leaving the final decision for that to nephrology and rheumatology. Agree on IV Solu Medrol for now. Continue same antibiotic coverage. Condition is extremely critical. Continue enteral feeding for nutritional support. We'll continue to follow make further recommendations based on progress. Condition is critical evaluation and this is done in more than 40 minutes. Time with Patient: Greater than 30
[2021-10-14] MEDS ORDERED: methylPREDNISolone SOD SUCCI 125 MG/2 ML VIAL IV SCH (14:15)
[2021-10-14] MEDS: MORPHINE SULFATE 4 MG/ML SYRINGE IVP PRN ×2 (15:16→20:04)
--- NOTE | 2021-10-14 15:20 | P.GSCN ---
History of Present Illness Consult date: 10/14/21 History of present illness: CHIEF COMPLAINT: Fever HISTORY OF PRESENT ILLNESS: This is a 56-year-old female who presented to the hospital with fever, sepsis, pneumonia and left neck and facial swelling. She was intubated on 10/10/2021. Patient seen by rheumatology during her admission and they are working on ruling out IgG4 disease. They have recommended a renal or pulmonary biopsy. And have started patient on steroids. Patient had computed tomography scan of chest abdomen and pelvis which revealed mild retroperitoneal fat stranding predominately around the pancreas and prominent retroperitoneal and mesenteric lymph nodes. The differential includes infect ious and inflammatory etiologies. Consider pancreatitis in the differential diagnosis or other inflammatory retroperitoneal etiologies. Patient evaluated by GI service. They felt there was no evidence of an acute pancreatitis. Patient also had ultrasound of the neck showing left-sided cervical l ymphadenopathy. Patient remains intubated. She is on Levophed and propofol. No further fevers. Surgical service consult at in regards to incisional lymph node biopsy. Patient seen and examined with Dr. barrett PAST MEDICAL HISTORY: GERD/Reflux, Hypertension, Thyroid Disorder PAST SURGICAL HISTORY: Section, Ear Surgery, Hysterectomy MEDICATIONS: See list. ALLERGIES: See list. SOCIAL HISTORY: No illicit drug use. REVIEW OF SYSTEMS: CONSTITUTIONAL: Denies fever or chills. HEENT: Denies blurred vision, vision changes, or eye pain. Denies hemoptysis CARDIOVASCULAR: Denies chest pain or pressure. RESPIRATORY: No shortness of breath. GASTROINTESTINAL: See HPI for pertinent findings HEMATOLOGIC: Denies bleeding disorders. GENITOURINARY: Denies any blood in urine or increased urinary frequency. SKIN: Denies pruitis. Denies rash. PHYSICAL EXAM: VITAL SIGNS: Reviewed GENERAL: no acute distress. HEENT: No sclera icterus. Extraocular movements grossly intact. Moist buccal mucosa. Head is atraumatic, normocephalic. No nasal drainage. ABDOMEN: Soft. Obese. Nondistended. Nontender NEUROLOGIC: Intubated and sedated LABORATORY DATA: WBC 19.5 hemoglobin 11.2 platelets 84 Sodium 147 potassium 3.8 creatinine 2.47 Lipase 11 IMAGING: Computed tomography scan chest abdomen and pelvis as stated above Ultrasound neck as stated above ASSESSMENT: 1. Cervical lymphadenopathy 2. 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 Signing provider agrees with the documented findings, assessment, and plan of care. Past Medical History Past Medical History: GERD/Reflux, Hypertension, Thyroid Disorder Additional Past Medical History / Comment(s): hx bronchitis, constipation, History of Any Multi-Drug Resistant Organisms: None Reported Past Surgical History: Section, Ear Surgery, Hysterectomy Additional Past Surgical History / Comment(s): Tubes bilateral ears. RT EAR SX X2 Past Anesthesia/Blood Transfusion Reactions: No Reported Reaction Past Psychological History: Anxiety, Bipolar, Depression Smoking Status: Current every day smoker Past Alcohol Use History: None Reported Past Drug Use History: None Reported - Past Family History Father Family Medical History: Coronary Artery Disease (CAD) Additional Family Medical History / Comment(s): Mother at age 70 from coronary artery disease. Mother Family Medical History: Cancer Additional Family Medical History / Comment(s): . Brother(s) Additional Family Medical History / Comment(s): Unable to obtain brother and sister history. Patient has 2 sons are healthy. Medications and Allergies Home Medications Medication Instructions Recorded Confirmed Type LORazepam [Ativan] 1 mg PO DAILY PRN 12/26/15 10/06/21 History lamoTRIgine [LaMICtal] 150 mg PO DAILY #45 tab 01/06/16 10/06/21 Rx Levothyroxine Sodium [Synthroid] 100 mcg PO DAILY 12/01/16 10/06/21 History QUEtiapine FUMARATE 400 mg PO HS 12/01/16 10/06/21 History lisinopriL [Zestril] 10 mg PO DAILY 12/01/16 10/06/21 History lamoTRIgine [LaMICtal] 200 mg PO HS 10/06/21 10/06/21 History Allergies Allergy/AdvReac Type Severity Reaction Status Date / Time chlorpromazine HCl Allergy Unknown Verified 10/06/21 23:09 [From Thorazine] codeine Allergy Unknown Verified 10/06/21 23:09 sulfamethoxazole Allergy Unknown Verified 10/06/21 23:09 [From Septra] trimethoprim [From Septra] Allergy Unknown Verified 10/06/21 23:09 Surgical - Exam Vital Signs Temp Pulse Resp BP Pulse Ox 102.4 F H 120 H 20 102/64 95 10/06/21 21:42 10/06/21 21:42 10/06/21 21:42 10/06/21 21:42 10/06/21 21:42 Results - Labs 10/14/21 04:25 10/14/21 04:25 Abnormal Lab Results - Last 24 Hours (Table) 10/11/21 10/13/21 10/13/21 Range/Units 04:00 16:15 16:15 WBC (3.8-10.6) k/uL RBC (3.80-5.40) m/uL Hgb (11.4-16.0) gm/dL Plt Count (150-450) k/uL Neutrophils # (1.3-7.7) k/uL Pathologist Review See comment A ABG pO2 (83-108) mmHg ABG O2 Saturation (94-97) % Sodium 147 H (137-145) mmol/L Potassium 3.4 L (3.5-5.1) mmol/L Chloride 121 H (98-107) mmol/L Carbon Dioxide 20 L (22-30) mmol/L BUN 52 H (7-17) mg/dL Creatinine 2.19 H (0.52-1.04) mg/dL Glucose 187 H (74-99) mg/dL POC Glucose (mg/dL) (75-99) mg/dL Calcium 7.1 L (8.4-10.2) mg/dL IgG 419.0 L (700.0-1600.0) mg/dL 10/13/21 10/13/21 10/14/21 Range/Units 17:23 23:40 00:25 WBC (3.8-10.6) k/uL RBC (3.80-5.40) m/uL Hgb (11.4-16.0) gm/dL Plt Count (150-450) k/uL Neutrophils # (1.3-7.7) k/uL Pathologist Review ABG pO2 (83-108) mmHg ABG O2 Saturation (94-97) % Sodium (137-145) mmol/L Potassium (3.5-5.1) mmol/L Chloride (98-107) mmol/L Carbon Dioxide (22-30) mmol/L BUN (7-17) mg/dL Creatinine (0.52-1.04) mg/dL Glucose (74-99) mg/dL POC Glucose (mg/dL) 186 H 189 H 189 H (75-99) mg/dL Calcium (8.4-10.2) mg/dL IgG (700.0-1600.0) mg/dL 10/14/21 10/14/21 10/14/21 Range/Units 04:25 04:25 05:23 WBC 19.5 H (3.8-10.6) k/uL RBC 3.43 L (3.80-5.40) m/uL Hgb 11.2 L (11.4-16.0) gm/dL Plt Count 84 L (150-450) k/uL Neutrophils # 17.6 H (1.3-7.7) k/uL Pathologist Review ABG pO2 133 H (83-108) mmHg ABG O2 Saturation 98.7 H (94-97) % Sodium 147 H (137-145) mmol/L Potassium (3.5-5.1) mmol/L Chloride 117 H (98-107) mmol/L Carbon Dioxide 21 L (22-30) mmol/L BUN 61 H (7-17) mg/dL Creatinine 2.47 H (0.52-1.04) mg/dL Glucose 163 H (74-99) mg/dL POC Glucose (mg/dL) (75-99) mg/dL Calcium 7.5 L (8.4-10.2) mg/dL IgG (700.0-1600.0) mg/dL 10/14/21 10/14/21 Range/Units 05:45 11:17 WBC (3.8-10.6) k/uL RBC (3.80-5.40) m/uL Hgb (11.4-16.0) gm/dL Plt Count (150-450) k/uL Neutrophils # (1.3-7.7) k/uL Pathologist Review ABG pO2 (83-108) mmHg ABG O2 Saturation (94-97) % Sodium (137-145) mmol/L Potassium (3.5-5.1) mmol/L Chloride (98-107) mmol/L Carbon Dioxide (22-30) mmol/L BUN (7-17) mg/dL Creatinine (0.52-1.04) mg/dL Glucose (74-99) mg/dL POC Glucose (mg/dL) 154 H 157 H (75-99) mg/dL Calcium (8.4-10.2) mg/dL IgG (700.0-1600.0) mg/dL Microbiology - Last 24 Hours (Table) 10/11/21 15:36 Urine Culture - Final Urine,Voided 10/10/21 13:45 Gram Stain - Final Bronchial Washings - Right Bronchial Washings Culture - Final Yvrose albicans Diabetes panel 10/13/21 10/14/21 Range/Units 16:15 04:25 Sodium 147 H 147 H (137-145) mmol/L Potassium 3.4 L 3.8 (3.5-5.1) mmol/L Chloride 121 H 117 H (98-107) mmol/L Carbon Dioxide 20 L 21 L (22-30) mmol/L BUN 52 H 61 H (7-17) mg/dL Creatinine 2.19 H 2.47 H (0.52-1.04) mg/dL Glucose 187 H 163 H (74-99) mg/dL Calcium 7.1 L 7.5 L (8.4-10.2) mg/dL Calcium panel 10/13/21 10/14/21 Range/Units 16:15 04:25 Calcium 7.1 L 7.5 L (8.4-10.2) mg/dL Pituitary panel 10/13/21 10/14/21 Range/Units 16:15 04:25 Sodium 147 H 147 H (137-145) mmol/L Potassium 3.4 L 3.8 (3.5-5.1) mmol/L Chloride 121 H 117 H (98-107) mmol/L Carbon Dioxide 20 L 21 L (22-30) mmol/L BUN 52 H 61 H (7-17) mg/dL Creatinine 2.19 H 2.47 H (0.52-1.04) mg/dL Glucose 187 H 163 H (74-99) mg/dL Calcium 7.1 L 7.5 L (8.4-10.2) mg/dL Adrenal panel 10/13/21 10/14/21 Range/Units 16:15 04:25 Sodium 147 H 147 H (137-145) mmol/L Potassium 3.4 L 3.8 (3.5-5.1) mmol/L Chloride 121 H 117 H (98-107) mmol/L Carbon Dioxide 20 L 21 L (22-30) mmol/L BUN 52 H 61 H (7-17) mg/dL Creatinine 2.19 H 2.47 H (0.52-1.04) mg/dL Glucose 187 H 163 H (74-99) mg/dL Calcium 7.1 L 7.5 L (8.4-10.2) mg/dL
[2021-10-14 16:38] LABS: HIV-1 RNA Not detected (Not detected)
--- NOTE | 2021-10-14 17:15 | P.PN ---
Subjective Progress Note Date: 10/13/21 Principal diagnosis: Fever and rash Patient is a 56-year-old female presenting to the hospital with a fever rash and swelling to the left side of the neck in this patient did have evidence of lymphadenopathy subsequently developed a rash to bilateral elbow and bilateral knee area patient did have a CT of abdominal pelvis and chest no mention of any abscess which was some retroperitoneal lymphadenopathy. On today's evaluation that is 10/13/2021, the patient remains to be afebrile, the patient is requiring less pressor support to maintain her blood pressure, FiO2 is down to 50%, no significant purulent secretion through the ET reported on nursing staff, patient has been tolerating her tube feeds and no diarrhea has been reported Objective - Vital Signs Vital signs: Vital Signs Temp 97.1 F L 10/13/21 12:00 Pulse 73 10/13/21 15:30 Resp 26 H 10/13/21 15:30 BP 92/59 10/13/21 15:30 Pulse Ox 98 10/13/21 15:30 Intake & Output 10/12/21 10/13/21 10/13/21 18:59 06:59 18:59 Intake Total 2287.379 2722.493 1450.128 Output Total 523 742 5023 Balance 7866.068 7798.493 240.128 Weight 85.5 kg 85.5 kg Intake: IV 1780 2130 1440 0.9 780 130 90 Cefepime 2 gm In Sodium 100 100 Chloride 0.9% 100 ml @ 25 mls/hr IVPB Q12H [facility] Rx# :[id number] Sodium Chloride 0.45% 1, 900 1650 1350 000 ml @ 150 mls/hr IV . Q6H40M [facility] Rx#:[id number] Voriconazole 400 mg In 250 Sodium Chloride 0.9% 250 ml @ 125 mls/hr IVPB Q12H [facility] Rx#:[id number] Intake, IV Titration 217.379 322.493 10.128 Amount Norepinephrine 32 mg In 117.379 122.493 10.128 Sodium Chloride 0.9% 218 ml @ 0.4 MCG/KG/MIN 10. 781 mls/hr IV .[id number] [facility] Rx#:[id number] propofoL 1,000 mg In 100 200.000 Empty Bag 1 bag @ 5 MCG/ KG/MIN 1.725 mls/hr IV . Q24H [facility] Rx#:[id number] Tube Feeding 200 210 Other 90 60 Output: Urine 260 733 9578 Other: Voiding Method Indwelling Catheter Indwelling Catheter Indwelling Catheter ABP, PAP, CO, CI - Last Documented Arterial Blood Pressure 112/62 - Exam GENERAL DESCRIPTION: Middle-age female intubated on the vent RESPIRATORY SYSTEM: Unlabored breathing , decreased breath sounds at bases HEART: S1 S2 regular rate and rhythm , ABDOMEN: Soft , no tenderness EXTREMITIES: No edema feet - Labs CBC & Chem 7: 10/14/21 04:25 10/14/21 04:25 Labs: Abnormal Lab Results - Last 24 Hours (Table) 10/08/21 10/11/21 10/12/21 Range/Units 13:21 13:37 04:30 WBC (3.8-10.6) k/uL RBC (3.80-5.40) m/uL MCV (80.0-100.0) fL Plt Count (150-450) k/uL Neutrophils # (1.3-7.7) k/uL Haptoglobin (31.2-198.0) mg/dL D-Dimer (<0.60) mg/L FEU ABG pH (7.35-7.45) ABG pO2 (83-108) mmHg ABG HCO3 (21-25) mmol/L ABG O2 Saturation (94-97) % Sodium (137-145) mmol/L Potassium (3.5-5.1) mmol/L Chloride (98-107) mmol/L Carbon Dioxide (22-30) mmol/L BUN (7-17) mg/dL Creatinine (0.52-1.04) mg/dL Glucose (74-99) mg/dL POC Glucose (mg/dL) (75-99) mg/dL Calcium (8.4-10.2) mg/dL Lactate Dehydrogenase (313-618) U/L Total Protein (PEP) (6.2-8.2) g/dL Procalcitonin 6.16 H (0.02-0.09) ng/mL Urine Appearance (Clear) Urine Protein (Negative) Urine Blood (Negative) Ur Leukocyte Esterase (Negative) Urine RBC (0-5) /hpf Urine WBC (0-5) /hpf Urine WBC Clumps (None) /hpf Ur Squamous Epith Cells (0-4) /hpf Urine Bacteria (None) /hpf Urine Mucus (None) /hpf Urine Yeast (Budding) (None) /hpf Complement C5 64 H (29 - 53) U/mL Mycoplasma pneumon IgG 2.55 H (<=0.90) INDEX 10/12/21 10/12/21 10/12/21 Range/Units 15:35 15:36 15:36 WBC (3.8-10.6) k/uL RBC (3.80-5.40) m/uL MCV (80.0-100.0) fL Plt Count (150-450) k/uL Neutrophils # (1.3-7.7) k/uL Haptoglobin (31.2-198.0) mg/dL D-Dimer 8.35 H (<0.60) mg/L FEU ABG pH (7.35-7.45) ABG pO2 (83-108) mmHg ABG HCO3 (21-25) mmol/L ABG O2 Saturation (94-97) % Sodium (137-145) mmol/L Potassium (3.5-5.1) mmol/L Chloride (98-107) mmol/L Carbon Dioxide (22-30) mmol/L BUN (7-17) mg/dL Creatinine (0.52-1.04) mg/dL Glucose (74-99) mg/dL POC Glucose (mg/dL) (75-99) mg/dL Calcium (8.4-10.2) mg/dL Lactate Dehydrogenase (313-618) U/L Total Protein (PEP) 4.2 L (6.2-8.2) g/dL Procalcitonin (0.02-0.09) ng/mL Urine Appearance Turbid H (Clear) Urine Protein 1+ H (Negative) Urine Blood Moderate H (Negative) Ur Leukocyte Esterase Moderate H (Negative) Urine RBC 20 H (0-5) /hpf Urine WBC 29 H (0-5) /hpf Urine WBC Clumps (None) /hpf Ur Squamous Epith Cells 13 H (0-4) /hpf Urine Bacteria Rare H (None) /hpf Urine Mucus Rare H (None) /hpf Urine Yeast (Budding) Few H (None) /hpf Complement C5 (29 - 53) U/mL Mycoplasma pneumon IgG (<=0.90) INDEX 0410/12/21 10/12/21 Range/Units 15:36 15:36 15:43 WBC 17.3 H (3.8-10.6) k/uL RBC 3.47 L (3.80-5.40) m/uL MCV 102.7 H (80.0-100.0) fL Plt Count 50 L (150-450) k/uL Neutrophils # 15.2 H (1.3-7.7) k/uL Haptoglobin 423.0 H (31.2-198.0) mg/dL D-Dimer (<0.60) mg/L FEU ABG pH (7.35-7.45) ABG pO2 (83-108) mmHg ABG HCO3 (21-25) mmol/L ABG O2 Saturation (94-97) % Sodium (137-145) mmol/L Potassium (3.5-5.1) mmol/L Chloride (98-107) mmol/L Carbon Dioxide (22-30) mmol/L BUN (7-17) mg/dL Creatinine (0.52-1.04) mg/dL Glucose (74-99) mg/dL POC Glucose (mg/dL) (75-99) mg/dL Calcium (8.4-10.2) mg/dL Lactate Dehydrogenase 866 H (313-618) U/L Total Protein (PEP) (6.2-8.2) g/dL Procalcitonin (0.02-0.09) ng/mL Urine Appearance (Clear) Urine Protein (Negative) Urine Blood (Negative) Ur Leukocyte Esterase (Negative) Urine RBC (0-5) /hpf Urine WBC (0-5) /hpf Urine WBC Clumps (None) /hpf Ur Squamous Epith Cells (0-4) /hpf Urine Bacteria (None) /hpf Urine Mucus (None) /hpf Urine Yeast (Budding) (None) /hpf Complement C5 (29 - 53) U/mL Mycoplasma pneumon IgG (<=0.90) INDEX 10/12/21 10/12/21 10/13/21 Range/Units 16:46 23:35 03:55 WBC (3.8-10.6) k/uL RBC (3.80-5.40) m/uL MCV (80.0-100.0) fL Plt Count (150-450) k/uL Neutrophils # (1.3-7.7) k/uL Haptoglobin (31.2-198.0) mg/dL D-Dimer (<0.60) mg/L FEU ABG pH 7.34 L (7.35-7.45) ABG pO2 48 L* (83-108) mmHg ABG HCO3 19 L (21-25) mmol/L ABG O2 Saturation 85.7 L (94-97) % Sodium 149 H (137-145) mmol/L Potassium 3.3 L (3.5-5.1) mmol/L Chloride 124 H (98-107) mmol/L Carbon Dioxide 17 L (22-30) mmol/L BUN 48 H (7-17) mg/dL Creatinine 2.20 H (0.52-1.04) mg/dL Glucose 141 H (74-99) mg/dL POC Glucose (mg/dL) 142 H (75-99) mg/dL Calcium 7.2 L (8.4-10.2) mg/dL Lactate Dehydrogenase (313-618) U/L Total Protein (PEP) (6.2-8.2) g/dL Procalcitonin (0.02-0.09) ng/mL Urine Appearance (Clear) Urine Protein (Negative) Urine Blood (Negative) Ur Leukocyte Esterase (Negative) Urine RBC (0-5) /hpf Urine WBC (0-5) /hpf Urine WBC Clumps (None) /hpf Ur Squamous Epith Cells (0-4) /hpf Urine Bacteria (None) /hpf Urine Mucus (None) /hpf Urine Yeast (Budding) (None) /hpf Complement C5 (29 - 53) U/mL Mycoplasma pneumon IgG (<=0.90) INDEX 10/13/21 10/13/21 10/13/21 Range/Units 03:55 05:29 05:49 WBC 17.4 H (3.8-10.6) k/uL RBC 3.45 L (3.80-5.40) m/uL MCV 102.3 H (80.0-100.0) fL Plt Count 62 L (150-450) k/uL Neutrophils # 15.7 H (1.3-7.7) k/uL Haptoglobin (31.2-198.0) mg/dL D-Dimer (<0.60) mg/L FEU ABG pH 7.27 L (7.35-7.45) ABG pO2 176 H (83-108) mmHg ABG HCO3 17 L (21-25) mmol/L ABG O2 Saturation 99.1 H (94-97) % Sodium (137-145) mmol/L Potassium (3.5-5.1) mmol/L Chloride (98-107) mmol/L Carbon Dioxide (22-30) mmol/L BUN (7-17) mg/dL Creatinine (0.52-1.04) mg/dL Glucose (74-99) mg/dL POC Glucose (mg/dL) 151 H (75-99) mg/dL Calcium (8.4-10.2) mg/dL Lactate Dehydrogenase (313-618) U/L Total Protein (PEP) (6.2-8.2) g/dL Procalcitonin (0.02-0.09) ng/mL Urine Appearance (Clear) Urine Protein (Negative) Urine Blood (Negative) Ur Leukocyte Esterase (Negative) Urine RBC (0-5) /hpf Urine WBC (0-5) /hpf Urine WBC Clumps (None) /hpf Ur Squamous Epith Cells (0-4) /hpf Urine Bacteria (None) /hpf Urine Mucus (None) /hpf Urine Yeast (Budding) (None) /hpf Complement C5 (29 - 53) U/mL Mycoplasma pneumon IgG (<=0.90) INDEX 10/13/21 10/13/21 Range/Units 09:35 11:57 WBC (3.8-10.6) k/uL RBC (3.80-5.40) m/uL MCV (80.0-100.0) fL Plt Count (150-450) k/uL Neutrophils # (1.3-7.7) k/uL Haptoglobin (31.2-198.0) mg/dL D-Dimer (<0.60) mg/L FEU ABG pH (7.35-7.45) ABG pO2 (83-108) mmHg ABG HCO3 (21-25) mmol/L ABG O2 Saturation (94-97) % Sodium (137-145) mmol/L Potassium (3.5-5.1) mmol/L Chloride (98-107) mmol/L Carbon Dioxide (22-30) mmol/L BUN (7-17) mg/dL Creatinine (0.52-1.04) mg/dL Glucose (74-99) mg/dL POC Glucose (mg/dL) 177 H (75-99) mg/dL Calcium (8.4-10.2) mg/dL Lactate Dehydrogenase (313-618) U/L Total Protein (PEP) (6.2-8.2) g/dL Procalcitonin (0.02-0.09) ng/mL Urine Appearance Turbid H (Clear) Urine Protein 2+ H (Negative) Urine Blood Large H (Negative) Ur Leukocyte Esterase Small H (Negative) Urine RBC 24 H (0-5) /hpf Urine WBC 21 H (0-5) /hpf Urine WBC Clumps Few H (None) /hpf Ur Squamous Epith Cells (0-4) /hpf Urine Bacteria Rare H (None) /hpf Urine Mucus Rare H (None) /hpf Urine Yeast (Budding) Few H (None) /hpf Complement C5 (29 - 53) U/mL Mycoplasma pneumon IgG (<=0.90) INDEX Microbiology - Last 24 Hours (Table) 10/10/21 13:45 Gram Stain - Final Bronchial Washings - Right Bronchial Washings Culture - Final Yvrose albicans 10/11/21 15:36 Urine Culture - Preliminary Urine,Voided 10/06/21 23:35 Blood Culture - Final Blood No Growth after 144 hours 10/06/21 23:50 Blood Culture - Final Blood No Growth after 144 hours 10/09/21 17:50 Urine Culture - Final Urine,Voided Yvrose glabrata Assessment and Plan (1) Fever Current Visit: Yes Status: Acute Code(s): R50.9 - FEVER, UNSPECIFIED SNOMED Code(s): 537828273 (2) Lymphadenopathy of left cervical region Current Visit: Yes Status: Acute Priority: High Code(s): R59.0 - LOCALIZED ENLARGED LYMPH NODES SNOMED Code(s): 078725282 Plan: 1patient with a fever and this patient did have a left-sided neck swelling with ultrasound suggestive of left cervical lymphadenopathy patient did have CT of abdominal pelvis and chest did not show any abscess or colitis did shows evidence of retroperitoneal lymphadenopathy 2- CMV serology was negative EBV serologies pending, rheumatological workup has been ordered as well as parvovirus serology 3-MRI of the lumbosacral spine has been ordered because of the back pain currently pending 4-Patient did have worsening respiratory status requiring intubation with w orsening of the chest x-ray possible ARDS pattern in this patient has been intubated and did have bronchoscopy deep culture has been obtained which are currently growing Yvrose more likely colonizer urine is growing Yvrose glabrata, patient also has slight worsening of her kidney function and did have ANCA positive, rheumatology has been consulted. Surgery has been consulted for possible cervical lymph node biopsy, patient is currently being treated with cefepime and voriconazol and monitor clinical course closely Time with Patient: Less than 30
--- NOTE | 2021-10-14 17:17 | P.PN ---
Subjective Progress Note Date: 10/14/21 Principal diagnosis: Fever and rash Patient is a 56-year-old female presenting to the hospital with a fever rash and swelling to the left side of the neck in this patient did have evidence of lymphadenopathy subsequently developed a rash to bilateral elbow and bilateral knee area patient did have a CT of abdominal pelvis and chest no mention of any abscess which was some retroperitoneal lymphadenopathy. On today's evaluation that is 10/14/2021, the patient continues to be afebrile, the patient remains to be intubated on the vent, FiO2 is currently stable to 50%, no significant purulent secretion through the ET or diarrhea has been reported by the nursing staff Objective - Vital Signs Vital signs: Vital Signs Temp 98.1 F 10/14/21 08:00 Pulse 75 10/14/21 11:19 Resp 27 H 10/14/21 10:00 BP 101/63 10/14/21 10:00 Pulse Ox 96 10/14/21 10:00 Intake & Output 10/13/21 10/14/21 10/14/21 18:59 06:59 18:59 Intake Total 2404.128 3244.322 679.429 Output Total 1430 400 145 Balance 319.031 2173.322 534.429 Weight 85.5 kg 87 kg Intake: IV 1920 230 40 0.9 120 80 40 Sodium Chloride 0.45% 1, 1800 150 000 ml @ 150 mls/hr IV . Q6H40M [facility] Rx#:[id number] Intake, IV Titration 148.006 7562.322 503.429 Amount Cefepime 2 gm In Sodium 100 Chloride 0.9% 100 ml @ 25 mls/hr IVPB Q8H [facility] Rx#: [id number] Dextrose 5% in Water 1, 1100 400 000 ml @ 100 mls/hr IV . Q11H [facility] with Sodium Bicarb (1 Meq/ml) 100 ml Rx#:[id number] Norepinephrine 32 mg In 10.128 70.072 24.510 Sodium Chloride 0.9% 218 ml @ 0.4 MCG/KG/MIN 10. 781 mls/hr IV .[id number] [facility] Rx#:[id number] Voriconazole 250 mg In 250 Sodium Chloride 0.9% 250 ml @ 125 mls/hr IVPB Q12HR@0000,1200 [facility] Rx#: [id number] propofoL 1,000 mg In 100 186.250 78.919 Empty Bag 1 bag @ 5 MCG/ KG/MIN 1.725 mls/hr IV . Q24H [facility] Rx#:[id number] Tube Feeding 374 408 136 Other 900 Output: Urine 1430 400 145 Other: Voiding Method Indwelling Catheter Indwelling Catheter Indwelling Catheter ABP, PAP, CO, CI - Last Documented Arterial Blood Pressure 110/58 - Exam GENERAL DESCRIPTION: Middle-age female intubated on the vent RESPIRATORY SYSTEM: Unlabored breathing , decreased breath sounds at bases HEART: S1 S2 regular rate and rhythm , ABDOMEN: Soft , no tenderness EXTREMITIES: No edema feet - Labs CBC & Chem 7: 10/14/21 04:25 10/14/21 04:25 Labs: Abnormal Lab Results - Last 24 Hours (Table) 10/11/21 10/13/21 10/13/21 Range/Units 04:00 16:15 16:15 WBC (3.8-10.6) k/uL RBC (3.80-5.40) m/uL Hgb (11.4-16.0) gm/dL Plt Count (150-450) k/uL Neutrophils # (1.3-7.7) k/uL Pathologist Review See comment A ABG pO2 (83-108) mmHg ABG O2 Saturation (94-97) % Sodium 147 H (137-145) mmol/L Potassium 3.4 L (3.5-5.1) mmol/L Chloride 121 H (98-107) mmol/L Carbon Dioxide 20 L (22-30) mmol/L BUN 52 H (7-17) mg/dL Creatinine 2.19 H (0.52-1.04) mg/dL Glucose 187 H (74-99) mg/dL POC Glucose (mg/dL) (75-99) mg/dL Calcium 7.1 L (8.4-10.2) mg/dL IgG 419.0 L (700.0-1600.0) mg/dL 10/13/21 10/13/21 10/14/21 Range/Units 17:23 23:40 00:25 WBC (3.8-10.6) k/uL RBC (3.80-5.40) m/uL Hgb (11.4-16.0) gm/dL Plt Count (150-450) k/uL Neutrophils # (1.3-7.7) k/uL Pathologist Review ABG pO2 (83-108) mmHg ABG O2 Saturation (94-97) % Sodium (137-145) mmol/L Potassium (3.5-5.1) mmol/L Chloride (98-107) mmol/L Carbon Dioxide (22-30) mmol/L BUN (7-17) mg/dL Creatinine (0.52-1.04) mg/dL Glucose (74-99) mg/dL POC Glucose (mg/dL) 186 H 189 H 189 H (75-99) mg/dL Calcium (8.4-10.2) mg/dL IgG (700.0-1600.0) mg/dL 10/14/21 10/14/21 10/14/21 Range/Units 04:25 04:25 05:23 WBC 19.5 H (3.8-10.6) k/uL RBC 3.43 L (3.80-5.40) m/uL Hgb 11.2 L (11.4-16.0) gm/dL Plt Count 84 L (150-450) k/uL Neutrophils # 17.6 H (1.3-7.7) k/uL Pathologist Review ABG pO2 133 H (83-108) mmHg ABG O2 Saturation 98.7 H (94-97) % Sodium 147 H (137-145) mmol/L Potassium (3.5-5.1) mmol/L Chloride 117 H (98-107) mmol/L Carbon Dioxide 21 L (22-30) mmol/L BUN 61 H (7-17) mg/dL Creatinine 2.47 H (0.52-1.04) mg/dL Glucose 163 H (74-99) mg/dL POC Glucose (mg/dL) (75-99) mg/dL Calcium 7.5 L (8.4-10.2) mg/dL IgG (700.0-1600.0) mg/dL 10/14/21 10/14/21 Range/Units 05:45 11:17 WBC (3.8-10.6) k/uL RBC (3.80-5.40) m/uL Hgb (11.4-16.0) gm/dL Plt Count (150-450) k/uL Neutrophils # (1.3-7.7) k/uL Pathologist Review ABG pO2 (83-108) mmHg ABG O2 Saturation (94-97) % Sodium (137-145) mmol/L Potassium (3.5-5.1) mmol/L Chloride (98-107) mmol/L Carbon Dioxide (22-30) mmol/L BUN (7-17) mg/dL Creatinine (0.52-1.04) mg/dL Glucose (74-99) mg/dL POC Glucose (mg/dL) 154 H 157 H (75-99) mg/dL Calcium (8.4-10.2) mg/dL IgG (700.0-1600.0) mg/dL Microbiology - Last 24 Hours (Table) 10/11/21 15:36 Urine Culture - Final Urine,Voided Assessment and Plan (1) Fever Current Visit: Yes Status: Acute Code(s): R50.9 - FEVER, UNSPECIFIED SNOMED Code(s): 624946617 (2) Lymphadenopathy of left cervical region Current Visit: Yes Status: Acute Priority: High Code(s): R59.0 - LOCALIZED ENLARGED LYMPH NODES SNOMED Code(s): 121649717 Plan: 1patient with a fever and this patient did have a left-sided neck swelling with ultrasound suggestive of left cervical lymphadenopathy patient did have CT of abdominal pelvis and chest did not show any abscess or colitis did shows evidence of retroperitoneal lymphadenopathy 2- CMV serology was negative EBV serologies pending, rheumatological workup has been ordered as well as parvovirus serology 3- Patient did have worsening respiratory status requiring intubation with worsening of the chest x-ray possible ARDS pattern in this patient has been intubated and did have bronchoscopy deep culture has been obtained which are currently growing Yvrose more likely colonizer urine is growing Yvrose glabrata, patient also has slight worsening of her kidney function and did have ANCA positive, rheumatology has been consulted. Surgery has been consulted for possible cervical lymph node biopsy, patient has been started on Solu-Medrol with concern for possible vasculitis and continue with cefepime and voriconazole and monitor clinical course closely Time with Patient: Less than 30
[2021-10-14 17:31] LABS: Glucose,Whole Blood 167 mg/dL (75-99)
[2021-10-14] MEDS: NOREPINEPHRINE 32 MG in SODIUM CHLORIDE 0.9% 218 ML IV SCH ×2 (17:38→18:02)
[2021-10-14] MEDS: CEFEPIME 1 GM in SODIUM CHLORIDE 0.9% 50 ML IVPB SCH (22:12)
[2021-10-15] LABS: Glucose,Whole Blood 181 mg/dL (75-99)
[2021-10-15] MEDS: methylPREDNISolone SOD SUCCI 125 MG/2 ML VIAL IV SCH ×4 (00:28→17:58)
[2021-10-15] MEDS: INSULIN ASPART (NovoLOG) 100 UNIT/ML VIAL SQ SCH ×4 (00:28→17:59)
[2021-10-15] MEDS: HEPARIN SODIUM,PORCINE/PF 5,000 UNIT/0.5 ML SYRINGE SQ SCH ×3 (00:29→16:24)
[2021-10-15] MEDS: SODIUM CHLORIDE 0.9% IVPB SCH ×2 (00:31→13:00)
[2021-10-15] MEDS: VORICONAZOLE IVPB SCH ×2 (00:31→13:00)
[2021-10-15 05:00] LABS: Basophils # (A) 0.1 k/uL (0-0.2); Basophils % (A) 0 %; Eosinophils % (A) 0 %; HCT 31.6 % (34.0-46.0); HGB 10.6 gm/dL (11.4-16.0); Lymphocytes # (A) 1.8 k/uL (1.0-4.8); Lymphocytes % (A) 8 %; MCH 33.4 pg (25.0-35.0); MCHC 33.6 g/dL (31.0-37.0); MCV 99.4 fL (80.0-100.0); Macrocytosis Slight; Mean Platelet Volume 13.3; Monocytes # (A) 0.5 k/uL (0-1.0); Monocytes % (A) 2 %; Neutrophils # (A) 19.7 k/uL (1.3-7.7); Neutrophils % (A) 88 %; Platelet Count 112 k/uL (150-450); Poikilocytosis Slight; RBC 3.18 m/uL (3.80-5.40); RDW 15.5 % (11.5-15.5); WBC 22.4 k/uL (3.8-10.6)
[2021-10-15 05:22] LABS: Calcium 7.1 mg/dL (8.4-10.2); Potassium 3.5 mmol/L (3.5-5.1); Total Bilirubin 0.6 mg/dL (0.2-1.3); Total Protein 4.5 g/dL (6.3-8.2)
[2021-10-15 05:54] LABS: Glucose,Whole Blood 174 mg/dL (75-99)
[2021-10-15 05:59] LABS: ABG Base Excess -0.8 mmol/L; ABG HCO3 24 mmol/L (21-25); ABG PCO2 38 mmHg (35-45); ABG TCO2 25 mmol/L (19-24); Allen Test Performed? Yes
[2021-10-15] MEDS: MORPHINE SULFATE 4 MG/ML SYRINGE IVP PRN ×2 (06:00→10:06)
[2021-10-15 06:03] LABS: ABG PO2 47 mmHg (83-108)
[2021-10-15] MEDS: LEVOTHYROXINE 100 MCG TAB PO SCH (07:14)
[2021-10-15] MEDS: IPRATROPIUM-ALBUTEROL 3 ML NEB INHALATION PRN ×3 (07:58→15:30)
[2021-10-15] MEDS ORDERED: IOPAMIDOL CONTRAST (ORAL USE) VIAL PO PRN (08:54)
[2021-10-15 08:57] LABS: ABG Base Excess -0.3 mmol/L; ABG HCO3 25 mmol/L (21-25); ABG Oxygen Saturation 95.9 % (94-97); ABG PCO2 40 mmHg (35-45); ABG PO2 79 mmHg (83-108); ABG TCO2 26 mmol/L (19-24)
--- NOTE | 2021-10-15 09:20 | P.PN ---
Subjective Progress Note Date: 10/15/21 Principal diagnosis: fevers Patient is a 56-year-old female with a past medical history of hypothyroidism, nicotine dependence, anxiety, bipolar, and depression who presented to the emergency department with cfever and left lower jaw swelling. Patient was positive for SIRS with temp 102.4F, heart rate 120, blood pressure 84/51.CBC unremarkable. CMP revealed acute kidney injury with BUN of 18, creatinine 1.66, and GFR of 34 with baseline creatinine of 1.00. Urinalysis was negative for infection. Patient was admitted under our services for fever of unclear etiology with moderate lymphadenopathy. Consultations placed to infectious disease, gastroenterology, and hematology/oncology. Patient seen and examined at bedside. She is intubated and sedated on vent. She was hypoxic this morning on ABG. General: Appears at stated age, ill-appearing, obese Derm: Mild erythematous papules with convalescent on bilateral knees, no scale, no nodularity Head: atraumatic, normocephalic, symmetric Eyes: EOMI, no lid lag, anicteric sclera Mouth: no lip lesion, mucus membranes moist Cardiovascular: S1S2 reg, no murmur, positive posterior tibial pulse bilateral, Lungs: Coarse breath sounds bilateral, no rhonchi, no rales , no accessory muscle use Abdominal: soft, nontender to palpation, no guarding, no appreciable organomegaly Ext: no gross muscle atrophy, diffuse anasarca, no contractures Neuro: Sedated on vent, appears slightly rigid and difficult to bend her legs, no tremors Psych: Sedated on vent provided consent for vaginal exam under sedation Vaginal exam was perfomred with Nayely Fregoso RN as chaparone. Patient placed in lithotomy position. Upon external exam there was white discharge from vaginal orafice, no erythema of labaila no lesions on labia Vagainal exam revealed copious amounts of purulent fluid. No retained foreign bodies. Culture obtained. Assessment/Plan: Septic Shock Elevated anti-MPO - Differential includes: IgG4-RD, Lymphoma, Microscopic Polyangitis/Granulomatosis with Polyangitis Lymphadenopathy. - D/W nephrology who feels patient would benefit from renal biopsy -On 10/09 IV antibiotics expanded to include, cefepime and vanco. voriconazole added. Blood cx 10/06 negative. Bronch done 10/10, NGTD -Influenza A, influenza B, and Covid PCR negative. -CMV nonreactive -EBV IgG positive IgM negative -Group A rapid strep negative -HIV, Mycoplasma, Rubella are all negative - Mumps: IgG and IgM positive -Pro-calcitonin elevated at 4.6 -->6.2 -Ultrasound left anterior neck revealing a left-sided cervical lymphadenopathy -CT chest abdomen and pelvis revealing mild fat stranding in the lower neck, small gastroesophageal hiatal hernia, and mild retroperitoneal fat stranding predominantly around the pancreas and prominent retroperitoneal and mesenteric lymph nodes the differential includes infectious and inflammatory etiologies, and a 4 mm calculus in the upper pole of the right kidney. - Repeat CT chest/abdomen/not with resolved lymphadenopathy and diffuse anasarca, bilateral pleural effusions and fluid within the right fissure -Infectious disease following, appreciate further recommendations -Rheumatology following -Surgery consulted for excisional lymph node biopsy of cervical LAD-discussed with Dr. Boswell recommends doing as outpatient -Hematology following -Vaginal exam completed with genital culture pending, concern for possible toxic stock syndrome. -Check antistreptolysin O antibody to assess for possible post streptococcal GN. - waen pressors as able - conitnue with steroids Acute hypoxic respiratory failure with ARDS and possible rheumatologic process Acute kidney injury on chronic kidney disease stage III, possible GN -Nephrology recommendations appreciated -Creatinine continues to use increased -Judicious use of nephrotoxic agents -Follow urine output - pulm recs appreciated Anemia and thrombocytopenia -Follow CBC -Platelet count has stabilized -Suspect that anemia is delusional Chronic back pain -Patient was unable to tolerate MRI of the lumbar spine Resolved: Nonanio gap metabolic acidosis Hyperchloremic hypernatremia Chronic conditions: Hypertension Hypothyroidism Tobacco abuse Anxiety and depression DVT prophylaxis: Heparin Discussed with: specialists, nursing Anticipated discharge: undetermined Anticipated discharge place: home A total of 45 minutes was spent on the care of this complex patient more than 50% of the time was spent in counseling and care coordination. Active Medications Generic Name Dose Route Start Last Admin Trade Name Freq PRN Reason Stop Dose Admin Acetaminophen 650 mg 10/11/21 10:26 10/11/21 20:37 Acetaminophen Tab 325 Mg Tab PO 650 mg Q4HR PRN Administration Fever and/ or Pain Albuterol/Ipratropium 3 ml 10/09/21 09:59 10/15/21 15:30 Ipratropium-Albuterol 3 Ml Neb INHALATION 3 ml RT-QID PRN Administration Shortness Of Breath Or Wheezing Artificial Tears 2 drops 10/13/21 22:00 Artificial Tears-Hypromellose Drops 15 Ml Btl BOTH EYES QID PRN Dry Eye(s) Chlorhexidine Gluconate 15 ml 10/11/21 09:00 10/15/21 10:05 Chlorhexidine Gluconate 15 Ml Cup MUCOUS MEM 15 ml BID [facility] Administration Furosemide 60 mg 10/15/21 21:00 Furosemide 10 Mg/Ml 10 Ml Vial IV Q12HR [facility] Heparin Sodium (Porcine) 5,000 unit 10/08/21 00:00 10/15/21 16:24 Heparin Sodium,Porcine/Pf 5,000 Unit/0.5 Ml Syringe SQ 5,000 unit Q8HR [facility] Administration Propofol 1,000 mg/ IV Solution 100 mls @ 1.725 mls/hr 10/10/21 13:00 10/15/21 16:33 IV 40 mcg/kg/min .Q24H [facility] 13.8 mls/hr Administration Protocol 5 MCG/KG/MIN Norepinephrine Bitartrate 32 250 mls @ 10.781 mls/hr 10/10/21 17:00 10/15/21 10:17 mg/ Sodium Chloride IV 0.08 mcg/kg/min .[id number] [facility] 2.156 mls/hr Titration Protocol 0.4 MCG/KG/MIN Voriconazole 250 mg/ Sodium 250 mls @ 125 mls/hr 10/12/21 12:00 10/15/21 13:00 Chloride IVPB 125 mls/hr Q12HR@0000,1200 [facility] Administration Protocol Cefepime HCl 1 gm/ Sodium 50 mls @ 12.5 mls/hr 10/14/21 21:00 10/15/21 10:27 Chloride IVPB 12.5 mls/hr Q12HR [facility] Administration Insulin Aspart 0 unit 10/14/21 00:15 10/15/21 17:59 Insulin Aspart (Novolog) 100 Unit/Ml Vial SQ 2 unit Q6H [facility] Administration Protocol Lamotrigine 150 mg 10/08/21 09:00 10/15/21 10:05 Lamotrigine 100 Mg Tab PO 150 mg DAILY [facility] Administration Lamotrigine 200 mg 10/07/21 21:00 10/14/21 22:10 Lamotrigine 100 Mg Tab PO 200 mg HS [facility] Administration Levothyroxine Sodium 100 mcg 10/08/21 06:30 10/15/21 07:14 Levothyroxine 100 Mcg Tab PO 100 mcg DAILY@0630 [facility] Administration Methylprednisolone Sodium Succinate 125 mg 10/14/21 18:00 10/15/21 17:58 Methylprednisolone Sod Succi 125 Mg/2 Ml Vial IV 125 mg Q6HR [facility] Administration Miscellaneous Information 1 each 10/11/21 04:49 Potassium Replacement Protocol 1 Each Misc MISCELLANE DAILY PRN Per Protocol Protocol Morphine Sulfate 4 mg 10/12/21 13:54 10/15/21 10:06 Morphine Sulfate 4 Mg/Ml Syringe IVP 4 mg Q4H PRN Administration Pain Naloxone HCl 0.2 mg 10/07/21 07:22 Naloxone 0.4 Mg/Ml 1 Ml Vial IV Q2M PRN Opioid Reversal Ondansetron HCl 4 mg 10/08/21 10:02 10/08/21 10:06 Ondansetron 4 Mg/2 Ml Vial IVP 4 mg Q6HR PRN Administration Nausea And Vomiting Objective - Vital Signs Vital signs: Vital Signs Temp 98.3 F 10/15/21 04:00 Pulse 63 10/15/21 08:17 Resp 26 H 10/15/21 08:17 BP 98/59 10/15/21 07:45 Pulse Ox 94 L 10/15/21 07:45 Intake & Output 10/14/21 10/15/21 10/15/21 18:59 06:59 18:59 Intake Total 4984.675 8432.613 144.23 Output Total 664 470 30 Balance 129.598 4722.613 114.23 Weight 92.3 kg Intake: IV 110 1510 110 0.9 110 60 10 Cefepime 1 gm In Sodium 100 Chloride 0.9% 50 ml @ 12. 5 mls/hr IVPB Q12HR [facility] Rx#:[id number] Cefepime 2 gm In Sodium 0 Chloride 0.9% 100 ml @ 25 mls/hr IVPB Q12H [facility] Rx# :[id number] Dextrose 5% in Water 1, 1100 100 000 ml @ 100 mls/hr IV . Q11H [facility] with Sodium Bicarb (1 Meq/ml) 100 ml Rx#:[id number] Voriconazole 250 mg In 250 Sodium Chloride 0.9% 250 ml @ 125 mls/hr IVPB Q12HR@0000,1200 [facility] Rx#: [id number] Intake, IV Titration 1238.958 293.613 0.23 Amount Dextrose 5% in Water 1, 1100 100 000 ml @ 100 mls/hr IV . Q11H [facility] with Sodium Bicarb (1 Meq/ml) 100 ml Rx#:[id number] Norepinephrine 32 mg In 38.958 29.853 Sodium Chloride 0.9% 218 ml @ 0.4 MCG/KG/MIN 10. 781 mls/hr IV .[id number] [facility] Rx#:[id number] propofoL 1,000 mg In 100.000 163.76 0.23 Empty Bag 1 bag @ 5 MCG/ KG/MIN 1.725 mls/hr IV . Q24H [facility] Rx#:[id number] Tube Feeding 136 680 34 Other 1960 Output: Urine 664 470 30 Other: Voiding Method Indwelling Catheter Indwelling Catheter ABP, PAP, CO, CI - Last Documented Arterial Blood Pressure 115/61 - Labs CBC & Chem 7: 10/15/21 04:40 10/15/21 04:40 Labs: Abnormal Lab Results - Last 24 Hours (Table) 10/11/21 10/13/21 10/14/21 Range/Units 13:37 16:15 11:17 WBC (3.8-10.6) k/uL RBC (3.80-5.40) m/uL Hgb (11.4-16.0) gm/dL Hct (34.0-46.0) % Plt Count (150-450) k/uL Neutrophils # (1.3-7.7) k/uL ABG pO2 (83-108) mmHg ABG Total CO2 (19-24) mmol/L ABG O2 Saturation (94-97) % Chloride (98-107) mmol/L BUN (7-17) mg/dL Creatinine (0.52-1.04) mg/dL Glucose (74-99) mg/dL POC Glucose (mg/dL) 157 H (75-99) mg/dL Calcium (8.4-10.2) mg/dL AST (14-36) U/L Alkaline Phosphatase (38-126) U/L Total Protein (6.3-8.2) g/dL Albumin (3.5-5.0) g/dL IgG 419.0 L (700.0-1600.0) mg/dL Mumps Virus IgM Ab 5.71 H (<=0.79) IV 10/14/21 10/14/21 10/15/21 Range/Units 17:29 23:58 04:40 WBC 22.4 H (3.8-10.6) k/uL RBC 3.18 L (3.80-5.40) m/uL Hgb 10.6 L (11.4-16.0) gm/dL Hct 31.6 L (34.0-46.0) % Plt Count 112 L (150-450) k/uL Neutrophils # 19.7 H (1.3-7.7) k/uL ABG pO2 (83-108) mmHg ABG Total CO2 (19-24) mmol/L ABG O2 Saturation (94-97) % Chloride (98-107) mmol/L BUN (7-17) mg/dL Creatinine (0.52-1.04) mg/dL Glucose (74-99) mg/dL POC Glucose (mg/dL) 167 H 181 H (75-99) mg/dL Calcium (8.4-10.2) mg/dL AST (14-36) U/L Alkaline Phosphatase (38-126) U/L Total Protein (6.3-8.2) g/dL Albumin (3.5-5.0) g/dL IgG (700.0-1600.0) mg/dL Mumps Virus IgM Ab (<=0.79) IV 10/15/21 10/15/21 10/15/21 Range/Units 04:40 05:52 05:54 WBC (3.8-10.6) k/uL RBC (3.80-5.40) m/uL Hgb (11.4-16.0) gm/dL Hct (34.0-46.0) % Plt Count (150-450) k/uL Neutrophils # (1.3-7.7) k/uL ABG pO2 47 L* (83-108) mmHg ABG Total CO2 25 H (19-24) mmol/L ABG O2 Saturation 85.0 L (94-97) % Chloride 110 H (98-107) mmol/L BUN 78 H (7-17) mg/dL Creatinine 2.87 H (0.52-1.04) mg/dL Glucose 159 H (74-99) mg/dL POC Glucose (mg/dL) 174 H (75-99) mg/dL Calcium 7.1 L (8.4-10.2) mg/dL AST 38 H (14-36) U/L Alkaline Phosphatase 231 H (38-126) U/L Total Protein 4.5 L (6.3-8.2) g/dL Albumin 2.0 L (3.5-5.0) g/dL IgG (700.0-1600.0) mg/dL Mumps Virus IgM Ab (<=0.79) IV 10/15/21 Range/Units 08:54 WBC (3.8-10.6) k/uL RBC (3.80-5.40) m/uL Hgb (11.4-16.0) gm/dL Hct (34.0-46.0) % Plt Count (150-450) k/uL Neutrophils # (1.3-7.7) k/uL ABG pO2 79 L (83-108) mmHg ABG Total CO2 26 H (19-24) mmol/L ABG O2 Saturation (94-97) % Chloride (98-107) mmol/L BUN (7-17) mg/dL Creatinine (0.52-1.04) mg/dL Glucose (74-99) mg/dL POC Glucose (mg/dL) (75-99) mg/dL Calcium (8.4-10.2) mg/dL AST (14-36) U/L Alkaline Phosphatase (38-126) U/L Total Protein (6.3-8.2) g/dL Albumin (3.5-5.0) g/dL IgG (700.0-1600.0) mg/dL Mumps Virus IgM Ab (<=0.79) IV
--- NOTE | 2021-10-15 09:36 | P.PN ---
Subjective patient is seen in follow-up for acute kidney injury on chronic kidney disease. Renal function worsening. Creatinine 2.87 today. Did receive IV Lasix last 2 days. Urine output 30 mL an hour. Intubated. On Levophed. Receiving D5 with 2 A of bicarbonate running at 100 mL an hour. Sodium level 141 today. Receiving tube feeds. Vital signs are stable. On vasopressor support. HEENT: Intubated. LUNGS: Breath sounds decreased. HEART: Rate and Rhythm are regular. ABDOMEN: Soft, no distention. EXTREMITITES: 1+ edema. Objective - Vital Signs Vital signs: Vital Signs Temp 98.3 F 10/15/21 04:00 Pulse 63 10/15/21 08:17 Resp 26 H 10/15/21 08:17 BP 98/59 10/15/21 07:45 Pulse Ox 94 L 10/15/21 07:45 Intake & Output 10/14/21 10/15/21 10/15/21 18:59 06:59 18:59 Intake Total 5211.579 5215.613 144.23 Output Total 664 470 30 Balance 681.811 0763.613 114.23 Weight 92.3 kg Intake: IV 110 1510 110 0.9 110 60 10 Cefepime 1 gm In Sodium 100 Chloride 0.9% 50 ml @ 12. 5 mls/hr IVPB Q12HR [facility] Rx#:[id number] Cefepime 2 gm In Sodium 0 Chloride 0.9% 100 ml @ 25 mls/hr IVPB Q12H [facility] Rx# :[id number] Dextrose 5% in Water 1, 1100 100 000 ml @ 100 mls/hr IV . Q11H [facility] with Sodium Bicarb (1 Meq/ml) 100 ml Rx#:[id number] Voriconazole 250 mg In 250 Sodium Chloride 0.9% 250 ml @ 125 mls/hr IVPB Q12HR@0000,1200 [facility] Rx#: [id number] Intake, IV Titration 1238.958 293.613 0.23 Amount Dextrose 5% in Water 1, 1100 100 000 ml @ 100 mls/hr IV . Q11H [facility] with Sodium Bicarb (1 Meq/ml) 100 ml Rx#:[id number] Norepinephrine 32 mg In 38.958 29.853 Sodium Chloride 0.9% 218 ml @ 0.4 MCG/KG/MIN 10. 781 mls/hr IV .[id number] [facility] Rx#:[id number] propofoL 1,000 mg In 100.000 163.76 0.23 Empty Bag 1 bag @ 5 MCG/ KG/MIN 1.725 mls/hr IV . Q24H [facility] Rx#:[id number] Tube Feeding 136 680 34 Other 1960 Output: Urine 664 470 30 Other: Voiding Method Indwelling Catheter Indwelling Catheter ABP, PAP, CO, CI - Last Documented Arterial Blood Pressure 115/61 - Labs CBC & Chem 7: 10/15/21 04:40 10/15/21 04:40 Labs: Abnormal Lab Results - Last 24 Hours (Table) 10/11/21 10/13/21 10/14/21 Range/Units 13:37 16:15 11:17 WBC (3.8-10.6) k/uL RBC (3.80-5.40) m/uL Hgb (11.4-16.0) gm/dL Hct (34.0-46.0) % Plt Count (150-450) k/uL Neutrophils # (1.3-7.7) k/uL ABG pO2 (83-108) mmHg ABG Total CO2 (19-24) mmol/L ABG O2 Saturation (94-97) % Chloride (98-107) mmol/L BUN (7-17) mg/dL Creatinine (0.52-1.04) mg/dL Glucose (74-99) mg/dL POC Glucose (mg/dL) 157 H (75-99) mg/dL Calcium (8.4-10.2) mg/dL AST (14-36) U/L Alkaline Phosphatase (38-126) U/L Total Protein (6.3-8.2) g/dL Albumin (3.5-5.0) g/dL IgG 419.0 L (700.0-1600.0) mg/dL Mumps Virus IgM Ab 5.71 H (<=0.79) IV 10/14/21 10/14/21 10/15/21 Range/Units 17:29 23:58 04:40 WBC 22.4 H (3.8-10.6) k/uL RBC 3.18 L (3.80-5.40) m/uL Hgb 10.6 L (11.4-16.0) gm/dL Hct 31.6 L (34.0-46.0) % Plt Count 112 L (150-450) k/uL Neutrophils # 19.7 H (1.3-7.7) k/uL ABG pO2 (83-108) mmHg ABG Total CO2 (19-24) mmol/L ABG O2 Saturation (94-97) % Chloride (98-107) mmol/L BUN (7-17) mg/dL Creatinine (0.52-1.04) mg/dL Glucose (74-99) mg/dL POC Glucose (mg/dL) 167 H 181 H (75-99) mg/dL Calcium (8.4-10.2) mg/dL AST (14-36) U/L Alkaline Phosphatase (38-126) U/L Total Protein (6.3-8.2) g/dL Albumin (3.5-5.0) g/dL IgG (700.0-1600.0) mg/dL Mumps Virus IgM Ab (<=0.79) IV 10/15/21 10/15/21 10/15/21 Range/Units 04:40 05:52 05:54 WBC (3.8-10.6) k/uL RBC (3.80-5.40) m/uL Hgb (11.4-16.0) gm/dL Hct (34.0-46.0) % Plt Count (150-450) k/uL Neutrophils # (1.3-7.7) k/uL ABG pO2 47 L* (83-108) mmHg ABG Total CO2 25 H (19-24) mmol/L ABG O2 Saturation 85.0 L (94-97) % Chloride 110 H (98-107) mmol/L BUN 78 H (7-17) mg/dL Creatinine 2.87 H (0.52-1.04) mg/dL Glucose 159 H (74-99) mg/dL POC Glucose (mg/dL) 174 H (75-99) mg/dL Calcium 7.1 L (8.4-10.2) mg/dL AST 38 H (14-36) U/L Alkaline Phosphatase 231 H (38-126) U/L Total Protein 4.5 L (6.3-8.2) g/dL Albumin 2.0 L (3.5-5.0) g/dL IgG (700.0-1600.0) mg/dL Mumps Virus IgM Ab (<=0.79) IV 10/15/21 Range/Units 08:54 WBC (3.8-10.6) k/uL RBC (3.80-5.40) m/uL Hgb (11.4-16.0) gm/dL Hct (34.0-46.0) % Plt Count (150-450) k/uL Neutrophils # (1.3-7.7) k/uL ABG pO2 79 L (83-108) mmHg ABG Total CO2 26 H (19-24) mmol/L ABG O2 Saturation (94-97) % Chloride (98-107) mmol/L BUN (7-17) mg/dL Creatinine (0.52-1.04) mg/dL Glucose (74-99) mg/dL POC Glucose (mg/dL) (75-99) mg/dL Calcium (8.4-10.2) mg/dL AST (14-36) U/L Alkaline Phosphatase (38-126) U/L Total Protein (6.3-8.2) g/dL Albumin (3.5-5.0) g/dL IgG (700.0-1600.0) mg/dL Mumps Virus IgM Ab (<=0.79) IV Assessment and Plan Plan: Assessment: 1. Acute kidney injury secondary to ATN secondary to septic shock. Also noted to be thrombocytopenic - platelet levels better. Need to rule out HUS/TTP although patient was not anemic - discussed with hematology. No schistocytes noted. Creatinine 2.87 today. Nonoliguric. Initial UA showed trace proteinuria with 2 RBCs. Repeat UA with 1-2+ protein and also RBCs. UPC 2.1 g. 2. 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 3. Hypernatremia from lack of oral water intake. Improved. 4. Septic shock maintained on Levophed. On antibiotics. Unclear source. Infectious disease following. 5. Metabolic acidosis secondary to acute kidney injury and IV fluids. Improving. 6. Left cervical region and retroperitoneal lymphadenopathy. Being followed by ID and oncology. 7. Elevated anti-MPO. ELIDA negative. Doubt renal vasculitis as only 2 RBCs on initial UA. Rheumatology following. On Solu-Medrol. Plan: Hep-Lock IV fluids. Maintain tube feeds. Decrease free water flushes to 200 mL every 6 hours. Hold off on diuretics today. Wean FiO2 and vasopressors. ELIDA, Complement levels, VA-3, anti-GBM, hepatitis normal. HIV negative. Follow- up electrophoresis studies. Continue to monitor renal function and urine output. Will need kidney biopsy per rheumatology. Will schedule when medically stable if able to be done at this facility. Transfer to tertiary center on hold due to hemodynamics.
[2021-10-15] MEDS: lamoTRIgine 100 MG TAB PO SCH ×2 (10:05→21:15)
[2021-10-15] MEDS: CHLORHEXIDINE GLUCONATE 15 ML CUP MUCOUS MEM SCH ×2 (10:05→21:15)
[2021-10-15] MEDS: POTASSIUM CHLORIDE 20 MEQ in WATER FOR INJECTION 1 100ML.BAG IVPB SCH ×2 (10:05→13:00)
--- NOTE | 2021-10-15 10:18 | XR ---
EXAMINATION TYPE: XR chest 1V portable DATE OF EXAM: 10/15/2021 COMPARISON: Chest x-ray 10/14/2021 HISTORY: Intubated TECHNIQUE: Single frontal view of the chest is obtained. FINDINGS: Orogastric tube, endotracheal tube, left subclavian central venous catheter are all again noted overlying appropriate position. Cardiac mediastinal silhouette is likely stable, patient is rot ated. No evident pneumothorax. Bibasilar increased attenuation persists. Aorta is dense. There are ov erlying artifacts. IMPRESSION: There may be some slight interval improvement in aeration although there are differences in technique.
[2021-10-15] MEDS: CEFEPIME 1 GM in SODIUM CHLORIDE 0.9% 50 ML IVPB SCH ×2 (10:27→21:14)
[2021-10-15 11:34] LABS: Glucose,Whole Blood 149 mg/dL (75-99)
[2021-10-15 12:46] LABS: Gamma Globulin 0.39 g/dL (0.70-1.50)
[2021-10-15 13:20] LABS: Parvovirus B-19 IgG Antibodies 0.93 INDEX (<=0.90)
--- NOTE | 2021-10-15 13:23 | P.PN ---
Subjective Progress Note Date: 10/15/21 Principal diagnosis: This is a hospital consult with second day follow-up. Patient continues on IV Solu-Medrol for possible vasculitis based on positive anti-MPO. Although, ANCA was negative. She also is maintained on intravenous antibiotics. Her repeat chest x-ray this morning showed slight interval improvement in aeration although there were differences in technique. Patient examined at bedside with family present. Her rash on bilateral knees has improved. No sonia synovitis. Her IgG subclass 1-4 panel is still pending. We will recommend continuation of IV Solu-Medrol. Surgery was consulted and may consider lymph node biopsy if she does not improve. We would also recommend a kidney biopsy once her condition stabilizes. Objective - Vital Signs Vital signs: Vital Signs Temp 97.6 F 10/15/21 08:00 Pulse 63 10/15/21 11:30 Resp 26 H 10/15/21 11:30 BP 107/63 10/15/21 11:30 Pulse Ox 97 10/15/21 11:30 Intake & Output 10/14/21 10/15/21 10/15/21 18:59 06:59 18:59 Intake Total 9331.785 3350.613 700.985 Output Total 664 470 200 Balance 253.200 2567.613 500.985 Weight 92.3 kg Intake: IV 110 1510 260 0.9 110 60 60 Cefepime 1 gm In Sodium 100 Chloride 0.9% 50 ml @ 12. 5 mls/hr IVPB Q12HR [facility] Rx#:[id number] Cefepime 2 gm In Sodium 0 Chloride 0.9% 100 ml @ 25 mls/hr IVPB Q12H [facility] Rx# :[id number] Dextrose 5% in Water 1, 1100 200 000 ml @ 100 mls/hr IV . Q11H [facility] with Sodium Bicarb (1 Meq/ml) 100 ml Rx#:[id number] Voriconazole 250 mg In 250 Sodium Chloride 0.9% 250 ml @ 125 mls/hr IVPB Q12HR@0000,1200 [facility] Rx#: [id number] Intake, IV Titration 1238.958 293.613 36.985 Amount Dextrose 5% in Water 1, 1100 100 000 ml @ 100 mls/hr IV . Q11H [facility] with Sodium Bicarb (1 Meq/ml) 100 ml Rx#:[id number] Norepinephrine 32 mg In 38.958 29.853 10.391 Sodium Chloride 0.9% 218 ml @ 0.4 MCG/KG/MIN 10. 781 mls/hr IV .[id number] [facility] Rx#:[id number] propofoL 1,000 mg In 100.000 163.76 26.594 Empty Bag 1 bag @ 5 MCG/ KG/MIN 1.725 mls/hr IV . Q24H [facility] Rx#:[id number] Tube Feeding 136 680 204 Other 1960 200 Output: Urine 664 470 200 Other: Voiding Method Indwelling Catheter Indwelling Catheter Indwelling Catheter ABP, PAP, CO, CI - Last Documented Arterial Blood Pressure 108/58 - Labs CBC & Chem 7: 10/15/21 04:40 10/15/21 04:40 Labs: Abnormal Lab Results - Last 24 Hours (Table) 10/08/21 10/11/21 10/12/21 Range/Units 13:21 13:37 15:36 WBC (3.8-10.6) k/uL RBC (3.80-5.40) m/uL Hgb (11.4-16.0) gm/dL Hct (34.0-46.0) % Plt Count (150-450) k/uL Neutrophils # (1.3-7.7) k/uL ABG pO2 (83-108) mmHg ABG Total CO2 (19-24) mmol/L ABG O2 Saturation (94-97) % Chloride (98-107) mmol/L BUN (7-17) mg/dL Creatinine (0.52-1.04) mg/dL Glucose (74-99) mg/dL POC Glucose (mg/dL) (75-99) mg/dL Calcium (8.4-10.2) mg/dL AST (14-36) U/L Alkaline Phosphatase (38-126) U/L Total Protein (6.3-8.2) g/dL Albumin (3.5-5.0) g/dL Albumin (PEP) 1.70 L (3.80-4.90) g/dL Zpubx-5-Wdmomvafn 0.64 H (0.10-0.40) g/dL Beta Globulins 0.47 L (0.60-1.30) g/dL Gamma Globulins 0.39 L (0.70-1.50) g/dL Mumps Virus IgM Ab 5.71 H (<=0.79) IV Parvovirus B19 IgG Ab 0.93 H (<=0.90) INDEX 10/14/21 10/14/21 10/15/21 Range/Units 17:29 23:58 04:40 WBC 22.4 H (3.8-10.6) k/uL RBC 3.18 L (3.80-5.40) m/uL Hgb 10.6 L (11.4-16.0) gm/dL Hct 31.6 L (34.0-46.0) % Plt Count 112 L (150-450) k/uL Neutrophils # 19.7 H (1.3-7.7) k/uL ABG pO2 (83-108) mmHg ABG Total CO2 (19-24) mmol/L ABG O2 Saturation (94-97) % Chloride (98-107) mmol/L BUN (7-17) mg/dL Creatinine (0.52-1.04) mg/dL Glucose (74-99) mg/dL POC Glucose (mg/dL) 167 H 181 H (75-99) mg/dL Calcium (8.4-10.2) mg/dL AST (14-36) U/L Alkaline Phosphatase (38-126) U/L Total Protein (6.3-8.2) g/dL Albumin (3.5-5.0) g/dL Albumin (PEP) (3.80-4.90) g/dL Bjint-0-Fiyhmtpmg (0.10-0.40) g/dL Beta Globulins (0.60-1.30) g/dL Gamma Globulins (0.70-1.50) g/dL Mumps Virus IgM Ab (<=0.79) IV Parvovirus B19 IgG Ab (<=0.90) INDEX 10/15/21 10/15/21 10/15/21 Range/Units 04:40 05:52 05:54 WBC (3.8-10.6) k/uL RBC (3.80-5.40) m/uL Hgb (11.4-16.0) gm/dL Hct (34.0-46.0) % Plt Count (150-450) k/uL Neutrophils # (1.3-7.7) k/uL ABG pO2 47 L* (83-108) mmHg ABG Total CO2 25 H (19-24) mmol/L ABG O2 Saturation 85.0 L (94-97) % Chloride 110 H (98-107) mmol/L BUN 78 H (7-17) mg/dL Creatinine 2.87 H (0.52-1.04) mg/dL Glucose 159 H (74-99) mg/dL POC Glucose (mg/dL) 174 H (75-99) mg/dL Calcium 7.1 L (8.4-10.2) mg/dL AST 38 H (14-36) U/L Alkaline Phosphatase 231 H (38-126) U/L Total Protein 4.5 L (6.3-8.2) g/dL Albumin 2.0 L (3.5-5.0) g/dL Albumin (PEP) (3.80-4.90) g/dL Paplu-4-Nijnmxnlv (0.10-0.40) g/dL Beta Globulins (0.60-1.30) g/dL Gamma Globulins (0.70-1.50) g/dL Mumps Virus IgM Ab (<=0.79) IV Parvovirus B19 IgG Ab (<=0.90) INDEX 10/15/21 10/15/21 Range/Units 08:54 11:32 WBC (3.8-10.6) k/uL RBC (3.80-5.40) m/uL Hgb (11.4-16.0) gm/dL Hct (34.0-46.0) % Plt Count (150-450) k/uL Neutrophils # (1.3-7.7) k/uL ABG pO2 79 L (83-108) mmHg ABG Total CO2 26 H (19-24) mmol/L ABG O2 Saturation (94-97) % Chloride (98-107) mmol/L BUN (7-17) mg/dL Creatinine (0.52-1.04) mg/dL Glucose (74-99) mg/dL POC Glucose (mg/dL) 149 H (75-99) mg/dL Calcium (8.4-10.2) mg/dL AST (14-36) U/L Alkaline Phosphatase (38-126) U/L Total Protein (6.3-8.2) g/dL Albumin (3.5-5.0) g/dL Albumin (PEP) (3.80-4.90) g/dL Iobrq-7-Ydtgeutsf (0.10-0.40) g/dL Beta Globulins (0.60-1.30) g/dL Gamma Globulins (0.70-1.50) g/dL Mumps Virus IgM Ab (<=0.79) IV Parvovirus B19 IgG Ab (<=0.90) INDEX
--- NOTE | 2021-10-15 13:39 | P.PN ---
Subjective Progress Note Date: 10/14/21 Remains on ventilator in ICU, stable Objective - Vital Signs Vital signs: Vital Signs Temp 98.2 F 10/14/21 04:00 Pulse 68 10/14/21 08:02 Resp 26 H 10/14/21 07:00 BP 83/51 10/14/21 07:00 Pulse Ox 98 10/14/21 07:00 Intake & Output 10/13/21 10/14/21 10/14/21 18:59 06:59 18:59 Intake Total 2404.128 3244.322 157.005 Output Total 1430 400 25 Balance 665.825 8732.322 132.005 Weight 85.5 kg 87 kg Intake: IV 1920 230 10 0.9 120 80 10 Sodium Chloride 0.45% 1, 1800 150 000 ml @ 150 mls/hr IV . Q6H40M [facility] Rx#:[id number] Intake, IV Titration 817.796 7874.322 113.005 Amount Cefepime 2 gm In Sodium 100 Chloride 0.9% 100 ml @ 25 mls/hr IVPB Q8H [facility] Rx#: [id number] Dextrose 5% in Water 1, 1100 100 000 ml @ 100 mls/hr IV . Q11H [facility] with Sodium Bicarb (1 Meq/ml) 100 ml Rx#:[id number] Norepinephrine 32 mg In 10.128 70.072 13.005 Sodium Chloride 0.9% 218 ml @ 0.4 MCG/KG/MIN 10. 781 mls/hr IV .[id number] [facility] Rx#:[id number] Voriconazole 250 mg In 250 Sodium Chloride 0.9% 250 ml @ 125 mls/hr IVPB Q12HR@0000,1200 [facility] Rx#: [id number] propofoL 1,000 mg In 100 186.250 Empty Bag 1 bag @ 5 MCG/ KG/MIN 1.725 mls/hr IV . Q24H [facility] Rx#:[id number] Tube Feeding 374 408 34 Other 900 Output: Urine 1430 400 25 Other: Voiding Method Indwelling Catheter Indwelling Catheter ABP, PAP, CO, CI - Last Documented Arterial Blood Pressure 114/59 - Exam Ventilator No obviously abnormal palpable left nodes neck - Labs CBC & Chem 7: 10/15/21 04:40 10/15/21 04:40 Labs: Abnormal Lab Results - Last 24 Hours (Table) 10/11/21 10/12/21 10/13/21 Range/Units 04:00 15:36 03:55 WBC 17.4 H (3.8-10.6) k/uL RBC 3.45 L (3.80-5.40) m/uL Hgb (11.4-16.0) gm/dL MCV 102.3 H (80.0-100.0) fL Plt Count 62 L (150-450) k/uL Neutrophils # 15.7 H (1.3-7.7) k/uL Pathologist Review See comment A ABG pO2 (83-108) mmHg ABG O2 Saturation (94-97) % Sodium (137-145) mmol/L Potassium (3.5-5.1) mmol/L Chloride (98-107) mmol/L Carbon Dioxide (22-30) mmol/L BUN (7-17) mg/dL Creatinine (0.52-1.04) mg/dL Glucose (74-99) mg/dL POC Glucose (mg/dL) (75-99) mg/dL Calcium (8.4-10.2) mg/dL Urine Appearance Turbid H (Clear) Urine Protein 1+ H (Negative) Urine Blood Moderate H (Negative) Ur Leukocyte Esterase Moderate H (Negative) Urine RBC 20 H (0-5) /hpf Urine WBC 29 H (0-5) /hpf Urine WBC Clumps (None) /hpf Ur Squamous Epith Cells 13 H (0-4) /hpf Urine Bacteria Rare H (None) /hpf Urine Mucus Rare H (None) /hpf Urine Yeast (Budding) Few H (None) /hpf 10/13/21 10/13/21 10/13/21 Range/Units 09:35 11:57 16:15 WBC (3.8-10.6) k/uL RBC (3.80-5.40) m/uL Hgb (11.4-16.0) gm/dL MCV (80.0-100.0) fL Plt Count (150-450) k/uL Neutrophils # (1.3-7.7) k/uL Pathologist Review ABG pO2 (83-108) mmHg ABG O2 Saturation (94-97) % Sodium 147 H (137-145) mmol/L Potassium 3.4 L (3.5-5.1) mmol/L Chloride 121 H (98-107) mmol/L Carbon Dioxide 20 L (22-30) mmol/L BUN 52 H (7-17) mg/dL Creatinine 2.19 H (0.52-1.04) mg/dL Glucose 187 H (74-99) mg/dL POC Glucose (mg/dL) 177 H (75-99) mg/dL Calcium 7.1 L (8.4-10.2) mg/dL Urine Appearance Turbid H (Clear) Urine Protein 2+ H (Negative) Urine Blood Large H (Negative) Ur Leukocyte Esterase Small H (Negative) Urine RBC 24 H (0-5) /hpf Urine WBC 21 H (0-5) /hpf Urine WBC Clumps Few H (None) /hpf Ur Squamous Epith Cells (0-4) /hpf Urine Bacteria Rare H (None) /hpf Urine Mucus Rare H (None) /hpf Urine Yeast (Budding) Few H (None) /hpf 10/13/21 10/13/21 10/14/21 Range/Units 17:23 23:40 00:25 WBC (3.8-10.6) k/uL RBC (3.80-5.40) m/uL Hgb (11.4-16.0) gm/dL MCV (80.0-100.0) fL Plt Count (150-450) k/uL Neutrophils # (1.3-7.7) k/uL Pathologist Review ABG pO2 (83-108) mmHg ABG O2 Saturation (94-97) % Sodium (137-145) mmol/L Potassium (3.5-5.1) mmol/L Chloride (98-107) mmol/L Carbon Dioxide (22-30) mmol/L BUN (7-17) mg/dL Creatinine (0.52-1.04) mg/dL Glucose (74-99) mg/dL POC Glucose (mg/dL) 186 H 189 H 189 H (75-99) mg/dL Calcium (8.4-10.2) mg/dL Urine Appearance (Clear) Urine Protein (Negative) Urine Blood (Negative) Ur Leukocyte Esterase (Negative) Urine RBC (0-5) /hpf Urine WBC (0-5) /hpf Urine WBC Clumps (None) /hpf Ur Squamous Epith Cells (0-4) /hpf Urine Bacteria (None) /hpf Urine Mucus (None) /hpf Urine Yeast (Budding) (None) /hpf 10/14/21 10/14/21 10/14/21 Range/Units 04:25 04:25 05:23 WBC 19.5 H (3.8-10.6) k/uL RBC 3.43 L (3.80-5.40) m/uL Hgb 11.2 L (11.4-16.0) gm/dL MCV (80.0-100.0) fL Plt Count 84 L (150-450) k/uL Neutrophils # 17.6 H (1.3-7.7) k/uL Pathologist Review ABG pO2 133 H (83-108) mmHg ABG O2 Saturation 98.7 H (94-97) % Sodium 147 H (137-145) mmol/L Potassium (3.5-5.1) mmol/L Chloride 117 H (98-107) mmol/L Carbon Dioxide 21 L (22-30) mmol/L BUN 61 H (7-17) mg/dL Creatinine 2.47 H (0.52-1.04) mg/dL Glucose 163 H (74-99) mg/dL POC Glucose (mg/dL) (75-99) mg/dL Calcium 7.5 L (8.4-10.2) mg/dL Urine Appearance (Clear) Urine Protein (Negative) Urine Blood (Negative) Ur Leukocyte Esterase (Negative) Urine RBC (0-5) /hpf Urine WBC (0-5) /hpf Urine WBC Clumps (None) /hpf Ur Squamous Epith Cells (0-4) /hpf Urine Bacteria (None) /hpf Urine Mucus (None) /hpf Urine Yeast (Budding) (None) /hpf 10/14/21 Range/Units 05:45 WBC (3.8-10.6) k/uL RBC (3.80-5.40) m/uL Hgb (11.4-16.0) gm/dL MCV (80.0-100.0) fL Plt Count (150-450) k/uL Neutrophils # (1.3-7.7) k/uL Pathologist Review ABG pO2 (83-108) mmHg ABG O2 Saturation (94-97) % Sodium (137-145) mmol/L Potassium (3.5-5.1) mmol/L Chloride (98-107) mmol/L Carbon Dioxide (22-30) mmol/L BUN (7-17) mg/dL Creatinine (0.52-1.04) mg/dL Glucose (74-99) mg/dL POC Glucose (mg/dL) 154 H (75-99) mg/dL Calcium (8.4-10.2) mg/dL Urine Appearance (Clear) Urine Protein (Negative) Urine Blood (Negative) Ur Leukocyte Esterase (Negative) Urine RBC (0-5) /hpf Urine WBC (0-5) /hpf Urine WBC Clumps (None) /hpf Ur Squamous Epith Cells (0-4) /hpf Urine Bacteria (None) /hpf Urine Mucus (None) /hpf Urine Yeast (Budding) (None) /hpf Microbiology - Last 24 Hours (Table) 10/11/21 15:36 Urine Culture - Final Urine,Voided 10/10/21 13:45 Gram Stain - Final Bronchial Washings - Right Bronchial Washings Culture - Final Yvrose albicans Assessment and Plan (1) Fever Narrative/Plan: - improving - Now in care of ICU - No definitive infectious etiology found Current Visit: Yes Status: Acute Code(s): R50.9 - FEVER, UNSPECIFIED SNOMED Code(s): 154610496 (2) Lymphadenopathy of left cervical region Narrative/Plan: Overall rapid onset symptoms, adenopathy submandibular but improving with abx - On exam palpable nodes are undistinct, moveable and appear non malignant and likely reactive. Current Visit: Yes Status: Acute Priority: High Code(s): R59.0 - LOCALIZED ENLARGED LYMPH NODES SNOMED Code(s): 798839957 (3) SIRS (systemic inflammatory response syndrome) Current Visit: Yes Status: Acute Code(s): R65.10 - SIRS OF NON-INFECTIOUS ORIGIN W/O ACUTE ORGAN DYSFUNCTION SNOMED Code(s): 374184094 (4) Lymphadenopathy, retroperitoneal Narrative/Plan: - likely incidental finding, admits patient has complained of intermittent abdominal and back discomfort over the past year. This does warrant further testing. We discussed repeat imaging versus further evaluation with EUS, they have opted to further go EUS, this will be set up at tertiary center as outpatient prior to November, as they have a planned vacation they really do not want to miss. - Inflammatory makers are not markedly elevated Current Visit: Yes Status: Acute Priority: High Code(s): R59.0 - LOCALIZED ENLARGED LYMPH NODES SNOMED Code(s): 675748298 Plan: Await till recovers from ICU
--- NOTE | 2021-10-15 13:40 | P.PN ---
Subjective Progress Note Date: 10/15/21 Platelets are improved 112K today, stable in ICU Objective - Vital Signs Vital signs: Vital Signs Temp 97.6 F 10/15/21 08:00 Pulse 63 10/15/21 11:30 Resp 26 H 10/15/21 11:30 BP 107/63 10/15/21 11:30 Pulse Ox 97 10/15/21 11:30 Intake & Output 10/14/21 10/15/21 10/15/21 18:59 06:59 18:59 Intake Total 1690.248 2122.613 700.985 Output Total 664 470 200 Balance 214.131 4548.613 500.985 Weight 92.3 kg Intake: IV 110 1510 260 0.9 110 60 60 Cefepime 1 gm In Sodium 100 Chloride 0.9% 50 ml @ 12. 5 mls/hr IVPB Q12HR [facility] Rx#:[id number] Cefepime 2 gm In Sodium 0 Chloride 0.9% 100 ml @ 25 mls/hr IVPB Q12H [facility] Rx# :[id number] Dextrose 5% in Water 1, 1100 200 000 ml @ 100 mls/hr IV . Q11H [facility] with Sodium Bicarb (1 Meq/ml) 100 ml Rx#:[id number] Voriconazole 250 mg In 250 Sodium Chloride 0.9% 250 ml @ 125 mls/hr IVPB Q12HR@0000,1200 [facility] Rx#: [id number] Intake, IV Titration 1238.958 293.613 36.985 Amount Dextrose 5% in Water 1, 1100 100 000 ml @ 100 mls/hr IV . Q11H [facility] with Sodium Bicarb (1 Meq/ml) 100 ml Rx#:[id number] Norepinephrine 32 mg In 38.958 29.853 10.391 Sodium Chloride 0.9% 218 ml @ 0.4 MCG/KG/MIN 10. 781 mls/hr IV .[id number] [facility] Rx#:[id number] propofoL 1,000 mg In 100.000 163.76 26.594 Empty Bag 1 bag @ 5 MCG/ KG/MIN 1.725 mls/hr IV . Q24H [facility] Rx#:[id number] Tube Feeding 136 680 204 Other 1960 200 Output: Urine 664 470 200 Other: Voiding Method Indwelling Catheter Indwelling Catheter Indwelling Catheter ABP, PAP, CO, CI - Last Documented Arterial Blood Pressure 108/58 - Exam Ventilator No obviously abnormal palpable left nodes neck - Labs CBC & Chem 7: 10/15/21 04:40 10/15/21 04:40 Labs: Abnormal Lab Results - Last 24 Hours (Table) 10/08/21 10/11/21 10/12/21 Range/Units 13:21 13:37 15:36 WBC (3.8-10.6) k/uL RBC (3.80-5.40) m/uL Hgb (11.4-16.0) gm/dL Hct (34.0-46.0) % Plt Count (150-450) k/uL Neutrophils # (1.3-7.7) k/uL ABG pO2 (83-108) mmHg ABG Total CO2 (19-24) mmol/L ABG O2 Saturation (94-97) % Chloride (98-107) mmol/L BUN (7-17) mg/dL Creatinine (0.52-1.04) mg/dL Glucose (74-99) mg/dL POC Glucose (mg/dL) (75-99) mg/dL Calcium (8.4-10.2) mg/dL AST (14-36) U/L Alkaline Phosphatase (38-126) U/L Total Protein (6.3-8.2) g/dL Albumin (3.5-5.0) g/dL Albumin (PEP) 1.70 L (3.80-4.90) g/dL Cxfrz-1-Cbeqshnqi 0.64 H (0.10-0.40) g/dL Beta Globulins 0.47 L (0.60-1.30) g/dL Gamma Globulins 0.39 L (0.70-1.50) g/dL Mumps Virus IgM Ab 5.71 H (<=0.79) IV Parvovirus B19 IgG Ab 0.93 H (<=0.90) INDEX 10/14/21 10/14/21 10/15/21 Range/Units 17:29 23:58 04:40 WBC 22.4 H (3.8-10.6) k/uL RBC 3.18 L (3.80-5.40) m/uL Hgb 10.6 L (11.4-16.0) gm/dL Hct 31.6 L (34.0-46.0) % Plt Count 112 L (150-450) k/uL Neutrophils # 19.7 H (1.3-7.7) k/uL ABG pO2 (83-108) mmHg ABG Total CO2 (19-24) mmol/L ABG O2 Saturation (94-97) % Chloride (98-107) mmol/L BUN (7-17) mg/dL Creatinine (0.52-1.04) mg/dL Glucose (74-99) mg/dL POC Glucose (mg/dL) 167 H 181 H (75-99) mg/dL Calcium (8.4-10.2) mg/dL AST (14-36) U/L Alkaline Phosphatase (38-126) U/L Total Protein (6.3-8.2) g/dL Albumin (3.5-5.0) g/dL Albumin (PEP) (3.80-4.90) g/dL Ulhsa-1-Iinkgwroi (0.10-0.40) g/dL Beta Globulins (0.60-1.30) g/dL Gamma Globulins (0.70-1.50) g/dL Mumps Virus IgM Ab (<=0.79) IV Parvovirus B19 IgG Ab (<=0.90) INDEX 10/15/21 10/15/21 10/15/21 Range/Units 04:40 05:52 05:54 WBC (3.8-10.6) k/uL RBC (3.80-5.40) m/uL Hgb (11.4-16.0) gm/dL Hct (34.0-46.0) % Plt Count (150-450) k/uL Neutrophils # (1.3-7.7) k/uL ABG pO2 47 L* (83-108) mmHg ABG Total CO2 25 H (19-24) mmol/L ABG O2 Saturation 85.0 L (94-97) % Chloride 110 H (98-107) mmol/L BUN 78 H (7-17) mg/dL Creatinine 2.87 H (0.52-1.04) mg/dL Glucose 159 H (74-99) mg/dL POC Glucose (mg/dL) 174 H (75-99) mg/dL Calcium 7.1 L (8.4-10.2) mg/dL AST 38 H (14-36) U/L Alkaline Phosphatase 231 H (38-126) U/L Total Protein 4.5 L (6.3-8.2) g/dL Albumin 2.0 L (3.5-5.0) g/dL Albumin (PEP) (3.80-4.90) g/dL Mmwfa-0-Lakzolord (0.10-0.40) g/dL Beta Globulins (0.60-1.30) g/dL Gamma Globulins (0.70-1.50) g/dL Mumps Virus IgM Ab (<=0.79) IV Parvovirus B19 IgG Ab (<=0.90) INDEX 10/15/21 10/15/21 Range/Units 08:54 11:32 WBC (3.8-10.6) k/uL RBC (3.80-5.40) m/uL Hgb (11.4-16.0) gm/dL Hct (34.0-46.0) % Plt Count (150-450) k/uL Neutrophils # (1.3-7.7) k/uL ABG pO2 79 L (83-108) mmHg ABG Total CO2 26 H (19-24) mmol/L ABG O2 Saturation (94-97) % Chloride (98-107) mmol/L BUN (7-17) mg/dL Creatinine (0.52-1.04) mg/dL Glucose (74-99) mg/dL POC Glucose (mg/dL) 149 H (75-99) mg/dL Calcium (8.4-10.2) mg/dL AST (14-36) U/L Alkaline Phosphatase (38-126) U/L Total Protein (6.3-8.2) g/dL Albumin (3.5-5.0) g/dL Albumin (PEP) (3.80-4.90) g/dL Yibbe-5-Zzmnbdcvw (0.10-0.40) g/dL Beta Globulins (0.60-1.30) g/dL Gamma Globulins (0.70-1.50) g/dL Mumps Virus IgM Ab (<=0.79) IV Parvovirus B19 IgG Ab (<=0.90) INDEX Assessment and Plan (1) Fever Narrative/Plan: - improving - Now in care of ICU - No definitive infectious etiology found Current Visit: Yes Status: Acute Code(s): R50.9 - FEVER, UNSPECIFIED SNOMED Code(s): 449216916 (2) Lymphadenopathy of left cervical region Narrative/Plan: Overall rapid onset symptoms, adenopathy submandibular but improving with abx - On exam palpable nodes are undistinct, moveable and appear non malignant and likely reactive. Current Visit: Yes Status: Acute Priority: High Code(s): R59.0 - LOCALIZED ENLARGED LYMPH NODES SNOMED Code(s): 943511522 (3) SIRS (systemic inflammatory response syndrome) Current Visit: Yes Status: Acute Code(s): R65.10 - SIRS OF NON-INFECTIOUS ORIGIN W/O ACUTE ORGAN DYSFUNCTION SNOMED Code(s): 444098043 (4) Lymphadenopathy, retroperitoneal Narrative/Plan: - likely incidental finding, admits patient has complained of intermittent abdominal and back discomfort over the past year. This does warrant further testing. We discussed repeat imaging versus further evaluation with EUS, they have opted to further go EUS, this will be set up at tertiary center as outpatient prior to November, as they have a planned vacation they really do not want to miss. - Inflammatory makers are not markedly elevated Current Visit: Yes Status: Acute Priority: High Code(s): R59.0 - LOCALIZED ENLARGED LYMPH NODES SNOMED Code(s): 505022891 Plan: Await till recovers from ICU Pulmonary, Infectious disease and ICU care Dr. Simon: I have completed the full history and physical, developed the above impression and plan. Agree with dictation, dictated as a scribe.
[2021-10-15 14:45] LABS: IgG Subclass 1 175.5 mg/dL (382.40-928.60); IgG Subclass 2 80.9 mg/dL (241.80-700.30); IgG Subclass 3 45.3 mg/dL (21.82-176.00); IgG Subclass 4 18.3 mg/dL (3.92-86.40)
--- NOTE | 2021-10-15 15:12 | P.PN ---
Subjective Progress Note Date: 10/15/21 CHIEF COMPLAINT: Fever HISTORY OF PRESENT ILLNESS: The patient remains the ICU and intubated. Patient requiring blood pressure support. She is followed by multiple consultants. Surgical service following regards to her cervical lymphadenopathy and retroperitoneal lymphadenopathy. Afebrile. WBC is 22.4 hemoglobin 10.6 platelets 12 creatinine is worse at 2.87 Patient is scheduled for CT neck and abdomen for further evaluation of lymphadenopathy. PHYSICAL EXAM: VITAL SIGNS: Reviewed. GENERAL: no acute distress. HEENT: No sclera icterus. Extraocular movements grossly intact. Moist buccal mucosa. Head is atraumatic, normocephalic. ABDOMEN: Soft. Nondistended. Nontender. NEUROLOGIC: Intubated and sedated ASSESSMENT: 1. Cervical lymphadenopathy 2. Prominent retroperitoneal and mesenteric lymph nodes noted on CAT scan PLAN: -Continue ICU management -Continue supportive care -follow up on CT scan results -Further recommendations forthcoming per surgeon Physician Char [employer] Tender Head note has been reviewed by physician. Signing provider agrees with the documented findings, assessment, and plan of care. Objective - Vital Signs Vital signs: Vital Signs Temp 97.6 F 10/15/21 08:00 Pulse 63 10/15/21 11:30 Resp 26 H 10/15/21 11:30 BP 107/63 10/15/21 11:30 Pulse Ox 97 10/15/21 11:30 Intake & Output 10/14/21 10/15/21 10/15/21 18:59 06:59 18:59 Intake Total 8124.597 8031.613 700.985 Output Total 664 470 200 Balance 745.417 9912.613 500.985 Weight 92.3 kg Intake: IV 110 1510 260 0.9 110 60 60 Cefepime 1 gm In Sodium 100 Chloride 0.9% 50 ml @ 12. 5 mls/hr IVPB Q12HR JUAN Rx#:[id number] Cefepime 2 gm In Sodium 0 Chloride 0.9% 100 ml @ 25 mls/hr IVPB Q12H [facility] Rx# :[id number] Dextrose 5% in Water 1, 1100 200 000 ml @ 100 mls/hr IV . Q11H JUAN with Sodium Bicarb (1 Meq/ml) 100 ml Rx#:[id number] Voriconazole 250 mg In 250 Sodium Chloride 0.9% 250 ml @ 125 mls/hr IVPB Q12HR@0000,1200 [facility] Rx#: [id number] Intake, IV Titration 1238.958 293.613 36.985 Amount Dextrose 5% in Water 1, 1100 100 000 ml @ 100 mls/hr IV . Q11H JUAN with Sodium Bicarb (1 Meq/ml) 100 ml Rx#:[id number] Norepinephrine 32 mg In 38.958 29.853 10.391 Sodium Chloride 0.9% 218 ml @ 0.4 MCG/KG/MIN 10. 781 mls/hr IV .[id number] JUAN Rx#:[id number] propofoL 1,000 mg In 100.000 163.76 26.594 Empty Bag 1 bag @ 5 MCG/ KG/MIN 1.725 mls/hr IV . Q24H [facility] Rx#:[id number] Tube Feeding 136 680 204 Other 1960 200 Output: Urine 664 470 200 Other: Voiding Method Indwelling Catheter Indwelling Catheter Indwelling Catheter ABP, PAP, CO, CI - Last Documented Arterial Blood Pressure 108/58 - Labs CBC & Chem 7: 10/15/21 04:40 10/15/21 04:40 Labs: Abnormal Lab Results - Last 24 Hours (Table) 10/08/21 10/11/21 10/12/21 Range/Units 13:21 13:37 15:36 WBC (3.8-10.6) k/uL RBC (3.80-5.40) m/uL Hgb (11.4-16.0) gm/dL Hct (34.0-46.0) % Plt Count (150-450) k/uL Neutrophils # (1.3-7.7) k/uL ABG pO2 (83-108) mmHg ABG Total CO2 (19-24) mmol/L ABG O2 Saturation (94-97) % Chloride (98-107) mmol/L BUN (7-17) mg/dL Creatinine (0.52-1.04) mg/dL Glucose (74-99) mg/dL POC Glucose (mg/dL) (75-99) mg/dL Calcium (8.4-10.2) mg/dL AST (14-36) U/L Alkaline Phosphatase (38-126) U/L Total Protein (6.3-8.2) g/dL Albumin (3.5-5.0) g/dL Albumin (PEP) 1.70 L (3.80-4.90) g/dL Joknz-6-Tafwpkkcn 0.64 H (0.10-0.40) g/dL Beta Globulins 0.47 L (0.60-1.30) g/dL Gamma Globulins 0.39 L (0.70-1.50) g/dL T-Suppressor Cells (190-832) cell/ul CD4/CD8 Ratio (1.0-3.7) % CD8 Suppressor (9-37) % Mumps Virus IgM Ab 5.71 H (<=0.79) IV Parvovirus B19 IgG Ab 0.93 H (<=0.90) INDEX 10/14/21 10/14/21 10/14/21 Range/Units 04:25 17:29 23:58 WBC (3.8-10.6) k/uL RBC (3.80-5.40) m/uL Hgb (11.4-16.0) gm/dL Hct (34.0-46.0) % Plt Count (150-450) k/uL Neutrophils # (1.3-7.7) k/uL ABG pO2 (83-108) mmHg ABG Total CO2 (19-24) mmol/L ABG O2 Saturation (94-97) % Chloride (98-107) mmol/L BUN (7-17) mg/dL Creatinine (0.52-1.04) mg/dL Glucose (74-99) mg/dL POC Glucose (mg/dL) 167 H 181 H (75-99) mg/dL Calcium (8.4-10.2) mg/dL AST (14-36) U/L Alkaline Phosphatase (38-126) U/L Total Protein (6.3-8.2) g/dL Albumin (3.5-5.0) g/dL Albumin (PEP) (3.80-4.90) g/dL Bfdda-0-Sqruujvcx (0.10-0.40) g/dL Beta Globulins (0.60-1.30) g/dL Gamma Globulins (0.70-1.50) g/dL T-Suppressor Cells 65 L (190-832) cell/ul CD4/CD8 Ratio 9.0 H (1.0-3.7) % CD8 Suppressor 5 L (9-37) % Mumps Virus IgM Ab (<=0.79) IV Parvovirus B19 IgG Ab (<=0.90) INDEX 10/15/21 10/15/21 10/15/21 Range/Units 04:40 04:40 05:52 WBC 22.4 H (3.8-10.6) k/uL RBC 3.18 L (3.80-5.40) m/uL Hgb 10.6 L (11.4-16.0) gm/dL Hct 31.6 L (34.0-46.0) % Plt Count 112 L (150-450) k/uL Neutrophils # 19.7 H (1.3-7.7) k/uL ABG pO2 (83-108) mmHg ABG Total CO2 (19-24) mmol/L ABG O2 Saturation (94-97) % Chloride 110 H (98-107) mmol/L BUN 78 H (7-17) mg/dL Creatinine 2.87 H (0.52-1.04) mg/dL Glucose 159 H (74-99) mg/dL POC Glucose (mg/dL) 174 H (75-99) mg/dL Calcium 7.1 L (8.4-10.2) mg/dL AST 38 H (14-36) U/L Alkaline Phosphatase 231 H (38-126) U/L Total Protein 4.5 L (6.3-8.2) g/dL Albumin 2.0 L (3.5-5.0) g/dL Albumin (PEP) (3.80-4.90) g/dL Ajmff-9-Oesyvwuwa (0.10-0.40) g/dL Beta Globulins (0.60-1.30) g/dL Gamma Globulins (0.70-1.50) g/dL T-Suppressor Cells (190-832) cell/ul CD4/CD8 Ratio (1.0-3.7) % CD8 Suppressor (9-37) % Mumps Virus IgM Ab (<=0.79) IV Parvovirus B19 IgG Ab (<=0.90) INDEX 10/15/21 10/15/21 10/15/21 Range/Units 05:54 08:54 11:32 WBC (3.8-10.6) k/uL RBC (3.80-5.40) m/uL Hgb (11.4-16.0) gm/dL Hct (34.0-46.0) % Plt Count (150-450) k/uL Neutrophils # (1.3-7.7) k/uL ABG pO2 47 L* 79 L (83-108) mmHg ABG Total CO2 25 H 26 H (19-24) mmol/L ABG O2 Saturation 85.0 L (94-97) % Chloride (98-107) mmol/L BUN (7-17) mg/dL Creatinine (0.52-1.04) mg/dL Glucose (74-99) mg/dL POC Glucose (mg/dL) 149 H (75-99) mg/dL Calcium (8.4-10.2) mg/dL AST (14-36) U/L Alkaline Phosphatase (38-126) U/L Total Protein (6.3-8.2) g/dL Albumin (3.5-5.0) g/dL Albumin (PEP) (3.80-4.90) g/dL Hmznk-3-Fzlzoyoux (0.10-0.40) g/dL Beta Globulins (0.60-1.30) g/dL Gamma Globulins (0.70-1.50) g/dL T-Suppressor Cells (190-832) cell/ul CD4/CD8 Ratio (1.0-3.7) % CD8 Suppressor (9-37) % Mumps Virus IgM Ab (<=0.79) IV Parvovirus B19 IgG Ab (<=0.90) INDEX
--- NOTE | 2021-10-15 15:58 | P.PN ---
Subjective Progress Note Date: 10/15/21 10/12/2021, the patient is being seen for a follow-up. The patient is in intensive care unit with acute hypoxic respiratory failure, fever, suspected bilateral pneumonia and the patient has been intubated since 10/10/2021. The patient underwent a bronchoscopy on 10/10/2021 and the results were consistent with Yvrose albicans. The chest x-ray from today still showing persistent bilateral pulmonary infiltrates more so in the mid and lower lung aguilera bilaterally. The patient remains on a combination of IV cefepime, vancomycin and voriconazole is also added today by infectious disease. Note that the urine showed yeast species and the bronchial alveolar lavage also showed Yvrose albicans.. This morning, the patient remains on propofol at the rate of 50 mcg/kg per minute. The patient is adequately sedated. The patient is on a mechanical ventilator on assist control mode at the rate of 26 with a tidal volume of 400 and FiO2 of 60% with a PEEP of 10. Peak air pressures around 28 with metastatic a pressure of 26. The patient is on IV fluids with normal saline at the rate of 130 mL an hour. Urine output is in order of 50 mL an hour. The patient has a left-sided triple-lumen catheter in the subclavian. The patient is on norepinephrine running at 0.35 mg/kg/m. The current cardiac rhythm is sinus. The patient is on enteral feeding for nutritional support and the patient is currently on vital 1.2 at the rate of 10 mL an hour. The blood gases from today shows a pH of 7.3 with a pCO2 of 32 and pO2 of 129 and this was done and FiO2 of 60%. On the blood work today, the sodium level is up to 147 and a chloride is at 124, serum bicarbonate 16 with anion gap of 7. The patient developed an acute kidney injury. The baseline creatinine at a time with position was as low as 1.2 and currently is up to 1.9.the echo of the heart showed a preserved LV function with very small pericardial effusion. No other significant valvular abnormalities noted.Note that the computed tomography scan of the chest abdomen and pelvis was done at time of admission and showed small hiatal hernia, gallbladder calculus without evidence of an acute cholecystitis, mild retroperitoneal fat stranding around the pancreas and prominent retroperitoneal and mesenteric lymph nodes and 4 mm Was in the upper pole of the right kidney without evidence of any hydronephrosis. The ultrasound of the neck showed multiple lymph nodes in the left lateral neck area largest measuring 1.9 x 1.5 cm in size and the thyroid gland was not adequately visualized. 10/13/2021, seeing the patient for a follow-up. The patient remains intubated on a mechanical ventilator. The patient remains sedated on propofol. Propofol is currently running at 40 mcg/kg per minute and the patient is quite synchronous the mechanical ventilator. The patient is currently on assist control mode of mechanical ventilation at the rate of 26, tidal volume 400, FiO2 of 60% with a PEEP of 15. The blood gases from today showed a pH of 7.27 with a pCO2 of 38 and pO2 of 176. The peak airway pressure was 28. The patient had a follow-up chest x-ray today that showed diffuse but the pulmonary infiltrates and the patient remains on the same antibiotic coverage includes a combination of IV cefepime and voriconazole. The bronchial washing showed Yvrose albicans. Urine culture showed Yvrose glabrata. Note that the chest x-ray showed that ET tube was in a good location. The patient had indwelling NG tube, subclavian triple lumen catheter and orotracheal tube follow them for in good location. The patient had bilateral wrist disease and pulmonary infiltrates. The patient was receiving IV fluids in the form of half-normal saline. This was switched to D5 with 2 ampules of sodium bicarbonate at the rate of 150 mL an hour as the patient had some mild component of non-anion gap metabolic acidosis in addition to hyperchloremic hypernatremia. The patient's creatinine today is at 2.2 and the overall his net fluid balance over the past 24 hours has been +3.6 L over the past 24 hours. The white cell count remains elevated at 17.4. Nevertheless the patient is not having any fever. The patient is on enteral feeding for nutritional support and the patient is receiving vital AF at the rate of 34 mL an hour which is at goal. Her pro-calcitonin level was 6.16. She did have a positive p-ANCA and c-ANCA. ELIDA was negative. Significance of those is not clear. The UA showed 24 RBCs, 21 over the ABCs, +1-2 protein. Rheumatology consultation was obtained. The patient continues to have pressor requirements and the patient is currently on norepinephrine infusion running at 0.2 mcg/kg per minute. 10/14/2021, I'm seeing the patient for a follow-up. The patient remains on a mechanical ventilator. The patient sedated with propofol running at 40 mg/kg per minute. The patient remains on mechanical ventilator on assist control mode with a rate of 26, tidal volume of 400, FiO2 of 60% with a PEEP of 15. Blood gases showed a pH of 7.36 with a pCO2 of 39 and pO2 139. Chest x-ray findings are essentially unchanged. The patient remains on a D5 bicarb infusion at the rate of 100 mL an hour. The patient is also norepinephrine infusion running at 0.13 mitral respiratory kilo gram per minute. The patient is receiving vital AF at the rate of 34 mL an hour. The white cell count is at 19 with a hemoglobin of 11. Sodium level is at 147, BUN is at 61 with a creatinine of 3.47. Overall fluid balance is +2 L over the past 24 hours. The patient remains on IV cefepime and IV voriconazole. The patient is afebrile for now. Several consults and evaluated this patient including rheumatology, nephrology and infectious disease. Patient was also seen by oncology regarding the lymphadenopathy in the neck. She is afebrile. No significant progress in her condition. 10/15/2021, patient remains intubated on a mechanical ventilator. The patient is morning is on protocol for running at 35 mg/kg/m. The patient is afebrile. The patient is hemodynamically stable. The patient remains on a mechanical vent ilator. Earlier this morning the patient was hypoxemic on a PEEP of 13 with an FiO2 of 50% and a tidal volume of 400 and a rate of 26. At that point, blood gases was done and the patient was found to have a pH of 7.4 with a pCO2 of 38 and pO2 of 47. The PEEP was increased up to 15. A repeat blood gases was done that showed improvement in oxygenation. The patient is quite synchronous with the mechanical ventilator. The patient is afebrile. The patient remained on the same antibiotic coverage the chest x-ray findings are unchanged and the patient continues to have bilateral pulmonary infiltrates/CHF/edema versus pneumonia. The white cell count is at 22 with a hemoglobin of 10.6 and a platelet count is improving is up to 112. Sodium level is at 141, renal function is progressively getting worse with a creatinine of 2.87 and the BUN of 78 and a serum bicarbonate is a 23. The patient accordingly was taken off the bicarb drip. Nephritis on the case. The rashes were described earlier over the knee area has also recovered. The cervical lymphadenopathy cannot be accurately palpated. Meanwhile, the patient continues to receive enteral feeding for nutritional support. Patient remains on the same antibiotic coverage which included a combination of cefepime and voriconazole. The patient is also on IV Solu Medrol high-dose of the dose of 125 mg IV every 6 hours. Objective - Vital Signs Vital signs: Vital Signs Temp 97.9 F 10/15/21 12:00 Pulse 52 L 10/15/21 15:30 Resp 26 H 10/15/21 15:00 BP 100/63 10/15/21 15:00 Pulse Ox 98 10/15/21 15:00 Intake & Output 10/14/21 10/15/21 10/15/21 18:59 06:59 18:59 Intake Total 9506.925 9432.613 798.985 Output Total 664 470 285 Balance 521.560 5817.613 513.985 Weight 92.3 kg Intake: IV 110 1510 290 0.9 110 60 90 Cefepime 1 gm In Sodium 100 Chloride 0.9% 50 ml @ 12. 5 mls/hr IVPB Q12HR [facility] Rx#:[id number] Cefepime 2 gm In Sodium 0 Chloride 0.9% 100 ml @ 25 mls/hr IVPB Q12H [facility] Rx# :[id number] Dextrose 5% in Water 1, 1100 200 000 ml @ 100 mls/hr IV . Q11H [facility] with Sodium Bicarb (1 Meq/ml) 100 ml Rx#:[id number] Voriconazole 250 mg In 250 Sodium Chloride 0.9% 250 ml @ 125 mls/hr IVPB Q12HR@0000,1200 [facility] Rx#: [id number] Intake, IV Titration 1238.958 293.613 36.985 Amount Dextrose 5% in Water 1, 1100 100 000 ml @ 100 mls/hr IV . Q11H [facility] with Sodium Bicarb (1 Meq/ml) 100 ml Rx#:[id number] Norepinephrine 32 mg In 38.958 29.853 10.391 Sodium Chloride 0.9% 218 ml @ 0.4 MCG/KG/MIN 10. 781 mls/hr IV .[id number] [facility] Rx#:[id number] propofoL 1,000 mg In 100.000 163.76 26.594 Empty Bag 1 bag @ 5 MCG/ KG/MIN 1.725 mls/hr IV . Q24H [facility] Rx#:[id number] Tube Feeding 136 680 272 Other 1960 200 Output: Urine 664 470 285 Other: Voiding Method Indwelling Catheter Indwelling Catheter Indwelling Catheter ABP, PAP, CO, CI - Last Documented Arterial Blood Pressure 123/67 - Exam Sedated, with an orally placed endotracheal tube and NG tube. The patient is sedated on propofol. The patient's, comfortable. The patient is quite sick is the mechanical ventilator. Head exam was generally normal. There was no scleral icterus or corneal arcus. Mucous membranes were moist. Neck supple. Full range of motion. A left-sided neck adenopathy. Neck veins are not distended. Cardiovascular examination reveals regular rhythm rate. S1-S2 normal. No S3 or S4. No discernible murmur noted. Heart sounds are distant. Lungs reveal coarse bilateral rhonchi. No wheezes. No crackles. Breath sounds equal. Abdomen soft bowel sounds are heard. No masses or tenderness. Extremities are intact. No cyanosis clubbing and the patient is showing some signs of edema in all 4 extremities worse in the lower extremities. Skin reveals some mottling on the chest area, and also on the knees bilaterally.The patient has an erythematous rash over the knees bilaterally. The rashes were described on the knees has recovered Neurologic examination was unable to be evaluated because the patient was sedated. - Labs CBC & Chem 7: 10/15/21 04:40 10/15/21 04:40 Labs: Abnormal Lab Results - Last 24 Hours (Table) 10/08/21 10/11/21 10/12/21 Range/Units 13:21 13:37 15:36 WBC (3.8-10.6) k/uL RBC (3.80-5.40) m/uL Hgb (11.4-16.0) gm/dL Hct (34.0-46.0) % Plt Count (150-450) k/uL Neutrophils # (1.3-7.7) k/uL ABG pO2 (83-108) mmHg ABG Total CO2 (19-24) mmol/L ABG O2 Saturation (94-97) % Chloride (98-107) mmol/L BUN (7-17) mg/dL Creatinine (0.52-1.04) mg/dL Glucose (74-99) mg/dL POC Glucose (mg/dL) (75-99) mg/dL Calcium (8.4-10.2) mg/dL AST (14-36) U/L Alkaline Phosphatase (38-126) U/L Total Protein (6.3-8.2) g/dL Albumin (3.5-5.0) g/dL Albumin (PEP) 1.70 L (3.80-4.90) g/dL Zkzbb-5-Rfvdbnpfa 0.64 H (0.10-0.40) g/dL Beta Globulins 0.47 L (0.60-1.30) g/dL Gamma Globulins 0.39 L (0.70-1.50) g/dL IgG1 (382.40-928.60) mg/dL IgG2 (241.80-700.30) mg/dL T-Suppressor Cells (190-832) cell/ul CD4/CD8 Ratio (1.0-3.7) % CD8 Suppressor (9-37) % Mumps Virus IgM Ab 5.71 H (<=0.79) IV Parvovirus B19 IgG Ab 0.93 H (<=0.90) INDEX 10/13/21 10/14/21 10/14/21 Range/Units 03:55 04:25 17:29 WBC (3.8-10.6) k/uL RBC (3.80-5.40) m/uL Hgb (11.4-16.0) gm/dL Hct (34.0-46.0) % Plt Count (150-450) k/uL Neutrophils # (1.3-7.7) k/uL ABG pO2 (83-108) mmHg ABG Total CO2 (19-24) mmol/L ABG O2 Saturation (94-97) % Chloride (98-107) mmol/L BUN (7-17) mg/dL Creatinine (0.52-1.04) mg/dL Glucose (74-99) mg/dL POC Glucose (mg/dL) 167 H (75-99) mg/dL Calcium (8.4-10.2) mg/dL AST (14-36) U/L Alkaline Phosphatase (38-126) U/L Total Protein (6.3-8.2) g/dL Albumin (3.5-5.0) g/dL Albumin (PEP) (3.80-4.90) g/dL Kzlez-0-Fanugxiwv (0.10-0.40) g/dL Beta Globulins (0.60-1.30) g/dL Gamma Globulins (0.70-1.50) g/dL IgG1 175.50 L (382.40-928.60) mg/dL IgG2 80.90 L (241.80-700.30) mg/dL T-Suppressor Cells 65 L (190-832) cell/ul CD4/CD8 Ratio 9.0 H (1.0-3.7) % CD8 Suppressor 5 L (9-37) % Mumps Virus IgM Ab (<=0.79) IV Parvovirus B19 IgG Ab (<=0.90) INDEX 10/14/21 10/15/21 10/15/21 Range/Units 23:58 04:40 04:40 WBC 22.4 H (3.8-10.6) k/uL RBC 3.18 L (3.80-5.40) m/uL Hgb 10.6 L (11.4-16.0) gm/dL Hct 31.6 L (34.0-46.0) % Plt Count 112 L (150-450) k/uL Neutrophils # 19.7 H (1.3-7.7) k/uL ABG pO2 (83-108) mmHg ABG Total CO2 (19-24) mmol/L ABG O2 Saturation (94-97) % Chloride 110 H (98-107) mmol/L BUN 78 H (7-17) mg/dL Creatinine 2.87 H (0.52-1.04) mg/dL Glucose 159 H (74-99) mg/dL POC Glucose (mg/dL) 181 H (75-99) mg/dL Calcium 7.1 L (8.4-10.2) mg/dL AST 38 H (14-36) U/L Alkaline Phosphatase 231 H (38-126) U/L Total Protein 4.5 L (6.3-8.2) g/dL Albumin 2.0 L (3.5-5.0) g/dL Albumin (PEP) (3.80-4.90) g/dL Wwolw-6-Ujfwxjjwn (0.10-0.40) g/dL Beta Globulins (0.60-1.30) g/dL Gamma Globulins (0.70-1.50) g/dL IgG1 (382.40-928.60) mg/dL IgG2 (241.80-700.30) mg/dL T-Suppressor Cells (190-832) cell/ul CD4/CD8 Ratio (1.0-3.7) % CD8 Suppressor (9-37) % Mumps Virus IgM Ab (<=0.79) IV Parvovirus B19 IgG Ab (<=0.90) INDEX 10/15/21 10/15/21 10/15/21 Range/Units 05:52 05:54 08:54 WBC (3.8-10.6) k/uL RBC (3.80-5.40) m/uL Hgb (11.4-16.0) gm/dL Hct (34.0-46.0) % Plt Count (150-450) k/uL Neutrophils # (1.3-7.7) k/uL ABG pO2 47 L* 79 L (83-108) mmHg ABG Total CO2 25 H 26 H (19-24) mmol/L ABG O2 Saturation 85.0 L (94-97) % Chloride (98-107) mmol/L BUN (7-17) mg/dL Creatinine (0.52-1.04) mg/dL Glucose (74-99) mg/dL POC Glucose (mg/dL) 174 H (75-99) mg/dL Calcium (8.4-10.2) mg/dL AST (14-36) U/L Alkaline Phosphatase (38-126) U/L Total Protein (6.3-8.2) g/dL Albumin (3.5-5.0) g/dL Albumin (PEP) (3.80-4.90) g/dL Lbuky-1-Hahhzmnmv (0.10-0.40) g/dL Beta Globulins (0.60-1.30) g/dL Gamma Globulins (0.70-1.50) g/dL IgG1 (382.40-928.60) mg/dL IgG2 (241.80-700.30) mg/dL T-Suppressor Cells (190-832) cell/ul CD4/CD8 Ratio (1.0-3.7) % CD8 Suppressor (9-37) % Mumps Virus IgM Ab (<=0.79) IV Parvovirus B19 IgG Ab (<=0.90) INDEX 10/15/21 Range/Units 11:32 WBC (3.8-10.6) k/uL RBC (3.80-5.40) m/uL Hgb (11.4-16.0) gm/dL Hct (34.0-46.0) % Plt Count (150-450) k/uL Neutrophils # (1.3-7.7) k/uL ABG pO2 (83-108) mmHg ABG Total CO2 (19-24) mmol/L ABG O2 Saturation (94-97) % Chloride (98-107) mmol/L BUN (7-17) mg/dL Creatinine (0.52-1.04) mg/dL Glucose (74-99) mg/dL POC Glucose (mg/dL) 149 H (75-99) mg/dL Calcium (8.4-10.2) mg/dL AST (14-36) U/L Alkaline Phosphatase (38-126) U/L Total Protein (6.3-8.2) g/dL Albumin (3.5-5.0) g/dL Albumin (PEP) (3.80-4.90) g/dL Hhbdb-4-Dpcwuacjl (0.10-0.40) g/dL Beta Globulins (0.60-1.30) g/dL Gamma Globulins (0.70-1.50) g/dL IgG1 (382.40-928.60) mg/dL IgG2 (241.80-700.30) mg/dL T-Suppressor Cells (190-832) cell/ul CD4/CD8 Ratio (1.0-3.7) % CD8 Suppressor (9-37) % Mumps Virus IgM Ab (<=0.79) IV Parvovirus B19 IgG Ab (<=0.90) INDEX Assessment and Plan Plan: Acute hypoxemic respiratory failure, likely multifactorial, in part related to bilateral pneumonia. The patient required intubation and mechanical ventilation on 10/10/2021. She underwent bronchoscopy.The bronchioloalveolar lavage showed Yvrose albicans and the patient is currently on a combination of antibiotics including a combination of cefepime and voriconazole. Infectious diseases on the case. The chest x-ray is showing lower lobe at the pulmonary infiltrates. Blood gas was noted. Chest x-ray was noted. Note that the pro-calcitonin level was quite elevated, but admission and this indicated essentially possibility of bacterial infection. For now, the patient remains on a mechanical ventilator. Chest x-ray remains unchanged. The patient is currently on a PEEP of 15 with an FiO2 of 50%. Unable to wean down the PEEP. Earlier blood gases from this morning showed some hypoxemia and based on that the PEEP was brought up from 13 up to 15. Episodic fever, currently afebrile Septic shock with secondary hypotension, possibly related to underlying sepsis. The patient is currently on pressors, NE is being gradually weaned off, and the patient continues to have some degree of leukocytosis. Left sided cervical lymphadenopathy. History of gastroesophageal reflux disease. History of hypertension. History of hypothyroidism. History of ongoing tobacco use. History of anxiety/depression/bipolar disorder. acute hyperchloremic hypernatremia, recovered Non-anion gap metabolic acidosis, recovered Acute kidney injury with progressive worsening renal function and the patient has been in a positive fluid balance and the patient is developing some edema no proximity is Abdominal lymphadenopathy, nonspecific Questionable gallbladder calculus without evidence of any cholecystitis 4 mm calculus in the upper lobe of the right kidney, no hydronephrosis Acute thrombocytopenia, and a platelet count is improving Plan: Continue ventilator support. Wean down the FiO2 to 50% and keep the PEEP at 15 Stop the bicarb infusion Give the patient does of 60mg IV push 1 Echo showed a preserved LV function CAT scan of the chest abdomen and pelvis at a time of admission showed no significant bilateral pulmonary infiltrates and the findings were essentially nonspecific Continue enteral feeding for nutritional support Urine output is adequate Monitor fever pattern Started patient on Lasix 60 mg IV every 12 hours May consider repeating the CAT scan of the neck chest and abdomen Continued IV Solu-Medrol The workup that was already initiated by the rest of the consultants was appreciated. No clear indication for vasculitis. The patient has positive ANCA negative ELIDA, the patient may have an uncle related vasculitis. The patient was started on IV Solu-Medrol. She May ultimately need a kidney biopsy and I'm leaving the final decision for that to nephrology and rheumatology. Agree on IV Solu Medrol for now. Continue same antibiotic coverage. Condition is extremely critical. Continue enteral feeding for nutritional support. We'll continue to follow make further recommendations based on progress. Condition is critical evaluation and this is done in more than 40 minutes. Time with Patient: Greater than 30
--- NOTE | 2021-10-15 16:24 | CT ---
EXAMINATION TYPE: CT chest abdomen wo con, CT soft tissue neck wo con DATE OF EXAM: 10/15/2021 COMPARISON: Prior CT October 07, 2021 HISTORY: Follow up lymphadenopathy. CT DLP: 376.3 (accession [id number]), 1004 (accession [id number]) mGycm Automated exposure control for dose reduction was used. CT neck thorax and abdomen with oral but with out IV contrast. FINDINGS: Neck: Lack of IV contrast is noted to lower sensitivity for evaluation for mucosal lesions and neck a denopathy. There is an endotracheal tube and orogastric tube. Somewhat small size thyroid gland is present. Occl uded nasopharyngeal airway likely reflects retained secretions related to intubation. Parotid and submandibular glands are symmetric and felt within normal limits. Mild calcified plaque l eft carotid bulb level. Osseous structures are intact. There are scattered prominent but subcentimeter lymph nodes throughout the neck. There are slightly m ore prominent left submandibular level. No definitive abnormal greater than 1 cm neck adenopathy is s een. Mild subcutaneous edema anteriorly at supraclavicular level is present. Chest: Lungs: There are now small bilateral pleural effusions and associated lower lung compressive atelecta sis. There is additional posterior consolidation along the right major fissure. There is mosaic atten uation consistent with mild to moderate edema and/or infiltrates. No pneumothorax is seen bilaterally . Somewhat low lung volumes noted. Endotracheal tube terminates at the level of stuart, consider pull ing back 4 to 5 cm. Mediastinum: Lack of IV contrast is noted to lower sensitivity for mediastinal and hilar adenopathy. No definitive abnormal greater than 1 cm mediastinal lymph nodes. Mild cardiomegaly with small to tin y pericardial effusion. There is left-sided subclavian central venous catheter terminating at cavoatr ial junction. Prominent pulmonary arteries consistent with underlying pulmonary artery hypertension. Mild to moderate diffuse subcutaneous edema is now present. ABDOMEN: Small amount of fluid adjacent to the liver and spleen. Possible 2 mm nonobstructing calculu s upper pole right kidney coronal image 98 unchanged from prior. No hydronephrosis seen bilaterally. Pancreas and both adrenal glands appear within normal limits. Some oral contrast fills nasogastric tu be along with stomach duodenal sweep and left-sided jejunal loops. No suspicious small or large bowel dilatation. Moderate to severe diffuse soft tissue anasarca in the surrounding abdominal wall subcut aneous tissue is noted. IMPRESSION: Suboptimal study without IV contrast. No definitive abnormal adenopathy is present. Low-l dena endotracheal tube, advise pulling back 4 to 5 cm.
[2021-10-15 17:43] LABS: Glucose,Whole Blood 140 mg/dL (75-99)
[2021-10-15] MEDS: FUROSEMIDE 10 MG/ML 10 ML VIAL IV SCH (21:14)
--- NOTE | 2021-10-15 21:25 | P.PN ---
Subjective Progress Note Date: 10/15/21 Principal diagnosis: Fever and rash Patient is a 56-year-old female presenting to the hospital with a fever rash and swelling to the left side of the neck in this patient did have evidence of lymphadenopathy subsequently developed a rash to bilateral elbow and bilateral knee area patient did have a CT of abdominal pelvis and chest no mention of any abscess which was some retroperitoneal lymphadenopathy. Patient did have a repeat CT of the neck chest and abdominal did not show any significant lymphadenopathy On today's evaluation that is 10/15/2021, the patient is afebrile, the patient remains to be intubated on the vent, FiO2 is up to 60 %, no significant purulent secretion through the ET or diarrhea has been reported by the nursing staff Objective - Vital Signs Vital signs: Vital Signs Temp 97.9 F 10/15/21 12:00 Pulse 56 L 10/15/21 14:00 Resp 26 H 10/15/21 14:00 BP 94/52 10/15/21 14:00 Pulse Ox 96 10/15/21 14:00 Intake & Output 10/14/21 10/15/21 10/15/21 18:59 06:59 18:59 Intake Total 6484.030 6570.613 788.985 Output Total 664 470 245 Balance 443.437 9096.613 543.985 Weight 92.3 kg Intake: IV 110 1510 280 0.9 110 60 80 Cefepime 1 gm In Sodium 100 Chloride 0.9% 50 ml @ 12. 5 mls/hr IVPB Q12HR [facility] Rx#:[id number] Cefepime 2 gm In Sodium 0 Chloride 0.9% 100 ml @ 25 mls/hr IVPB Q12H [facility] Rx# :[id number] Dextrose 5% in Water 1, 1100 200 000 ml @ 100 mls/hr IV . Q11H [facility] with Sodium Bicarb (1 Meq/ml) 100 ml Rx#:[id number] Voriconazole 250 mg In 250 Sodium Chloride 0.9% 250 ml @ 125 mls/hr IVPB Q12HR@0000,1200 [facility] Rx#: [id number] Intake, IV Titration 1238.958 293.613 36.985 Amount Dextrose 5% in Water 1, 1100 100 000 ml @ 100 mls/hr IV . Q11H [facility] with Sodium Bicarb (1 Meq/ml) 100 ml Rx#:[id number] Norepinephrine 32 mg In 38.958 29.853 10.391 Sodium Chloride 0.9% 218 ml @ 0.4 MCG/KG/MIN 10. 781 mls/hr IV .[id number] [facility] Rx#:[id number] propofoL 1,000 mg In 100.000 163.76 26.594 Empty Bag 1 bag @ 5 MCG/ KG/MIN 1.725 mls/hr IV . Q24H [facility] Rx#:[id number] Tube Feeding 136 680 272 Other 1960 200 Output: Urine 664 470 245 Other: Voiding Method Indwelling Catheter Indwelling Catheter Indwelling Catheter ABP, PAP, CO, CI - Last Documented Arterial Blood Pressure 116/64 - Exam GENERAL DESCRIPTION: Middle-age female intubated on the vent RESPIRATORY SYSTEM: Unlabored breathing , decreased breath sounds at bases HEART: S1 S2 regular rate and rhythm , ABDOMEN: Soft , no tenderness EXTREMITIES: No edema feet - Labs CBC & Chem 7: 10/15/21 04:40 10/15/21 04:40 Labs: Abnormal Lab Results - Last 24 Hours (Table) 10/08/21 10/11/21 10/12/21 Range/Units 13:21 13:37 15:36 WBC (3.8-10.6) k/uL RBC (3.80-5.40) m/uL Hgb (11.4-16.0) gm/dL Hct (34.0-46.0) % Plt Count (150-450) k/uL Neutrophils # (1.3-7.7) k/uL ABG pO2 (83-108) mmHg ABG Total CO2 (19-24) mmol/L ABG O2 Saturation (94-97) % Chloride (98-107) mmol/L BUN (7-17) mg/dL Creatinine (0.52-1.04) mg/dL Glucose (74-99) mg/dL POC Glucose (mg/dL) (75-99) mg/dL Calcium (8.4-10.2) mg/dL AST (14-36) U/L Alkaline Phosphatase (38-126) U/L Total Protein (6.3-8.2) g/dL Albumin (3.5-5.0) g/dL Albumin (PEP) 1.70 L (3.80-4.90) g/dL Yodrm-3-Hhymrmspq 0.64 H (0.10-0.40) g/dL Beta Globulins 0.47 L (0.60-1.30) g/dL Gamma Globulins 0.39 L (0.70-1.50) g/dL IgG1 (382.40-928.60) mg/dL IgG2 (241.80-700.30) mg/dL T-Suppressor Cells (190-832) cell/ul CD4/CD8 Ratio (1.0-3.7) % CD8 Suppressor (9-37) % Mumps Virus IgM Ab 5.71 H (<=0.79) IV Parvovirus B19 IgG Ab 0.93 H (<=0.90) INDEX 10/13/21 10/14/21 10/14/21 Range/Units 03:55 04:25 17:29 WBC (3.8-10.6) k/uL RBC (3.80-5.40) m/uL Hgb (11.4-16.0) gm/dL Hct (34.0-46.0) % Plt Count (150-450) k/uL Neutrophils # (1.3-7.7) k/uL ABG pO2 (83-108) mmHg ABG Total CO2 (19-24) mmol/L ABG O2 Saturation (94-97) % Chloride (98-107) mmol/L BUN (7-17) mg/dL Creatinine (0.52-1.04) mg/dL Glucose (74-99) mg/dL POC Glucose (mg/dL) 167 H (75-99) mg/dL Calcium (8.4-10.2) mg/dL AST (14-36) U/L Alkaline Phosphatase (38-126) U/L Total Protein (6.3-8.2) g/dL Albumin (3.5-5.0) g/dL Albumin (PEP) (3.80-4.90) g/dL Lrfrk-7-Ychhtetoy (0.10-0.40) g/dL Beta Globulins (0.60-1.30) g/dL Gamma Globulins (0.70-1.50) g/dL IgG1 175.50 L (382.40-928.60) mg/dL IgG2 80.90 L (241.80-700.30) mg/dL T-Suppressor Cells 65 L (190-832) cell/ul CD4/CD8 Ratio 9.0 H (1.0-3.7) % CD8 Suppressor 5 L (9-37) % Mumps Virus IgM Ab (<=0.79) IV Parvovirus B19 IgG Ab (<=0.90) INDEX 10/14/21 10/15/21 10/15/21 Range/Units 23:58 04:40 04:40 WBC 22.4 H (3.8-10.6) k/uL RBC 3.18 L (3.80-5.40) m/uL Hgb 10.6 L (11.4-16.0) gm/dL Hct 31.6 L (34.0-46.0) % Plt Count 112 L (150-450) k/uL Neutrophils # 19.7 H (1.3-7.7) k/uL ABG pO2 (83-108) mmHg ABG Total CO2 (19-24) mmol/L ABG O2 Saturation (94-97) % Chloride 110 H (98-107) mmol/L BUN 78 H (7-17) mg/dL Creatinine 2.87 H (0.52-1.04) mg/dL Glucose 159 H (74-99) mg/dL POC Glucose (mg/dL) 181 H (75-99) mg/dL Calcium 7.1 L (8.4-10.2) mg/dL AST 38 H (14-36) U/L Alkaline Phosphatase 231 H (38-126) U/L Total Protein 4.5 L (6.3-8.2) g/dL Albumin 2.0 L (3.5-5.0) g/dL Albumin (PEP) (3.80-4.90) g/dL Vsspx-1-Qolwhxbwk (0.10-0.40) g/dL Beta Globulins (0.60-1.30) g/dL Gamma Globulins (0.70-1.50) g/dL IgG1 (382.40-928.60) mg/dL IgG2 (241.80-700.30) mg/dL T-Suppressor Cells (190-832) cell/ul CD4/CD8 Ratio (1.0-3.7) % CD8 Suppressor (9-37) % Mumps Virus IgM Ab (<=0.79) IV Parvovirus B19 IgG Ab (<=0.90) INDEX 10/15/21 10/15/21 10/15/21 Range/Units 05:52 05:54 08:54 WBC (3.8-10.6) k/uL RBC (3.80-5.40) m/uL Hgb (11.4-16.0) gm/dL Hct (34.0-46.0) % Plt Count (150-450) k/uL Neutrophils # (1.3-7.7) k/uL ABG pO2 47 L* 79 L (83-108) mmHg ABG Total CO2 25 H 26 H (19-24) mmol/L ABG O2 Saturation 85.0 L (94-97) % Chloride (98-107) mmol/L BUN (7-17) mg/dL Creatinine (0.52-1.04) mg/dL Glucose (74-99) mg/dL POC Glucose (mg/dL) 174 H (75-99) mg/dL Calcium (8.4-10.2) mg/dL AST (14-36) U/L Alkaline Phosphatase (38-126) U/L Total Protein (6.3-8.2) g/dL Albumin (3.5-5.0) g/dL Albumin (PEP) (3.80-4.90) g/dL Lymjz-5-Otkyximio (0.10-0.40) g/dL Beta Globulins (0.60-1.30) g/dL Gamma Globulins (0.70-1.50) g/dL IgG1 (382.40-928.60) mg/dL IgG2 (241.80-700.30) mg/dL T-Suppressor Cells (190-832) cell/ul CD4/CD8 Ratio (1.0-3.7) % CD8 Suppressor (9-37) % Mumps Virus IgM Ab (<=0.79) IV Parvovirus B19 IgG Ab (<=0.90) INDEX 10/15/21 Range/Units 11:32 WBC (3.8-10.6) k/uL RBC (3.80-5.40) m/uL Hgb (11.4-16.0) gm/dL Hct (34.0-46.0) % Plt Count (150-450) k/uL Neutrophils # (1.3-7.7) k/uL ABG pO2 (83-108) mmHg ABG Total CO2 (19-24) mmol/L ABG O2 Saturation (94-97) % Chloride (98-107) mmol/L BUN (7-17) mg/dL Creatinine (0.52-1.04) mg/dL Glucose (74-99) mg/dL POC Glucose (mg/dL) 149 H (75-99) mg/dL Calcium (8.4-10.2) mg/dL AST (14-36) U/L Alkaline Phosphatase (38-126) U/L Total Protein (6.3-8.2) g/dL Albumin (3.5-5.0) g/dL Albumin (PEP) (3.80-4.90) g/dL Qpyfj-1-Wsbhbawcv (0.10-0.40) g/dL Beta Globulins (0.60-1.30) g/dL Gamma Globulins (0.70-1.50) g/dL IgG1 (382.40-928.60) mg/dL IgG2 (241.80-700.30) mg/dL T-Suppressor Cells (190-832) cell/ul CD4/CD8 Ratio (1.0-3.7) % CD8 Suppressor (9-37) % Mumps Virus IgM Ab (<=0.79) IV Parvovirus B19 IgG Ab (<=0.90) INDEX Assessment and Plan (1) Fever Current Visit: Yes Status: Acute Code(s): R50.9 - FEVER, UNSPECIFIED SNOMED Code(s): 723689762 (2) Lymphadenopathy of left cervical region Current Visit: Yes Status: Acute Priority: High Code(s): R59.0 - LOCALIZED ENLARGED LYMPH NODES SNOMED Code(s): 715667722 Plan: 1patient with a fever and this patient did have a left-sided neck swelling with ultrasound suggestive of left cervical lymphadenopathy patient did have CT of abdominal pelvis and chest did not show any abscess or colitis did shows evidence of retroperitoneal lymphadenopathy 2- CMV serology was negative EBV serologies pending, rheumatological workup has been ordered as well as parvovirus serology 3- Patient did have worsening respiratory status requiring intubation with worsening of the chest x-ray possible ARDS pattern in this patient has been intubated and did have bronchoscopy deep culture has been obtained which are currently growing Yvrose more likely colonizer urine is growing Yvrose glabrata, patient also has slight worsening of her kidney function and did have ANCA positive, rheumatology has been consulted. Surgery has been consulted for possible cervical lymph node biopsy however there opinion is patient is too unstable to go for lymph node biopsy, patient is currently being treated with Solu-Medrol with concern for possible vasculitis and patient will continue continue with cefepime and voriconazole and detailed discussion with the medical team, possible consideration for transfer to tertiary care Time with Patient: Less than 30
[2021-10-16 00:08] LABS: Glucose,Whole Blood 127 mg/dL (75-99)
[2021-10-16] MEDS: INSULIN ASPART (NovoLOG) 100 UNIT/ML VIAL SQ SCH ×4 (00:44→18:04)
[2021-10-16] MEDS: SODIUM CHLORIDE 0.9% IVPB SCH ×2 (01:04→11:43)
[2021-10-16] MEDS: HEPARIN SODIUM,PORCINE/PF 5,000 UNIT/0.5 ML SYRINGE SQ SCH ×3 (01:04→18:04)
[2021-10-16] MEDS: methylPREDNISolone SOD SUCCI 125 MG/2 ML VIAL IV SCH ×4 (01:04→18:04)
[2021-10-16] MEDS: VORICONAZOLE IVPB SCH ×2 (01:04→11:43)
[2021-10-16 05:11] LABS: Albumin 2.2 g/dL (3.5-5.0); Calcium 7.2 mg/dL (8.4-10.2); Potassium 4.4 mmol/L (3.5-5.1); Total Bilirubin 0.8 mg/dL (0.2-1.3); Total Protein 4.8 g/dL (6.3-8.2)
[2021-10-16 05:33] LABS: Basophils % (A) 0 %; Eosinophils % (A) 0 %; HCT 32.9 % (34.0-46.0); HGB 10.7 gm/dL (11.4-16.0); Lymphocytes % (A) 9 %; MCH 32.7 pg (25.0-35.0); MCHC 32.6 g/dL (31.0-37.0); MCV 100.2 fL (80.0-100.0); Macrocytosis Slight; Mean Platelet Volume 14.4; Monocytes # (A) 0.6 k/uL (0-1.0); Monocytes % (A) 3 %; Neutrophils # (A) 18.4 k/uL (1.3-7.7); Neutrophils % (A) 86 %; Platelet Count 135 k/uL (150-450); RBC 3.28 m/uL (3.80-5.40); RDW 15.5 % (11.5-15.5); WBC 21.4 k/uL (3.8-10.6)
[2021-10-16 05:43] LABS: Glucose,Whole Blood 129 mg/dL (75-99)
[2021-10-16] MEDS: LEVOTHYROXINE 100 MCG TAB PO SCH (05:45)
[2021-10-16 06:13] LABS: ABG Base Excess -2.4 mmol/L; ABG HCO3 22 mmol/L (21-25); ABG Oxygen Saturation 96.5 % (94-97); ABG PCO2 36 mmHg (35-45); ABG PO2 82 mmHg (83-108); ABG TCO2 24 mmol/L (19-24); Allen Test Performed? Yes
[2021-10-16] MEDS: IPRATROPIUM-ALBUTEROL 3 ML NEB INHALATION PRN ×2 (07:38→19:34)
--- NOTE | 2021-10-16 07:40 | XR ---
EXAMINATION TYPE: XR chest 1V portable DATE OF EXAM: 10/16/2021 COMPARISON: Chest x-ray and CT 10/15/2021 HISTORY: Intubated TECHNIQUE: Single frontal view of the chest is obtained. FINDINGS: Orogastric tube, endotracheal tube, left subclavian central venous catheter are overlying appropriate positions, endotracheal tube thought to have been repositioned in the interval, correlate . Patient is rotated. No evident pneumothorax. Findings of probable congestive heart failure again se en. No evident pneumothorax. There are likely basilar effusions. IMPRESSION: Correlate for congestive heart failure, pneumonia not excluded.
--- NOTE | 2021-10-16 09:44 | P.PN ---
Subjective patient is seen in follow-up for acute kidney injury on chronic kidney disease. Renal function worsening. Creatinine 3.17 today. On IV Lasix 60 mg twice daily. Urine output 50-100 mL per hour. Intubated. On Levophed. Off IV fluids. Receiving tube feeds. Vital signs are stable. On vasopressor support. HEENT: Intubated. LUNGS: Breath sounds decreased. HEART: Rate and Rhythm are regular. ABDOMEN: Soft, no distention. EXTREMITITES: 1+ edema. Objective - Vital Signs Vital signs: Vital Signs Temp 97.8 F 10/16/21 04:00 Pulse 55 L 10/16/21 07:49 Resp 26 H 10/16/21 07:49 BP 103/62 10/16/21 07:00 Pulse Ox 99 10/16/21 07:00 Intake & Output 10/15/21 10/16/21 10/16/21 18:59 06:59 18:59 Intake Total 1204.391 546.666 10 Output Total 425 1050 45 Balance 779.391 -503.334 -35 Weight 86.4 kg Intake: IV 320 180 10 0.9 120 130 10 Cefepime 1 gm In Sodium 50 Chloride 0.9% 50 ml @ 12. 5 mls/hr IVPB Q12HR [facility] Rx#:[id number] Dextrose 5% in Water 1, 200 000 ml @ 100 mls/hr IV . Q11H [facility] with Sodium Bicarb (1 Meq/ml) 100 ml Rx#:[id number] Intake, IV Titration 110.391 196.666 Amount Norepinephrine 32 mg In 10.391 42.846 Sodium Chloride 0.9% 218 ml @ 0.4 MCG/KG/MIN 10. 781 mls/hr IV .[id number] [facility] Rx#:[id number] propofoL 1,000 mg In 100.000 153.82 Empty Bag 1 bag @ 5 MCG/ KG/MIN 1.725 mls/hr IV . Q24H [facility] Rx#:[id number] Tube Feeding 374 170 Other 400 Output: Urine 425 1050 45 Other: Voiding Method Indwelling Catheter Indwelling Catheter ABP, PAP, CO, CI - Last Documented Arterial Blood Pressure 100/49 - Labs CBC & Chem 7: 10/16/21 04:10 10/16/21 04:10 Labs: Abnormal Lab Results - Last 24 Hours (Table) 10/08/21 10/12/21 10/13/21 Range/Units 13:21 15:36 03:55 WBC (3.8-10.6) k/uL RBC (3.80-5.40) m/uL Hgb (11.4-16.0) gm/dL Hct (34.0-46.0) % MCV (80.0-100.0) fL Plt Count (150-450) k/uL Neutrophils # (1.3-7.7) k/uL ABG pO2 (83-108) mmHg Chloride (98-107) mmol/L Carbon Dioxide (22-30) mmol/L BUN (7-17) mg/dL Creatinine (0.52-1.04) mg/dL Glucose (74-99) mg/dL POC Glucose (mg/dL) (75-99) mg/dL Calcium (8.4-10.2) mg/dL AST (14-36) U/L Alkaline Phosphatase (38-126) U/L Total Protein (6.3-8.2) g/dL Albumin (3.5-5.0) g/dL Albumin (PEP) 1.70 L (3.80-4.90) g/dL Uxmlc-9-Jvxwckwci 0.64 H (0.10-0.40) g/dL Beta Globulins 0.47 L (0.60-1.30) g/dL Gamma Globulins 0.39 L (0.70-1.50) g/dL IgG1 175.50 L (382.40-928.60) mg/dL IgG2 80.90 L (241.80-700.30) mg/dL T-Suppressor Cells (190-832) cell/ul CD4/CD8 Ratio (1.0-3.7) % CD8 Suppressor (9-37) % Parvovirus B19 IgG Ab 0.93 H (<=0.90) INDEX 10/14/21 10/15/21 10/15/21 Range/Units 04: 11:32 17:41 WBC (3.8-10.6) k/uL RBC (3.80-5.40) m/uL Hgb (11.4-16.0) gm/dL Hct (34.0-46.0) % MCV (80.0-100.0) fL Plt Count (150-450) k/uL Neutrophils # (1.3-7.7) k/uL ABG pO2 (83-108) mmHg Chloride (98-107) mmol/L Carbon Dioxide (22-30) mmol/L BUN (7-17) mg/dL Creatinine (0.52-1.04) mg/dL Glucose (74-99) mg/dL POC Glucose (mg/dL) 149 H 140 H (75-99) mg/dL Calcium (8.4-10.2) mg/dL AST (14-36) U/L Alkaline Phosphatase (38-126) U/L Total Protein (6.3-8.2) g/dL Albumin (3.5-5.0) g/dL Albumin (PEP) (3.80-4.90) g/dL Pmovd-0-Usiydwjyr (0.10-0.40) g/dL Beta Globulins (0.60-1.30) g/dL Gamma Globulins (0.70-1.50) g/dL IgG1 (382.40-928.60) mg/dL IgG2 (241.80-700.30) mg/dL T-Suppressor Cells 65 L (190-832) cell/ul CD4/CD8 Ratio 9.0 H (1.0-3.7) % CD8 Suppressor 5 L (9-37) % Parvovirus B19 IgG Ab (<=0.90) INDEX 10/16/21 10/16/21 10/16/21 Range/Units 00:06 04:10 04:10 WBC 21.4 H (3.8-10.6) k/uL RBC 3.28 L (3.80-5.40) m/uL Hgb 10.7 L (11.4-16.0) gm/dL Hct 32.9 L (34.0-46.0) % MCV 100.2 H (80.0-100.0) fL Plt Count 135 L (150-450) k/uL Neutrophils # 18.4 H (1.3-7.7) k/uL ABG pO2 (83-108) mmHg Chloride 109 H (98-107) mmol/L Carbon Dioxide 21 L (22-30) mmol/L BUN 106 H* (7-17) mg/dL Creatinine 3.17 H (0.52-1.04) mg/dL Glucose 147 H (74-99) mg/dL POC Glucose (mg/dL) 127 H (75-99) mg/dL Calcium 7.2 L (8.4-10.2) mg/dL AST 37 H (14-36) U/L Alkaline Phosphatase 212 H (38-126) U/L Total Protein 4.8 L (6.3-8.2) g/dL Albumin 2.2 L (3.5-5.0) g/dL Albumin (PEP) (3.80-4.90) g/dL Unwyp-5-Uijiihbjt (0.10-0.40) g/dL Beta Globulins (0.60-1.30) g/dL Gamma Globulins (0.70-1.50) g/dL IgG1 (382.40-928.60) mg/dL IgG2 (241.80-700.30) mg/dL T-Suppressor Cells (190-832) cell/ul CD4/CD8 Ratio (1.0-3.7) % CD8 Suppressor (9-37) % Parvovirus B19 IgG Ab (<=0.90) INDEX 10/16/21 10/16/21 Range/Units 05:42 06:10 WBC (3.8-10.6) k/uL RBC (3.80-5.40) m/uL Hgb (11.4-16.0) gm/dL Hct (34.0-46.0) % MCV (80.0-100.0) fL Plt Count (150-450) k/uL Neutrophils # (1.3-7.7) k/uL ABG pO2 82 L (83-108) mmHg Chloride (98-107) mmol/L Carbon Dioxide (22-30) mmol/L BUN (7-17) mg/dL Creatinine (0.52-1.04) mg/dL Glucose (74-99) mg/dL POC Glucose (mg/dL) 129 H (75-99) mg/dL Calcium (8.4-10.2) mg/dL AST (14-36) U/L Alkaline Phosphatase (38-126) U/L Total Protein (6.3-8.2) g/dL Albumin (3.5-5.0) g/dL Albumin (PEP) (3.80-4.90) g/dL Sgjro-6-Vdqitaqog (0.10-0.40) g/dL Beta Globulins (0.60-1.30) g/dL Gamma Globulins (0.70-1.50) g/dL IgG1 (382.40-928.60) mg/dL IgG2 (241.80-700.30) mg/dL T-Suppressor Cells (190-832) cell/ul CD4/CD8 Ratio (1.0-3.7) % CD8 Suppressor (9-37) % Parvovirus B19 IgG Ab (<=0.90) INDEX Microbiology - Last 24 Hours (Table) 10/15/21 17:45 Genital Culture - Preliminary Vaginal Assessment and Plan Plan: Assessment: 1. Acute kidney injury secondary to ATN secondary to septic shock. Also noted to be thrombocytopenic - platelet levels better. Need to rule out HUS/TTP although patient was not anemic - discussed with hematology. No schistocytes noted. Creatinine 3.17 today. Nonoliguric. Initial UA showed trace proteinuria with 2 RBCs. Repeat UA with 1-2+ protein and also RBCs. UPC 2.1 g. elevated BUN secondary to diuresis and steroids. 2. Chronic kidney disease stage IIIa secondary to nephrosclerosis and chronic interstitial nephritis from lithium use with baseline creatinine near 1.2. 3. Hypernatremia from lack of oral water intake. Improved. 4. Septic shock maintained on Levophed. On antibiotics. Unclear source. Infectious disease following. 5. Metabolic acidosis secondary to acute kidney injury and IV fluids. 6. Left cervical region and retroperitoneal lymphadenopathy. Being followed by ID and oncology. ?biopsy. 7. Elevated anti-MPO. ELIDA negative. Doubt renal vasculitis as only 2 RBCs on initial UA. Rheumatology following. On Solu-Medrol. Plan: Off IV fluids. Maintain Lasix. Maintain tube feeds. Decrease free water flushes to 200 mL every 6 hours. Wean FiO2 and vasopressors. ELIDA, Complement levels, PA-3, anti-GBM, hepatitis normal. HIV negative. No monoclonality noted. Continue to monitor renal function and urine output. Will need kidney biopsy per rheumatology. Will schedule when medically stable if able to be done at this facility. Transfer to tertiary center on hold due to hemodynamics. Discussed with primary team.
[2021-10-16] MEDS: CHLORHEXIDINE GLUCONATE 15 ML CUP MUCOUS MEM SCH ×2 (10:58→20:20)
[2021-10-16] MEDS: lamoTRIgine 100 MG TAB PO SCH ×2 (10:58→20:19)
[2021-10-16] MEDS: FUROSEMIDE 10 MG/ML 10 ML VIAL IV SCH ×2 (10:59→20:20)
[2021-10-16 11:00] VITALS: BMI 35.9
[2021-10-16] MEDS: CEFEPIME 1 GM in SODIUM CHLORIDE 0.9% 50 ML IVPB SCH ×2 (11:03→20:18)
[2021-10-16] MEDS: SODIUM BICARBONATE TAB 650 MG TAB PO SCH ×2 (11:07→20:18)
[2021-10-16] MEDS ORDERED: NOREPINEPHRINE 8 MG in SODIUM CHLORIDE 0.9% 250 ML IV SCH (11:15)
--- NOTE | 2021-10-16 11:39 | P.DS ---
Providers Date of admission: 10/08/21 08:30 Expected date of discharge: 10/16/21 Attending physician: Margaux Patterson MD Consults: 10/07/21 17:28 Consult Physician Routine Consulting Provider: Mike Solis Consult Reason/Comments: fever of unclear origin Do you want consulting provider notified?: Yes 10/08/21 10:18 Consult Physician Routine Consulting Provider: Eli Christensen Consult Reason/Comments: lymphadenopathy, fat stranding retroperitoneal and lower neck, fever 103 Do you want consulting provider notified?: Yes 10/08/21 10:55 Consult Physician Routine Consulting Provider: Marc Lee Consult Reason/Comments: lymphadenopathy Do you want consulting provider notified?: Yes 10/10/21 10:58 Consult Physician Stat Consulting Provider: Dickson Cloon Consult Reason/Comments: Transfer to ICU Do you want consulting provider notified?: Already Contacted 10/12/21 11:09 Consult Physician Routine Consulting Provider: Sahil Miller Consult Reason/Comments: GAGAN; thrombocytopenia Do you want consulting provider notified?: Yes 10/12/21 15:02 Consult Physician Routine Consulting Provider: Donita Lomas Consult Reason/Comments: anti-MPO high Do you want consulting provider notified?: Yes 10/13/21 15:42 Consult Physician Routine Consulting Provider: Jordan Rosales Consult Reason/Comments: Excisional lymph node biopsy Do you want consulting provider notified?: Yes Primary care physician: Benjamin Pena MD Hospital Course: Discharge Diagnosis: Septic Shock- undetermined etiology Elevated anti-MPO - Differential includes: IgG4-RD, Lymphoma, Microscopic Polyangitis/Granulomatosis with Polyangitis Lymphadenopathy, resolved Acute hypoxic respiratory failure with ARDS and possible rheumatologic process Acute kidney injury on chronic kidney disease stage III, possible GN vs ATN, R/O HUS/TTP Chronic back pain Nonanion gap metabolic acidosis Hyperchloremia Hypernatremia-- on free water flushes at 200 mL every 6 hours. Anemia and thrombocytopenia Yvrose vaginitis Episodic Fevers, resolved Chronic conditions: Hypertension Hypothyroidism Tobacco abuse Anxiety and depression GERD Hospital Course: Patient is a 56-year-old female with a past medical history of hypothyroidism, nicotine dependence, anxiety, bipolar, and depression who presented to the emergency department with cfever and left lower jaw swelling. Patient was positive for SIRS with temp 102.4F, heart rate 120, blood pressure 84/51.CBC unremarkable. CMP revealed acute kidney injury with BUN of 18, creatinine 1.66, and GFR of 34 with baseline creatinine of 1.00. Urinalysis was negative for infection. Patient was admitted for fever of unclear etiology with moderate lymphadenopathy. Consultations placed to infectious disease, gastroenterology, and hematology/oncology. She was started on broad-spectrum antibiotics including cefepime and vancomycin. Despite aggressive care she continued to worsen. She did have mildly elevated troponins was seen by cardiology. 10/10- transferred to the ICU and intubated with bronchoscopy, central and arterial line placed.Bronchoscopy results showed Yvrose. She developed worsening kidney injury and hyponatremia. Nephrology was consulted and patient was started on a bicarb drip. She developed worsening bilateral pulmonary infiltrates and increasing O2 requirements with development of ARDS. Voriconazole was added to cover possible systemic fungal infection. She developed significant thrombocytopenia. She was evaluated by hematology who felt that she could have an outpatient evaluation for possible malignancy. She was seen by rheumatology consult surgery for possible lymph node biopsy however patient's thrombocytopenia and high amounts of PEEP they felt that cervical lymph node biopsy was risky at this time. They also recommended renal biopsy which is unable to be obtained at our institution with her level of illness. She was maintained on high dose IV Solu-Medrol. Her rash improved. Her anti-MPO was elevated, GBM negative, and ELIDA negative. There is concern for possible glomerular nephritis developing however we're unable to obtain a renal biopsy at this time. Nephrology recommends transfer to tertiary care center. She has been accepted by Dr. Beth at [facility]. Imaging: Ultrasound head and neck 10/07- left anterior neck revealing a left-sided cervical lymphadenopathy CT chest abdomen and pelvis 10/07- mild fat stranding in the lower neck, small gastroesophageal hiatal hernia, and mild retroperitoneal fat stranding predominantly around the pancreas and prominent retroperitoneal and mesenteric lymph nodes the differential includes infectious and inflammatory etiologies, and a 4 mm calculus in the upper pole of the right kidney. Repeat CT chest/abdomen 10/15- with resolved lymphadenopathy and diffuse anasarca, bilateral pleural effusions and fluid within the right fissure Echocardiogram-ejection fraction 50-55% mild mitral regurg, mild tricuspid regurgitation, very small pericardial effusion Pathology from bronchial-negative for malignancy, hypocellular Significant Laboratory Results: -Influenza A, influenza B, and Covid PCR negative. -CMV nonreactive -EBV IgG positive IgM negative -Group A rapid strep negative -HIV, Mycoplasma, Rubella are all negative - Mumps: IgG and IgM positive -Pro-calcitonin elevated at 4.6 -->6.2 - ASO within normal limits - D-dimer 8.35 - urinalysis serial: increasing protein and RBC - Spot urine creatinine 47.7 - Protein /Cr- 2.11 - total protein 100 - IgG 419, IgG1-175, IgG2 80 -Serum immunofixation: No monoclonal paraprotein -Urine immunofixation: Proteinuria was no Bence-Stock protein -ELIDA negative -Anti-MPO 43 -Anti-IA 3-negative -Anti-cardiolipin antibody negative -C3 and C4 normal, C5 high at 64, total complement 69 -Rheumatoid factor XII -Anti-GBM negative - Parvo B19 negative -Aspergillus antibody negative -HIV negative -Hepatitis B and C negative -Legionella negative -Viral panel negative Patient seen and examined at bedside. Sedated without acute events overnight. General: Appears at stated age, ill-appearing, obese Derm: Mild erythematous papules with convalescent on bilateral knees, no scale, no nodularity Head: atraumatic, normocephalic, symmetric Eyes: EOMI, no lid lag, anicteric sclera Mouth: no lip lesion, mucus membranes moist Cardiovascular: S1S2 reg, no murmur, positive posterior tibial pulse bilateral, Lungs: Coarse breath sounds bilateral, no rhonchi, no rales , no accessory muscle use Abdominal: soft, nontender to palpation, no guarding, no appreciable organomegaly Ext: no gross muscle atrophy, diffuse anasarca, no contractures Neuro: Sedated on vent, appears slightly rigid and difficult to bend her legs, no tremors Psych: Sedated on vent A total of 57 minutes of time were spent preparing this complex discharge summary . Patient Condition at Discharge: Critical Plan - Discharge Summary Discharge Rx Participant: No New Discharge Prescriptions: No Action LORazepam [Ativan] 1 mg PO DAILY PRN PRN Reason: Anxiety lamoTRIgine [LaMICtal] 150 mg PO DAILY #45 tab QUEtiapine FUMARATE 400 mg PO HS Levothyroxine Sodium [Synthroid] 100 mcg PO DAILY lisinopriL [Zestril] 10 mg PO DAILY lamoTRIgine [LaMICtal] 200 mg PO HS Discharge Medication List LORazepam [Ativan] 1 mg PO DAILY PRN 12/26/15 [History] lamoTRIgine [LaMICtal] 150 mg PO DAILY #45 tab 01/06/16 [Rx] Levothyroxine Sodium [Synthroid] 100 mcg PO DAILY 12/01/16 [History] QUEtiapine FUMARATE 400 mg PO HS 12/01/16 [History] lisinopriL [Zestril] 10 mg PO DAILY 12/01/16 [History] lamoTRIgine [LaMICtal] 200 mg PO HS 10/06/21 [History] Follow up Appointment(s)/Referral(s): [facility] [NON-STAFF] - 1 Week Benjamin Pena MD [Primary Care Provider] - 1-2 days
[2021-10-16 11:49] LABS: Glucose,Whole Blood 166 mg/dL (75-99)
[2021-10-16] MEDS: MORPHINE SULFATE 4 MG/ML SYRINGE IVP PRN (11:53)
--- NOTE | 2021-10-16 12:45 | P.PN ---
Subjective Progress Note Date: 10/16/21 10/12/2021, the patient is being seen for a follow-up. The patient is in intensive care unit with acute hypoxic respiratory failure, fever, suspected bilateral pneumonia and the patient has been intubated since 10/10/2021. The patient underwent a bronchoscopy on 10/10/2021 and the results were consistent with Yvrose albicans. The chest x-ray from today still showing persistent bilateral pulmonary infiltrates more so in the mid and lower lung aguilera bilaterally. The patient remains on a combination of IV cefepime, vancomycin and voriconazole is also added today by infectious disease. Note that the urine showed yeast species and the bronchial alveolar lavage also showed Yvrose albicans.. This morning, the patient remains on propofol at the rate of 50 mcg/kg per minute. The patient is adequately sedated. The patient is on a mechanical ventilator on assist control mode at the rate of 26 with a tidal volume of 400 and FiO2 of 60% with a PEEP of 10. Peak air pressures around 28 with metastatic a pressure of 26. The patient is on IV fluids with normal saline at the rate of 130 mL an hour. Urine output is in order of 50 mL an hour. The patient has a left-sided triple-lumen catheter in the subclavian. The patient is on norepinephrine running at 0.35 mg/kg/m. The current cardiac rhythm is sinus. The patient is on enteral feeding for nutritional support and the patient is currently on vital 1.2 at the rate of 10 mL an hour. The blood gases from today shows a pH of 7.3 with a pCO2 of 32 and pO2 of 129 and this was done and FiO2 of 60%. On the blood work today, the sodium level is up to 147 and a chloride is at 124, serum bicarbonate 16 with anion gap of 7. The patient developed an acute kidney injury. The baseline creatinine at a time with position was as low as 1.2 and currently is up to 1.9.the echo of the heart showed a preserved LV function with very small pericardial effusion. No other significant valvular abnormalities noted.Note that the computed tomography scan of the chest abdomen and pelvis was done at time of admission and showed small hiatal hernia, gallbladder calculus without evidence of an acute cholecystitis, mild retroperitoneal fat stranding around the pancreas and prominent retroperitoneal and mesenteric lymph nodes and 4 mm Was in the upper pole of the right kidney without evidence of any hydronephrosis. The ultrasound of the neck showed multiple lymph nodes in the left lateral neck area largest measuring 1.9 x 1.5 cm in size and the thyroid gland was not adequately visualized. 10/13/2021, seeing the patient for a follow-up. The patient remains intubated on a mechanical ventilator. The patient remains sedated on propofol. Propofol is currently running at 40 mcg/kg per minute and the patient is quite synchronous the mechanical ventilator. The patient is currently on assist control mode of mechanical ventilation at the rate of 26, tidal volume 400, FiO2 of 60% with a PEEP of 15. The blood gases from today showed a pH of 7.27 with a pCO2 of 38 and pO2 of 176. The peak airway pressure was 28. The patient had a follow-up chest x-ray today that showed diffuse but the pulmonary infiltrates and the patient remains on the same antibiotic coverage includes a combination of IV cefepime and voriconazole. The bronchial washing showed Yvrose albicans. Urine culture showed Yvrose glabrata. Note that the chest x-ray showed that ET tube was in a good location. The patient had indwelling NG tube, subclavian triple lumen catheter and orotracheal tube follow them for in good location. The patient had bilateral wrist disease and pulmonary infiltrates. The patient was receiving IV fluids in the form of half-normal saline. This was switched to D5 with 2 ampules of sodium bicarbonate at the rate of 150 mL an hour as the patient had some mild component of non-anion gap metabolic acidosis in addition to hyperchloremic hypernatremia. The patient's creatinine today is at 2.2 and the overall his net fluid balance over the past 24 hours has been +3.6 L over the past 24 hours. The white cell count remains elevated at 17.4. Nevertheless the patient is not having any fever. The patient is on enteral feeding for nutritional support and the patient is receiving vital AF at the rate of 34 mL an hour which is at goal. Her pro-calcitonin level was 6.16. She did have a positive p-ANCA and c-ANCA. ELIDA was negative. Significance of those is not clear. The UA showed 24 RBCs, 21 over the ABCs, +1-2 protein. Rheumatology consultation was obtained. The patient continues to have pressor requirements and the patient is currently on norepinephrine infusion running at 0.2 mcg/kg per minute. 10/14/2021, I'm seeing the patient for a follow-up. The patient remains on a mechanical ventilator. The patient sedated with propofol running at 40 mg/kg per minute. The patient remains on mechanical ventilator on assist control mode with a rate of 26, tidal volume of 400, FiO2 of 60% with a PEEP of 15. Blood gases showed a pH of 7.36 with a pCO2 of 39 and pO2 139. Chest x-ray findings are essentially unchanged. The patient remains on a D5 bicarb infusion at the rate of 100 mL an hour. The patient is also norepinephrine infusion running at 0.13 mitral respiratory kilo gram per minute. The patient is receiving vital AF at the rate of 34 mL an hour. The white cell count is at 19 with a hemoglobin of 11. Sodium level is at 147, BUN is at 61 with a creatinine of 3.47. Overall fluid balance is +2 L over the past 24 hours. The patient remains on IV cefepime and IV voriconazole. The patient is afebrile for now. Several consults and evaluated this patient including rheumatology, nephrology and infectious disease. Patient was also seen by oncology regarding the lymphadenopathy in the neck. She is afebrile. No significant progress in her condition. 10/15/2021, patient remains intubated on a mechanical ventilator. The patient is morning is on protocol for running at 35 mg/kg/m. The patient is afebrile. The patient is hemodynamically stable. The patient remains on a mechanical vent ilator. Earlier this morning the patient was hypoxemic on a PEEP of 13 with an FiO2 of 50% and a tidal volume of 400 and a rate of 26. At that point, blood gases was done and the patient was found to have a pH of 7.4 with a pCO2 of 38 and pO2 of 47. The PEEP was increased up to 15. A repeat blood gases was done that showed improvement in oxygenation. The patient is quite synchronous with the mechanical ventilator. The patient is afebrile. The patient remained on the same antibiotic coverage the chest x-ray findings are unchanged and the patient continues to have bilateral pulmonary infiltrates/CHF/edema versus pneumonia. The white cell count is at 22 with a hemoglobin of 10.6 and a platelet count is improving is up to 112. Sodium level is at 141, renal function is progressively getting worse with a creatinine of 2.87 and the BUN of 78 and a serum bicarbonate is a 23. The patient accordingly was taken off the bicarb drip. Nephritis on the case. The rashes were described earlier over the knee area has also recovered. The cervical lymphadenopathy cannot be accurately palpated. Meanwhile, the patient continues to receive enteral feeding for nutritional support. Patient remains on the same antibiotic coverage which included a combination of cefepime and voriconazole. The patient is also on IV Solu Medrol high-dose of the dose of 125 mg IV every 6 hours. 10/16/2021, patient is being seen for a follow-up. The patient remains sedated on propofol. The exact cause for her underlying multisystem organ failure remains unclear. There is a suspicion for vasculitis and as such, we are considering transferring this patient to [facility]. The patient remains on IV Solu Medrol high-dose, on 25 mg every 6 hours. The patient remains on propofol at 40 mg/kg per minute and the patient is adequately sedated. The patient is on KVO IV fluids at 20 mL an hour. The patient is on low-dose norepinephrine 0.05 mitral respiratory gram per minute. The patient remains on a mechanical ventilator within assist-control mode with a tidal volume of 400, rate of 28, FiO2 of 50% with a PEEP of 11. Chest x-ray still showing diffuse bilateral pulmonary infiltrates and bilateral lower lobe pleural effusions. ET tube is in a good location. The blood gases from today shows a pH of 7.4 with a pCO2 of 36 and pO2 of 82. A repeat CAT scan of the neck was done and the CAT scan showed no abnormal lymphadenopathy and similarly, CAT scan of the chest and abdomen was done and the lungs were showing small bilateral pleural effusion with compressive atelectatic changes in lung bases bilaterally and the patient was found to have also mosaic attenuation consistent with [id number] edema infiltrates bilaterally. The lung volumes were small. ET tube was in a good location. There was no significant mediastinal or hilar lymphadenopathy. There was small amount of fluid adjacent to the liver and the spleen. There was a 2 mm nonobstructive Was in the fourth of the right kidney. No evidence of any hydronephrosis. There was moderate to severe diffuse soft tissue anasarca surrounding the abdominal wall and subcutaneous tissue. On today's evaluation, the patient white cell count is at 21 with a hemoglobin of 10.7 and platelet count of 135, sodium is at 141, reacting is at the rise and is up to 3.17 with a BUN of 106. The patient was started on Lasix 60 mg a push every 12 hours as of yesterday. The patient is afebrile. The dani chanel is receiving enteral feeding for nutritional support without any major difficulties. He is able to tolerate her diet for now. Objective - Vital Signs Vital signs: Vital Signs Temp 97.8 F 10/16/21 04:00 Pulse 55 L 10/16/21 07:49 Resp 26 H 10/16/21 07:49 BP 103/62 10/16/21 07:00 Pulse Ox 99 10/16/21 07:00 Intake & Output 10/15/21 10/16/21 10/16/21 18:59 06:59 18:59 Intake Total 1204.391 546.666 10 Output Total 425 1050 45 Balance 779.391 -503.334 -35 Weight 86.4 kg 86.4 kg Intake: IV 320 180 10 0.9 120 130 10 Cefepime 1 gm In Sodium 50 Chloride 0.9% 50 ml @ 12. 5 mls/hr IVPB Q12HR [facility] Rx#:[id number] Dextrose 5% in Water 1, 200 000 ml @ 100 mls/hr IV . Q11H [facility] with Sodium Bicarb (1 Meq/ml) 100 ml Rx#:[id number] Intake, IV Titration 110.391 196.666 Amount Norepinephrine 32 mg In 10.391 42.846 Sodium Chloride 0.9% 218 ml @ 0.4 MCG/KG/MIN 10. 781 mls/hr IV .[id number] [facility] Rx#:[id number] propofoL 1,000 mg In 100.000 153.82 Empty Bag 1 bag @ 5 MCG/ KG/MIN 1.725 mls/hr IV . Q24H [facility] Rx#:[id number] Tube Feeding 374 170 Other 400 Output: Urine 425 1050 45 Other: Voiding Method Indwelling Catheter Indwelling Catheter ABP, PAP, CO, CI - Last Documented Arterial Blood Pressure 100/49 - Exam Sedated, with an orally placed endotracheal tube and NG tube. The patient is sedated on propofol. The patient's, comfortable. The patient is quite sick is the mechanical ventilator. Head exam was generally normal. There was no scleral icterus or corneal arcus. Mucous membranes were moist. Neck supple. Full range of motion. A left-sided neck adenopathy. Neck veins are not distended. Cardiovascular examination reveals regular rhythm rate. S1-S2 normal. No S3 or S4. No discernible murmur noted. Heart sounds are distant. Lungs reveal coarse bilateral rhonchi. No wheezes. No crackles. Breath sounds equal. Abdomen soft bowel sounds are heard. No masses or tenderness. Extremities are intact. No cyanosis clubbing and the patient is showing some signs of edema in all 4 extremities worse in the lower extremities. Skin reveals some mottling on the chest area, and also on the knees bilaterally.The patient has an erythematous rash over the knees bilaterally. The rashes were described on the knees has recovered Neurologic examination was unable to be evaluated because the patient was sedated. - Labs CBC & Chem 7: 10/16/21 04:10 10/16/21 04:10 Labs: Abnormal Lab Results - Last 24 Hours (Table) 10/08/21 10/12/21 10/13/21 Range/Units 13:21 15:36 03:55 WBC (3.8-10.6) k/uL RBC (3.80-5.40) m/uL Hgb (11.4-16.0) gm/dL Hct (34.0-46.0) % MCV (80.0-100.0) fL Plt Count (150-450) k/uL Neutrophils # (1.3-7.7) k/uL ABG pO2 (83-108) mmHg Chloride (98-107) mmol/L Carbon Dioxide (22-30) mmol/L BUN (7-17) mg/dL Creatinine (0.52-1.04) mg/dL Glucose (74-99) mg/dL POC Glucose (mg/dL) (75-99) mg/dL Calcium (8.4-10.2) mg/dL AST (14-36) U/L Alkaline Phosphatase (38-126) U/L Total Protein (6.3-8.2) g/dL Albumin (3.5-5.0) g/dL Albumin (PEP) 1.70 L (3.80-4.90) g/dL Mizuq-9-Xtityejnr 0.64 H (0.10-0.40) g/dL Beta Globulins 0.47 L (0.60-1.30) g/dL Gamma Globulins 0.39 L (0.70-1.50) g/dL IgG1 175.50 L (382.40-928.60) mg/dL IgG2 80.90 L (241.80-700.30) mg/dL T-Suppressor Cells (190-832) cell/ul CD4/CD8 Ratio (1.0-3.7) % CD8 Suppressor (9-37) % Parvovirus B19 IgG Ab 0.93 H (<=0.90) INDEX 10/14/21 10/15/21 10/16/21 Range/Units 04:25 17:41 00:06 WBC (3.8-10.6) k/uL RBC (3.80-5.40) m/uL Hgb (11.4-16.0) gm/dL Hct (34.0-46.0) % MCV (80.0-100.0) fL Plt Count (150-450) k/uL Neutrophils # (1.3-7.7) k/uL ABG pO2 (83-108) mmHg Chloride (98-107) mmol/L Carbon Dioxide (22-30) mmol/L BUN (7-17) mg/dL Creatinine (0.52-1.04) mg/dL Glucose (74-99) mg/dL POC Glucose (mg/dL) 140 H 127 H (75-99) mg/dL Calcium (8.4-10.2) mg/dL AST (14-36) U/L Alkaline Phosphatase (38-126) U/L Total Protein (6.3-8.2) g/dL Albumin (3.5-5.0) g/dL Albumin (PEP) (3.80-4.90) g/dL Buahe-6-Vbjvgqzug (0.10-0.40) g/dL Beta Globulins (0.60-1.30) g/dL Gamma Globulins (0.70-1.50) g/dL IgG1 (382.40-928.60) mg/dL IgG2 (241.80-700.30) mg/dL T-Suppressor Cells 65 L (190-832) cell/ul CD4/CD8 Ratio 9.0 H (1.0-3.7) % CD8 Suppressor 5 L (9-37) % Parvovirus B19 IgG Ab (<=0.90) INDEX 10/16/21 10/16/21 10/16/21 Range/Units 04:10 04:10 05:42 WBC 21.4 H (3.8-10.6) k/uL RBC 3.28 L (3.80-5.40) m/uL Hgb 10.7 L (11.4-16.0) gm/dL Hct 32.9 L (34.0-46.0) % MCV 100.2 H (80.0-100.0) fL Plt Count 135 L (150-450) k/uL Neutrophils # 18.4 H (1.3-7.7) k/uL ABG pO2 (83-108) mmHg Chloride 109 H (98-107) mmol/L Carbon Dioxide 21 L (22-30) mmol/L BUN 106 H* (7-17) mg/dL Creatinine 3.17 H (0.52-1.04) mg/dL Glucose 147 H (74-99) mg/dL POC Glucose (mg/dL) 129 H (75-99) mg/dL Calcium 7.2 L (8.4-10.2) mg/dL AST 37 H (14-36) U/L Alkaline Phosphatase 212 H (38-126) U/L Total Protein 4.8 L (6.3-8.2) g/dL Albumin 2.2 L (3.5-5.0) g/dL Albumin (PEP) (3.80-4.90) g/dL Aroat-2-Hibgjbskl (0.10-0.40) g/dL Beta Globulins (0.60-1.30) g/dL Gamma Globulins (0.70-1.50) g/dL IgG1 (382.40-928.60) mg/dL IgG2 (241.80-700.30) mg/dL T-Suppressor Cells (190-832) cell/ul CD4/CD8 Ratio (1.0-3.7) % CD8 Suppressor (9-37) % Parvovirus B19 IgG Ab (<=0.90) INDEX 10/16/21 10/16/21 Range/Units 06:10 11:47 WBC (3.8-10.6) k/uL RBC (3.80-5.40) m/uL Hgb (11.4-16.0) gm/dL Hct (34.0-46.0) % MCV (80.0-100.0) fL Plt Count (150-450) k/uL Neutrophils # (1.3-7.7) k/uL ABG pO2 82 L (83-108) mmHg Chloride (98-107) mmol/L Carbon Dioxide (22-30) mmol/L BUN (7-17) mg/dL Creatinine (0.52-1.04) mg/dL Glucose (74-99) mg/dL POC Glucose (mg/dL) 166 H (75-99) mg/dL Calcium (8.4-10.2) mg/dL AST (14-36) U/L Alkaline Phosphatase (38-126) U/L Total Protein (6.3-8.2) g/dL Albumin (3.5-5.0) g/dL Albumin (PEP) (3.80-4.90) g/dL Cznsg-1-Ulkishfgu (0.10-0.40) g/dL Beta Globulins (0.60-1.30) g/dL Gamma Globulins (0.70-1.50) g/dL IgG1 (382.40-928.60) mg/dL IgG2 (241.80-700.30) mg/dL T-Suppressor Cells (190-832) cell/ul CD4/CD8 Ratio (1.0-3.7) % CD8 Suppressor (9-37) % Parvovirus B19 IgG Ab (<=0.90) INDEX Microbiology - Last 24 Hours (Table) 10/15/21 17:45 Genital Culture - Preliminary Vaginal Assessment and Plan Plan: Acute hypoxemic respiratory failure, likely multifactorial, in part related to bilateral pneumonia. The patient required intubation and mechanical ventilation on 10/10/2021. She underwent bronchoscopy.The bronchioloalveolar lavage showed Yvrose albicans and the patient is currently on a combination of antibiotics including a combination of cefepime and voriconazole. Infectious diseases on the case. The chest x-ray is showing lower lobe at the pulmonary infiltrates. Blood gas was noted. Chest x-ray was noted. Note that the pro-calcitonin level was quite elevated, but admission and this indicated essentially possibility of bacterial infection. For now, the patient remains on a mechanical ventilator. Chest x-ray remains unchanged. The computed tomography scan of the chest shows diffuse mosaic attenuation, groundless bilateral pulmonary infiltrates along with pleural effusions and compressive atelectatic changes in lung bases. The patient remains on the same antibiotic coverage for now. CAT scan of the chest show no significant lymphadenopathy within the mediastinum. Episodic fever, currently afebrile Septic shock with secondary hypotension, possibly related to underlying sepsis. The patient is currently on pressors, NE is being gradually weaned off, and the patient continues to have some degree of leukocytosis. Left sided cervical lymphadenopathy, not seen on the most recent CAT scan of the neck History of gastroesophageal reflux disease. History of hypertension. History of hypothyroidism. History of ongoing tobacco use. History of anxiety/depression/bipolar disorder. acute hyperchloremic hypernatremia, recovered Non-anion gap metabolic acidosis, recovered Acute kidney injury with progressive worsening renal function and the patient has been in a positive fluid balance and the patient has developed diffuse anasarca and fluid retention. The patient was started on IV Lasix and the creatinine is on the rise at 3.17 on today's evaluation. Abdominal lymphadenopathy, nonspecific Questionable gallbladder calculus without evidence of any cholecystitis 4 mm calculus in the upper lobe of the right kidney, no hydronephrosis Acute thrombocytopenia, and a platelet count is improving Plan: Continue ventilator support. No changes for today Continue Lasix 60 mg IV push every 12 hours Echo showed a preserved LV function CAT scan of the chest abdomen and pelvis at a time of admission showed no significant bilateral pulmonary infiltrates and the findings were essentially n onspecific, Repeat CAT scan of the abdomen was also nonspecific and showed diffuse anasarca Continue enteral feeding for nutritional support Urine output is adequate Monitor fever pattern Continued IV Solu-Medrol The workup that was already initiated by the rest of the consultants was appreciated. No clear indication for vasculitis. The patient has positive ANCA negative ELIDA, the patient may have an uncle related vasculitis. The patient was started on IV Solu-Medrol. She May ultimately need a kidney biopsy and I'm leaving the final decision for that to nephrology and rheumatology. Agree on IV Solu Medrol for now. Continue same antibiotic coverage. Condition is extremely critical. Continue enteral feeding for nutritional support. May need to transfer this patient to another center for more detailed the evaluation, possible vasculitis, possibly need for a kidney biopsy. We'll continue to follow make further recommendations based on progress. Condition is critical evaluation and this is done in more than 40 minutes. Time with Patient: Greater than 30
--- NOTE | 2021-10-16 13:57 | P.PN ---
Subjective Progress Note Date: 10/16/21 CHIEF COMPLAINT: Fever HISTORY OF PRESENT ILLNESS: The patient remains the ICU and intubated. Patient requiring blood pressure support. She is followed by multiple consultants. Surgical service following regards to her cervical lymphadenopathy and retroperitoneal lymphadenopathy. Patient had computed tomography scan of the neck and abdomen which was a suboptimal study without IV contrast. No defin itive abnormal adenopathy is present. They're working on transferring patient to [facility] PHYSICAL EXAM: VITAL SIGNS: Reviewed. GENERAL: no acute distress. HEENT: No sclera icterus. Extraocular movements grossly intact. Moist buccal mucosa. Head is atraumatic, normocephalic. ABDOMEN: Soft. Nondistended. Nontender. NEUROLOGIC: Intubated and sedated ASSESSMENT: 1. Cervical lymphadenopathy 2. Prominent retroperitoneal and mesenteric lymph nodes noted on CAT scan PLAN: -CAT scan shows no evidence of abnormal adenopathy. There is no need for a cervical lymph node biopsy -Agree with transfer to tertiary care center -Continue ICU management -Continue supportive care Physician Shook Splicer note has been reviewed by physician. Signing provider agrees with the documented findings, assessment, and plan of care. Objective - Vital Signs Vital signs: Vital Signs Temp 97.8 F 10/16/21 04:00 Pulse 55 L 10/16/21 07:49 Resp 26 H 10/16/21 07:49 BP 103/62 10/16/21 07:00 Pulse Ox 99 10/16/21 07:00 Intake & Output 10/15/21 10/16/21 10/16/21 18:59 06:59 18:59 Intake Total 1204.391 546.666 10 Output Total 425 1050 45 Balance 779.391 -503.334 -35 Weight 86.4 kg 86.4 kg Intake: IV 320 180 10 0.9 120 130 10 Cefepime 1 gm In Sodium 50 Chloride 0.9% 50 ml @ 12. 5 mls/hr IVPB Q12HR [facility] Rx#:[id number] Dextrose 5% in Water 1, 200 000 ml @ 100 mls/hr IV . Q11H [facility] with Sodium Bicarb (1 Meq/ml) 100 ml Rx#:[id number] Intake, IV Titration 110.391 196.666 Amount Norepinephrine 32 mg In 10.391 42.846 Sodium Chloride 0.9% 218 ml @ 0.4 MCG/KG/MIN 10. 781 mls/hr IV .[id number] [facility] Rx#:[id number] propofoL 1,000 mg In 100.000 153.82 Empty Bag 1 bag @ 5 MCG/ KG/MIN 1.725 mls/hr IV . Q24H [facility] Rx#:[id number] Tube Feeding 374 170 Other 400 Output: Urine 425 1050 45 Other: Voiding Method Indwelling Catheter Indwelling Catheter ABP, PAP, CO, CI - Last Documented Arterial Blood Pressure 100/49 - Labs CBC & Chem 7: 10/16/21 04:10 10/16/21 04:10 Labs: Abnormal Lab Results - Last 24 Hours (Table) 10/13/21 10/15/21 10/16/21 Range/Units 03:55 17:41 00:06 WBC (3.8-10.6) k/uL RBC (3.80-5.40) m/uL Hgb (11.4-16.0) gm/dL Hct (34.0-46.0) % MCV (80.0-100.0) fL Plt Count (150-450) k/uL Neutrophils # (1.3-7.7) k/uL ABG pO2 (83-108) mmHg Chloride (98-107) mmol/L Carbon Dioxide (22-30) mmol/L BUN (7-17) mg/dL Creatinine (0.52-1.04) mg/dL Glucose (74-99) mg/dL POC Glucose (mg/dL) 140 H 127 H (75-99) mg/dL Calcium (8.4-10.2) mg/dL AST (14-36) U/L Alkaline Phosphatase (38-126) U/L Total Protein (6.3-8.2) g/dL Albumin (3.5-5.0) g/dL IgG1 175.50 L (382.40-928.60) mg/dL IgG2 80.90 L (241.80-700.30) mg/dL 10/16/21 10/16/21 10/16/21 Range/Units 04:10 04:10 05:42 WBC 21.4 H (3.8-10.6) k/uL RBC 3.28 L (3.80-5.40) m/uL Hgb 10.7 L (11.4-16.0) gm/dL Hct 32.9 L (34.0-46.0) % MCV 100.2 H (80.0-100.0) fL Plt Count 135 L (150-450) k/uL Neutrophils # 18.4 H (1.3-7.7) k/uL ABG pO2 (83-108) mmHg Chloride 109 H (98-107) mmol/L Carbon Dioxide 21 L (22-30) mmol/L BUN 106 H* (7-17) mg/dL Creatinine 3.17 H (0.52-1.04) mg/dL Glucose 147 H (74-99) mg/dL POC Glucose (mg/dL) 129 H (75-99) mg/dL Calcium 7.2 L (8.4-10.2) mg/dL AST 37 H (14-36) U/L Alkaline Phosphatase 212 H (38-126) U/L Total Protein 4.8 L (6.3-8.2) g/dL Albumin 2.2 L (3.5-5.0) g/dL IgG1 (382.40-928.60) mg/dL IgG2 (241.80-700.30) mg/dL 10/16/21 10/16/21 Range/Units 06:10 11:47 WBC (3.8-10.6) k/uL RBC (3.80-5.40) m/uL Hgb (11.4-16.0) gm/dL Hct (34.0-46.0) % MCV (80.0-100.0) fL Plt Count (150-450) k/uL Neutrophils # (1.3-7.7) k/uL ABG pO2 82 L (83-108) mmHg Chloride (98-107) mmol/L Carbon Dioxide (22-30) mmol/L BUN (7-17) mg/dL Creatinine (0.52-1.04) mg/dL Glucose (74-99) mg/dL POC Glucose (mg/dL) 166 H (75-99) mg/dL Calcium (8.4-10.2) mg/dL AST (14-36) U/L Alkaline Phosphatase (38-126) U/L Total Protein (6.3-8.2) g/dL Albumin (3.5-5.0) g/dL IgG1 (382.40-928.60) mg/dL IgG2 (241.80-700.30) mg/dL Microbiology - Last 24 Hours (Table) 10/15/21 17:45 Genital Culture - Preliminary Vaginal
[2021-10-16 15:54] VITALS: TEMP 98.5
--- NOTE | 2021-10-16 16:30 | P.PN ---
Subjective Progress Note Date: 10/16/21 Principal diagnosis: Fever and rash Patient is a 56-year-old female presenting to the hospital with a fever rash and swelling to the left side of the neck in this patient did have evidence of lymphadenopathy subsequently developed a rash to bilateral elbow and bilateral knee area patient did have a CT of abdominal pelvis and chest no mention of any abscess which was some retroperitoneal lymphadenopathy. Patient did have a repeat CT of the neck chest and abdominal did not show any significant lymphadenopathy On today's evaluation that is 10/16/2021, the patient remains to be afebrile, the patient remains to be intubated on the vent, FiO2 is currently at 50 %, no significant purulent secretion through the ET or diarrhea has been reported by the nursing staff, patient is currently off the pressor support. PEEP Is down to 10 and plan is for the patient to be transferred to [facility] this afternoon Objective - Vital Signs Vital signs: Vital Signs Temp 97.8 F 10/16/21 04:00 Pulse 55 L 10/16/21 07:49 Resp 26 H 10/16/21 07:49 BP 103/62 10/16/21 07:00 Pulse Ox 99 10/16/21 07:00 Intake & Output 10/15/21 10/16/21 10/16/21 18:59 06:59 18:59 Intake Total 1204.391 546.666 10 Output Total 425 1050 45 Balance 779.391 -503.334 -35 Weight 86.4 kg 86.4 kg Intake: IV 320 180 10 0.9 120 130 10 Cefepime 1 gm In Sodium 50 Chloride 0.9% 50 ml @ 12. 5 mls/hr IVPB Q12HR [facility] Rx#:[id number] Dextrose 5% in Water 1, 200 000 ml @ 100 mls/hr IV . Q11H [facility] with Sodium Bicarb (1 Meq/ml) 100 ml Rx#:[id number] Intake, IV Titration 110.391 196.666 Amount Norepinephrine 32 mg In 10.391 42.846 Sodium Chloride 0.9% 218 ml @ 0.4 MCG/KG/MIN 10. 781 mls/hr IV .[id number] [facility] Rx#:[id number] propofoL 1,000 mg In 100.000 153.82 Empty Bag 1 bag @ 5 MCG/ KG/MIN 1.725 mls/hr IV . Q24H [facility] Rx#:[id number] Tube Feeding 374 170 Other 400 Output: Urine 425 1050 45 Other: Voiding Method Indwelling Catheter Indwelling Catheter ABP, PAP, CO, CI - Last Documented Arterial Blood Pressure 100/49 - Exam GENERAL DESCRIPTION: Middle-age female intubated on the vent RESPIRATORY SYSTEM: Unlabored breathing , decreased breath sounds at bases HEART: S1 S2 regular rate and rhythm , ABDOMEN: Soft , no tenderness EXTREMITIES: No edema feet - Labs CBC & Chem 7: 10/16/21 04:10 10/16/21 04:10 Labs: Abnormal Lab Results - Last 24 Hours (Table) 10/13/21 10/15/21 10/16/21 Range/Units 03:55 17:41 00:06 WBC (3.8-10.6) k/uL RBC (3.80-5.40) m/uL Hgb (11.4-16.0) gm/dL Hct (34.0-46.0) % MCV (80.0-100.0) fL Plt Count (150-450) k/uL Neutrophils # (1.3-7.7) k/uL ABG pO2 (83-108) mmHg Chloride (98-107) mmol/L Carbon Dioxide (22-30) mmol/L BUN (7-17) mg/dL Creatinine (0.52-1.04) mg/dL Glucose (74-99) mg/dL POC Glucose (mg/dL) 140 H 127 H (75-99) mg/dL Calcium (8.4-10.2) mg/dL AST (14-36) U/L Alkaline Phosphatase (38-126) U/L Total Protein (6.3-8.2) g/dL Albumin (3.5-5.0) g/dL IgG1 175.50 L (382.40-928.60) mg/dL IgG2 80.90 L (241.80-700.30) mg/dL 10/16/21 10/16/21 10/16/21 Range/Units 04:10 04:10 05:42 WBC 21.4 H (3.8-10.6) k/uL RBC 3.28 L (3.80-5.40) m/uL Hgb 10.7 L (11.4-16.0) gm/dL Hct 32.9 L (34.0-46.0) % MCV 100.2 H (80.0-100.0) fL Plt Count 135 L (150-450) k/uL Neutrophils # 18.4 H (1.3-7.7) k/uL ABG pO2 (83-108) mmHg Chloride 109 H (98-107) mmol/L Carbon Dioxide 21 L (22-30) mmol/L BUN 106 H* (7-17) mg/dL Creatinine 3.17 H (0.52-1.04) mg/dL Glucose 147 H (74-99) mg/dL POC Glucose (mg/dL) 129 H (75-99) mg/dL Calcium 7.2 L (8.4-10.2) mg/dL AST 37 H (14-36) U/L Alkaline Phosphatase 212 H (38-126) U/L Total Protein 4.8 L (6.3-8.2) g/dL Albumin 2.2 L (3.5-5.0) g/dL IgG1 (382.40-928.60) mg/dL IgG2 (241.80-700.30) mg/dL 10/16/21 10/16/21 Range/Units 06:10 11:47 WBC (3.8-10.6) k/uL RBC (3.80-5.40) m/uL Hgb (11.4-16.0) gm/dL Hct (34.0-46.0) % MCV (80.0-100.0) fL Plt Count (150-450) k/uL Neutrophils # (1.3-7.7) k/uL ABG pO2 82 L (83-108) mmHg Chloride (98-107) mmol/L Carbon Dioxide (22-30) mmol/L BUN (7-17) mg/dL Creatinine (0.52-1.04) mg/dL Glucose (74-99) mg/dL POC Glucose (mg/dL) 166 H (75-99) mg/dL Calcium (8.4-10.2) mg/dL AST (14-36) U/L Alkaline Phosphatase (38-126) U/L Total Protein (6.3-8.2) g/dL Albumin (3.5-5.0) g/dL IgG1 (382.40-928.60) mg/dL IgG2 (241.80-700.30) mg/dL Microbiology - Last 24 Hours (Table) 10/15/21 17:45 Genital Culture - Preliminary Vaginal Assessment and Plan (1) Fever Current Visit: Yes Status: Acute Code(s): R50.9 - FEVER, UNSPECIFIED SNOMED Code(s): 353401125 (2) Lymphadenopathy of left cervical region Current Visit: Yes Status: Acute Priority: High Code(s): R59.0 - LOCALIZED ENLARGED LYMPH NODES SNOMED Code(s): 166780950 Plan: 1patient with a fever and this patient did have a left-sided neck swelling with ultrasound suggestive of left cervical lymphadenopathy patient did have CT of abdominal pelvis and chest did not show any abscess or colitis did shows evidence of retroperitoneal lymphadenopathy 2- Patient did have worsening respiratory status requiring intubation with worsening of the chest x-ray possible ARDS pattern in this patient has been intubated and did have bronchoscopy deep culture has been obtained which are currently growing Yvrose more likely colonizer urine is growing Yvrose glabrata, patient did have further worsening of her kidney function and did have ANCA positive, rheumatology has been consulted. Surgery has been consulted for possible cervical lymph node biopsy however there opinion is patient is too unstable to go for lymph node biopsy, patient is currently being treated with Solu-Medrol with concern for possible vasculitis and patient will continue with empiric cefepime and voriconazole detail the patient is evaluated by infectious disease service at the tertiary care, prognosis remains to be guarded Time with Patient: Less than 30
[2021-10-16 17:51] LABS: Glucose,Whole Blood 147 mg/dL (75-99)
--- NOTE | 2021-10-16 18:11 | P.PN ---
Subjective Progress Note Date: 10/16/21 Platelets are recovering, she is still in ICU, on ventilator Objective - Vital Signs Vital signs: Vital Signs Temp 98.5 F 10/16/21 08:00 Pulse 66 10/16/21 15:30 Resp 26 H 10/16/21 15:30 BP 93/56 10/16/21 14:30 Pulse Ox 94 L 10/16/21 15:30 Intake & Output 10/15/21 10/16/21 10/16/21 18:59 06:59 18:59 Intake Total 1204.391 073.299 8448.215 Output Total 425 1050 335 Balance 779.391 -503.334 937.215 Weight 86.4 kg 86.4 kg Intake: IV 320 180 440 0.9 120 130 90 Cefepime 1 gm In Sodium 50 100 Chloride 0.9% 50 ml @ 12. 5 mls/hr IVPB Q12HR [facility] Rx#:[id number] Dextrose 5% in Water 1, 200 000 ml @ 100 mls/hr IV . Q11H [facility] with Sodium Bicarb (1 Meq/ml) 100 ml Rx#:[id number] Voriconazole 250 mg In 250 Sodium Chloride 0.9% 250 ml @ 125 mls/hr IVPB Q12HR@0000,1200 [facility] Rx#: [id number] Intake, IV Titration 110.391 196.666 85.215 Amount Norepinephrine 32 mg In 10.391 42.846 Sodium Chloride 0.9% 218 ml @ 0.4 MCG/KG/MIN 10. 781 mls/hr IV .[id number] [facility] Rx#:[id number] propofoL 1,000 mg In 100.000 153.82 85.215 Empty Bag 1 bag @ 5 MCG/ KG/MIN 1.725 mls/hr IV . Q24H [facility] Rx#:[id number] Tube Feeding 374 170 272 Other 400 475 Output: Urine 425 1050 335 Other: Voiding Method Indwelling Catheter Indwelling Catheter Indwelling Catheter ABP, PAP, CO, CI - Last Documented Arterial Blood Pressure 122/58 - Exam Ventilator No obviously abnormal palpable left nodes neck - Labs CBC & Chem 7: 10/16/21 04:10 10/16/21 04:10 Labs: Abnormal Lab Results - Last 24 Hours (Table) 10/16/21 10/16/21 10/16/21 Range/Units 00:06 04:10 04:10 WBC 21.4 H (3.8-10.6) k/uL RBC 3.28 L (3.80-5.40) m/uL Hgb 10.7 L (11.4-16.0) gm/dL Hct 32.9 L (34.0-46.0) % MCV 100.2 H (80.0-100.0) fL Plt Count 135 L (150-450) k/uL Neutrophils # 18.4 H (1.3-7.7) k/uL ABG pO2 (83-108) mmHg Chloride 109 H (98-107) mmol/L Carbon Dioxide 21 L (22-30) mmol/L BUN 106 H* (7-17) mg/dL Creatinine 3.17 H (0.52-1.04) mg/dL Glucose 147 H (74-99) mg/dL POC Glucose (mg/dL) 127 H (75-99) mg/dL Calcium 7.2 L (8.4-10.2) mg/dL AST 37 H (14-36) U/L Alkaline Phosphatase 212 H (38-126) U/L Total Protein 4.8 L (6.3-8.2) g/dL Albumin 2.2 L (3.5-5.0) g/dL 10/16/21 10/16/21 10/16/21 Range/Units 05:42 06:10 11:47 WBC (3.8-10.6) k/uL RBC (3.80-5.40) m/uL Hgb (11.4-16.0) gm/dL Hct (34.0-46.0) % MCV (80.0-100.0) fL Plt Count (150-450) k/uL Neutrophils # (1.3-7.7) k/uL ABG pO2 82 L (83-108) mmHg Chloride (98-107) mmol/L Carbon Dioxide (22-30) mmol/L BUN (7-17) mg/dL Creatinine (0.52-1.04) mg/dL Glucose (74-99) mg/dL POC Glucose (mg/dL) 129 H 166 H (75-99) mg/dL Calcium (8.4-10.2) mg/dL AST (14-36) U/L Alkaline Phosphatase (38-126) U/L Total Protein (6.3-8.2) g/dL Albumin (3.5-5.0) g/dL 10/16/21 Range/Units 17:49 WBC (3.8-10.6) k/uL RBC (3.80-5.40) m/uL Hgb (11.4-16.0) gm/dL Hct (34.0-46.0) % MCV (80.0-100.0) fL Plt Count (150-450) k/uL Neutrophils # (1.3-7.7) k/uL ABG pO2 (83-108) mmHg Chloride (98-107) mmol/L Carbon Dioxide (22-30) mmol/L BUN (7-17) mg/dL Creatinine (0.52-1.04) mg/dL Glucose (74-99) mg/dL POC Glucose (mg/dL) 147 H (75-99) mg/dL Calcium (8.4-10.2) mg/dL AST (14-36) U/L Alkaline Phosphatase (38-126) U/L Total Protein (6.3-8.2) g/dL Albumin (3.5-5.0) g/dL Microbiology - Last 24 Hours (Table) 10/10/21 13:45 Fungal Culture - Preliminary Bronchial Washings - Right Yvrose albicans 10/15/21 17:45 Genital Culture - Preliminary Vaginal Assessment and Plan (1) Fever Narrative/Plan: - improving - Now in care of ICU - Broch revealing fungal cultures - VFEND per ID Current Visit: Yes Status: Acute Code(s): R50.9 - FEVER, UNSPECIFIED SN OMED Code(s): 713843863 (2) Lymphadenopathy of left cervical region Narrative/Plan: Overall rapid onset symptoms, adenopathy submandibular but improving with abx - On exam palpable nodes are undistinct, moveable and appear non malignant and likely reactive. Current Visit: Yes Status: Acute Priority: High Code(s): R59.0 - LOCALIZED ENLARGED LYMPH NODES SNOMED Code(s): 465698148 (3) SIRS (systemic inflammatory response syndrome) Current Visit: Yes Status: Acute Code(s): R65.10 - SIRS OF NON-INFECTIOUS ORIGIN W/O ACUTE ORGAN DYSFUNCTION SNOMED Code(s): 629648422 (4) Lymphadenopathy, retroperitoneal Narrative/Plan: - likely incidental finding, admits patient has complained of intermittent abdominal and back discomfort over the past year. This does warrant further testing. We discussed repeat imaging versus further evaluation with EUS, they have opted to further go EUS, this will be set up at tertiary center as outpatient prior to November, as they have a planned vacation they really do not want to miss. - Inflammatory makers are not markedly elevated Current Visit: Yes Status: Acute Priority: High Code(s): R59.0 - LOCALIZED ENLARGED LYMPH NODES SNOMED Code(s): 561477001 Plan: Await till recovers from ICU Pulmonary, Infectious disease and ICU care Continue to improve, CBC stable and within safe range. Dr. Simon: I have completed the full history and physical, developed the above impression and plan. Agree with dictation, dictated as a scribe.
[2021-10-16 19:45] VITALS: PULSE 51
[2021-10-16 20:59] VITALS: BP 98/56; RESP 25
[2021-10-17 14:12] LABS: Hepatitis A Antibody IgM Nonreactive (Nonreactive)
[2021-10-17 20:52] LABS: Histoplasma Abs by ID None Detected (None Detected); Histoplasma Abs by Mycelia, CF <1:8 (<1:8)
[2021-10-19 12:50] LABS: Free Lambda Lt Chain Qnt, Seru 8.54 mg/dL (0.57-2.63)
[2021-10-19 14:20] LABS: Free Kappa Lt Chain Qnt, Serum 9.61 mg/dL (0.33-1.94)
== END 2021-10-16 21:30 | disposition short-term general hospital (02) | DRG 870 ==
LOC: EC 21:39 → 6NMEDSUR 10-07 07:22 → OBSVTOIN 10-08 08:30 → 3SCARD 10-09 21:08 → 2SICU 10-10 11:39
PROVIDERS: ADMIT Internal Medicine; ATTEND Internal Medicine
PROC: 5A1955Z Respiratory Ventilation, Greater than 96 Consecutive Hours (ICD-10-PCS; principal; 2021-10-10)
PROC: 0BH17EZ Insertion of Endotracheal Airway into Trachea, Via Natural or Artificial Opening (ICD-10-PCS; principal; 2021-10-10)
PROC: 0B9F8ZZ Drainage of Right Lower Lung Lobe, Via Natural or Artificial Opening Endoscopic (ICD-10-PCS; 2021-10-10)
PROC: 0B9C8ZZ Drainage of Right Upper Lung Lobe, Via Natural or Artificial Opening Endoscopic (ICD-10-PCS; 2021-10-10)
PROC: 0B9D8ZX Drainage of Right Middle Lung Lobe, Via Natural or Artificial Opening Endoscopic, Diagnostic (ICD-10-PCS; 2021-10-10)
PROC: 0B988ZZ Drainage of Left Upper Lobe Bronchus, Via Natural or Artificial Opening Endoscopic (ICD-10-PCS; 2021-10-10)
PROC: 0B9J8ZZ Drainage of Left Lower Lung Lobe, Via Natural or Artificial Opening Endoscopic (ICD-10-PCS; 2021-10-10)
PROC: 0B9H8ZZ Drainage of Lung Lingula, Via Natural or Artificial Opening Endoscopic (ICD-10-PCS; 2021-10-10)
PROC: 02HV33Z Insertion of Infusion Device into Superior Vena Cava, Percutaneous Approach (ICD-10-PCS; 2021-10-10)
PROC: 4A133J1 Monitoring of Arterial Pulse, Peripheral, Percutaneous Approach (ICD-10-PCS; 2021-10-10)
PROC: 4A133B1 Monitoring of Arterial Pressure, Peripheral, Percutaneous Approach (ICD-10-PCS; 2021-10-10)
PROC: 04HY32Z Insertion of Monitoring Device into Lower Artery, Percutaneous Approach (ICD-10-PCS; 2021-10-10)
PROC: 3E033XZ Introduction of Vasopressor into Peripheral Vein, Percutaneous Approach (ICD-10-PCS; 2021-10-10)
PROC: 3E0G76Z Introduction of Nutritional Substance into Upper GI, Via Natural or Artificial Opening (ICD-10-PCS; 2021-10-10)
PROC: 0D9670Z Drainage of Stomach with Drainage Device, Via Natural or Artificial Opening (ICD-10-PCS; 2021-10-10)
PROC: 5A0935A Assistance with Respiratory Ventilation, Less than 24 Consecutive Hours, High Flow/Velocity Cannula (ICD-10-PCS; 2021-10-10)
DX: A41.9 Sepsis, unspecified organism (principal); N17.0 Acute kidney failure with tubular necrosis; J80 Acute respiratory distress syndrome; R65.21 Severe sepsis with septic shock; J18.9 Pneumonia, unspecified organism; E87.0 Hyperosmolality and hypernatremia; E87.1 Hypo-osmolality and hyponatremia; E87.2 Acidosis; I31.3 Pericardial effusion (noninflammatory); N11.9 Chronic tubulo-interstitial nephritis, unspecified; D69.6 Thrombocytopenia, unspecified; D63.1 Anemia in chronic kidney disease; F31.9 Bipolar disorder, unspecified; N18.31 Chronic kidney disease, stage 3a; I12.9 Hypertensive chronic kidney disease with stage 1 through stage 4 chronic kidney disease, or unspecified chronic kidney disease; Z20.822 Contact with and (suspected) exposure to COVID-19; B37.3 Candidiasis of vulva and vagina; E87.8 Other disorders of electrolyte and fluid balance, not elsewhere classified; I08.1 Rheumatic disorders of both mitral and tricuspid valves; R59.0 Localized enlarged lymph nodes; K44.9 Diaphragmatic hernia without obstruction or gangrene; K80.20 Calculus of gallbladder without cholecystitis without obstruction; T50.2X5A Adverse effect of carbonic-anhydrase inhibitors, benzothiadiazides and other diuretics, initial encounter; E03.9 Hypothyroidism, unspecified; K21.9 Gastro-esophageal reflux disease without esophagitis; F41.8 Other specified anxiety disorders; G89.29 Other chronic pain; M54.2 Cervicalgia; M54.50 Low back pain, unspecified; N20.0 Calculus of kidney; R21 Rash and other nonspecific skin eruption; L53.9 Erythematous condition, unspecified; R19.7 Diarrhea, unspecified; H91.90 Unspecified hearing loss, unspecified ear; E66.9 Obesity, unspecified; Z68.27 Body mass index [BMI] 27.0-27.9, adult; F17.200 Nicotine dependence, unspecified, uncomplicated; Z71.6 Tobacco abuse counseling; K59.00 Constipation, unspecified; Z79.890 Hormone replacement therapy; Z79.899 Other long term (current) drug therapy; Z98.891 History of uterine scar from previous surgery; Z90.710 Acquired absence of both cervix and uterus; Z86.69 Personal history of other diseases of the nervous system and sense organs; Z87.42 Personal history of other diseases of the female genital tract; Z98.890 Other specified postprocedural states; Z71.3 Dietary counseling and surveillance; Z88.5 Allergy status to narcotic agent; Z88.2 Allergy status to sulfonamides; Z88.8 Allergy status to other drugs, medicaments and biological substances; Z82.49 Family history of ischemic heart disease and other diseases of the circulatory system; Z80.9 Family history of malignant neoplasm, unspecified
CPT/HCPCS: 31624; 36415; 70490; 71045; 71046; 71250; 74150; 74176; 76536; 80048; 80053; 80061; 80074; 80202; 81001; 82150; 82306; 82533; 82570; 82607; 82652; 82728; 82746; 82784; 82787; 82805; 83010; 83516; 83605; 83615; 83690; 83721; 83735; 83880; 83883; 83921; 84132; 84145; 84156; 84165; 84443; 84484; 84550; 85025; 85027; 85379; 85384; 85385; 85610; 85652; 85730; 86003; 86038; 86060; 86147; 86160; 86162; 86255; 86301; 86334; 86335; 86360; 86431; 86606; 86644; 86645; 86658; 86663; 86664; 86665; 86698; 86735; 86738; 86747; 86762; 87040; 87070; 87081; 87086; 87102; 87116; 87205; 87206; 87252; 87305; 87324; 87327; 87385; 87390; 87430; 87449; 87496; 87498; 87502; 87529; 87535; 87634; 87635; 87798; 88108; 88305; 89050; 93005; 93306; 94002; 94003; 94640; 94760; 96365; 99285

== ENCOUNTER → 2022-06-28 | Outpatient (CLI) | payer OTHER ==
--- NOTE | 2022-06-28 15:30 | USB ---
Reason for Exam: Clinical finding. Patient History: Menarche at age 13. First Full-Term at age 19. Left ovary removed at age 29. Right ovary removed at age 29. Hysterectomy at age 29. Postmenopausal. Estrogen for 14 years from age 29 until age 43. Excisional Biopsy on the Left side. 04/15/2009, Benign Cyst Aspiration on the left side. 08/07/2007, Benign Cyst Aspiration on the left side. Maternal aunt had breast cancer. Mother had breast cancer, age 75. Risk Values: Jamee 5 year model risk: 2.8%. NCI Lifetime model risk: 15.2%. Technique: Method: Targeted. Prior Study Comparison: 10/14/2020 Right Diagnostic Mammogram, [facility]. 04/03/2021 Right Diagnostic Mammogram, [facility]. 09/28/2021 Bilateral Screening Mammogram, [facility]. Findings: The lower outer quadrant of the right breast and the retroareolar of the right breast were scanned. Targeted ultrasound at level of palpable shoulder several rounded and oval hypoechoic anechoic avascular lesions all measuring subcentimeter in size at palpable with multiple small round and oval masses seen on corresponding mammogram and older mammograms some which have calcification. Favor benign thin-walled cysts and possible oil cysts. No concerning solid masses are evident. Overall Assessment: Benign, BI-RAD 2 Management: Screening Mammogram of both breasts in 4 months. A clinical breast exam by your physician is recommended on an annual basis and results should be correlated with mammographic findings. This exam should not preclude additional follow-up of suspicious palpable abnormalities. Results were given to the patient verbally at the time of exam. Electronically signed and approved by: Logan Gayle M.D.
== END | disposition home or self-care (01) ==
LOC: RADUSWWP 14:23
PROVIDERS: ATTEND Family Medicine
DX: N63.10 Unspecified lump in the right breast, unspecified quadrant (principal); Z78.0 Asymptomatic menopausal state; Z80.3 Family history of malignant neoplasm of breast; Z98.890 Other specified postprocedural states

== ENCOUNTER → 2022-09-29 | Outpatient (CLI) | payer OTHER ==
--- NOTE | 2022-09-30 17:01 | MM ---
Reason for Exam: Screening (asymptomatic). Last screening mammogram was performed 12 month(s) ago. Patient History: Menarche at age 13. First Full-Term at age 19. Left ovary removed at age 29. Right ovary removed at age 29. Hysterectomy at age 29. Postmenopausal. Estrogen for 14 years from age 29 until age 43. Excisional Biopsy on the Left side. 04/15/2009, Benign Cyst Aspiration on the left side. 08/07/2007, Benign Cyst Aspiration on the left side. Maternal aunt had breast cancer. Mother had breast cancer, age 75. Risk Values: Jamee 5 year model risk: 2.8%. NCI Lifetime model risk: 15.2%. Prior Study Comparison: 09/08/2016 Bilateral Screening Mammogram, [facility]. 09/09/2017 Bilateral Screening Mammogram, [facility]. 09/27/2017 Right Diagnostic Mammogram, [facility]. 01/30/2018 Right Diagnostic Mammogram, [facility]. 10/31/2018 Bilateral Screening Mammogram, [facility]. 10/01/2020 Bilateral Screening Mammogram, [facility]. 10/14/2020 Right Diagnostic Mammogram, [facility]. 04/03/2021 Right Diagnostic Mammogram, [facility]. 09/28/2021 Bilateral Screening Mammogram, [facility]. Tissue Density: There are scattered fibroglandular densities. Findings: Analyzed By CAD. Pattern appears stable. Benign vascular calcifications present bilaterally. There are new grouped calcifications within the right breast. Additional workup recommended. Left breast appears stable. Overall Assessment: Incomplete: need additional imaging evaluation, BI-RAD 0 Management: Diagnostic Mammogram of the right breast. A negative mammogram report should not preclude additional follow up of suspicious palpable abnormalities. Patient should continue monthly self breast exam. A clinical breast exam by your physician is recommended on an annual basis and results should be correlated with mammographic findings. Electronically signed and approved by: Kwame Moore D.O. Radiologis
== END | disposition home or self-care (01) ==
LOC: RADMAMWWP 07:58
PROVIDERS: ATTEND Family Medicine
DX: Z12.31 Encounter for screening mammogram for malignant neoplasm of breast (principal); Z78.0 Asymptomatic menopausal state; Z80.3 Family history of malignant neoplasm of breast; Z98.890 Other specified postprocedural states
CPT/HCPCS: 77063; 77067

== ENCOUNTER → 2022-10-05 | Outpatient (CLI) | payer OTHER ==
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
== END | disposition home or self-care (01) ==
LOC: RADMAMWWP 13:43
PROVIDERS: ATTEND Family Medicine
DX: N63.10 Unspecified lump in the right breast, unspecified quadrant (principal); R92.8 Other abnormal and inconclusive findings on diagnostic imaging of breast; Z80.3 Family history of malignant neoplasm of breast; Z78.0 Asymptomatic menopausal state; Z98.890 Other specified postprocedural states
CPT/HCPCS: 77061; 77065

== ENCOUNTER → 2022-12-07 | Outpatient (CLI) | payer OTHER ==
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
== END | disposition home or self-care (01) ==
LOC: RADUSWWP 15:00
PROVIDERS: ATTEND Family Medicine
DX: R22.41 Localized swelling, mass and lump, right lower limb (principal)

== ENCOUNTER → 2023-01-27 | Outpatient (CLI) | payer OTHER ==
--- NOTE | 2023-01-27 11:27 | CT ---
EXAMINATION TYPE: CT lumbar spine wo con DATE OF EXAM: 01/27/2023 COMPARISON: None HISTORY: Radiculopathy, lumbar region CT DLP: 431.20 mGycm CONTRAST: None TECHNIQUE: CT of the lumbar spine is performed on a spiral scan at 3 mm thick sections. Reconstructed images are performed in the coronal and sagittal planes. FINDINGS: T12-L1: No focal disc herniation or significant disc bulge is evident. No spinal canal stenosis or neural foraminal stenosis is present. L1-L2: There is loss of disc height is normal. No focal disc herniation. No significant disc bulge is evident. No spinal canal stenosis or neural foraminal stenosis. L2-L3: There is loss of disc height with level. Minimal residual disc bulge is present with anterior thecal sac contact. No spinal canal stenosis or neural foraminal stenosis present L3-L4: Minimal disc bulge may be present. Some posterior longitudinal ligament calcifications present . Anterior thecal sac contact is present. No spinal canal stenosis or neural foraminal stenosis. L4-L5: Broad-based disc bulge is present with mild anterior thecal sac flattening. Facet hypertrophy and ligamentum flavum laxity is present contributing to spinal canal stenosis. Mild left and moderate right foraminal narrowing is present. Correlate with radicular symptoms. L5-S1: Mild disc bulging is anterior thecal sac flattening. There may be some ligamentous calcificati on posterior disc level. No AP spinal canal stenosis is present. Neural foramen are patent. Vertebral alignment appears normal. IMPRESSION: 1. Mild degenerative disc changes with greatest loss of disc height at L1-L2. 2. Disc bulging through the lumbar spine discussed above. 3. Spinal canal narrowing due to disc bulging and facet hypertrophy and ligamentum flavum laxity at L4-5. Moderate bilateral foraminal narrowing is present. Correlate with radicular symptoms
== END | disposition home or self-care (01) ==
LOC: RADCTMAIN 09:17
PROVIDERS: ATTEND Family Medicine
DX: M51.16 Intervertebral disc disorders with radiculopathy, lumbar region (principal); M47.26 Other spondylosis with radiculopathy, lumbar region; M48.061 Spinal stenosis, lumbar region without neurogenic claudication; M99.73 Connective tissue and disc stenosis of intervertebral foramina of lumbar region
CPT/HCPCS: 72131

== ENCOUNTER → 2023-08-12 | Outpatient (CLI) | payer OTHER ==
--- NOTE | 2023-08-13 18:53 | US ---
EXAMINATION TYPE: US kidneys/renal and bladder DATE OF EXAM: 08/12/2023 COMPARISON: 10/29/2020 CLINICAL INDICATION: Female, 58 years old with history of N18.31 CHRONIC KIDNEY DISEASE, STAGE 3A; Nhan flores denies any other signs or symptoms at this time EXAM MEASUREMENTS: Right Kidney: 8.8 x 4.6 x 3.7 cm Left Kidney: 10.3 x 5.5 x 4.7 cm Right Kidney: A few focal echogenic areas at the upper pole of the right kidney measuring up to 5 mm could represent prominent vascular reflectors are nonobstructive stones. No hydronephrosis. Left Kidney: wnl Bladder: wnl Bilateral Jets seen: Yes IMPRESSION: 1. Echogenic foci at the right kidney upper pole measuring up to 5 mm could represent prominent vascu lar reflectors versus nonobstructive calculi. 2. No hydronephrosis on either side.
== END | disposition home or self-care (01) ==
LOC: RADUSWWP 14:31
PROVIDERS: ATTEND Internal Medicine Nephrology
DX: N18.31 Chronic kidney disease, stage 3a (principal)
CPT/HCPCS: 76770

== ENCOUNTER → 2023-08-29 | Outpatient (CLI) | payer OTHER ==
--- NOTE | 2023-08-29 16:30 | NM ---
EXAMINATION TYPE: NM parathyroid w/spect DATE OF EXAM: 08/29/2023 COMPARISON: NONE CLINICAL INDICATION: Female, 58 years old with history of E21.3 HYPERPARATHYROIDISM; TECHNIQUE: Following administration of 24.8 mCi Tc99m Sestamibi. Anterior projection images of the neck and ches t were obtained 10 minutes and 3 hours post injection. SPECT images of the neck and chest were obtai elvis and reconstructed in three axes. FINDINGS: Thyroid tracer washout: Delayed images demonstrate near-complete tracer washout from the thyroid. Parathyroid uptake: None. The two-hour delayed images do not demonstrate any focal abnormal persisten t uptake in the region of the parathyroid glands to suggest parathyroid adenoma. IMPRESSION: Normal parathyroid imaging study. No evidence for mediastinal uptake to suggest mediastinal parathyro id adenoma
== END | disposition home or self-care (01) ==
LOC: RADNMMAIN 09:42
PROVIDERS: ATTEND Internal Medicine Nephrology
DX: E21.3 Hyperparathyroidism, unspecified (principal)
CPT/HCPCS: 78071; A9500

== ENCOUNTER → 2023-10-10 | Outpatient (CLI) | payer OTHER ==
--- NOTE | 2023-10-12 13:41 | MM ---
Reason for Exam: Screening (asymptomatic). Last screening mammogram was performed 12 month(s) ago. Patient History: Menarche at age 13. First Full-Term at age 19. Left ovary removed at age 29. Right ovary removed at age 29. Hysterectomy at age 29. Postmenopausal. Estrogen for 14 years from age 29 until age 43. Excisional Biopsy on the Left side. 04/15/2009, Benign Cyst Aspiration on the left side. 08/07/2007, Benign Cyst Aspiration on the left side. Maternal aunt had breast cancer. Mother had breast cancer, age 75. Risk Values: Jamee 5 year model risk: 2.9%. NCI Lifetime model risk: 14.9%. Prior Study Comparison: 09/28/2021 Bilateral Screening Mammogram, [facility]. 09/29/2022 Bilateral MG 3D screening mammo w/cad, [facility]. 10/05/2022 Right MG 3D work up w/cad RT, [facility]. Tissue Density: The breasts are heterogeneously dense, which may obscure small masses. Findings: Analyzed By CAD. There is no suspicious group of microcalcifications or new suspicious mass in either breast. Overall Assessment: Benign, BI-RAD 2 Management: Screening Mammogram of both breasts in 1 year. . Patient should continue monthly self-breast exams. A clinical breast exam by your physician is recommended on an annual basis. This exam should not preclude additional follow-up of suspicious palpable abnormalities. Note on Jamee scores and lifetime risk: 1. A Jamee score greater than 3% is considered moderate risk. If this is the case, consider specialist referral to assess eligibility for a risk reducing agent. 2. If overall lifetime risk for the development of breast cancer is 20% or higher, the patient may qualify for future screening with alternating mammogram and breast MRI. Electronically signed and approved by: Kiran Landeros M.D. Radiologis
== END | disposition home or self-care (01) ==
LOC: RADMAMWWP 12:35
PROVIDERS: ATTEND Family Medicine
DX: Z12.31 Encounter for screening mammogram for malignant neoplasm of breast (principal); Z78.0 Asymptomatic menopausal state; Z80.3 Family history of malignant neoplasm of breast
CPT/HCPCS: 77063; 77067

== ENCOUNTER 2023-12-30 11:04 | Day surgery (SDC) | payer OTHER ==
[2023-12-28 15:35] VITALS: BMI 27.6
[2023-12-30 11:31] VITALS: TEMP 97.3
[2023-12-30] MEDS: LACTATED RINGERS 1,000 ML IV SCH (11:39)
[2023-12-30] MEDS: IV FLUID CONTINUATION 1,000 ML IV ONE (11:41)
[2023-12-30] MEDS ORDERED: PROPOFOL 10 MG/ML 20 ML VIAL IV ONE (12:18)
--- NOTE | 2023-12-30 12:39 | P.PCN ---
Date of Procedure: 12/30/23 Procedure(s) Performed: BRIEF HISTORY: Patient is a 58-year-old pleasant white female white female scheduled for an elective sigmoidoscopy y as a part of follow-up of large rectal polyp noted on routine colonoscopy in September 2023. She was noted to have a 4 cm broad-based distal rectal polyp that was removed by snare polypectomy and biopsy revealed tubulovillous adenoma. She is scheduled for a repeat flexible sigmoidoscopy in 3 months to ensure complete polypectomy PROCEDURE PERFORMED: Flexible sigmoidoscopy with biopsy and argon plasma coagulation PREOPERATIVE DIAGNOSIS: Large distal rectal polyp in September 2023. IV sedation per Anesthesia. PROCEDURE: After informed consent was obtained, the patient, was brought into the endoscopy unit. IV sedation was administered by Anesthesia under continuous monitoring. Digital rectal examination was normal. Initially the Olympus CF-160 flexible video colonoscope was then inserted in the rectum, gradually advanced into the descending colon without any difficulty. Careful examination was performed as the scope was gradually being withdrawn. Mucosa of the descending colon, sigmoid colon, and rectum appeared normal. In the distal rectum at the site of previous polypectomy there was significant scar tissue noted. There was some residual polyp identified measuring about 5 to 6 mm this was biopsied. Following the biopsy argon plasma coagulation was performed to ensure complete obliteration of the polyp. Retroflexion was performed in the rectum and no lesions were seen. The patient tolerated the procedure well. IMPRESSION: 5 Millimeter residual polyp noted at the site of previous polypectomy in the distal rectum s/p multiple biopsies followed by argon plasma coagulation Test of the colon up to the descending colon appeared normal RECOMMENDATIONS: Findings of this examination were discussed with the patient as well as her family. She was advised to follow-up with the biopsy results and have repeat colonoscopy in 1 year..
[2023-12-30 13:24] VITALS: BP 131/74; PULSE 75; RESP 17
== END 2023-12-30 13:22 | disposition home or self-care (01) ==
LOC: ORWHC2ENDO 11:04
PROVIDERS: ATTEND Internal Medicine Gastroenterology
DX: K21.9 Gastro-esophageal reflux disease without esophagitis (principal); I10 Essential (primary) hypertension; E03.9 Hypothyroidism, unspecified; G47.33 Obstructive sleep apnea (adult) (pediatric); N18.9 Chronic kidney disease, unspecified; F31.9 Bipolar disorder, unspecified; Z88.5 Allergy status to narcotic agent; Z88.2 Allergy status to sulfonamides; Z88.4 Allergy status to anesthetic agent; Z79.890 Hormone replacement therapy; Z79.899 Other long term (current) drug therapy
CPT/HCPCS: 88305; 45388; J2704; 45380

== ENCOUNTER → 2024-02-29 | Outpatient (CLI) | payer OTHER ==
--- NOTE | 2024-03-01 10:29 | CTL ---
EXAMINATION TYPE: CT Low Dose Lung DATE OF EXAM ORDERED: 02/29/2024 HISTORY: . Lung cancer screening CT DLP: 80.[address] CTDI: 2.2 mGy Automated exposure control for dose reduction was used. SCREENING VISIT: Subsequent COMPARISON: 420 TECHNIQUE: Low dose computed tomography scan was performed through the chest at 1 mm thick sections a nd reconstructed images in the coronal plane at [address] DIAGNOSTIC QUALITY: Satisfactory FINDINGS: LUNG NODULES: None. LUNGS: COPD: Severity: Mild Fibrosis: Severity: None Lymph nodes: None Other findings: Some mild chronic bronchiectasis appears to be present. RIGHT PLEURAL SPACE: Effusion: None Calcification: None Thickening: None Pneumothorax: None LEFT PLEURAL SPACE: Effusion: None Calcification: None Thickening: None Pneumothorax: None HEART: Other: Ascending thoracic aorta at the level the main pulmonary artery measures 3.6 cm. The main pul monary artery at the bifurcation measures 2.5 cm. Heart Size: Normal Coronary calcification: None Pericardial effusion: None OTHER FINDINGS: Upper abdomen: Normal Bony thorax: Normal Supraclavicular region: Normal IMPRESSION: 1. No suspicious changes to suggest primary or metastatic neoplasm. FOLLOW UP CT CHEST RECOMMENDATION: Follow-up low-dose CT chest one year CT LUNG RAD: Lung-Rad 1 Negative
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
== END | disposition home or self-care (01) ==
LOC: RADCTMAIN 17:01
PROVIDERS: ATTEND Family Medicine
DX: Z12.2 Encounter for screening for malignant neoplasm of respiratory organs (principal); M50.23 Other cervical disc displacement, cervicothoracic region; M99.71 Connective tissue and disc stenosis of intervertebral foramina of cervical region; M47.812 Spondylosis without myelopathy or radiculopathy, cervical region; M51.24 Other intervertebral disc displacement, thoracic region; M43.8X4 Other specified deforming dorsopathies, thoracic region; Z87.891 Personal history of nicotine dependence
CPT/HCPCS: 71271; 72141; 72146

== ENCOUNTER → 2024-09-03 | Outpatient (CLI) | payer BC, SELFPAY ==
--- NOTE | 2024-09-03 22:01 | CT ---
EXAMINATION TYPE: CT sinus wo con DATE OF EXAM: 09/03/2024 5:33 PM COMPARISON: 10/15/2021. CLINICAL INDICATION: Female, 59 years old with history of J32.0 CHRONIC MAXILLARY SINUSITIS; , Chroni c sinusitis. TECHNIQUE: Multiple thin axial images were obtained through the paranasal sinuses without the use of IV contrast. Additional coronal and sagittal reformatted images were submitted for evaluation. Contrast used: none Oral contrast used: none CT DLP: 419 mGycm, Automated exposure control for dose reduction was used. FINDINGS: Frontal sinuses: Opacified bilaterally with hypoplastic right frontal sinus compared to the left. Fro ntal Recess: Opacified Maxillary Sinuses: Completely opacified Maxillary Infundibula([facility]): Completely opacified, No Silverio cells identified. Ethmoid sinuses: Completely opacified. Ethmoidal notch: Protected and abutting the lateral lamina. Sphenoid sinuses: Completely opacified. There is sellar sphenoid sinus pneumatization without evidenc e of dehiscence. No dehiscence of carotid canal. No evidence of optic nerve dehiscence within the sp henoid sinus. No evidence of Onodi cells. Sphenoethmoidal recesses: Completely opacified. Nasal septum: Slight leftward deviation anteriorly and inferiorly.. Nasal Turbinates: Within normal limits. Mastoid air cells & middle ears: The air cells are clear. The middle ears are grossly unremarkable. P ostsurgical changes to the right mastoid air cells. The left mastoid air cells are opacified. Left mi ddle ear effusion. Right middle ear opacification thought to be present in the epitympanum. Modified Soft tissues & Brain: Partially seen without gross abnormality. Globes are intact. Other: Cribriform plate demonstrates symmetric Keros classification type 2 cribriform plate. No evidence of bony dehiscence of skull base. Lamina papyracea is intact without evidence of remote orbital fracture or orbital prolapse into the e thmoid sinus. IMPRESSION: 1. Severe paranasal sinus disease with complete opacification of all the paranasal sinuses. The osti omeatal units, frontonasal and sphenoethmoidal recesses are all completely opacified and obstructed. 2. Left mastoid air cell effusion and left middle ear effusion. 3. Right posterior surgical changes and mastoid air cells possible middle ear effusion. [facility], , 09/03/2024 9:58 PM
== END | disposition home or self-care (01) ==
LOC: RADCTMAIN 16:56
PROVIDERS: ATTEND Otolaryngology
DX: J32.0 Chronic maxillary sinusitis (principal); H74.8X2 Other specified disorders of left middle ear and mastoid
CPT/HCPCS: 70486

== ENCOUNTER 2024-10-12 16:12 | Observation (INO) | payer BC ==
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
[2024-10-12 17:06] LABS: Basophils # (A) 0.03 10*3/uL (0.00-0.10); Basophils % (A) 0.5 %; Eosinophils # (A) 0.11 10*3/uL (0.04-0.35); HCT 42.6 % (37.2-46.3); HGB 14.1 g/dL (12.0-15.0); Lymphocytes # (A) 2.68 10*3/uL (0.90-5.00); Lymphocytes % (A) 47.9 %; MCHC 33.1 g/dL (32.0-37.0); MCV 96.6 fL (80.0-97.0); Mean Platelet Volume 11.4 fL (9.5-12.2); Monocytes # (A) 0.43 10*3/uL (0.20-1.00); Monocytes % (A) 7.7 %; Neutrophils # (A) 2.34 10*3/uL (1.80-7.70); Neutrophils % (A) 41.7 %; Platelet Count 218 10*3/uL (140-440); RBC 4.41 10*6/uL (4.10-5.20); RDW 13.8 % (11.5-14.5)
--- NOTE | 2024-10-12 17:14 | XR ---
EXAMINATION TYPE: XR chest 2V DATE OF EXAM: 10/12/2024 5:11 PM COMPARISON: 10/16/2021 CLINICAL INDICATION: Female, 59 years old with history of Chest Pain: Shortness of breath TECHNIQUE: XR chest 2V views of the chest are obtained. FINDINGS: Scattered senescent parenchymal changes noted. Hyperinflation compatible with COPD. No evidence for infiltrate. No evidence for atelectasis. Heart size is stable. Mediastinal structures are stable and grossly unremarkable. No evidence for hilar prominence. Degenerative changes dorsal spine. IMPRESSION: 1. No evidence for acute pulmonary disease. [facility], , 10/12/2024 5:11 PM
[2024-10-12 17:15] LABS: INR 0.9 (<1.2); Partial Thromboplastin Time 23.9 sec (22.0-30.0)
[2024-10-12 17:16] LABS: ALT 19 U/L (4-34); AST 22 U/L (14-36); African American GFR (CKD) 53 (>60 ml/min/1.73 sqM); Albumin 4.2 g/dL (3.5-5.0); Alkaline Phosphatase 83 U/L (38-126); Anion Gap 8 mmol/L; Blood Urea Nitrogen 20 mg/dL (7-17); Calcium 9.9 mg/dL (8.4-10.2); Carbon Dioxide 30 mmol/L (22-30); Chloride 104 mmol/L (98-107); Glucose 87 mg/dL (74-99); Magnesium 2.2 mg/dL (1.6-2.3); Non-African American GFR(CKD) 46 (>60 ml/min/1.73 sqM); Potassium 4.3 mmol/L (3.5-5.1); Sodium 142 mmol/L (137-145); Total Bilirubin 0.4 mg/dL (0.2-1.3); Total Protein 6.6 g/dL (6.3-8.2)
[2024-10-12] MEDS ORDERED: NITROGLYCERIN SL TABS 0.4 MG TAB SUBLINGUAL PRN (18:17)
[2024-10-12] MEDS: ASPIRIN 81 MG PO STA (19:22)
[2024-10-12] MEDS: QUEtiapine 200 MG TAB PO SCH (21:02)
[2024-10-12] MEDS: lamoTRIgine 100 MG TAB PO SCH (21:02)
[2024-10-12] MEDS: HEPARIN SODIUM,PORCINE 5,000 UNIT/ML 1 ML VIAL SQ SCH (23:43)
--- NOTE | 2024-10-13 01:08 | P.HPIM ---
History of Present Illness H&P Date: 10/12/24 Patient is a 59-year-old female with GERD, hypertension, osteoarthritis, hypothyroidism, IZAIAH with CPAP use, anxiety, bipolar disorder, depression and current daily smoker here for evaluation of chest pain. Patient reported that last night, they began experiencing chest ache at upper left chest that radiated to her left arm that lasted for about 5 minutes and was relieved with rest and worsened with palpation of the affected area. She also reported associated palpitations at that time. She denied shortness of breath, extremity swelling, productive cough, fever, chills, nausea, vomiting, abdominal pain, focal weakness, recent hospitalization or illness. She has a deviated nasal septum and has a scheduled procedure on October 31, 2024. On admission: Vitals: 92.8 Fahrenheit, NV 74, RR 16, BP 134/89, O2 saturation 97% on room air Labs: WBC 5.6, hemoglobin 14.1, potassium 4.3, sodium 142, magnesium 2.2, calcium 9.9, troponin less than 0.012, BUN 20, creatinine 1.27. Imaging: EKG showed sinus rhythm with a rate of 63 bpm, first-degree AV block with NV interval 235 MS, left axis deviation, no ST-T changes, T wave inversions in lead III, V1 and V3. Chest x-ray showed no evidence for acute pulmonary disease. ED documentation reviewed. Aspirin given in the ED Review of systems: Pertinent positives and negatives as discussed in HPI, a complete review of systems was performed and all other systems are negative. Social history: Tobacco: 8-10 daily for about 40 years. Trying to cut back. Alcohol: denied history Recreational drugs: denied history Travel: none Physical examination: Vital signs reviewed General: non toxic, no distress, appears at stated age, on room air Derm: no unusual rashes/lesions, warm Head: atraumatic, normocephalic, symmetric Eyes: EOMI, anicteric sclera, pupils equal round reactive to light ENT: Nose and ears atraumatic Neck: No cervical lymphadenopathy, trachea midline, supple Mouth: no lip lesion, mucus membranes moist Cardiovascular: S1S2 reg, no murmur Lungs: CTA bilateral, no rhonchi, no rales, no accessory muscle use Abdominal: soft, nondistended, nontender to palpation, no guarding Ext: muscle strength 5 out of 5 in all 4 extremities grossly, no gross muscle atrophy, no contractures, positive dorsalis pedis pulse bilateral, no edema Neuro: CN II-XI grossly intact, no gross focal neuro deficits Psych: Alert and oriented x 3, appropriate affect and mood Assessment/Plan: 67-year-old female with GERD, anxiety, bipolar disorder and depression hypertension and IZAIAH with CPAP use and current daily smoker here for evaluation of chest pain. The patient is admitted with an anticipated less than 2 midnight stay for evaluation of chest pain Active: #. Atypical chest pain, likely noncardiac, r/o ACS - Troponin less than 0.0 12 on admission -EKG independently interpreted showed sinus rhythm with a rate of 63 bpm, first- degree AV block with NV interval 235 MS, left axis deviation, no ST-T changes, T wave inversions in lead III, V1 and V3 - Cardiac monitoring -Supplemental oxygen as needed -Heart healthy diet -Trend troponin -EKG as needed -Nitroglycerin prn for chest pain. 0.4 mg PO or Nitrobid topical -Given aspirin 325 mg once in the ED -Continue with aspirin 81 mg daily -Check lipid panel - Advised smoking cessation -Cardiology consulted #. CKD stage III at baseline -Creatinine 1.27 on admission, EGFR 46 - Avoid nephrotoxic agents - Monitor for now Chronic Conditions: #. GERD #. Hypertension #. Hypothyroidism #. Osteoarthritis #. IZAIAH with CPAP use #. Anxiety #. Bipolar disorder #. Depression #. Current daily smoker -Continue with home amlodipine 2.5 mg, Lamictal 150 mg daily and 200 mg at night mg, Synthroid 100 mcg daily, and quetiapine 200 mg daily -Continue with CPAP for IZAIAH F: Oral intake N: Heart healthy diet. N.p.o. at midnight A: Ambulate as needed DVT ppx: Heparin subcu every 8 hours CODE STATUS: Full Discussed with: Patient and Anticipated discharge place: Home Denise Alexander MD PGY-1 Internal Medicine Dictation was produced using [employer] dictation software. please excuse any grammatical, word or spelling errors. I have seen and evaluated the patient today. Discussed with the resident and agree with the residents finding and plan as documented in the resident's note. 59-year-old female who presented to the hospital with atypical chest pain. She still uses tobacco Past Medical History Past Medical History: GERD/Reflux, Hearing Disorder / Deafness, Hypertension, Osteoarthritis (OA), Renal Disease, Sleep Apnea/CPAP/BIPAP, Thyroid Disorder Additional Past Medical History / Comment(s): Low back occasionally. CPAP use. Hx bronchitis, constipation, anemia. 10/10/21 fever/sepsis/pneumonia required intubation and was on vent over a week then trasnferred to [facility], w sondra up with extreme weakness, had DVT in arm and possibly leg.([facility] discharge summary identifies cervial lymphadenopathy ARDS, septic shock, GAGAN on CKI stage III, elevated BNP and low platelets) patient states she is fine now but still sees kidney Hearing impaired, uses amplifier to assist History of Any Multi-Drug Resistant Organisms: Unobtainable Past Surgical History: Breast Surgery, Section, Ear Surgery, Hysterectomy Additional Past Surgical History / Comment(s): Tubes in left ear, righ ear surgery X2, left breast cyst removed. Past Anesthesia/Blood Transfusion Reactions: No Reported Reaction Additional Past Anesthesia/Blood Transfusion Reaction / Comment(s): Spouse thinks patient had blood transfusion when hospitalized 10/09 with no reaction, no t quite sure. Past Psychological History: Anxiety, Bipolar, Depression Smoking Status: Current every day smoker Past Alcohol Use History: None Reported Past Drug Use History: None Reported - Past Family History Father Family Medical History: Coronary Artery Disease (CAD) Mother Family Medical History: Cancer Additional Family Medical History / Comment(s): Brain cancer. Brother(s) Additional Family Medical History / Comment(s): Unable to obtain brother and sister history. Patient has 2 sons are healthy. Medications and Allergies Home Medications Medication Instructions Recorded Confirmed Type Levothyroxine Sodium [Synthroid] 100 mcg PO DAILY 12/01/16 10/12/24 History QUEtiapine FUMARATE 200 mg PO HS 12/01/16 10/12/24 History lamoTRIgine [LaMICtal] 200 mg PO HS 10/06/21 10/12/24 History Multivitamins, Thera [Multivitamin 1 tab PO DAILY 12/28/23 10/12/24 History (formulary)] amLODIPine BESYLATE 2.5 mg PO DAILY 12/28/23 10/12/24 History lamoTRIgine [LaMICtal] 150 mg PO DAILY 12/28/23 10/12/24 History Allergies Allergy/AdvReac Type Severity Reaction Status Date / Time chlorpromazine HCl Allergy Unknown Verified 10/12/24 18:23 [From Thorazine] codeine Allergy Unknown Verified 10/12/24 18:23 sulfamethoxazole Allergy Unknown Verified 10/12/24 18:23 [From Septra] trimethoprim [From Septra] Allergy Unknown Verified 10/12/24 18:23 Physical Exam Vitals: Vital Signs Temp Pulse Pulse Resp BP Pulse Ox 10/12/24 17:45 63 18 126/77 98 10/12/24 16:45 70 70 18 147/82 98 10/12/24 16:24 98.2 F 74 16 134/89 97 Intake and Output 10/12/24 10/12/24 10/12/24 06:59 14:59 22:59 Other: Weight 58.967 kg Results CBC & Chem 7: 10/12/24 16:56 10/12/24 16:56 Labs: Abnormal Lab Results - Last 24 Hours (Table) 10/12/24 Range/Units 16:56 BUN 20 H (7-17) mg/dL Creatinine 1.27 H (0.52-1.04) mg/dL
[2024-10-13 02:13] LABS: African American GFR (CKD) 55 (>60 ml/min/1.73 sqM); Anion Gap 9 mmol/L; Blood Urea Nitrogen 23 mg/dL (7-17); Calcium 9.5 mg/dL (8.4-10.2); Carbon Dioxide 26 mmol/L (22-30); Chloride 107 mmol/L (98-107); Glucose 100 mg/dL (74-99); Non-African American GFR(CKD) 48 (>60 ml/min/1.73 sqM); Potassium 3.5 mmol/L (3.5-5.1); Sodium 142 mmol/L (137-145)
[2024-10-13] MEDS: lamoTRIgine 100 MG TAB PO SCH (08:09)
[2024-10-13] MEDS: LEVOTHYROXINE 100 MCG TAB PO SCH (08:09)
[2024-10-13] MEDS: ASPIRIN 81 MG PO SCH (08:09)
[2024-10-13] MEDS: amLODIPine 2.5 MG TAB PO SCH (08:09)
[2024-10-13] MEDS ORDERED: ASPIRIN 325 MG TAB PO SCH (09:00)
[2024-10-13 12:06] LABS: Chol/HDL Ratio 3.18 Ratio; LDL Cholesterol,Calculated 127.8 mg/dL (0.0-131.0)
--- NOTE | 2024-10-13 12:52 | P.CRDCN ---
History of Present Illness Consult date: 10/13/24 History of present illness: HISTORY OF PRESENTING ILLNESS: 59-year-old female with past medical history of hypertension, GERD, osteoarthritis, ankle pain presented to the hospital because of substernal chest pressure and some associated difficulty breathing. The symptoms have gotten better since the time of admission. They were not particularly related to activity or rest. No reported lightheadedness dizziness shortness of breath, syncopal episodes. She has not had any prior cardiovascular history in the past. 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 Admission ECG shows normal sinus rhythm with heart rate 63 bpm, first-degree AV block, nonspecific ST changes in inferolateral leads. Chest x-ray does not show any signs of consolidation congestion Labs are in acceptable range with troponins being negative x 3 REVIEW OF SYSTEMS: 14 point review of system is negative except what is mentioned above in HPI. PHYSICAL EXAMINATION: Neck: Brisk carotid upstroke, no jugular venous distention. Lungs: Clear to auscultation. Heart: Regular rate and rhythm, S1-S2, , no murmur or rub. Abdomen: Soft nontender, positive bowel sounds. Extremities: No edema, intact distal pulses. Neuro: Alert, oritented, no focal deficits. Detailed neuro exam was not performed. ASSESSMENT: # Atypical chest pain, ruled out of ACS # First-degree AV block # Essential hypertension # GERD # Osteoarthritis # Bipolar disorder on lamotrigine PLAN: Continue aspirin 81 mg, increase amlodipine to 5 mg daily Obtain echocardiogram Obtain Lexiscan nuclear stress test. She cannot walk on treadmill because of ankle pain Obtain NT-proBNP lipid HbA1c TSH mag level Riky Garcia MD, FACC, RPVI Thank you for allowing [facility] to participate in this patient's care. Feel free to reach out in case of any followup questions. Past Medical History Past Medical History: GERD/Reflux, Hearing Disorder / Deafness, Hypertension, Osteoarthritis (OA), Renal Disease, Sleep Apnea/CPAP/BIPAP, Thyroid Disorder Additional Past Medical History / Comment(s): Low back occasionally. CPAP use. Hx bronchitis, constipation, anemia. 10/10/21 fever/sepsis/pneumonia required intubation and was on vent over a week then trasnferred to [facility], woke up with extreme weakness, had DVT in arm and possibly leg.([facility] discharge summary identifies cervial lymphadenopathy ARDS, septic shock, GAGAN on CKI stage III, elevated BNP and low platelets) patient states she is fine now but still sees kidney Hearing impaired, uses amplifier to assist History of Any Multi-Drug Resistant Organisms: Unobtainable Past Surgical History: Breast Surgery, Section, Ear Surgery, Hysterectomy Additional Past Surgical History / Comment(s): Tubes in left ear, righ ear surgery X2, left breast cyst removed. Past Anesthesia/Blood Transfusion Reactions: No Reported Reaction Additional Past Anesthesia/Blood Transfusion Reaction / Comment(s): Spouse thinks patient had blood transfusion when hospitalized 10/09 with no reaction, not quite sure. Past Psychological History: Anxiety, Bipolar, Depression Additional Psychological History / Comment(s): Pt resides with her spouse. She is independent. Smoking Status: Current every day smoker Past Alcohol Use History: None Reported Additional Past Alcohol Use History / Comment(s): Patient is a smoker of < 1/2 since age 16. Past Drug Use History: None Reported - Past Family History Father Family Medical History: Coronary Artery Disease (CAD) Mother Family Medical History: Cancer Additional Family Medical History / Comment(s): Brain cancer. Brother(s) Additional Family Medical History / Comment(s): Unable to obtain brother and sister history. Patient has 2 sons are healthy. Medications and Allergies Home Medications Medication Instructions Recorded Confirmed Type Levothyroxine Sodium [Synthroid] 100 mcg PO DAILY 12/01/16 10/12/24 History QUEtiapine FUMARATE 200 mg PO HS 12/01/16 10/12/24 History lamoTRIgine [LaMICtal] 200 mg PO HS 10/06/21 10/12/24 History Multivitamins, Thera [Multivitamin 1 tab PO DAILY 12/28/23 10/12/24 History (formulary)] amLODIPine BESYLATE 2.5 mg PO DAILY 12/28/23 10/12/24 History lamoTRIgine [LaMICtal] 150 mg PO DAILY 12/28/23 10/12/24 History Allergies Allergy/AdvReac Type Severity Reaction Status Date / Time chlorpromazine HCl Allergy Unknown Verified 10/12/24 18:23 [From Thorazine] codeine Allergy Unknown Verified 10/12/24 18:23 sulfamethoxazole Allergy Unknown Verified 10/12/24 18:23 [From Septra] trimethoprim [From ] Allergy Unknown Verified 10/12/24 18:23 Physical Exam Vitals: Vital Signs Temp Pulse Pulse Resp BP BP Pulse Ox 10/13/24 11:28 97.8 F 74 16 158/75 97 10/13/24 11:25 97.8 F 72 16 158/75 98 10/13/24 10:45 85 18 135/84 97 10/13/24 08:08 64 12 118/70 99 10/13/24 06:10 57 L 16 132/72 98 10/13/24 05:00 63 16 117/71 97 10/13/24 03:18 70 16 116/62 99 10/13/24 03:12 97 10/13/24 01:00 73 18 111/61 95 10/12/24 21:20 68 16 117/61 95 10/12/24 19:29 63 16 132/63 98 10/12/24 17:45 63 18 126/77 98 10/12/24 16:45 70 70 18 147/82 98 10/12/24 16:24 98.2 F 74 16 134/89 97 Intake and Output 10/12/24 10/13/24 10/13/24 22:59 06:59 14:59 Other: Weight 58.967 kg 58.967 kg Results 10/12/24 16:56 10/13/24 01:31 Cardiac Enzymes 10/12/24 10/12/24 10/12/24 Range/Units 16:56 16:56 19:55 AST 22 (14-36) U/L Troponin I <0.012 <0.012 (0.000-0.034) ng/mL 10/12/24 10/13/24 Range/Units 23:25 01:28 AST (14-36) U/L Troponin I <0.012 <0.012 (0.000-0.034) ng/mL Coagulation 10/12/24 Range/Units 16:56 PT 10.0 (10.0-12.5) sec APTT 23.9 (22.0-30.0) sec Lipids 10/12/24 Range/Units 16:56 Triglycerides 139.00 (0.00-149.00) mg/dL Cholesterol 227.00 H (0.00-200.00) mg/dL HDL Cholesterol 71.40 H (40.00-60.00) mg/dL Cholesterol/HDL Ratio 3.18 Ratio CBC 10/12/24 Range/Units 16:56 WBC 5.60 (4.50-10.00) 10*3/uL RBC 4.41 (4.10-5.20) 10*6/uL Hgb 14.1 (12.0-15.0) g/dL Hct 42.6 (37.2-46.3) % Plt Count 218 (140-440) 10*3/uL Comprehensive Metabolic Panel 10/12/24 10/13/24 Range/Units 16:56 01:31 Sodium 142 142 (137-145) mmol/L Potassium 4.3 3.5 (3.5-5.1) mmol/L Chloride 104 107 (98-107) mmol/L Carbon Dioxide 30 26 (22-30) mmol/L BUN 20 H 23 H (7-17) mg/dL Creatinine 1.27 H 1.23 H (0.52-1.04) mg/dL Glucose 87 100 H (74-99) mg/dL Calcium 9.9 9.5 (8.4-10.2) mg/dL AST 22 (14-36) U/L ALT 19 (4-34) U/L Alkaline Phosphatase 83 (38-126) U/L Total Protein 6.6 (6.3-8.2) g/dL Albumin 4.2 (3.5-5.0) g/dL Current Medications Generic Name Dose Route Start Last Admin Trade Name Freq PRN Reason Stop Dose Admin Aminophylline 100 mg 10/13/24 12:49 Aminophylline 500 Mg/20 Ml Vial IV 10/13/24 16:49 ONCE PRN Patient Response Amlodipine Besylate 5 mg 10/14/24 09:00 Amlodipine 2.5 Mg Tab PO DAILY JUAN Amlodipine Besylate 2.5 mg 10/13/24 12:48 Amlodipine 5 Mg Tab PO 10/13/24 12:49 ONCE STA Aspirin 81 mg 10/13/24 09:00 10/13/24 08:09 Aspirin 81 Mg PO 81 mg DAILY JUAN Administration Caffeine Citrate 60 mg 10/13/24 12:49 Caffeine Citrate 60 Mg/3 Ml Vial IV 10/13/24 16:49 ONCE PRN Patient Response Heparin Sodium (Porcine) 5,000 unit 10/13/24 00:00 10/13/24 08:10 Heparin Sodium,Porcine 5,000 Unit/Ml 1 Ml Vial SQ 5,000 unit Q8HR JUAN Administration Lamotrigine 150 mg 10/13/24 09:00 10/13/24 08:09 Lamotrigine 100 Mg Tab PO 150 mg DAILY JUAN Administration Lamotrigine 200 mg 10/12/24 21:00 10/12/24 21:02 Lamotrigine 100 Mg Tab PO 200 mg HS JUAN Administration Levothyroxine Sodium 100 mcg 10/13/24 06:30 10/13/24 08:09 Levothyroxine 100 Mcg Tab PO 100 mcg DAILY@0630 JUAN Administration Nitroglycerin 0.4 mg 10/12/24 18:17 Nitroglycerin Sl Tabs 0.4 Mg Tab SUBLINGUAL Q5M PRN Chest Pain Quetiapine Fumarate 200 mg 10/12/24 21:00 10/12/24 21:02 Quetiapine 200 Mg Tab PO 200 mg HS JUAN Administration Regadenoson 0.4 mg 10/13/24 12:49 Regadenoson 0.4 Mg/5 Ml Syringe IV 10/13/24 16:49 ONCE PRN Per Protocol Intake and Output 10/12/24 10/13/24 10/13/24 22:59 06:59 14:59 Other: Weight 58.967 kg 58.967 kg Patient Weight 10/14/24 06:59 Weight 58.967 kg 10/12/24 16:56 10/13/24 01:31
[2024-10-13] MEDS: amLODIPine 2.5 MG TAB PO STA (14:05)
--- NOTE | 2024-10-13 14:06 | P.PN ---
Subjective Progress Note Date: 10/13/24 Hospital course: Patient is a 59-year-old female with GERD, hypertension, osteoarthritis, hypothyroidism, IZAIAH with CPAP use, anxiety, bipolar disorder, depression and current daily smoker here for evaluation of chest pain. Patient reported that last night, they began experiencing chest ache at upper left chest that radiated to her left arm that lasted for about 5 minutes and was relieved with rest and worsened with palpation of the affected area. She also reported associated palpitations at that time. She denied shortness of breath, extremity swelling, productive cough, fever, chills, nausea, vomiting, abdominal pain, focal weakness, recent hospitalization or illness. She has a deviated nasal septum and has a scheduled procedure on October 31, 2024. On admission: Vitals: 92.8 Fahrenheit, IA 74, RR 16, BP 134/89, O2 saturation 97% on room air Labs: WBC 5.6, hemoglobin 14.1, potassium 4.3, sodium 142, magnesium 2.2, calcium 9.9, troponin less than 0.012, BUN 20, creatinine 1.27. Imaging: EKG showed sinus rhythm with a rate of 63 bpm, first-degree AV block with IA interval 235 MS, left axis deviation, no ST-T changes, T wave inversions in lead III, V1 and V3. Chest x-ray showed no evidence for acute pulmonary disease. ED documentation reviewed. Aspirin given in the ED Subjective: Patient seen evaluated bedside. No acute events overnight. No acute complaints. Denies having any current chest pain. States that she only had lef t arm numbness 1 day ago. Review of systems: Pertinent positives and negatives as discussed in HPI, a complete review of systems was performed and all other systems are negative. Physical examination: Vital signs reviewed General: non toxic, no distress, appears at stated age, on room air Derm: no unusual rashes/lesions, warm Head: atraumatic, normocephalic, symmetric Eyes: EOMI, anicteric sclera ENT: Nose and ears atraumatic Mouth: no lip lesion, mucus membranes moist Cardiovascular: S1S2 reg, no murmur Lungs: CTA bilateral, no rhonchi, no rales, no accessory muscle use Abdominal: soft, nondistended, nontender to palpation, no guarding Ext: muscle strength 5 out of 5 in all 4 extremities grossly, no gross muscle atrophy, no contractures, positive dorsalis pedis pulse bilateral, no edema Neuro: CN II-XI grossly intact, no gross focal neuro deficits Psych: Alert and oriented x 3, appropriate affect and mood Assessment/Plan: 67-year-old female with GERD, anxiety, bipolar disorder and depression hypertension and IZAIAH with CPAP use and current daily smoker here for evaluation of chest pain. The patient is admitted with an anticipated less than 2 midnight stay for evaluation of chest pain. Active: #. Atypical chest pain, likely noncardiac, r/o ACS - EKG independently interpreted showed sinus rhythm with a rate of 63 bpm, first-degree AV block with IA interval 235 MS, left axis deviation, no ST-T changes, T wave inversions in lead III, V1 and V3 - Troponin <0.012 x 4 proBNP, TSH, A1c ordered Lipid panel: Cholesterol 227, LDL 127, VLDL 27, HDL 71, triglycerides 139 -Supplemental oxygen as needed -Nitroglycerin prn for chest pain. 0.4 mg PO or Nitrobid topical -Given aspirin 325 mg once in the ED -Continue with aspirin 81 mg daily Echocardiogram pending Cardiac telemetry -Cardiology note reviewed, plan for Lexiscan nuclear stress test on Tuesday #. CKD stage III at baseline -Creatinine 1.27 on admission, EGFR 46 - Avoid nephrotoxic agents - Monitor for now #. Hypertension Amlodipine 2.5 mg increased to 5 mg daily by cardiology Chronic Conditions: #. GERD #. Hypothyroidism #. Osteoarthritis #. IZAIAH with CPAP use #. Anxiety #. Bipolar disorder #. Depression #. Current daily smoker -Continue with home Lamictal 150 mg daily and 200 mg at night mg, Synthroid 100 mcg daily, and quetiapine 200 mg daily -Continue with CPAP for IZAIAH F: Oral intake N: Heart healthy diet. N.p.o. at midnight A: Ambulate as needed DVT ppx: Heparin subcu every 8 hours CODE STATUS: Full code Discussed with: Patient and Anticipated discharge place: Home I have seen and evaluated the patient today. Discussed with the resident and agree with the residents finding and plan as documented in the resident's note. No additional chest pain. Having some arm pain. Having increased anxiety.. Objective - Vital Signs Vital signs: Vital Signs Temp 98.2 F 10/12/24 16:24 Pulse 64 10/13/24 08:08 Resp 12 10/13/24 08:08 BP 118/70 04/26/25 08:08 Pulse Ox 99 10/13/24 08:08 FiO2 Intake & Output 10/12/24 10/13/24 10/13/24 18:59 06:59 18:59 Weight 58.967 kg - Labs CBC & Chem 7: 10/12/24 16:56 10/13/24 01:31 Labs: Abnormal Lab Results - Last 24 Hours (Table) 10/12/24 10/13/24 Range/Units 16:56 01:31 BUN 20 H 23 H (7-17) mg/dL Creatinine 1.27 H 1.23 H (0.52-1.04) mg/dL Glucose 100 H (74-99) mg/dL
[2024-10-13 15:39] LABS: Magnesium 2.1 mg/dL (1.6-2.3)
[2024-10-13 15:49] LABS: NT-Pro-B-Type Natriuretic Pept 34 pg/mL
[2024-10-14 07:06] LABS: Chol/HDL Ratio 3.23 Ratio; LDL Cholesterol,Calculated 110.7 mg/dL (0.0-131.0)
[2024-10-14 07:43] LABS: African American GFR (CKD) 55 (>60 ml/min/1.73 sqM); Anion Gap 7 mmol/L; Blood Urea Nitrogen 24 mg/dL (7-17); Calcium 9.3 mg/dL (8.4-10.2); Carbon Dioxide 28 mmol/L (22-30); Chloride 106 mmol/L (98-107); Glucose 99 mg/dL (74-99); Non-African American GFR(CKD) 47 (>60 ml/min/1.73 sqM); Potassium 3.8 mmol/L (3.5-5.1); Sodium 141 mmol/L (137-145)
[2024-10-14] MEDS: amLODIPine 5 MG TAB PO SCH (08:59)
--- NOTE | 2024-10-14 11:43 | CA ---
Transthoracic Echo Report Name: Lexus Valdovinos Age: 59 Gender: F : 1965 Exam Date: 10/13/2024 14:21 Exam Location: [place] [facility] Ht (in): 63 Wt (lb): 130 Ordering Physician: Riky Garcia MD Attending/Referring Phys: Sybase Developer Dolly Gordon RDCS Procedure CPT: Indications: Cardiomyopathy, HTN, chest pressure Cardiac Hx: Technical Quality: Good Contrast 1: Total Dose (mL): Contrast 2: Total Dose (mL): MEASUREMENTS (Male / Female) Normal Values 2D ECHO LV Diastolic Diameter PLAX 4.5 cm 4.2 - 5.9 / 3.9 - 5.3 cm LV Systolic Diameter PLAX 3.0 cm IVS Diastolic Thickness 1.0 cm 0.6 - 1.0 / 0.6 - 0.9 cm LVPW Diastolic Thickness 1.2 cm 0.6 - 1.0 / 0.6 - 0.9 cm LV Relative Wall Thickness 0.5 RV Internal Dim ED PLAX 3.2 cm LA Systolic Diameter LX 3.2 cm 3.0 - 4.0 / 2.7 - 3.8 cm LV Diastolic Volume MOD BP 73.4 cm??? 67 - 155 / 56 - 104 cm??? LV Systolic Volume MOD BP 29.4 cm??? 22 - 58 / 19 - 49 cm??? LV Ejection Fraction MOD BP 60.0 % >= 55 % LV Cardiac Index MOD BP 1976.0 cm???/min???m??? LV Diastolic Volume MOD 4C 66.9 cm??? LV Systolic Volume MOD 4C 34.3 cm??? LV Ejection Fraction MOD 4C 48.7 % LV Cardiac Index MOD 4C 1462.7 cm???/min???m??? LV Diastolic Length 4C 6.4 cm LV Systolic Length 4C 5.6 cm LV Diastolic Volume MOD 2C 69.9 cm??? LV Systolic Volume MOD 2C 23.8 cm??? LV Ejection Fraction MOD 2C 66.0 % LV Cardiac Index MOD 2C 2074.1 cm???/min???m??? LV Diastolic Length 2C 7.4 cm LV Systolic Length 2C 6.3 cm LA Volume 35.6 cm??? 18 - 58 / 22 - 52 cm??? LA Volume Index 21.9 cm???/m??? 16 - 28 cm???/m??? M-MODE Aortic Root Diameter MM 3.0 cm AV Cusp Separation MM 1.9 cm DOPPLER AV Peak Velocity 158.3 cm/s AV Peak Gradient 10.0 mmHg MV Area PHT 4.7 cm??? Mitral E Point Velocity 85.2 cm/s Mitral A Point Velocity 93.7 cm/s Mitral E to A Ratio 0.9 MV Deceleration Time 162.6 ms TR Peak Velocity 222.4 cm/s TR Peak Gradient 19.8 mmHg Right Ventricular Systolic Press 24.8 mmHg FINDINGS Left Ventricle Left ventricular ejection fraction is estimated at 55-60 %. Left ventricular cavity size normal. Mildly increased septal wall thickness. Mildly increased posterior wall thickness. Normal left ventricular wall motion. Right Ventricle Normal right ventricular size. Right ventricular systolic pressure within normal limits. Right Atrium Normal right atrial size. No right atrial thrombus or mass seen. Left Atrium Normal left atrial size. No left atrial thrombus or mass present. Mitral Valve Structurally normal mitral valve. No evidence for mitral valve prolapse. No mitral stenosis. Trace to mild mitral regurgitation. Aortic Valve Trileaflet aortic valve. No aortic valve stenosis or regurgitation. Tricuspid Valve Structurally normal tricuspid valve. Mild tricuspid regurgitation. Pulmonic Valve Pulmonic valve not well visualized. Trace pulmonic regurgitation. Pericardium No pericardial effusion. Aorta Normal size aortic root and proximal ascending aorta. CONCLUSIONS LVEF 55% Mild concentric LVH Normal RV size and systolic function with normal RVSP Normal biatrial size No significant valvular dysfunction Previewed by: Dr Riky Garcia (Electronically Signed) Final Date: 14 October 2024 11:41
--- NOTE | 2024-10-14 12:09 | P.PN ---
Subjective Progress Note Date: 10/14/24 HISTORY OF PRESENTING ILLNESS: 59-year-old female with past medical history of hypertension, GERD, osteoa rthritis, ankle pain presented to the hospital because of substernal chest pressure and some associated difficulty breathing. The symptoms have gotten better since the time of admission. They were not particularly related to activity or rest. No reported lightheadedness dizziness shortness of breath, syncopal episodes. She has not had any prior cardiovascular history in the past. She does not see a displayer merchandise previously. Admission ECG shows normal sinus rhythm with heart rate 63 bpm, first-degree AV block, nonspecific ST changes in inferolateral leads. Chest x-ray does not show any signs of consolidation congestion Labs are in acceptable range with troponins being negative x 3 Progress note 10/14/2024 Patient seen and examined at bedside this a.m. She denies any chest pain chest pressure Blood pressure is better controlled on amlodipine 5 mg Echocardiogram did not show any concerning findings PHYSICAL EXAMINATION: Neck: Brisk carotid upstroke, no jugular venous distention. Lungs: Clear to auscultation. Heart: Regular rate and rhythm, S1-S2, , no murmur or rub. Abdomen: Soft nontender, positive bowel sounds. Extremities: No edema, intact distal pulses. Neuro: Alert, oritented, no focal deficits. Detailed neuro exam was not performed. ASSESSMENT: # Atypical chest pain, ruled out of ACS # First-degree AV block # Essential hypertension # GERD # Osteoarthritis # Bipolar disorder on lamotrigine Pertinent cardiac testing NT-proBNP, TSH, HbA1c were WNL. LDL 110 PLAN: Continue aspirin 81 mg, amlodipine to 5 mg daily Obtain Lexiscan nuclear stress test. She cannot walk on treadmill because of ankle pain Objective - Vital Signs Vital signs: Vital Signs Temp 98.0 F 10/14/24 07:00 Pulse 70 10/14/24 07:00 Resp 16 10/14/24 07:00 BP 116/68 10/14/24 07:00 Pulse Ox 98 10/14/24 07:00 FiO2 Intake & Output 10/13/24 10/14/24 10/14/24 18:59 06:59 18:59 Weight 58.967 kg Other: Voiding Method Toilet # Voids 2 2 - Labs CBC & Chem 7: 10/12/24 16:56 10/14/24 06:56 Labs: Abnormal Lab Results - Last 24 Hours (Table) 10/13/24 10/14/24 Range/Units 01:31 06:56 BUN 24 H (7-17) mg/dL Creatinine 1.24 H (0.52-1.04) mg/dL HDL Cholesterol 61.30 H (40.00-60.00) mg/dL
--- NOTE | 2024-10-14 17:33 | P.PN ---
Subjective Progress Note Date: 10/14/24 Patient is a 59-year-old man with history of HTN, GERD, hypothyroidism, and IZAIAH admitted for chest pain. Patient seen and examined at bedside. Doing well. No recurrent chest pain. Vital signs reviewed General: Nontoxic, no distress, appears at stated age Cardiovascular: S1S2 reg, no murmur Lungs: CTA bilateral, no rhonchi, no rales, no accessory muscle use Abdominal: Soft, nontender to palpation, no guarding Ext: No gross muscle atrophy, no edema b/l lower extremities, no contractures Neuro: CN II-XI grossly intact, no focal neuro deficits Psych: Alert, oriented, appropriate affect Assessment/Plan: Chest pain HLD - Troponin negative x 4 - Started on statin for primary prevention, ASCVD risk score 8.8 indicating recommendations for statin -Aspirin 81 mg - Cardiology recommendations reviewed. Stress test in AM. Chronic conditions: Tobacco abuse CKD stage IIIb HTN GERD Hypothyroidism - meds reviewed as below Imaging: None new Data Review: BMP reviewed creatinine 1.24 Anticipated discharge date: In a.m. after stress test Anticipated discharge place: Home This dictation was prepared using [employer] voice recognition software. Though every attempt is made to correct errors during dictation some may still exist. Active Medications Generic Name Dose Route Start Last Admin Trade Name Freq PRN Reason Stop Dose Admin Aminophylline 100 mg 10/15/24 07:00 Aminophylline 500 Mg/20 Ml Vial IV 10/15/24 14:00 ONCE PRN Patient Response Amlodipine Besylate 5 mg 10/14/24 09:00 10/14/24 08:59 Amlodipine 5 Mg Tab PO 5 mg DAILY JUAN Administration Aspirin 81 mg 10/13/24 09:00 10/14/24 08:59 Aspirin 81 Mg PO 81 mg DAILY JUAN Administration Atorvastatin Calcium 40 mg 10/14/24 21:00 Atorvastatin 40 Mg Tab PO HS JUAN Caffeine Citrate 60 mg 10/15/24 07:00 Caffeine Citrate 60 Mg/3 Ml Vial IV 10/15/24 14:00 ONCE PRN Patient Response Heparin Sodium (Porcine) 5,000 unit 10/13/24 00:00 10/14/24 16:15 Heparin Sodium,Porcine 5,000 Unit/Ml 1 Ml Vial SQ 5,000 unit Q8HR JUAN Administration Lamotrigine 150 mg 10/13/24 09:00 10/14/24 08:59 Lamotrigine 100 Mg Tab PO 150 mg DAILY JUAN Administration Lamotrigine 200 mg 10/12/24 21:00 10/13/24 20:30 Lamotrigine 100 Mg Tab PO 200 mg HS JUAN Administration Levothyroxine Sodium 100 mcg 10/13/24 06:30 10/14/24 06:13 Levothyroxine 100 Mcg Tab PO 100 mcg DAILY@0630 JUAN Administration Nitroglycerin 0.4 mg 10/12/24 18:17 Nitroglycerin Sl Tabs 0.4 Mg Tab SUBLINGUAL Q5M PRN Chest Pain Quetiapine Fumarate 200 mg 10/12/24 21:00 10/13/24 20:30 Quetiapine 200 Mg Tab PO 200 mg HS JUAN Administration Regadenoson 0.4 mg 10/15/24 07:00 Regadenoson 0.4 Mg/5 Ml Syringe IV 10/15/24 14:00 ONCE PRN Per Protocol Objective - Vital Signs Vital signs: Vital Signs Temp 98.0 F 10/14/24 07:00 Pulse 70 10/14/24 07:00 Resp 16 10/14/24 07:00 BP 116/68 10/14/24 07:00 Pulse Ox 98 10/14/24 07:00 FiO2 Intake & Output 10/13/24 10/14/24 10/14/24 18:59 06:59 18:59 Weight 58.967 kg Other: Voiding Method Toilet # Voids 2 2 - Labs CBC & Chem 7: 10/12/24 16:56 10/14/24 06:56 Labs: Abnormal Lab Results - Last 24 Hours (Table) 10/12/24 10/13/24 10/14/24 Range/Units 16:56 01:31 06:56 BUN 24 H (7-17) mg/dL Creatinine 1.24 H (0.52-1.04) mg/dL Cholesterol 227.00 H (0.00-200.00) mg/dL HDL Cholesterol 71.40 H 61.30 H (40.00-60.00) mg/dL
[2024-10-14] MEDS: ATORVASTATIN 40 MG TAB PO SCH (20:32)
[2024-10-15] MEDS ORDERED: REGADENOSON 0.4 MG/5 ML SYRINGE IV PRN (07:00)
[2024-10-15] MEDS ORDERED: CAFFEINE CITRATE 60 MG/3 ML VIAL IV PRN (07:00)
[2024-10-15] MEDS ORDERED: AMINOPHYLLINE 500 MG/20 ML VIAL IV PRN (07:00)
[2024-10-15 07:47] VITALS: BP 132/78; PULSE 67; RESP 16; TEMP 98.1
--- NOTE | 2024-10-15 11:12 | CA ---
Lexiscan Nuclear Stress Test Report Name: Lexus Valdovinos Exam Date: 10/15/2024 09:19 Exam Location: [place] Stress Ht (in): 63 Wt (lb): 133 BSA: 1.63 Ordering Phys: Riky Garcia MD Referring Phys: JAMAAL Technologist: RAW Age: 59 Gender: F : 1965 Procedure CPT: Indications: Reflex order-Stress test ICD-10 Codes: Patient History: Chest pain, vertigo and palpitations Medications: SEE CHART,,, Meds past 24 hrs: Pretest Chest Pain: STRESS TEST Lexiscan Protocol Exercise Duration (min:sec): 02:[address] Depressions (mm): Angina Score: Mac Score: Resting HR (bpm): 64 Peak HR (bpm): 100 Resting BP (mmHg): 143 / 79 Peak BP (mmHg): / 73 MPHR: 160 Target HR: 136 % MPHR: 63 METS: 1.0 Total Dose: Peak Dose: Atropine: Double Product: BP Response: Stress Termination: INFUSION COMPLETE Stress Symptoms: NO SYMPTOMS Stress Summary: ECG ANALYSIS Resting ECG: Stress ECG: CONCLUSIONS At baseline EKG showed normal sinus rhythm, normal axis, no significant ST or T wave abnormalities. Patient recieved IV infusion of Lexiscan 0.4mg and at peak infusion EKG showed no change from baseline. Conclusions: 1. Normal EKG response to Lexiscan infusion 2. Nuclear imaging to be reported separately. Dr. Vin Bender DO (Electronically Signed) Final Date: 15 October 2024 11:12
--- NOTE | 2024-10-15 11:48 | NM ---
EXAMINATION TYPE: NM stress lexiscan cardiolite DATE OF EXAM: 10/15/2024 COMPARISON: NONE CLINICAL INDICATION: Female, 59 years old with history of Angina pectoris; TECHNIQUE: After the intravenous administration of 9.9 mCi Tc 99m Sestamibi - Cardiolite resting SPE CT images acquired 45 minutes post injection. The patient received 0.4mg Lexiscan, 26.3 mCi Tc 99m Sestamibi - Stress images obtained [address] injection FINDINGS: Review of stress and rest SPECT images demonstrates no distinct perfusion abnormality. Gated analysi s shows normal wall motion with an estimated left ventricular ejection fraction of 62 %. IMPRESSION: No scintigraphic evidence for reversible ischemia. [facility], , 10/15/2024 11:46 AM
--- NOTE | 2024-10-15 12:31 | P.DS ---
Providers Date of admission: 10/12/24 18:18 Discharge Diagnosis: Chest pain, ACS ruled out Hyperlipidemia Tobacco abuse CKD stage IIIb Hypertension GERD Hypothyroidism Hospital Course: Patient is a 59-year-old female with GERD, hypertension, osteoarthritis, hypothyroidism, IZAIAH with CPAP use, anxiety, bipolar disorder, depression and current daily smoker here for evaluation of chest pain. Patient reported that last night, they began experiencing chest ache at upper left chest that radiated to her left arm that lasted for about 5 minutes and was relieved with rest and worsened with palpation of the affected area. She also reported associated palpitations at that time. She denied shortness of breath, extremity swelling, productive cough, fever, chills, nausea, vomiting, abdominal pain, focal weakness, recent hospitalization or illness. She has a deviated nasal septum and has a scheduled procedure on October 31, 2024. On admission: Vitals: 92.8 Fahrenheit, NH 74, RR 16, BP 134/89, O2 saturation 97% on room air Labs: WBC 5.6, hemoglobin 14.1, potassium 4.3, sodium 142, magnesium 2.2, calcium 9.9, troponin less than 0.012, BUN 20, creatinine 1.27. Imaging: EKG showed sinus rhythm with a rate of 63 bpm, first-degree AV block with NH interval 235 MS, left axis deviation, no ST-T changes, T wave inversions in lead III, V1 and V3. Chest x-ray showed no evidence for acute pulmonary disease. ED documentation reviewed. Aspirin given in the ED. Patient was admitted for further evaluation of chest pain. Echocardiogram displayed LVEF of 55%, mild concentric LVH, normal RV size and function with normal RSVP, no significant valvular dysfunction. Blood pressure medication mod ified by cardiology. Nuclear stress Lexiscan was unremarkable. She was cleared by cardiology. Patient ASCVD risk 9.2% which requires effort to be on moderate to high intensity statin. She will be discharged with statin. She has a follow-up with PCP and cardiology. She can be discharged home today. Patient seen and examined at bedside. Vital signs reviewed and stable. Physical examination: Vital signs reviewed General: non toxic, no distress, appears at stated age, normal weight Mouth: no lip lesion, mucus membranes moist Cardiovascular: S1S2 reg, no murmur, positive dorsalis pedis pulse bilateral, no edema Lungs: CTA bilateral, no rhonchi, no rales, no accessory muscle use Abdominal: soft, nontender to palpation, no guarding Ext: muscle strength 5 out of 5 in all 4 extremities grossly, no gross muscle atrophy Neuro: CN II-XI grossly intact, no gross focal neuro deficits Psych: Alert, oriented to person, place, and time A total of greater than 30 minutes of time were spent preparing this complex discharge summary. Patient was discharge on October 15, 2024 at 12:02 PM. Lanie Segovia MD PGY-1 IM Dictation was produced using [employer] dictation software. please excuse any grammatical, word or spelling errors. I have seen and evaluated the patient today. Discussed with the resident and agree with the residents finding and plan as documented in the resident's note. Changes highlighted in blue font. Expected date of discharge: 10/15/24 Attending physician: Giovany Santiago Consults: 10/12/24 18:17 Consult Physician Urgent Consulting Provider: Riky Garcia Consult Reason/Comments: chest pain Do you want consulting provider notified?: Yes Primary care physician: Avtar Dill Patient Condition at Discharge: Fair Plan - Discharge Summary Discharge Rx Participant: No New Discharge Prescriptions: New amLODIPine [Norvasc] 5 mg PO DAILY #90 tab Atorvastatin [Lipitor] 40 mg PO HS #90 tablet Continue QUEtiapine FUMARATE 200 mg PO HS Levothyroxine Sodium [Synthroid] 100 mcg PO DAILY lamoTRIgine [LaMICtal] 150 mg PO DAILY lamoTRIgine [LaMICtal] 200 mg PO HS Multivitamins, Thera [Multivitamin (formulary)] 1 tab PO DAILY Discontinued amLODIPine BESYLATE 2.5 mg PO DAILY Discharge Medication List Levothyroxine Sodium [Synthroid] 100 mcg PO DAILY 12/01/16 [History] QUEtiapine FUMARATE 200 mg PO HS 12/01/16 [History] lamoTRIgine [LaMICtal] 200 mg PO HS 10/06/21 [History] Multivitamins, Thera [Multivitamin (formulary)] 1 tab PO DAILY 12/28/23 [History] lamoTRIgine [LaMICtal] 150 mg PO DAILY 12/28/23 [History] Atorvastatin [Lipitor] 40 mg PO HS #90 tablet 10/15/24 [Rx] amLODIPine [Norvasc] 5 mg PO DAILY #90 tab 10/15/24 [Rx] Follow up Appointment(s)/Referral(s): Riky Garcia MD [Medical Doctor] - 10/24/24 1:30 pm Avtar Dill MD [Primary Care Provider] - 1-2 days Patient Instructions/Handouts: Angina (DC) Activity/Diet/Wound Care/Special Instructions: Please follow up with PCP and cardiology. Discharge Disposition: HOME SELF-CARE
== END 2024-10-15 13:36 | disposition home or self-care (01) ==
LOC: EC 16:12 → 6NMEDSUR 18:18
PROVIDERS: ADMIT Student in an Organized Health Care Education/Training Program; ATTEND Student in an Organized Health Care Education/Training Program
DX: R07.2 Precordial pain (principal); I12.9 Hypertensive chronic kidney disease with stage 1 through stage 4 chronic kidney disease, or unspecified chronic kidney disease; N18.32 Chronic kidney disease, stage 3b; I44.0 Atrioventricular block, first degree; R20.0 Anesthesia of skin; R00.2 Palpitations; R20.2 Paresthesia of skin; E03.9 Hypothyroidism, unspecified; E78.5 Hyperlipidemia, unspecified; G47.33 Obstructive sleep apnea (adult) (pediatric); K21.9 Gastro-esophageal reflux disease without esophagitis; M19.90 Unspecified osteoarthritis, unspecified site; J34.2 Deviated nasal septum; F31.9 Bipolar disorder, unspecified; F41.9 Anxiety disorder, unspecified; F17.210 Nicotine dependence, cigarettes, uncomplicated; Z79.890 Hormone replacement therapy; Z79.899 Other long term (current) drug therapy; Z88.1 Allergy status to other antibiotic agents; Z88.2 Allergy status to sulfonamides; Z88.5 Allergy status to narcotic agent; Z88.8 Allergy status to other drugs, medicaments and biological substances
CPT/HCPCS: 96372 ×5; 99285; 36415; 93005; 93017; 93306; 83880; 80061 ×2; 80053; 80048 ×2; 84443; 83735 ×3; 84484 ×2; 85025; 85610; 85730; 83036; 71046; 78452; G0378 ×4; A9500; J1644 ×4

== ENCOUNTER → 2024-10-18 | Outpatient (CLI) | payer BC, SELFPAY ==
--- NOTE | 2024-10-18 11:12 | MM ---
Reason for Exam: Screening (asymptomatic). Last mammogram was performed 1 year(s) and 1 month(s) ago. Patient History: Menarche at age 13. First Full-Term at age 19. Left ovary removed at age 29. Right ovary removed at age 29. Hysterectomy at age 29. Postmenopausal. Estrogen for 14 years from age 29 until age 43. Excisional Biopsy on the Left side. 04/15/2009, Benign Cyst Aspiration on the left side. 08/07/2007, Benign Cyst Aspiration on the left side. Maternal aunt had breast cancer. Mother had breast cancer, age 75. Risk Values: Jamee 5 year model risk: 3.0%. NCI Lifetime model risk: 14.5%. Prior Study Comparison: 09/29/2022 Bilateral MG 3D screening mammo w/cad, [facility]. 10/05/2022 Right MG 3D work up w/cad RT, [facility]. 10/10/2023 Bilateral MG 3D screening mammo w/cad, [facility]. Tissue Density: The breasts are heterogeneously dense, which may obscure small masses. Findings: Analyzed By CAD. Benign-appearing round and vascular calcifications bilaterally are redemonstrated. There is benign-appearing dystrophic calcification in the right breast again seen. Stable small sub-5 mm circumscribed round masses anteriorly in the right breast. There is new more prominent focal asymmetry in the anterior depth outer slightly upper aspect right breast that warrants further workup.Benign-appearing round and vascular calcifications bilaterally are redemonstrated. There is benign-appearing dystrophic calcification in the right breast again seen. Stable small sub-5 mm circumscribed round masses anteriorly in the right breast. There is new more prominent 12 mm focal asymmetry in the anterior depth outer slightly upper aspect right breast that warrants further workup. Overall Assessment: Incomplete: need additional imaging evaluation, BI-RAD 0 Management: Special View Mammogram of the right breast. Return for additional spot 3-D and 3-D true lateral views right breast. Patient should continue monthly self-breast exams. A clinical breast exam by your physician is recommended on an annual basis. This exam should not preclude additional follow-up of suspicious palpable abnormalities. Note on Jamee scores and lifetime risk: 1. A Jamee score greater than 3% is considered moderate risk. If this is the case, consider specialist referral to assess eligibility for a risk reducing agent. 2. If overall lifetime risk for the development of breast cancer is 20% or higher, the patient may qualify for future screening with alternating mammogram and breast MRI. [facility], , 10/18/2024 11:09 AM. Electronically signed and approved by: Logan Gayle M.D.
== END | disposition home or self-care (01) ==
LOC: RADMAMWWP 09:43
PROVIDERS: ATTEND Family Medicine
DX: Z12.31 Encounter for screening mammogram for malignant neoplasm of breast (principal); R92.323 Mammographic fibroglandular density, bilateral breasts; Z78.0 Asymptomatic menopausal state; Z80.3 Family history of malignant neoplasm of breast
CPT/HCPCS: 77067

== ENCOUNTER → 2024-10-25 | Outpatient (CLI) | payer BC, SELFPAY ==
--- NOTE | 2024-10-25 15:26 | MM ---
Reason for Exam: Additional evaluation requested from abnormal screening. Last screening mammogram was performed less than 1 month ago. Patient History: Menarche at age 13. First Full-Term at age 19. Left ovary removed at age 29. Right ovary removed at age 29. Hysterectomy at age 29. Postmenopausal. Estrogen for 14 years from age 29 until age 43. Excisional Biopsy on the Left side. 04/15/2009, Benign Cyst Aspiration on the left side. 08/07/2007, Benign Cyst Aspiration on the left side. Maternal aunt had breast cancer. Mother had breast cancer, age 75. Risk Values: Jamee 5 year model risk: 3.0%. NCI Lifetime model risk: 14.5%. Tissue Density: Right: There are scattered areas of fibroglandular density. Findings: Analyzed By CAD. Focal asymmetry right breast upper upper outer aspects 3.2 cm from the nipple measuring 11 mm. Benign-appearing calcifications are stable. Overall Assessment: Incomplete: need additional imaging evaluation, BI-RAD 0 Management: Diagnostic Breast Ultrasound of the right breast. Results were given to the patient verbally at the time of exam. Patient should continue monthly self-breast exams. A clinical breast exam by your physician is recommended on an annual basis. This exam should not preclude additional follow-up of suspicious palpable abnormalities. Note on Jamee scores and lifetime risk: 1. A Jamee score greater than 3% is considered moderate risk. If this is the case, consider specialist referral to assess eligibility for a risk reducing agent. 2. If overall lifetime risk for the development of breast cancer is 20% or higher, the patient may qualify for future screening with alternating mammogram and breast MRI. [facility], , 10/25/2024 3:23 PM. Electronically signed and approved by: Dickson Rivera DO
--- NOTE | 2024-10-26 08:45 | USB ---
Reason for Exam: Additional evaluation requested from abnormal screening. Patient History: Menarche at age 13. First Full-Term at age 19. Left ovary removed at age 29. Right ovary removed at age 29. Hysterectomy at age 29. Postmenopausal. Estrogen for 14 years from age 29 until age 43. Excisional Biopsy on the Left side. 04/15/2009, Benign Cyst Aspiration on the left side. 08/07/2007, Benign Cyst Aspiration on the left side. Maternal aunt had breast cancer. Mother had breast cancer, age 75. Risk Values: Jamee 5 year model risk: 3.0%. NCI Lifetime model risk: 14.5%. Technique: Method: Targeted. Prior Study Comparison: 10/05/2022 Right MG 3D work up w/cad RT, [facility]. 10/10/2023 Bilateral MG 3D screening mammo w/cad, [facility]. 10/18/2024 Bilateral MG screening mammo w CAD, [facility]. Findings: The lateral section of the breast of the right breast, the axilla of the right breast and the retroareolar of the right breast were scanned. Electronically signed and approved by: Dickson Rivera DO
== END | disposition home or self-care (01) ==
LOC: RADMAMWWP 14:59
PROVIDERS: ATTEND Family Medicine
DX: R92.8 Other abnormal and inconclusive findings on diagnostic imaging of breast (principal); R92.321 Mammographic fibroglandular density, right breast; Z78.0 Asymptomatic menopausal state; Z80.3 Family history of malignant neoplasm of breast
CPT/HCPCS: 77061; 77065

== ENCOUNTER 2024-10-31 09:38 | Day surgery (SDC) | payer BC, SELFPAY ==
[2024-10-30 08:53] VITALS: BMI 25.3
[2024-10-31] MEDS: IV FLUID CONTINUATION 1,000 ML IV ONE (09:55)
[2024-10-31] MEDS: DEXAMETHASONE SOD PHOSPHATE 4 MG/ML 1 ML VIAL IV ONE (10:17)
[2024-10-31] MEDS: OXYMETAZOLINE 0.05% NASL SPRAY 1 SPRAY BOTTLE EA NOSTRIL PRN (10:17)
[2024-10-31] MEDS: LACTATED RINGERS 1,000 ML IV SCH (10:17)
[2024-10-31] MEDS: ONDANSETRON 4 MG/2 ML VIAL IVP ONE (10:17)
[2024-10-31] MEDS: FAMOTIDINE 20 MG/2 ML VIAL IV PRN (10:17)
[2024-10-31] MEDS ORDERED: LIDOCAINE 1% INJ 10MG/ML (20 ML MDV) ONE (11:22)
[2024-10-31] MEDS ORDERED: LIDOCAINE 4% LTA KIT (4 ML) TOPICAL ONE (11:22)
[2024-10-31] MEDS ORDERED: PROPOFOL 10 MG/ML 20 ML VIAL IV ONE (11:22)
[2024-10-31] MEDS ORDERED: SUCCINYLCHOLINE CHLORIDE 200 MG/10 ML VIAL IV ONE (11:22)
[2024-10-31] MEDS ORDERED: fentaNYL (PF) 50 MCG/ML 2 ML AMP ONE (11:22)
[2024-10-31] MEDS: ceFAZolin 2 GM in DEXTROSE 5% IN WATER 50 ML IVPB PRN (11:26)
[2024-10-31] MEDS: BACITRACIN ZINC 500 UNIT/GM OINT 28.4 GM TUBE TOPICAL ONE ×2 (11:35→11:39)
[2024-10-31] MEDS: LIDOCAINE 1%-EPI 1:100,000 20 ML VIAL SUBMUCOSAL ONE ×3 (11:35→11:39)
[2024-10-31] MEDS: LACTATED RINGERS 1,000 ML IV ONE (12:34)
--- NOTE | 2024-10-31 12:51 | P.OP ---
Date of Procedure: 10/31/24 Preoperative Diagnosis: deviated nasal septum Inferior turbinate hypertrophy Chronic sinusitis Sinonasal polyposis Postoperative Diagnosis: same Procedure(s) Performed: septoplasty Outfracture and submucous resection of the inferior turbinates Bilateral endoscopic sinus surgery including bilateral maxillary antrostomy with removal of tissue from maxillary sinuses, bilateral anterior and posterior ethmoidectomy with sphenoidotomy and removal of tissue from the sphenoid sinuses and bilateral frontal sinusotomy with exploration Anesthesia: CAMERON Surgeon: Salazar Louis Estimated Blood Loss (ml): 10 Pathology: other (nasal septal bone and cartilage and sinus contents) Condition: stable Disposition: PACU Indications for Procedure: this is a 59-year-old white female whose had difficulties with chronic nasal airway obstruction, anterior and posterior nasal drainage which has chronic which has not improved with medical management. Her computed tomography scan showed diffuse opacification of all sinuses with sinonasal polyposis. Operative Findings: nasal septum deviated to the left with inferior turbinate hypertrophy. There were small polyps in the middle meatus bilaterally. The maxillary ostia were obstructed bilaterally with small polyps in the maxillary sinuses bilaterally. Diffuse small polyps throughout the ethmoid sinuses. Small polyps in the sphenoid sinuses with mucosal thickening noted in the frontal sinuses bilaterally Description of Procedure: The patient was brought into the operative suite and placed in a supine position. The patient underwent induction of general anesthesia with oral endotracheal intubation without difficulty. The patient was prepped and draped in the usual aseptic fashion with the orbits in the operating field for monitoring to the case and the computed tomography scan was on the computer screen for review throughout the case. 1% lidocaine with 1 :100,000 epinephrine was infused submucosally into both sides of the nasal septum as well as the lateral nasal wall and anterior tips of the middle turbinates. While this was taking vasoconstrictive effect the inferior turbinates were infractured with Yazoo elevator and partial submucous resection of the inferior turbinates was performed with a portion of the submucosal soft tissue and the inferior turbinate bone removed with Coblation device. The inferior turbinates were then outfractured with the Yazoo elevator. A left hemitransfixion incision was then made with the mucoperichondrial and mucoperiosteal flap on the left elevated. The bony cartilaginous junction was disarticulated and the mucoperiosteal flap on the right was elevated. Bony nasal septal deformities were removed with Danny forceps and an inferior cartilaginous strip was removed leaving a full 1.5 cm caudal strut. Checking intranasally this corrected the nasoseptal deformities and the hemitransfixion incision was closed with a running 4-0 chromic suture. Full 0° endoscopic examination is performed bilaterally. Beginning on the le ft, the middle turbinate was medialized. gross polyps were removed with microdebrider. The maxillary ostium was located with a ballpoint probe and an infundibulotomy was performed followed by uncinectomy. The maxillary antrostomy was enlarged at the expense of the anterior and posterior fontanelle taking care anteriorly not to injure the lacrimal bone. The maxillary sinus was evaluated with 30 and 70° endoscope .[Abnormal appearing tissue was removed from the maxillary sinus]. Anterior and posterior ethmoidectomy were then performed from anterior to posterior to the level of the skull base. The roof of the anterior ethmoid air cells were then cleaned from posterior to anterior using up-biting Blakesley forceps. frontal sinusotomy was then performed with 30 endoscope curved suction and giraffe forceps. The frontal sinus was then explored with 30° endoscope.diffuse mucosal thickening was noted sphenoidotomy was performed with 0 endoscope straight suction and straight Blakesley forceps. The sphenoid sinus was then explored with 0° endoscope.[Abnormal tissue was removed from the sphenoid sinus]. Attention was then turned to the right where the procedures were followed as th aron had been on the lef tincluding medialization middle turbinate infundibulotomy uncinectomy maxillary antrostomy with removal of tissue from maxillary sinus anterior and posterior ethmoidectomy frontal sinusotomy with exploration and sphenoidotomy with exploration removal of tissue. There were polyps in the middle meatus which were debrided also with the microdebrider. [Nasopore nasal dressing was placed in the middle meatus bilaterally under direct visualization]. Bilateral Perkins airway splints coated with bacitracin ointment were placed and sutured transseptally with a 4-0 nylon suture. The patient was suctioned in oral gastric fashion and was allowed to emerge from general anesthesia having tolerated procedure well and was extubated in the operating suite and transferred to the postoperative recovery area in satisfactory condition.
[2024-10-31 13:10] VITALS: TEMP 97.3
[2024-10-31] MEDS: fentaNYL (PF) 50 MCG/ML 2 ML AMP IVP PRN (13:35)
[2024-10-31] MEDS ORDERED: fentaNYL (PF) 50 MCG/ML 2 ML AMP IVP PRN (13:37)
[2024-10-31 15:00] VITALS: BP 142/73; PULSE 77; RESP 18
== END 2024-10-31 15:06 | disposition home or self-care (01) ==
LOC: OR 09:38
PROVIDERS: ATTEND Otolaryngology
DX: J34.2 Deviated nasal septum (principal); J34.3 Hypertrophy of nasal turbinates; J32.8 Other chronic sinusitis; J33.0 Polyp of nasal cavity; J34.89 Other specified disorders of nose and nasal sinuses; I12.9 Hypertensive chronic kidney disease with stage 1 through stage 4 chronic kidney disease, or unspecified chronic kidney disease; N18.2 Chronic kidney disease, stage 2 (mild); G47.33 Obstructive sleep apnea (adult) (pediatric); E03.9 Hypothyroidism, unspecified; F31.9 Bipolar disorder, unspecified; K21.9 Gastro-esophageal reflux disease without esophagitis; H90.3 Sensorineural hearing loss, bilateral; F17.210 Nicotine dependence, cigarettes, uncomplicated; Z79.890 Hormone replacement therapy; Z79.899 Other long term (current) drug therapy; Z88.5 Allergy status to narcotic agent; Z88.2 Allergy status to sulfonamides; Z88.8 Allergy status to other drugs, medicaments and biological substances
CPT/HCPCS: 31259; 30520; 30140; 31267; 31276; J1100; J0690; J2405; J3010; J1308; 88300; 88305

== ENCOUNTER → 2024-11-15 | Day surgery (SDC) | payer BC, SELFPAY ==
--- NOTE | 2024-11-22 10:57 | MM ---
Reason for Exam: Post Procedure Mammogram. Last screening mammogram was performed less than 1 month ago. Patient History: Menarche at age 13. First Full-Term at age 19. Left ovary removed at age 29. Right ovary removed at age 29. Hysterectomy at age 29. Postmenopausal. Estrogen for 14 years from age 29 until age 43. Excisional Biopsy on the Left side. 04/15/2009, Benign Cyst Aspiration on the left side. 08/07/2007, Benign Cyst Aspiration on the left side. Maternal aunt had breast cancer. Mother had breast cancer, age 75. Risk Values: Jamee 5 year model risk: 3.0%. NCI Lifetime model risk: 14.5%. Prior Study Comparison: 10/10/2023 Bilateral MG 3D screening mammo w/cad, [facility]. 10/18/2024 Bilateral MG screening mammo w CAD, [facility]. 10/25/2024 Right MG 3D work up w/cad RT, [facility]. Tissue Density: Right: The breasts are heterogeneously dense, which may obscure small masses. Pathology Description: Location: 10 o'clock. Marker Left Behind. Needle Type: Celero Cores: 2 Gauge: 12 The procedure of ultrasound guided core biopsy was explained to the patient. Benefits, alternatives, and risks were discussed. An informed consent was then obtained. The patient was placed in supine positioning for imaging and for the procedure. The overlying skin was prepped and draped in usual sterile fashion. Lidocaine buffered with bicarbonate was used as anesthetic into the skin and subcutaneous tissue up to area of concern in the right 10:00 breast. A tresa was made with surgical scalpel. Under ultrasound guidance, a 12-gauge vacuum assisted biopsy gun device was used to obtain 2 core samples. The lesion could no longer be visualized. Following this, a biopsy clip was left in lesion. The patient tolerated the procedure well without any immediate complication. The patient was kept in the radiology department for short stay after the procedure and then discharged home in stable condition. Postprocedure mammogram: The patient was transferred to mammography for physician ordered post procedure mammogram for clip placement verification. Post procedure mammogram demonstrates the clip in appropriate placement. Impression: Successful, uncomplicated ultrasound guided core biopsy of area of concern in the right 10:00 breast, full pathology results to follow. [facility], , 11/15/2024 1:43 PM. Pathology Results: Result: Benign, Fat necrosis. Pathology and radiology were reviewed. Findings are concordant. RIGHT BREAST, NEEDLE CORE BIOPSY: Fat necrosis with fibrosis and mild chronic inflammation. Negative for malignancy. Overall Assessment: Benign Assessment: MG diagnostic mammo RT wo CAD - Right: Benign, BI-RAD 2. Management: Diagnostic Breast Ultrasound of the right breast in 6 months. Electronically signed and approved by: Kiran Landeros M.D. Radiologis
== END ==
LOC: RADUSWWP 11:27
PROVIDERS: ATTEND Surgery
DX: N64.1 Fat necrosis of breast (principal); N60.31 Fibrosclerosis of right breast; R92.8 Other abnormal and inconclusive findings on diagnostic imaging of breast; Z78.0 Asymptomatic menopausal state; Z80.3 Family history of malignant neoplasm of breast; Z90.721 Acquired absence of ovaries, unilateral
CPT/HCPCS: 88305; 77065; 19083; A4648

== ENCOUNTER → 2024-11-29 | Outpatient (CLI) | payer BC, SELFPAY ==
[2024-11-29 08:01] VITALS: BP 122/80; PULSE 79; RESP 16; TEMP 98.1
--- NOTE | 2024-11-29 08:19 | P.GSCN ---
History of Present Illness Consult date: 11/29/24 Reason for Consult: Abnormal mammogram right breast Requesting physician: Avtar Dill History of present illness: Lexus is a 59-year-old female seen in consultation for Dr. Dill regarding an abnormal right breast mammogram. She underwent a bilateral screening mammogram in 10 18 24. This revealed the breast to be heterogeneously dense and a benign appearing round and vascular calcifications were noted bilaterally. There was a benign-appearing dystrophic calcification in the right breast. And a stable small sub-5 mm circumscribed rounded mass anteriorly in the round breast right breast. There was new more prominent focal asymmetry in the anterior depth outer slightly upper aspect right breast for which further workup was recommended. On she underwent a right breast ultrasound. This revealed focal asymmetric symmetry right breast upper outer aspect and ultrasound core biopsy was recommended. An ultrasound core biopsy was performed on 11-15-2024. This was consistent with fat necrosis and fibrosis. This was personally reviewed and felt to be benign concordant. She does not feel any lumps masses or nodules of concern in either breast. This was found on a routine mammogram. She has never had any surgery on her breast. She did have a core biopsy in the past which was benign as well in her left breast. Caffeine: 2 cups of coffee per day as well as soda Nicotine: 1/2 PPD since 17 chocolate: occasional BCP: 10 years in remote past hormones: none Family History: mother: ? brain cancer maternal aunt: breat cancer sister: eye cancer Hormonal History; menarche: 14 , breast fed: no, age at first : 19 menopause: 29 a total hysterectomy, ? why done no cancer Surgical History: PERLITA ear surgery right and left side neck surgery sinus surgery Medical History: septic about two years ago ? source, intubated, temporarly paralysis decreased hearing bipolar renal disease HTN Social History: nicotine: as above alcohol: none drugs: none Review of Systems - Constitutional Denies fever, Denies weight loss - EENT Eyes: denies blurred vision Ears: bilateral: decreased hearing Ears, nose, mouth and throat: Denies dysphagia - Breasts bilateral: as per HPI - Cardiovascular Denies chest pain, Denies shortness of breath - Respiratory Denies cough, Denies 7 - Gastrointestinal Reports as per HPI - Genitourinary Genitourinary: Denies dysuria, Denies hematuria Menstruation: Reports postmenopausal - Musculoskeletal Reports as per HPI - Neurological Denies headaches, Denies syncope - Psychiatric Reports as per HPI - Endocrine Reports as per HPI - Hematologic/Lymphatic Denies easy bleeding, Denies easy bruising - Allergic/Immunologic Reports as per HPI Past Medical History Past Medical History: GERD/Reflux, Hearing Disorder / Deafness, Hypertension, Osteoarthritis (OA), Renal Disease, Sleep Apnea/CPAP/BIPAP, Thyroid Disorder Additional Past Medical History / Comment(s): Low back occasionally. CPAP use. Hx bronchitis, constipation, anemia. 10/10/21 fever/sepsis/pneumonia required intubation and was on vent over a week then trasnferred to [facility], woke up with extreme weakness, had DVT in arm and possibly leg.([facility] discharge summary identifies cervial lymphadenopathy ARDS, septic shock, GAGAN on CKI stage III, elevated BNP and low platelets) patient states she is fine now but still sees kidney Hearing impaired, uses amplifier to assist History of Any Multi-Drug Resistant Organisms: Unobtainable Past Surgical History: Breast Surgery, Section, Ear Surgery, Hysterectomy Additional Past Surgical History / Comment(s): Tubes in left ear, righ ear surgery X2, left breast cyst removed. 10-31-24, nasal surgery Past Anesthesia/Blood Transfusion Reactions: No Reported Reaction Additional Past Anesthesia/Blood Transfusion Reaction / Comm: Spouse thinks patient had blood transfusion when hospitalized 10/09 with no reaction, not quite sure. Past Psychological History: Anxiety, Bipolar, Depression Additional Psychological History / Comment(s): Pt resides with her spouse. She is independent. Smoking Status: Current every day smoker Past Alcohol Use History: None Reported Additional Past Alcohol Use History / Comment(s): Patient is a smoker of < 1/2 since age 16. Past Drug Use History: None Reported - Past Family History Father Family Medical History: Coronary Artery Disease (CAD) Additional Family Medical History / Comment(s): Mother at age 70 from coronary artery disease. Mother Family Medical History: Cancer Additional Family Medical History / Comment(s): Brain cancer. Brother(s) Additional Family Medical History / Comment(s): Unable to obtain brother and sister history. Patient has 2 sons are healthy. Sister(s) Family Medical History: Cancer Additional Family Medical History / Comment(s): Eye cancer. Medications and Allergies Home Medications Medication Instructions Recorded Confirmed Type Levothyroxine Sodium [Synthroid] 100 mcg PO DAILY 12/01/16 11/07/24 History QUEtiapine FUMARATE 200 mg PO HS 12/01/16 11/07/24 History lamoTRIgine [LaMICtal] 200 mg PO HS 10/06/21 11/07/24 History Multivitamins, Thera [Multivitamin 1 tab PO DAILY 12/28/23 11/07/24 History (formulary)] lamoTRIgine [LaMICtal] 150 mg PO DAILY 12/28/23 11/07/24 History Atorvastatin [Lipitor] 40 mg PO HS #90 tablet 10/15/24 11/07/24 Rx amLODIPine [Norvasc] 5 mg PO DAILY #90 tab 10/15/24 11/07/24 Rx Allergies Allergy/AdvReac Type Severity Reaction Status Date / Time chlorpromazine HCl Allergy Unknown Verified 11/07/24 11:01 [From Thorazine] codeine Allergy Unknown Verified 11/07/24 11:01 sulfamethoxazole Allergy Unknown Verified 11/07/24 11:01 [From Septra] trimethoprim [From Septra] Allergy Unknown Verified 11/07/24 11:01 Surgical - Exam - General no distress - Eyes normal ocular movement - ENT decreased hearing - Neck no masses, trachea midline - Respiratory normal respiratory effort, clear to auscultation - Cardiovascular Rhythm: regular Heart Sounds: normal: S1, S2 - Abdomen Abdomen: soft, non tender, no guarding, no rigid, no rebound - Integumentary normal turgor - Neurologic no disoriented, no combative - Musculoskeletal normal gait - Psychiatric oriented to time, oriented to person, oriented to place, speech is normal, memory intact Breast Exam: BRA: 38C Inspection: Bilateral grade 2/3 ptosis Palpation: Right breast: Multi positional exam no dominant masses or nodules of concern Right axilla: Suspicious cyst at the [place] no lesions of concern, no adenopathy Left breast: Multi positional exam no dominant masses or nodules of concern Left axilla: No adenopathy of concern Results Mammogram and ultrasound and pathology results reviewed, mammogram bilateral is from 10 18 24, ultrasound 10 25 24, and biopsy with diagnostic mammogram 11-15-2024. Assessment and Plan Assessment: Impression: Patient with fat necrosis on core biopsy right breast felt to be benign concordant Hypertension Decreased hearing Bipolar Patient was seen in conjunction with her Plan: Repeat right breast mammogram and ultrasound in 6 months with examination at that time Patient to follow-up sooner any questions or concerns CC Dr. Dill
== END ==
LOC: WWCWWP 07:32
PROVIDERS: ATTEND Surgery
DX: N64.1 Fat necrosis of breast (principal); I10 Essential (primary) hypertension; F31.9 Bipolar disorder, unspecified; H91.90 Unspecified hearing loss, unspecified ear; F17.210 Nicotine dependence, cigarettes, uncomplicated; Z88.1 Allergy status to other antibiotic agents; Z88.2 Allergy status to sulfonamides; Z88.5 Allergy status to narcotic agent; Z88.8 Allergy status to other drugs, medicaments and biological substances